=== PATIENT | female | born 1965 | race Caucasian/White ===

== ENCOUNTER → 2017-03-23 | Outpatient (CLI) | payer BC ==
[~2017-03-23] MED LIST: ALPR.25T GT; FLUO10CA19 PO; OMEG-12 PO; VIT D3 PO
--- NOTE | 2017-03-23 19:54 | Diagnostic Imaging Report ---
Digital mammogram bilateral screening with tomosynthesis. This study was compared to the prior exams of 07/16/2015 and 10/02/2013. At this time, there are no current complaints. The current study was also evaluated with a Computer Aided Detection (CAD) system. FINDINGS: There are scattered fibroglandular densities in both breasts which could obscure a lesion. When compared to the prior study, there has been no significant change. There is no primary or secondary sign of malignancy noted. The 3D tomographic views also fail to show any sign of malignancy. IMPRESSION: There is no evidence of malignancy. ACR BI-RADS Category 1: Negative. Result letter will be mailed to the patient. Note: At least 10% of breast cancer is not imaged by mammography. Dictated by: Dictated on workstation # [id number]
== END ==
LOC: RAD 07:32
PROVIDERS: ATTEND Obstetrics & Gynecology
DX: Z12.31 Encounter for screening mammogram for malignant neoplasm of breast (principal)
CPT/HCPCS: 77067

== ENCOUNTER → 2019-10-22 | Outpatient (CLI) | payer BC ==
--- NOTE | 2019-10-22 09:47 | Diagnostic Imaging Report ---
INDICATION: Screening for osteoporosis. COMPARISON: 07/16/2015. FINDINGS: The bone mineral density of the hips and spine was measured. The study was compared to the prior exam of 07/16/2015. The T score for the spine is -0.8. On the prior exam, the T score was -0.2. The total T score for the left hip is -0.2 and for the right hip -0.1. On the prior exam, the total T score for each hip was -0.1. The T score for the right femoral neck is -0.8. On the prior exam, the T score was -0.7. The T score for the left femoral neck is -1.4. This value is unchanged when compared to the prior study. AP Spine L1-L4: [BMD (g/cm2): 1.099] [T-Score: -0.8] [Z-Score: -0.8] [BMD Previous: 1.174] [BMD % Change: -6.4] LT Hip Neck: [BMD (g/cm2): 0.841] [T-Score: -1.4] [Z-Score: -0.9] LT Hip Total: [BMD (g/cm2):0.980] [T-Score:-0.2] [Z-Score: -0.1] [BMD Previous: 1.000] [BMD % Change: -2.0] RT Hip Neck: [BMD (g/cm2):0.920] [T-Score:-0.8] [Z-Score:-0.3] RT Hip Total: [BMD (g/cm2):0.990] [T-score:-0.1] [Z-Score:0.0] [BMD Previous:1.000] [BMD % Change:-1.0] *Indicates significant change from prior examination based on 95% confidence level. World Health Organization criteria for BMD interpretation classify patients as Normal (T-score at or above -1.0), Osteopenic (T-score between -1.0 and -2.5) or Osteoporotic (T-score at or below -2.5). LIMITATIONS AND MODIFICATION: None. FRACTURE RISK (FRAX SCORE): The ten year probability of (%): Major Osteoporotic Fracture: [NA] Hip Fracture: [NA] IMPRESSION: 1. 1. When compared to the prior exam, there has been no significant change. All with T score values remain within normal limits except for the T score for the left femoral neck. This value is still within the range of osteopenia. 2. See below National Osteoporosis Foundation guidelines on when to potentially initiate pharmacologic therapy. Based on the National Osteoporosis Foundation Guidelines, pharmacologic treatment should be initiated in any of the following, unless clinical conditions suggest otherwise: * Any patient with prior fragility fracture of the hip or vertebrae. A spine fracture indicates 5X risk for subsequent spine fracture and 2X risk for subsequent hip fracture. * Osteoporosis (T-score <-2.5). * Postmenopausal women and men age 50 and older with low bone mass/osteopenia (T-score between -1.0 and -2.5) by DXA and 10-year major osteoporotic fracture greater than 20% or a 10-year probability of hip fracture greater than 3%. These fracture risks are supplied above in the FRAX score, if applicable. * Clinician judgement and/or patient preferences may indicate treatment for people with 10-year fracture probabilities above or below these levels. Dictated by: Dictated on workstation # [id number]
--- NOTE | 2019-10-22 13:47 | Diagnostic Imaging Report ---
INDICATION: Routine screening. COMPARISON: 03/23/2017 and 07/16/2015. TECHNIQUE: 2D and 3D bilateral screening mammography was performed with CAD. FINDINGS: Scattered fibroglandular densities are identified bilaterally. An intraparenchymal lymph node in the upper outer right breast is stable. Intraparenchymal lymph nodes in the upper outer left breast are stable. No new mass or malignant appearing microcalcifications are seen. The axillae are unremarkable. IMPRESSION: No mammographic features suspicious for malignancy are identified. ACR BI-RADS Category 2: Benign findings. Result letter will be mailed to the patient. Note: At least 10% of breast cancer is not imaged by mammography. Dictated by: Dictated on workstation # [id number]
== END ==
LOC: RAD 08:52
PROVIDERS: ATTEND Obstetrics & Gynecology
DX: Z12.31 Encounter for screening mammogram for malignant neoplasm of breast (principal); Z13.820 Encounter for screening for osteoporosis; Z78.0 Asymptomatic menopausal state
CPT/HCPCS: 77067; 77080

== ENCOUNTER 2020-03-03 05:30 | Outpatient (RCR) | payer BC ==
[~2020-03-03] VITALS: Ht 167 cm; Wt 86.3 kg
[~2020-03-03 05:30] MED LIST changes: +ATOR10TA66 PO; +FLUT15.845 NS
== END 2020-03-03 14:24 | disposition home or self-care (01) ==
LOC: PREOP 05:30
PROVIDERS: ATTEND Internal Medicine
DX: Z01.812 Encounter for preprocedural laboratory examination (principal); Z20.828 Contact with and (suspected) exposure to other viral communicable diseases; Z88.0 Allergy status to penicillin; Z88.2 Allergy status to sulfonamides; Z12.11 Encounter for screening for malignant neoplasm of colon; Z80.0 Family history of malignant neoplasm of digestive organs
CPT/HCPCS: 87635

== ENCOUNTER 2020-03-06 09:45 | Day surgery (SDC) | payer BC ==
--- NOTE | 2020-02-24 08:28 | HISTORY AND PHYSICAL ---
DATE OF SERVICE: COLONOSCOPY HISTORY AND PHYSICAL HISTORY OF PRESENT ILLNESS PHYSICAL: The patient is a 54-year-old white female referred by Dr. Aguillon for screening colonoscopy. She is deemed to be of higher than average risk as her father was diagnosed with colon cancer at the age of 65, still living at the age of 80. She last accomplished colonoscopy a little over [address] Beatty. His report was reviewed and it was reportedly normal. She does recall waking up with the procedure and having some discomfort and so we will plan on doing this under Diprivan anesthesia. The patient reports history of hyperlipidemia with no known vascular disease. She was recently started on atorvastatin 10 mg three times weekly as she had episode of weakness attributed to previous use of Vytorin. FAMILY HISTORY: Father's history as noted above. Mother is living at age of 77 with history of coronary artery bypass, surgery at the age of 62. 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 PAST SURGICAL HISTORY: She has had a past history of benign breast biopsy and episiotomy repair 30 years ago. She reports no intra-abdominal surgery. REVIEW OF SYSTEMS: CONSTITUTIONAL: She has had no night sweats, chills, fever or change in weight. CARDIOVASCULAR: She denies chest discomfort, orthopnea, PND, pedal edema, dyspnea on exertion or arrhythmia. PULMONARY: She denies cough, wheezing, history of asthma or sputum production. GASTROINTESTINAL: She denies abdominal pain, bowel habit change, reflux symptoms, melena or bright red blood per rectum. PHYSICAL EXAMINATION: GENERAL: Reveals a white female, appears to be in no acute distress. HEENT: Unremarkable. Mallampati 3 pharyngeal configuration. VITAL SIGNS: Weight 191 and blood pressure 110/80. NECK: Revealed no JVD, adenopathy or bruits. CHEST: Clear to auscultation. CARDIOVASCULAR: Revealed a regular rate and rhythm without murmur, S3 or S4. ABDOMEN: Soft, supple without mass, organomegaly or tenderness. EXTREMITIES: Reveal no cyanosis, clubbing or edema. ASSESSMENT AND PLAN: The patient is set up for screening colonoscopy, deemed to be of higher than average risk considering first-degree relative with colon cancer, index case being her father diagnosed at the age of 65. Preop instructions with Suprep kit were given and questions were answered. I thank you for the referral of this pleasant lady. Job ID: [id number] DocumentID: [id number] Dictated Date: 02/19/2020 16:28:46 Head Start Coordinator Date: 02/19/2020 16:52:17 Dictated By: MIGUEL DALTON MD MTDD
[~2020-03-06] VITALS: Ht 167 cm; Wt 86.3 kg
[2020-03-06 08:53] VITALS: BP 110/79
[2020-03-06 09:27] VITALS: BP 102/60
--- NOTE | 2020-03-06 09:31 | Pre-Op Note & Conscious Sedat ---
Pre-Operative Progress Note H&P Reviewed The H&P was reviewed, patient examined and no changes noted. Date H&P Reviewed: Mar 06, 2020 Time H&P Reviewed: 09:00 Conscious Sedation Pre-Proced ASA Score 2 For ASA 3 and 4: Consider anesthesia and medical clearance. Also, for patients with a history of failed moderate sedation consider anesthesia. Airway Lungs Heart ASA score ASA 1: a normal healthy patient ASA 2: a patient with a mild systemic disease (mid diabetes, controlled hypertension, obesity ASA 3: a patient with a severe systemic disease that limits activity (angina, COPD, prior Myocardial infarction) ASA 4: a patient with an incapacitating disease that is a constant threat to life (CHF, renal failure) ASA 5: a moribund patient not expected to survive 24 hrs. (ruptured aneurysm) ASA 6: a declared brain- patient whose organs are being harvested. For emergent operations, add the letter E after the classification Mallampati Classification Grade 3 Sedation Plan Analgesia, Amnesia, Plan communicated to team members, Discussed options with patient/fam, Discussed risks with patient/fam The patient is an appropriate candidate to undergo the planned procedure, sedation, and anesthesia. The patient immediately re-assessed prior to indication. MIGUEL DALTON MD Mar 06, 2020 09:31
[~2020-03-06 09:45] MED LIST changes: +LACTATED RINGERS 1,000 ML IV ONE; +LACTATED RINGERS 1,000 ML IV STA; +LIDOCAINE JELLY 2% 6 ML SYRINGE MM PRN; +LIDOCAINE JELLY 2% 6 ML SYRINGE ONE; +PROPOFOL INJECTION 50 ML IV ONE
[2020-03-06 10:00] VITALS: BP 102/60
[2020-03-06 10:25] VITALS: BP 108/62
[2020-03-06 10:35] VITALS: BP 108/62
--- OUTSIDE RECORDS SUMMARY | 2020-03-06 17:09 | XMS REPORT | CCD ---
Author Author Sofia Aguillon D.O. 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 Name Role Phone PP Unavailable CCM Unavailable Summary Purpose Interface Exchange Insurance Providers Payer name Policy type / Coverage type Covered republican ID Effective Begin Date Effective End Date Blue Cross Blue Shield Blue Cross/Blue Shield [id number] Unknown Family History Family History data not found Social History Social History Element Codes Description Effective Dates Marital status Unknown 03/03/2011 Number of children Unknown 3 03/03/2011 Employment Unknown Currently employed [employer]/USD 250 03/03/[address]: 461615353 Never smoker 03/03/[address]: 876910164 Never drinks alcohol 2010 Allergies, Adverse Reactions, Alerts Substance Reaction Codes Entered Date Inactivated Date Status PENICILLINS Unknown 03/03/2011 No Inactive Date Active * NO KNOWN FOOD ALLERGIES Unknown 03/03/2011 No Inactiv e Date Active SULFA (SULFONAMIDES) Unknown 06/13/2013 No Inactive Aroldo e Active * NO KNOWN ENVIRONMENTAL ALLERGIES Unknown 03/03/2011 N o Inactive Date Active Problems Condition Codes Effective Dates Condition Status Allergic rhinitis due to allergen ICD-9: 477.9 ICD-10: J30.9 02/23/2018 Active Encounter for general adult medical examination withou t abnormal findings ICD-9: V70.0 ICD-10: Z00.00 09/04/2017 Active Mixed hyperlipidemia ICD-9: 272.4 ICD-10: E78.2 09/04/2017 Active Malaise and fatigue ICD-9: 780.79 ICD-10: R53.81 02/04/2020 Active SCREENING-PULMONARY TB ICD-9: V74.1 ICD-10: Z11.1 03/19/2018 Active Impacted cerumen, right ear ICD-9: 380.4 ICD-10: H61.21 02/23/2018 Active ANXIETY STATE NOS ICD-9: 300.00 01/12/2015 Active HYPERLIPIDEMIA NEC/NOS ICD-9: 272.4 01/07/2015 Active MALAISE AND FATIGUE ICD-9: 780.79 01/07/2015 Active ROUTINE MEDICAL EXAM ICD-9: V70.0 01/07/2015 Active ALLERGIC RHINITIS ICD-9: 477.9 05/15/2013 Active Changing mole ICD-9: 216.9 05/15/2013 Active Nasal lesion ICD-9: 478.19 05/15/2013 Active COUGH ICD-9: 786.2 11/07/2012 Active FEBRILE ILLNESS ICD-9: 780.60 11/07/2012 Active SINUSITIS, ACUTE ICD-9: 461.9 11/07/2012 Active INSOMNIA NOS ICD-9: 780.52 12/21/2011 Active Tinnitus ICD-9: 388.30 12/21/2011 Active ACUTE STRESS REACT ICD-9: 308.9 03/03/2011 Active Medications Medication Codes Instructions Start Date Stop Date Status Fill Instructions Flonase Allergy Relief 50 mcg/actuation nasal spray,suspensi on RxNorm: 8318093 2 [place] Nasal every night at bedtime 02/10/2020 02/10/2020 Inactive Flonase Allergy Relief 50 mcg/actuation nasal spray,suspensi on RxNorm: 4806893 2 [place] Nasal every night at bedtime 02/10/2020 02/09/2020 Inactive Flonase Allergy Relief 50 mcg/actuation nasal spray,suspensi on RxNorm: 9623685 2 [place] Nasal every night at bedtime 02/10/2020 02/09/2020 Inactive Alba Allergy 180 mg tablet RxNorm: 793206 1 Tablet(s) Oral QD 05/06/2020 Active Women's Multivitamin 18 mg iron-400 mcg-500 mg tablet RxNorm : 1 Tablet(s) Oral QD 02/06/2020 03/07/2020 Active Lipitor 10 mg tablet RxNorm: 926610 1 Tablet(s) Oral QD M, W, F 09/201905/06/2020 Active Lipitor 10 mg tablet RxNorm: 247541 1 Tablet(s) Oral QD M, W, F 09/201902/05/2020 Inactive Lipitor 10 mg tablet RxNorm: 655671 1 Tablet(s) Oral QD M, W, F 09/201902/05/2020 Inactive Alba Allergy 180 mg tablet RxNorm: 161768 1 Tablet(s) PO QD 02/0505/23/2018 Inactive Medrol (Vick) 4 mg tablets in a dose pack RxNorm: 097220 As directed Tablet(s) PO QD 02/23/2018 02/27/2018 Inactive alprazolam 0.25 mg tablet RxNorm: 415875 TAKE 1/2 TABLE T TWO TIMES A DAY NEEDED FOR SEVERE STRESS 03/27/2015 04/15/2015 Inactive fluoxetine 10 mg tablet RxNorm: 279821 3 Tablet(s) PO QAM 03/27/2015 09/06/2017 Inactive for 1week then 2 po qam alprazolam 0.25 mg tablet RxNorm: 670699 TAKE ONE-HALF TABLET BY MOUTH TWICE A DAY NEEDED FOR SEVERE STRESS 07/24/2014 03/27/2015 Inactive (Response to an electronic controlled substance refill request - RxReferenceNumber: [id number]) fluoxetine 10 mg tablet RxNorm: 801354 3 Tablet(s) PO QAM 05/26/2014 03/27/2015 Inactive for 1week then 2 po qAM [SAVINGS FOR UNI NSURED PATIENTS -- BIN:[id number], PCN: [id number], Group: [id number], ID# [id number], Process claim through [employer], for questions: . THIS IS NOT INSURANCE.] Bactrim DS 800 mg-160 mg tablet RxNorm: 179238 1 Tablet(s) PO BID 1 05/21/2013 Inactive prednisone 20 mg tablet RxNorm: 955056 1 Tablet(s) PO BID 05/15/2013 05/21/2013 Inactive Levaquin 750 mg tablet RxNorm: 616711 1 Tablet(s) PO BID 11/07/2012 0 11/16/2012 Inactive fluoxetine 10 mg tablet RxNorm: 703636 3 Tablet(s) PO QAM 09/18/2012 03/16/2013 Inactive for 1week then 2 po qAM fluoxetine 10 mg tablet RxNorm: 434616 3 Tablet(s) PO QAM 12/21/2011 06/12/2012 Inactive for 1week then 2 po qAM fluoxetine 10 mg Tab RxNorm: 728981 3 Tablet(s) PO QAM 10/20/2011 Inactive for 1week then 2 po qAM Vaniqa 13.9 % Topical Cream RxNorm: 207256 1 Application TOP BID 12/20/2011 Inactive fluoxetine 40 mg Cap RxNorm: 360657 1 Capsule(s) PO QD 09/28/2011 Inactive fluoxetine 10 mg Cap RxNorm: 473651 3 Capsule(s) PO QD 06/21/201107/2012 Inactive fluoxetine 10 mg Tab RxNorm: 453379 3 Tablet(s) PO QD 04/26/201105/07 Inactive Xanax 0.25 mg Tab RxNorm: 043507 1/2 Tablet(s) PO BID 03/03/201103/07 Inactive prn severe stress alprazolam 0.25 mg tablet RxNorm: 987288 1/2 Tablet(s) PO BID as needed for anxiety No Start Date 02/22/2018 Inactive Medrol (Vick) 4 mg tablets in a dose pack RxNorm: 438782 Tablet(s) PO as directed No Start Date 05/14/2013 Inactive Fish Oil 1,000 mg Cap RxNorm: 1 Capsule(s) PO BID No Start Date Inactive fluoxetine 10 mg Cap RxNorm: 864365 2 Capsule(s) PO QD No Start Date 06/20/2011 Inactive fluoxetine 10 mg Cap RxNorm: 313636 3 Capsule(s) PO QD No Start Date 09/27/2011 Inactive alprazolam 0.25 mg Tab RxNorm: 828411 1/2 Tablet(s) PO BID No Start Date 07/24/2014 Inactive as needed fluoxetine 10 mg Tab RxNorm: 953390 1 Tablet(s) PO QAM No Start Date 10/19/2011 Inactive for 1week then 2 po qAM Vaniqa 13.9 % Topical Cream RxNorm: 451667 1 Application TOP BID No Start Date 09/27/2011 Inactive fluoxetine 20 mg capsule RxNorm: 908821 1 Capsule(s) PO QD No Start Date 02/22/2018 Inactive Vitamin D3 1000 units Capsule RxNorm: 1 Capsule(s) PO QD No St art Date 09/06/2017 Inactive Prozac 20 mg capsule RxNorm: 363105 1 Capsule(s) PO QD No Start Date 07/23/2013 Inactive Medication Administered No Medication Administered data Immunizations Vaccine Codes Date Status Shingrix Unknown 01/15/2018 Complete Zostavax CVX: 121 11/16/2017 Results Observation Observation Code Item Item Code Result Date S ervice Location [facility] 55761 Cholesterol 232 mg/dL 02/04/2020 Unkno wn [facility] 50043 Triglyceride 126 mg/dL 02/04/2020 Unkn own [facility] 73585 HDL CHOLESTEROL 48 mg/dL 02/04/2020 U nknown [facility] 49963 Chol/HDL Ratio 4.83 ratio 02/04/2020 U nknown [facility] 41178 NON-HDL Chol 184 mg/dL 02/04/2020 Unkn own [facility] 56061 LDL Cholesterol 159 mg/dL 02/04/2020 U nknown GFR CALC [id number] GFR Non Afr Amr >60 mL/min 02/04/2020 Un known GFR CALC 4996946 GFR Afr Amr >60 mL/min 02/04/2020 Unknow n THYROID STIMULATING HORMONE 17742 TSH 1.616 uIU/mL 02/04/2020 Unknown FREE T4 20111 T4 Free 0.96 ng/dL 02/04/2020 Unknown COMPREHENSIVE METABOLIC 32119 AST 20 U/L 2019 Unknown COMPREHENSIVE METABOLIC 50202 ALT 32 U/L 2019 Unknown COMPREHENSIVE METABOLIC 75355 BUN 16 mg/dL 2019 Unknown COMPREHENS[facility] MET[facility]OLIC 02691 ALBUMIN 4.7 g/dL 2019 Unknown COMPREHENSIVE METABOLIC 64828 CHLORIDE 101 mmol/L 02/03 Unknown COMPREHENSIVE METABOLIC 92110 Bili Total 0.4 mg/dL 02/03 Unknown COMPREHENSIVE METABOLIC 05578 ALK PHOS 63 U/L 2019 Unknown COMPREHENSIVE METABOLIC 49088 SODIUM 138 mmol/L 02/03 Unknown COMPREHENSIVE METABOLIC 33749 CREATININE 0.65 mg/dL 01/07 Unknown COMPREHENSIVE METABOLIC 79335 CALCIUM 9.4 mg/dL 2019 Unknown COMPREHENSIVE METABOLIC 62413 POTASSIUM 4.0 mmol/L 02/03 Unknown COMPREHENSIVE METABOLIC 75562 Total Protein 7.3 g/dL Unknown COMPREHENSIVE METABOLIC 33725 Glucose 100 mg/dL 2019 Unknown COMPREHENSIVE METABOLIC 74213 Bicarbonate 27 mmol/L 01/07 Unknown COMPREHENSIVE METABOLIC 31774 AGAP 10 mmol/L 2019 Unknown COMPLETE BLOOD COUNT [id number] WBC 5.5 10e9/L 02/04/20 20 Unknown COMPLETE BLOOD COUNT [id number] RBC 4.56 10e12/L 2019 Unknown COMPLETE BLOOD COUNT 3455862 HEMOGLOBIN 14.5 g/dL 02/04/20 20 Unknown COMPLETE BLOOD COUNT [id number] HEMATOCRIT 44.1 % 02/04/20 20 Unknown COMPLETE BLOOD COUNT 6476505 MCV 96.7 fL 0 Unknown COMPLETE BLOOD COUNT [id number] MCH 31.8 pg 0 Unknown COMPLETE BLOOD COUNT 7321227 MCHC 32.9 g/dL 0 Unknown COMPLETE BLOOD COUNT 7202062 PLATELET COUNT 232 10e9/L Unknown COMPLETE BLOOD COUNT 9096673 Mean Plt Volume 11.4 fL Unknown COMPLETE BLOOD COUNT 2202302 Neut Auto 55.7 % 0 Unknown COMPLETE BLOOD COUNT [id number] Lymph Auto 31.3 % 02/04/20 20 Unknown COMPLETE BLOOD COUNT 7909618 Rowan Auto 10.0 % 0 Unknown COMPLETE BLOOD COUNT [id number] RDW 13.7 % 0 Unknown COMPLETE BLOOD COUNT 3786429 Eos Auto 2.5 % 0 Unknown COMPLETE BLOOD COUNT 3696213 Baso Auto 0.5 % 0 Unknown COMPLETE BLOOD COUNT 8409471 Neutrophil Abs 3.06 10e9/L Unknown COMPLETE BLOOD COUNT 5268349 Lymphocyte Abs 1.72 10e9/L Unknown COMPLETE BLOOD COUNT [id number] Monocyte Abs 0.55 10e9/L 01/07 Unknown COMPLETE BLOOD COUNT 1186292 Eosinophil Abs 0.14 10e9/L Unknown COMPLETE BLOOD COUNT [id number] RDW-SD 47.5 fL 0 Unknown COMPLETE BLOOD COUNT [id number] Basophil Abs 0.03 10e9/L 01/07 Unknown FREE T4 11525 T4 Free 1.25 ng/dL 09/04/2017 Unknown COMPLETE BLOOD COUNT [id number] WBC 5.9 10e9/L 09/04/19 18 Unknown COMPLETE BLOOD COUNT 4450030 RBC 4.35 10e12/L 2017 Unknown COMPLETE BLOOD COUNT 7639948 HEMOGLOBIN 14.0 g/dL 09/04/19 18 Unknown COMPLETE BLOOD COUNT 2479370 HEMATOCRIT 41.6 % 09/04/19 18 Unknown COMPLETE BLOOD COUNT 9020944 MCV 95.6 fL 8 Unknown COMPLETE BLOOD COUNT 0507267 MCH 32.2 pg 8 Unknown COMPLETE BLOOD COUNT 0262702 MCHC 33.7 g/dL 8 Unknown COMPLETE BLOOD COUNT 2797838 PLATELET COUNT 239 10e9/L Unknown COMPLETE BLOOD COUNT 4364107 Mean Plt Volume 10.8 fL Unknown COMPLETE BLOOD COUNT 8249745 Neut Auto 53.2 % 8 Unknown COMPLETE BLOOD COUNT 8683592 Lymph Auto 35.6 % 09/04/19 18 Unknown COMPLETE BLOOD COUNT 1001207 Rowan Auto 9.6 % 8 Unknown COMPLETE BLOOD COUNT 5202756 RDW 13.2 % 8 Unknown COMPLETE BLOOD COUNT 1729493 Eos Auto 1.4 % 8 Unknown COMPLETE BLOOD COUNT 5299481 Baso Auto 0.2 % 8 Unknown COMPLETE BLOOD COUNT [id number] Neutrophil Abs 3.14 10e9/L Unknown COMPLETE BLOOD COUNT [id number] Lymphocyte Abs 2.10 10e9/L Unknown COMPLETE BLOOD COUNT [id number] Monocyte Abs 0.57 10e9/L 08/08 Unknown COMPLETE BLOOD COUNT 3217912 Eosinophil Abs 0.08 10e9/L Unknown COMPLETE BLOOD COUNT 1443964 RDW-SD 44.7 fL 8 Unknown COMPLETE BLOOD COUNT [id number] Basophil Abs 0.01 10e9/L 08/08 Unknown COMPREHENSIVE METABOLIC 20346 AST 26 U/L 2017 Unknown COMPREHENSIVE METABOLIC 06975 ALT 40 U/L 2017 Unknown COMPREHENSIVE METABOLIC 14388 BUN 6 mg/dL 2017 Unknown COMPREHENSIVE METABOLIC 90728 ALBUMIN 5.3 g/dL 2017 Unknown COMPREHENSIVE METABOLIC 87694 CHLORIDE 102 mmol/L 09/04 Unknown COMPREHENSIVE METABOLIC 98848 Bili Total 0.7 mg/dL 09/04 Unknown COMPREHENSIVE METABOLIC 27695 ALK PHOS 56 U/L 2017 Unknown COMPREHENSIVE METABOLIC 94531 SODIUM 139 mmol/L 09/04 Unknown COMPREHENSIVE METABOLIC 48548 CREATININE 0.61 mg/dL 08/08 Unknown COMPREHENSIVE METABOLIC 36440 CALCIUM 9.8 mg/dL 2017 Unknown COMPREHENSIVE METABOLIC 59765 POTASSIUM 3.8 mmol/L 09/04 Unknown COMPREHENSIVE METABOLIC 79201 Total Protein 7.7 g/dL Unknown COMPREHENSIVE METABOLIC 56416 Glucose 95 mg/dL 2017 Unknown COMPREHENSIVE METABOLIC 01368 Bicarbonate 30 mmol/L 08/08 Unknown COMPREHENSIVE METABOLIC 75465 AGAP 7 mmol/L 2017 Unknown GFR CALC 0582760 GFR Non Afr Amr >60 mL/min 09/04/2017 Un known GFR CALC 5308248 GFR Afr Amr >60 mL/min 09/04/2017 Unknow n THYROID STIMULATING HORMONE 62367 TSH 1.454 uIU/mL 09/04/2017 Unknown [facility] 74630 Cholesterol 218 mg/dL 09/04/2017 Unkno wn [facility] 57894 Triglyceride 135 mg/dL 09/04/2017 Unkn own [facility] 21662 HDL CHOLESTEROL 52 09/04/2017 U nknown [facility] 61920 Chol/HDL Ratio 4.19 ratio 09/04/2017 U nknown [facility] 28263 NON-HDL Chol 166 mg/dL 09/04/2017 Unkn own [facility] 43421 LDL Cholesterol 139 mg/dL 09/04/2017 U nknown FREE T4 25024 FREE T4 1.15 NG/DL 01/07/2015 Unknown THYROID STIMULATING HORMONE 87058 TSH 1.927 uIU/ML 01/07/2015 Unknown [facility] 35303 HDL TEST 53 MG/DL 01/07/2015 Unknown [facility] 53924 TRIG 215 MG/DL 01/07/2015 Unknown [facility] 69517 TEST LDL 194 MG/DL 01/07/2015 Unknown [facility] 07186 CHOL 290 MG/DL 01/07/2015 Unknown [facility] 74895 RCHOL/HDL 5.47 RATIO 01/07/2015 Unknow n [facility] 80262 NON-HDL CH 237 MG/DL 01/07/2015 Unknow n GFR CALC 2829036 GFR AA >60 ML/MIN 01/07/2015 Unknown GFR CALC 3023512 GFR NON-AA >60 ML/MIN 01/07/2015 Unknown COMPLETE BLOOD COUNT 5785844 WBC 5.9 10e9/L 01/08/20 15 Unknown COMPLETE BLOOD COUNT [id number] RBC 4.35 10e12/L 2014 Unknown COMPLETE BLOOD COUNT 8377342 HGB 14.2 g/dL 5 Unknown COMPLETE BLOOD COUNT 3213939 HCT DET 42.0 % 5 Unknown COMPLETE BLOOD COUNT 5652705 MCV 96.6 fL 5 Unknown COMPLETE BLOOD COUNT 7166871 MCH 32.6 pg 5 Unknown COMPLETE BLOOD COUNT 1373896 MCHC 33.8 g/dL 5 Unknown COMPLETE BLOOD COUNT 5662534 PLT 227 10e9/L 01/08/20 15 Unknown COMPLETE BLOOD COUNT 6923350 MPV 11.4 fL 5 Unknown COMPLETE BLOOD COUNT 3656399 PRITI % 54.2 % 5 Unknown COMPLETE BLOOD COUNT 8256072 LY % 33.8 % 5 Unknown COMPLETE BLOOD COUNT 0929820 MON % 8.8 % 5 Unknown COMPLETE BLOOD COUNT 4177802 EOS % 2.9 % 5 Unknown COMPLETE BLOOD COUNT 7684062 BASO % 0.3 % 5 Unknown COMPLETE BLOOD COUNT 2370526 RDW 13.6 % 5 Unknown COMPLETE BLOOD COUNT [id number] ABS PRITI 3.20 10e9/L 015 Unknown COMPLETE BLOOD COUNT 1981376 ABS LYMPH 1.99 10e9/L 015 Unknown COMPLETE BLOOD COUNT 3294891 ABS MONO 0.52 10e9/L 015 Unknown COMPLETE BLOOD COUNT 8296988 ABS EOS 0.17 10e9/L 015 Unknown COMPLETE BLOOD COUNT [id number] ABS BASO 0.02 10e9/L 015 Unknown COMPLETE BLOOD COUNT 2796245 RDW-SD 47.0 fL 5 Unknown COMPREHENSIVE METABOLIC 10788 AST 20 U/L 2014 Unknown COMPREHENSIVE METABOLIC 80602 ALT 30 IU/L 2014 Unknown COMPREHENSIVE METABOLIC 33509 BUN 12 MG/DL 2014 Unknown COMPREHENSIVE METABOLIC 30337 ALBUMIN 4.4 GM/DL 2014 Unknown COMPREHENSIVE METABOLIC 51192 CHLORIDE 102 MMOL/L 01/07 Unknown COMPREHENSIVE METABOLIC 76949 BILI TOT 0.6 MG/DL 2014 Unknown COMPREHENSIVE METABOLIC 58844 ALK PHOS 76 U/L 2014 Unknown COMPREHENSIVE METABOLIC 70712 SODIUM 139 MMOL/L 01/07 Unknown COMPREHENSIVE METABOLIC 33724 CREATININE 0.77 MG/DL 10/2014 Unknown COMPREHENSIVE METABOLIC 29373 CALCIUM 9.2 MG/DL 2014 Unknown COMPREHENSIVE METABOLIC 38262 POTASSIUM 4.1 MMOL/L 01/07 Unknown COMPREHENSIVE METABOLIC 75722 PROT TOT 7.1 GM/DL 2014 Unknown COMPREHENSIVE METABOLIC 62525 Glucose 107 MG/DL 2014 Unknown COMPREHENSIVE METABOLIC 91189 BICARB 30 MMOL/L 2014 Unknown COMPREHENSIVE METABOLIC 12626 ANION GAP 7 MEQ/L 2014 Unknown [facility] 55329 HDL TEST 48 MG/DL 07/22/2013 Unknown [facility] 04120 TRIG 176 MG/DL 07/22/2013 Unknown [facility] 23461 TEST LDL 161 MG/DL 07/22/2013 Unknown [facility] 81421 CHOL 244 MG/DL 07/22/2013 Unknown [facility] 54363 RCHOL/HDL 5.08 RATIO 07/22/2013 Unknow n COMPLETE BLOOD COUNT 8311063 WBC 5.8 10e9/L 07/22/20 13 Unknown COMPLETE BLOOD COUNT [id number] RBC 4.45 10e12/L 2012 Unknown COMPLETE BLOOD COUNT 7882535 HGB 14.6 g/dL 3 Unknown COMPLETE BLOOD COUNT 0317448 HCT DET 43.8 % 3 Unknown COMPLETE BLOOD COUNT 3016838 MCV 98.4 fL 3 Unknown COMPLETE BLOOD COUNT 8822125 MCH 32.8 pg 3 Unknown COMPLETE BLOOD COUNT 1307985 MCHC 33.3 g/dL 3 Unknown COMPLETE BLOOD COUNT 0506476 PLT 270 10e9/L 07/22/20 13 Unknown COMPLETE BLOOD COUNT 6776883 MPV 11.4 fL 3 Unknown COMPLETE BLOOD COUNT 3897017 PRITI % 54.2 % 3 Unknown COMPLETE BLOOD COUNT 6598477 LY % 33.2 % 3 Unknown COMPLETE BLOOD COUNT 2229045 MON % 9.2 % 3 Unknown COMPLETE BLOOD COUNT 5901797 EOS % 3.1 % 3 Unknown COMPLETE BLOOD COUNT 6399618 BASO % 0.3 % 3 Unknown COMPLETE BLOOD COUNT 6608260 RDW 13.8 % 3 Unknown COMPLETE BLOOD COUNT 6869464 ABS PRITI 3.14 10e9/L 013 Unknown COMPLETE BLOOD COUNT 9506252 ABS LYMPH 1.93 10e9/L 013 Unknown COMPLETE BLOOD COUNT [id number] ABS MONO 0.53 10e9/L 013 Unknown COMPLETE BLOOD COUNT [id number] ABS EOS 0.18 10e9/L 013 Unknown COMPLETE BLOOD COUNT 1205749 ABS BASO 0.02 10e9/L 013 Unknown COMPLETE BLOOD COUNT 3144471 RDW-SD 48.4 fL 3 Unknown GFR CALC 2711260 GFR AA >60 ML/MIN 07/22/2013 Unknown GFR CALC 4323694 GFR NON-AA >60 ML/MIN 07/22/2013 Unknown THYROID STIMULATING HORMONE 16279 TSH 1.645 uIU/ML 07/22/2013 Unknown COMPREHENSIVE METABOLIC 12112 AST 23 U/L 2012 Unknown COMPREHENSIVE METABOLIC 96540 ALT 30 IU/L 2012 Unknown COMPREHENSIVE METABOLIC 25913 BUN 12 MG/DL 2012 Unknown COMPREHENSIVE METABOLIC 21845 ALBUMIN 4.7 GM/DL 2012 Unknown COMPREHENSIVE METABOLIC 70817 CHLORIDE 102 MMOL/L 07/22 Unknown COMPREHENSIVE METABOLIC 34514 BILI TOT 0.5 MG/DL 2012 Unknown COMPREHENSIVE METABOLIC 43107 ALK PHOS 51 U/L 2012 Unknown COMPREHENSIVE METABOLIC 39814 SODIUM 136 MMOL/L 07/22 Unknown COMPREHENSIVE METABOLIC 06652 CREATININE 0.74 MG/DL 07/07 Unknown COMPREHENSIVE METABOLIC 42721 CALCIUM 9.2 MG/DL 2012 Unknown COMPREHENSIVE METABOLIC 44515 POTASSIUM 4.1 MMOL/L 07/22 Unknown COMPREHENSIVE METABOLIC 68227 PROT TOT 7.1 GM/DL 2012 Unknown COMPREHENSIVE METABOLIC 12889 Glucose 107 MG/DL 2012 Unknown COMPREHENSIVE METABOLIC 01852 BICARB 29 MMOL/L 2012 Unknown COMPREHENSIVE METABOLIC 25770 ANION GAP 5 MEQ/L 2012 Unknown FREE T4 05069 FREE T4 0.98 NG/DL 07/22/2013 Unknown COMPLETE BLOOD COUNT [id number] WBC 4.4 10e9/L 06/11/20 12 Unknown COMPLETE BLOOD COUNT [id number] RBC 4.18 10e12/L 2011 Unknown COMPLETE BLOOD COUNT 0903393 HGB 13.5 g/dL 2 Unknown COMPLETE BLOOD COUNT 5234514 HCT DET 39.9 % 2 Unknown COMPLETE BLOOD COUNT 5122918 MCV 95.5 fL 2 Unknown COMPLETE BLOOD COUNT 2492199 MCH 32.3 pg 2 Unknown COMPLETE BLOOD COUNT 9308407 MCHC 33.8 g/dL 2 Unknown COMPLETE BLOOD COUNT 1987278 PLT 232 10e9/L 06/11/20 12 Unknown COMPLETE BLOOD COUNT 3926309 MPV 11.3 fL 2 Unknown COMPLETE BLOOD COUNT 2212632 PRITI % 46.4 % 2 Unknown COMPLETE BLOOD COUNT 9158263 LY % 36.4 % 2 Unknown COMPLETE BLOOD COUNT 8844501 MON % 10.5 % 2 Unknown COMPLETE BLOOD COUNT 1839848 EOS % 6.2 % 2 Unknown COMPLETE BLOOD COUNT 0828308 BASO % 0.5 % 2 Unknown COMPLETE BLOOD COUNT 4535350 RDW 13.1 % 2 Unknown COMPLETE BLOOD COUNT 5783450 ABS PRITI 2.04 10e9/L 012 Unknown COMPLETE BLOOD COUNT 7412453 ABS LYMPH 1.60 10e9/L 012 Unknown COMPLETE BLOOD COUNT 4721189 ABS MONO 0.46 10e9/L 012 Unknown COMPLETE BLOOD COUNT [id number] ABS EOS 0.27 10e9/L 012 Unknown COMPLETE BLOOD COUNT 4333186 ABS BASO 0.02 10e9/L 012 Unknown COMPLETE BLOOD COUNT 1789149 RDW-SD 44.2 fL 2 Unknown THYROID STIMULATING HORMONE 94001 TSH 1.766 uIU/ML 06/11/2012 Unknown COMPREHENSIVE METABOLIC 52646 AST 20 U/L 2011 Unknown COMPREHENSIVE METABOLIC 26107 ALT 23 IU/L 2011 Unknown COMPREHENSIVE METABOLIC 88985 BUN 10 MG/DL 2011 Unknown COMPREHENSIVE METABOLIC 21773 ALBUMIN 4.3 GM/DL 2011 Unknown COMPREHENSIVE METABOLIC 23395 CHLORIDE 103 MMOL/L 06/11 Unknown COMPREHENSIVE METABOLIC 98796 BILI TOT 0.4 MG/DL 2011 Unknown COMPREHENSIVE METABOLIC 77467 ALK PHOS 52 U/L 2011 Unknown COMPREHENSIVE METABOLIC 76806 SODIUM 138 MMOL/L 06/11 Unknown COMPREHENSIVE METABOLIC 07651 CREATININE 0.74 MG/DL 12/2011 Unknown COMPREHENSIVE METABOLIC 34763 CALCIUM 8.8 MG/DL 2011 Unknown COMPREHENSIVE METABOLIC 71606 POTASSIUM 3.7 MMOL/L 06/11 Unknown COMPREHENSIVE METABOLIC 58999 PROT TOT 6.9 GM/DL 2011 Unknown COMPREHENSIVE METABOLIC 32877 Glucose 105 MG/DL 2011 Unknown COMPREHENSIVE METABOLIC 58066 BICARB 29 MMOL/L 2011 Unknown COMPREHENSIVE METABOLIC 73070 ANION GAP 6 MEQ/L 2011 Unknown FREE T4 21293 FREE T4 0.93 NG/DL 06/11/2012 Unknown LIPID GROUP 59751 HDL TEST 39 MG/DL 06/11/2012 Unknown LIPID GROUP 71956 TRIG 243 MG/DL 06/11/2012 Unknown LIPID GROUP 26908 TEST LDL 159 MG/DL 06/11/2012 Unknown LIPID GROUP 81417 CHOL 247 MG/DL 06/11/2012 Unknown LIPID GROUP 39105 RCHOL/HDL 6.33 RATIO 06/11/2012 Unknow n GFR CALC 8667264 GFR AA >60 ML/MIN 06/11/2012 Unknown GFR CALC 3212681 GFR NON-AA >60 ML/MIN 06/11/2012 Unknown VITAMIN D TOTAL (25 HYDROXY) 40690 VIT D TOTL 19 NG/ML 03/04/2011 Unknown COMPLETE BLOOD COUNT 28857 WBC 8.0 10e9/L 03/03/20 11 Unknown COMPLETE BLOOD COUNT 39965 RBC 4.62 10e12/L 2010 Unknown COMPLETE BLOOD COUNT 65998 HGB 14.9 g/dL 1 Unknown COMPLETE BLOOD COUNT 64979 HCT DET 43.6 % 1 Unknown COMPLETE BLOOD COUNT 34652 MCV 94.4 fL 1 Unknown COMPLETE BLOOD COUNT 04037 MCH 32.3 pg 1 Unknown COMPLETE BLOOD COUNT 75430 MCHC 34.2 g/dL 1 Unknown COMPLETE BLOOD COUNT 08993 PLT 236 10e9/L 03/03/20 11 Unknown COMPLETE BLOOD COUNT 81201 MPV 11.0 fL 1 Unknown COMPLETE BLOOD COUNT 67542 PRITI % 66.3 % 1 Unknown COMPLETE BLOOD COUNT 00137 LY % 20.7 % 1 Unknown COMPLETE BLOOD COUNT 75723 MON % 9.2 % 1 Unknown COMPLETE BLOOD COUNT 37972 EOS % 3.5 % 1 Unknown COMPLETE BLOOD COUNT 78020 BASO % 0.3 % 1 Unknown COMPLETE BLOOD COUNT 79993 RDW 13.5 % 1 Unknown COMPLETE BLOOD COUNT 76448 ABS PRITI 5.30 10e9/L 011 Unknown COMPLETE BLOOD COUNT 16587 ABS LYMPH 1.66 10e9/L 011 Unknown COMPLETE BLOOD COUNT 62804 ABS MONO 0.74 10e9/L 011 Unknown COMPLETE BLOOD COUNT 69716 ABS EOS 0.28 10e9/L 011 Unknown COMPLETE BLOOD COUNT 48076 ABS BASO 0.02 10e9/L 011 Unknown COMPLETE BLOOD COUNT 97749 RDW-SD 45.1 fL 1 Unknown THYROID STIMULATING HORMONE 39859 TSH 1.944 uIU/ML 03/03/2011 Unknown FREE T4 32811 FREE T4 1.04 NG/DL 03/03/2011 Unknown LIPID GROUP 82963 HDL TEST 50 MG/DL 03/03/2011 Unknown LIPID GROUP 86950 TRIG 246 MG/DL 03/03/2011 Unknown LIPID GROUP 06372 TEST LDL 213 MG/DL 03/03/2011 Unknown LIPID GROUP 51611 CHOL 312 MG/DL 03/03/2011 Unknown LIPID GROUP 93147 RCHOL/HDL 6.24 RATIO 03/03/2011 Unknow n GFR CALC 6648982 GFR AA >60 ML/MIN 03/03/2011 Unknown GFR CALC 5597188 GFR NON-AA >60 ML/MIN 03/03/2011 Unknown COMPREHENSIVE METABOLIC 07221 AST 15 U/L 2010 Unknown COMPREHENSIVE METABOLIC 33091 ALT 21 IU/L 2010 Unknown COMPREHENSIVE METABOLIC 21533 BUN 14 MG/DL 2010 Unknown COMPREHENSIVE METABOLIC 85672 ALBUMIN 4.5 GM/DL 2010 Unknown COMPREHENSIVE METABOLIC 81018 CHLORIDE 99 MMOL/L 2010 Unknown COMPREHENSIVE METABOLIC 22278 BILI TOT 0.6 MG/DL 2010 Unknown COMPREHENSIVE METABOLIC 17053 ALK PHOS 55 U/L 2010 Unknown COMPREHENSIVE METABOLIC 31104 SODIUM 134 MMOL/L 03/03 Unknown COMPREHENSIVE METABOLIC 53713 CREATININE 0.80 MG/DL 02/05 Unknown COMPREHENSIVE METABOLIC 27825 CALCIUM 9.4 MG/DL 2010 Unknown COMPREHENSIVE METABOLIC 54642 POTASSIUM 4.0 MMOL/L 03/03 Unknown COMPREHENSIVE METABOLIC 09185 PROT TOT 7.4 GM/DL 2010 Unknown COMPREHENSIVE METABOLIC 37167 Glucose 101 MG/DL 2010 Unknown COMPREHENSIVE METABOLIC 25172 BICARB 28 MMOL/L 2010 Unknown COMPREHENSIVE METABOLIC 97173 ANION GAP 7 MEQ/L 2010 Unknown Procedures Procedure Codes Date ROUTINE VENIPUNCTURE CPT-4: 01779 02/04/2020 ASSAY OF FREE THYROXINE CPT-4: 21351 02/04/2020 ASSAY THYROID STIM HORMONE CPT-4: 98771 02/04/2020 COMPREHEN METABOLIC PANEL CPT-4: 20331 02/04/2020 COMPLETE CBC W/AUTO DIFF WBC CPT-4: 81796 02/04/2020 LIPID PANEL CPT-4: 84152 02/04/2020 TB INTRADERMAL TEST CPT-4: 58378 03/19/2018 Removal impacted cerumen using irrigation/lavage, unilateral CPT-4: 27743 02/23/2018 ROUTINE VENIPUNCTURE CPT-4: 06650 09/04/2017 ASSAY THYROID STIM HORMONE CPT-4: 55319 09/04/2017 ASSAY OF FREE THYROXINE CPT-4: 69634 09/04/2017 COMPREHEN METABOLIC PANEL CPT-4: 69450 09/04/2017 COMPLETE CBC W/AUTO DIFF WBC CPT-4: 56016 09/04/2017 LIPID PANEL CPT-4: 39813 09/04/2017 ROUTINE VENIPUNCTURE CPT-4: 81027 01/07/2015 ASSAY OF FREE THYROXINE CPT-4: 13352 01/07/2015 ASSAY THYROID STIM HORMONE CPT-4: 15454 01/07/2015 COMPREHEN METABOLIC PANEL CPT-4: 17641 01/07/2015 COMPLETE CBC W/AUTO DIFF WBC CPT-4: 39022 01/07/2015 LIPID PANEL CPT-4: 94286 01/07/2015 EXC TR-EXT B9+CECILIO 0.5 CM< CPT-4: 39921 08/06/2013 ROUTINE VENIPUNCTURE CPT-4: 04711 07/22/2013 ASSAY OF FREE THYROXINE CPT-4: 62647 07/22/2013 ASSAY THYROID STIM HORMONE CPT-4: 14636 07/22/2013 COMPREHEN METABOLIC PANEL CPT-4: 43773 07/22/2013 COMPLETE CBC W/AUTO DIFF WBC CPT-4: 53747 07/22/2013 LIPID PANEL CPT-4: 54596 07/22/2013 INFLUENZA ASSAY W/OPTIC CPT-4: 62424 11/07/2012 ROUTINE VENIPUNCTURE CPT-4: 28047 06/11/2012 ASSAY OF FREE THYROXINE CPT-4: 74199 06/11/2012 ASSAY THYROID STIM HORMONE CPT-4: 95965 06/11/2012 COMPREHEN METABOLIC PANEL CPT-4: 65083 06/11/2012 COMPLETE CBC W/AUTO DIFF WBC CPT-4: 26916 06/11/2012 LIPID PANEL CPT-4: 77590 06/11/2012 ROUTINE VENIPUNCTURE CPT-4: 44873 03/03/2011 ASSAY OF FREE THYROXINE CPT-4: 65513 03/03/2011 ASSAY THYROID STIM HORMONE CPT-4: 96819 03/03/2011 COMPREHEN METABOLIC PANEL CPT-4: 65298 03/03/2011 COMPLETE CBC W/AUTO DIFF WBC CPT-4: 77896 03/03/2011 LIPID PANEL CPT-4: 33591 03/03/2011 VITAMIN D TOTAL (25 HYDROXY) CPT-4: 46397 03/03/2011 Vital Signs Date Vital 02/06/2020 Blood Pressure 1: 124/67 Code: 8480-6 BMI: 26.6 Code: 69337-6 Heart Rate 1: 16 bpm Height: 5'6" Respiratory Rate: 17 bpm SpO2: 99% Tempera ture: 36.8 (C) / 98.2 (F) Weight: 165 lbs 02/23/2018 Blood Pressure 1: 132/84 Code: 8480-6 BMI: 31.6 Code: 29256-0 Heart Rate 1: 76 bpm Height: 5'6" Respiratory Rate: 20 bpm SpO2: 98% Tempera ture: 36.9 (C) / 98.4 (F) Weight: 199 lbs 09/07/2017 Blood Pressure 1: 126/78 Code: 8480-6 BMI: 30.5 Code: 46431-6 Heart Rate 1: 80 bpm Height: 5'6" Respiratory Rate: 20 bpm SpO2: 98% Tempera ture: 37.2 (C) / 98.9 (F) Weight: 192 lbs 01/12/2015 Blood Pressure 1: 132/74 Code: 8480-6 BMI: 29.4 Code: 68910-8 Heart Rate 1: 92 bpm Height: 5'6" Respiratory Rate: 20 bpm Temperature: 36 .7 (C) / 98.1 (F) Weight: 185 lbs 08/06/2013 Blood Pressure 1: 114/80 Code: 8480-6 BMI: 30.7 Code: 79051-6 Heart Rate 1: 80 bpm Height: 5'6" Respiratory Rate: 20 bpm Temperature: 37 .2 (C) / 99.0 (F) Weight: 193 lbs 07/24/2013 Blood Pressure 1: 124/68 Code: 8480-6 BMI: 30.7 Code: 95848-7 Heart Rate 1: 80 bpm Height: 5'6" Respiratory Rate: 20 bpm Temperature: 36 .9 (C) / 98.5 (F) Weight: 193 lbs 06/13/2013 Blood Pressure 1: 124/70 Code: 8480-6 BMI: 31.8 Code: 96049-9 Heart Rate 1: 88 bpm Height: 5'6" Respiratory Rate: 20 bpm Temperature: 36 .8 (C) / 98.2 (F) Weight: 200 lbs 05/15/2013 Blood Pressure 1: 120/80 Code: 8480-6 BMI: 30.8 Code: 69008-0 Heart Rate 1: 82 bpm Height: 5'6" Respiratory Rate: 22 bpm Temperature: 36 .2 (C) / 97.1 (F) Weight: 194 lbs 11/07/2012 Blood Pressure 1: 146/88 Code: 8480-6 BMI: 31.0 Code: 37162-8 Heart Rate 1: 108 bpm Height: 5'7" Respiratory Rate: 20 bpm SpO2: 95% Tempera ture: 38.2 (C) / 100.8 (F) Weight: 198 lbs 09/18/2012 Blood Pressure 1: 114/76 Code: 8480-6 Heart Rate 1: 88 bpm Respiratory Rate: 20 bpm Temperature: 37.1 (C) / 98.8 (F) Weight: 195 lbs 06/13/2012 Blood Pressure 1: 110/64 Code: 8480-6 BMI: 30.4 Code: 88497-5 Heart Rate 1: 64 bpm Height: 5'7" Temperature: 36.9 (C) / 98.4 (F) Weight: 194 lbs 12/21/2011 Blood Pressure 1: 116/80 Code: 8480-6 BMI: 30.7 Code: 82186-2 Heart Rate 1: 72 bpm Height: 5'7" Respiratory Rate: 20 bpm Temperature: 37 .0 (C) / 98.6 (F) Weight: 196 lbs 09/28/2011 Blood Pressure 1: 116/78 Code: 8480-6 BMI: 29.6 Code: 33489-6 Heart Rate 1: 88 bpm Height: 5'7" Respiratory Rate: 20 bpm Temperature: 36 .9 (C) / 98.5 (F) Weight: 189 lbs 04/06/2011 Blood Pressure 1: 132/80 Code: 8480-6 Heart Rate 1: 72 bpm Respiratory Rate: 20 bpm Temperature: 37.2 (C) / 99.0 (F) Weight: 185 lbs 03/03/2011 Blood Pressure 1: 114/80 Code: 8480-6 BMI: 29.6 Code: 34227-5 Heart Rate 1: 80 bpm Height: 5'7" Respiratory Rate: 18 bpm Temperature: 37 .0 (C) / 98.6 (F) Weight: 189 lbs Functional Status No Functional Status data Reason For Visit Reason For Visit Effective Dates Notes well woman exam (40-65 years) 02/06/2020 follow up 03/21/2018 TB Test Reading injection(s) 03/19/2018 TB for School otalgia 02/23/2018 Patient was treated by urgent care with cefdinir to cover for sinus infection. She finished it up about a week ago Annual Checkup 09/07/2017 Last normal mammogra m summer, colonoscopy at age 49 and recommended repeat in 5 years due to family history of colon cancer, never had bone density lab draw 09/04/2017 Annual Checkup 01/12/2015 Wellness Physical lab draw 01/07/2015 mole check 08/06/2013 Annual Checkup 07/24/2013 Wellness Physical lab draw 07/22/2013 mole check 06/13/2013 Re-evaluate mole to right side of nose. Has pending appointment with Dr Low next week for removal skin lesion 05/15/2013 nose myalgias 11/07/2012 anxiety 09/18/2012 Discuss restarting t he fluoxetine ~generic 06/13/2012 4 month follow up lab draw 06/11/2012 follow up 12/21/2011 3mo fwup depression 09/28/2011 follow up 04/06/2011 1mo fwup ~generic 03/03/2011 Establishing Visit Encounters Encounter Performer Location Codes Date ([id number]) PREV VISIT EST AGE 40-64 Diagnosis: Encounter for general adult medical examination without abnormal findings[ICD10: Z00.00] Diagnosis: Mixed hyperlipidemia[ICD10: E78.2] Diagnosis: Allergic rhinitis due to allergen[ICD10: J30.9] Ophelia Bliss [employer] CPT-4: 25529 02/06/2020 ([id number]) NURSE/OUTPATIENT VISIT EST Diagnosis: Encounter for general adult medical examination without abnormal findings[ICD10: Z00.00] Diagnosis: Malaise and fatigue[ICD10: R53.81] Diagnosis: Mixed hyperlipidemia[ICD10: E78.2] Ophelia MCCORD [employer] CPT-4: 50340 02/04/2020 ([id number]) NURSE/OUTPATIENT VISIT EST Diagnosis: SCREENING-PULMONARY TB[ICD10: Z11.1] Ophelia Bliss [employer] CPT-4: 98600 03/19/2018 OFFICE/OUTPATIENT VISIT EST Diagnosis: Allergic rhinitis, unspecified[ICD10: J30.9] Diagnosis: Impacted cerumen, right ear[ICD10: H61.21] Cassandra Bliss [employer] CPT-4: 42883 02/23/2018 ([id number]) PREV VISIT EST AGE 40-64 Diagnosis: Encounter for general adult medical examination without abnormal findings[ICD10: Z00.00] Diagnosis: Mixed hyperlipidemia[ICD10: E78.2] Ophelia MCCORD [employer] CPT-4: 35291 09/07/2017 ([id number]) OFFICE/OUTPATIENT VISIT EST Diagnosis: Encounter for general adult medical examination without abnormal findings[ICD10: Z00.00] Diagnosis: Mixed hyperlipidemia[ICD10: E78.2] Ophelia ORTAJUDY AGUILLON DO [facility] CPT-4: 90650 09/04/2017 ([id number]) PREV VISIT EST AGE 40-64 Diagnosis: ROUTINE MEDICAL EXAM[ICD9: V70.0] Diagnosis: HYPERLIPIDEMIA NEC/NOS[ICD9: 272.4] Diagnosis: ANXIETY STATE NOS[ICD9: 300.00] Ophelia AGUILLON DO [facility] CPT-4: 33671 01/12/2015 ([id number]) OFFICE/OUTPATIENT VISIT EST Diagnosis: ROUTINE MEDICAL EXAM[ICD9: V70.0] Diagnosis: MALAISE AND FATIGUE[ICD9: 780.79] Diagnosis: HYPERLIPIDEMIA NEC/NOS[ICD9: 272.4] Ophelia TRUONG Izaiah AGUILLON [employer] CPT-4: 35969 01/07/2015 ([id number]) PREV VISIT EST AGE 40-64 Diagnosis: ROUTINE MEDICAL EXAM[ICD9: V70.0] Diagnosis: HYPERLIPIDEMIA NEC/NOS[ICD9: 272.4] Diagnosis: ANXIETY STATE NOS[ICD9: 300.00] Ophelia AGUILLON DO [place] CPT-4: 78193 07/24/2013 ([id number]) OFFICE/OUTPATIENT VISIT EST Diagnosis: HYPERLIPIDEMIA NEC/NOS[ICD9: 272.4] Diagnosis: ROUTINE MEDICAL EXAM[ICD9: V70.0] Ophelia ISLAS Darlene AGUILLON [employer] CPT-4: 48369 07/22/2013 ([id number]) OFFICE/OUTPATIENT VISIT EST Diagnosis: BENIGN KACEY SKIN[ICD9: 216.9] Ophelia Aguillon OPHELIA Izaiah AGUILLON DO [place] CPT-4: 04428 06/13/2013 ([id number]) OFFICE/OUTPATIENT VISIT EST Diagnosis: Nasal lesion[ICD9: 478.19] Diagnosis: Changing mole[ICD9: 216.9] Diagnosis: ALLERGIC RHINITIS[ICD9: 477.9] Ophelia Pal AGUILLON DO [facility] CPT-4: 54949 05/15/2013 OFFICE/OUTPATIENT VISIT EST Diagnosis: COUGH[ICD9: 786.2] Diagnosis: FEBRILE ILLNESS[ICD9: 780.60] Diagnosis: SINUSITIS, ACUTE[ICD9: 461.9] Ophelia AGUILLON DO [facility] CPT-4: 03978 11/07/2012 OFFICE/OUTPATIENT VISIT EST Diagnosis: ACUTE STRESS REACT[ICD9: 308.9] Diagnosis: ANXIETY STATE NOS[ICD9: 300.00] Ophelia AGUILLON DO [facility] CPT-4: 75824 09/18/2012 ([id number]) PREV VISIT EST AGE 40-64 Diagnosis: ROUTINE MEDICAL EXAM[ICD9: V70.0] Diagnosis: HYPERLIPIDEMIA NEC/NOS[ICD9: 272.4] Diagnosis: ANXIETY STATE NOS[ICD9: 300.00] Ophelia AGUILLON DO [facility] CPT-4: 89799 06/13/2012 ([id number]) OFFICE/OUTPATIENT VISIT EST Diagnosis: ROUTINE MEDICAL EXAM[ICD9: V70.0] Ophelia AGUILLON DO [facility] CPT-4: 82873 06/11/2012 OFFICE/OUTPATIENT VISIT EST Diagnosis: INSOMNIA NOS[ICD9: 780.52] Diagnosis: ACUTE STRESS REACT[ICD9: 308.9] Diagnosis: Tinnitus[ICD9: 388.30] Diagnosis: HYPERLIPIDEMIA NEC/NOS[ICD9: 272.4] Ophelia Prateekstonemerari WILLIAMSON DIONNE Izaiah AGUILLON DO [facility] CPT-4: 83046 12/21/2011 OFFICE/OUTPATIENT VISIT EST Diagnosis: ACUTE STRESS REACT[ICD9: 308.9] Ophelia AGUILLON DO [facility] CPT-4: 63418 09/28/2011 OFFICE/OUTPATIENT VISIT EST Diagnosis: ACUTE STRESS REACT[ICD9: 308.9] Ophelia AGUILLON DO [facility] CPT-4: 99431 04/06/2011 OFFICE/OUTPATIENT VISIT NEW Ophelia BALDWIN DO [facility] CPT- 4: 67678 03/03/2011 Plan of Care Planned Activity Notes Codes Status Date Visit Diagnosis Plan: Allergic rhinitis due to allerge n Discussion: Using Alba ICD-9 : 477.9 ICD-10 : J30.9 02/06/2020 Visit Diagnosis Plan: Mixed hyperlipidemia Discussion: Lipitor 10mg M, W, F Repeat lipids in 6mos Vitamin D3 2000u daily ICD-9 : 272.4 ICD-10 : E78.2 02/06/2020 Visit Diagnosis Plan: Encounter for [facility] adult medical examination without abnormal findings Discussion: Mediterranean diet Combinati on of cardio and weight bearing exercise Had WWE done recently with DRAPERY HANGER--had Mammo/Bone Density/Lab done Referral for updated colonoscopy ICD-9 : V70.0 ICD-10 : Z00.00 02/06/2020 Appointment: Ophelia Aguillon WPtel: [address] [place], [place] [address] [place] Annual Well Visit 02/06/2020 Patient Education: Lipitor- [employer] Coupon [id number] [email or web address] Completed 02/06/2020 Care Plan: Referral Order SNOMED-CT : [id number] Pending 02/06/2020 Appointment: Ophelia Aguillon WPtel: [address] [place], [place] [phone] [place] LAB 02/04/2020 Appointment: Ophelia Aguillon WPtel: [address] [place], [place] [address] [place] TB Test read 03/21/2018 Patient Education: Patient Medication Summary Completed 03/21/2018 Appointment: Ophelia Aguillon WPtel: [address] [place], [place] [phone] [place] TB Test 03/19/2018 Patient Education: Patient Medication Summary Completed 03/19/2018 Visit Plan: Sofia has already tried antihi stamines, topical steroids, and antibiotics ERx for Medrol Dospak (discussed side effects, risks) and change to Alba Given nasal irrigation kit, taught valsalva maneuver to reduce eustacian tube pressure/fluid Consider using drops of sweet oil weekly to soften ear wax. If no improvement, RTC 02/23/2018 Appointment: Cassandra Camejo WPtel: [address] [place] [address] ACUTE ILLNESS 02/23/2018 Patient Education: Patient Medication Summary Completed 02/23/2018 Visit Diagnosis Plan: Encounter for [facility] adult medical examination without abnormal findings Discussion: Lab discussed Add Calcium wi th Vitamin D3 daily Continue walking and add yoga for weight bearing Praised lower cholesterol efforts Sees DRAPERY HANGER for WWE and Mammogram up to date ICD-9 : V70.0 ICD-10 : Z00.00 09/07/2017 Appointment: Ophelia Aguillon WPtel: [address] [place] [address] Annual Well Visit 09/07/2017 Patient Education: Patient Medication Summary Completed 09/07/2017 Appointment: Ophelia Aguillon WPtel: [address] [place] [address] LAB 09/04/2017 Patient Education: Patient Medication Summary Completed 09/04/2017 Visit Plan: Lab discussed Schedule colon oscopy Keep meds same Defers statin and will add fish oil and aspirin 81mg daily with diet/exercise and recheck lipids in 4mos Sees DRAPERY HANGER next month Discussed is high risk for CAD due to family history and hyperlipidemia 01/12/2015 Appointment: Ophelia Aguillon WPtel: [address] [place], [place] [phone] confirmed -mf Annual Well Visit 01/12/2015 Patient Education: Patient Medication Summary Completed 01/12/2015 Appointment: Ophelia Aguillon WPtel: [address] [place], [place] [phone] [place] LAB 01/07/2015 Patient Education: Patient Medication Summary Completed 01/07/2015 Appointment: Sarah Wong WPtel: [address] [place], [place] [phone] [place] FOLLOW UP 02/26/2014 Appointment: Ophelia Aguillon WPtel: [address] [place], [place] [phone] 01/07 patient canceled FOLLOW UP 4 Visit Plan: Removal of lesion as above 08/06/2013 Appointment: Ophelia Agiullon WPtel: [address] [place] [address] OFFICE SURGERY 08/06/2013 Patient Education: Patient Medication Summary Completed 08/06/2013 Visit Plan: Daily fish oil 3grams, Vitam in D 1000u daily, Coenzyme Q-10 200mg daily Diet/exercise/weight loss Recheck lipids in 6mos Discussed statins Pt has mammo next month 07/24/2013 Appointment: Ophelia Aguillon WPtel: [address] [place], [place] [phone] 07/23 Annual Well Visit 07/24/2013 Patient Education: Patient Medication Summary Completed 07/24/2013 Appointment: Ophelia Aguillon WPtel: [address] [place] [address] LAB 07/22/2013 Patient Education: Patient Medication Summary Completed 07/22/2013 Referral: Ophelia Aguillontel: [address] [place] [address] Referral Initiated 06/17/2013 Visit Plan: Skin So Soft to right nasal area q HS next month then observe If something comes back then will see ENT for removal 06/13/2013 Appointment: Ophelia Aguillon WPtel: [address] [place], [place] [phone] 06/12 FOLLOW UP 06/13/2013 Patient Education: Patient Medication Summary Completed 06/13/2013 Visit Plan: Bactrim DS 1 po BID for 1wk, Prednisone 20mg po BID for 1wk Zyrtec daily If lesion persists will see Dr. Low for removal 05/15/2013 Appointment: Ophelia Aguillon WPtel: [address] [place], [place] [phone] 05/14 ACUTE ILLNESS 05/15/2013 Patient Education: Patient Medication Summary Completed 05/15/2013 Appointment: Ophelia Aguillon WPtel: [address] [place], [place] [address] FOLLOW UP 12/13/2012 Visit Plan: Note for fever free 24 hours . Discussed fluids and rest. Clarified in verbal message that Levaquin should be QD dosing. Codeine/guiaf cough syrup. Flu test negative. Pt. to notify if symptoms worsen or fever persists. Discussed Rocephin IM and or lab/chest x-rays if symptoms persist. 11/07/2012 Appointment: Batsheva Bennett WPtel: [address] [place] [address] ACUTE ILLNESS 11/07/2012 Patient Education: Patient Medication Summary Completed 11/07/2012 Visit Plan: Continue fluoxetine at 30mg daily Stess Reducers 09/18/2012 Appointment: Ophelia Aguillon WPtel: [address] [place] [address] FOLLOW UP 09/18/2012 Patient Education: Patient Medication Summary Completed 09/18/2012 Visit Plan: Increase fish oil to 3gm poonam ly Step 1 Cardiac Diet Repeat CMP and lipids in 6mos Pt has DCed Fluoxetine and so far doing okay Will focus on stress reducers 06/13/2012 Appointment: Ophelia Aguillon WPtel: [address] [place], [place] [phone] FOLLOW UP 06/13/2012 Patient Education: Patient Medication Summary Completed 06/13/2012 Appointment: Ophelia Aguillon WPtel: [address] [place], [place] [phone] [place] LAB 06/11/2012 Patient Education: Patient Medication Summary Completed 06/11/2012 Visit Plan: Decrease fluoxetine back to 30mg daily Check fasting lab in 3mos ENT for tinnitus/hearing loss 12/21/2011 Appointment: Ophelia Aguillon WPtel: [address] [place], [place] [address] FOLLOW UP 12/21/2011 Patient Education: Patient Medication Summary Completed 12/21/2011 Visit Plan: Increase fluoxetine to 40mg daily 09/28/2011 Appointment: Ophelia Aguillon WPtel: [address] [place] [address] FOLLOW UP 09/28/2011 Patient Education: Patient Medication Summary Completed 09/28/2011 Visit Plan: Increase fluoxetine to 30mg daily Call in 2wks 04/06/2011 Appointment: Ophelia Aguillon WPtel: [address] [place] [address] FOLLOW UP 04/06/2011 Patient Education: Patient Medication Summary Completed 04/06/2011 Appointment: Ophelia Aguillon WPtel: [address] [place] [address] NEW PATIENT 03/03/2011 Patient Education: Patient Medication Summary Completed 03/03/2011 Referral: Augustus Velazco WPtel: [address] [place] [address] [place] Referral Appointment Requested Referral: Saurabh Beatty WPtel: [address] [place] [address] [place] Referral Completed Instructions Comment . Sofia has already tried antihistamines, topical steroids, and antibiotics ERx for Medrol Dospak (discussed side effects, risks) and change to Alba Given nasal irrigation kit, taught valsalva maneuver to reduce eustacian tube pressure/fluid Consider using drops of sweet oil weekly to soften ear wax. If no improvement, RTC . Lab discussed Schedule colonoscopy Keep meds same Defers statin and will add fish oil and aspirin 81mg daily with diet/exercise and recheck lipids in 4mos Sees DRAPERY HANGER next month Discussed is high risk for CAD due to family history and hyperlipidemia . Removal of lesion as above . Daily fish oil 3grams, Vitamin D 1000u daily, Coenzyme Q-10 200mg daily Diet/exercise/weight loss Recheck lipids in 6mos Discussed statins Pt has mammo next month . Skin So Soft to right nasal area q HS next month then observe If something comes back then will see ENT for removal . Bactrim DS 1 po BID for 1wk, Prednison e 20mg po BID for 1wk Zyrtec daily If lesion persists will see Dr. Low for removal . Note for fever free 24 hours. Discuss ed fluids and rest. Clarified in verbal message that Levaquin should be QD dosing. Codeine/guiaf cough syrup. Flu test negative. Pt. to notify if symptoms worsen or fever persists. Discussed Rocephin IM and or lab/chest x-rays if symptoms persist. . Continue fluoxetine at 30mg daily Stess Reducers . Increase fish oil to 3gm daily Step 1 Cardiac Diet Repeat CMP and lipids in 6mos Pt has DCed Fluoxetine and so far doing okay Will focus on stress reducers . Decrease fluoxetine back to 30mg daily Check fasting lab in 3mos ENT for tinnitus/hearing loss . Increase fluoxetine to 40mg daily . Increase fluoxetine to 30mg daily Call in 2wks Medical Equipment No Medical Equipment data Health Concerns Section Health Concerns data not found Goals Section Goals data not found Interventions Section Interventions data not found Health Status Evaluations/Outcomes Section Health Status Evaluations/Outcomes data not found Advance Directives No Advance Directive data
--- OUTSIDE RECORDS SUMMARY | 2020-03-06 17:10 | XMS REPORT | CCD ---
Author Author Sofia Aguillon D.O. Organization [facility] Address [address] [place] [address] Phone Care Team Providers Care Garbage Stoker Name Role Phone PP Unavailable CCM Unavailable Summary Purpose Interface Exchange Insurance Providers Payer name Policy type / Coverage type Covered alliance party ID Effective Begin Date Effective End Date Blue Cross Blue Shield Blue Cross/Blue Shield [id number] Unknown Family History Family History data not found Social History Social History Element Codes Description Effective Dates Marital status Unknown 03/03/2011 Number of children Unknown 3 03/03/2011 Employment Unknown Currently employed [employer] 250 03/03/[address]: 756562200 Never smoker 03/03/[address]: 364994443 Never drinks alcohol 2010 Allergies, Adverse Reactions, [...] Relief 50 mcg/actuation nasal spray,suspensi on RxNorm: 6087654 2 Naoma Nasal every night at bedtime 02/10/2020 02/10/2020 Inactive Flonase Allergy Relief 50 mcg/actuation nasal spray,suspensi on RxNorm: 2868562 2 Naoma Nasal every night at bedtime 02/10/2020 02/09/2020 Inactive Alba Allergy 180 mg tablet RxNorm: 804126 1 Tablet(s) Oral QD 05/06/2020 Active Women's Multivitamin 18 mg iron-400 mcg-500 mg tablet RxNorm : 1 Tablet(s) Oral QD 02/06/2020 03/07/2020 Active Lipitor 10 mg tablet RxNorm: 440833 1 Tablet(s) Oral QD M, W, F 09/201905/06/2020 Active Lipitor 10 mg tablet RxNorm: 712144 1 Tablet(s) Oral QD M, W, F 09/201902/05/2020 Inactive Lipitor 10 mg tablet RxNorm: 527606 1 Tablet(s) Oral QD M, W, F 09/201902/05/2020 Inactive Abla Allergy 180 mg tablet RxNorm: 370294 1 Tablet(s) PO QD 02/0505/23/2018 Inactive Medrol (Vick) 4 mg tablets in a dose pack RxNorm: 490206 As directed Tablet(s) PO QD 02/23/2018 02/27/2018 Inactive alprazolam 0.25 mg tablet RxNorm: 642886 TAKE 1/2 TABLE T TWO TIMES A DAY NEEDED FOR SEVERE STRESS 03/27/2015 04/15/2015 Inactive fluoxetine 10 mg tablet RxNorm: 880419 3 Tablet(s) PO QAM 03/27/2015 09/06/2017 Inactive for 1week then 2 po qam alprazolam 0.25 mg tablet RxNorm: 360965 TAKE ONE-HALF TABLET BY MOUTH TWICE A DAY NEEDED FOR SEVERE STRESS 07/24/2014 03/27/2015 Inactive (Response to an electronic controlled substance refill request - RxReferenceNumber: [id number]) fluoxetine 10 mg tablet RxNorm: 844377 3 Tablet(s) PO QAM 05/26/2014 03/27/2015 Inactive for 1week then 2 po qAM [SAVINGS FOR UNI NSURED PATIENTS -- BIN:[id number], PCN: [id number], Group: [id number], ID# [id number], Process claim through [employer], for questions: . THIS IS NOT INSURANCE.] Bactrim DS 800 mg-160 mg tablet RxNorm: 058186 1 Tablet(s) PO BID 1 05/21/2013 Inactive prednisone 20 mg tablet RxNorm: 296936 1 Tablet(s) PO BID 05/15/2013 05/21/2013 Inactive Levaquin 750 mg tablet RxNorm: 020036 1 Tablet(s) PO BID 11/07/2012 0 11/16/2012 Inactive fluoxetine 10 mg tablet RxNorm: 136645 3 Tablet(s) PO QAM 09/18/2012 03/16/2013 Inactive for 1week then 2 po qAM fluoxetine 10 mg tablet RxNorm: 937453 3 Tablet(s) PO QAM 12/21/2011 06/12/2012 Inactive for 1week then 2 po qAM fluoxetine 10 mg Tab RxNorm: 631729 3 Tablet(s) PO QAM 10/20/2011 Inactive for 1week then 2 po qAM Vaniqa 13.9 % Topical Cream RxNorm: 671996 1 Application TOP BID 12/20/2011 Inactive fluoxetine 40 mg Cap RxNorm: 854021 1 Capsule(s) PO QD 09/28/2011 Inactive fluoxetine 10 mg Cap RxNorm: 604167 3 Capsule(s) PO QD 06/21/201107/2012 Inactive fluoxetine 10 mg Tab RxNorm: 386280 3 Tablet(s) PO QD 04/26/201105/07 Inactive Xanax 0.25 mg Tab RxNorm: 420469 1/2 Tablet(s) PO BID 03/03/201103/07 Inactive prn severe stress alprazolam 0.25 mg tablet RxNorm: 564444 1/2 Tablet(s) PO BID as needed for anxiety No Start Date 02/22/2018 Inactive Medrol (Vick) 4 mg tablets in a dose pack RxNorm: 447041 Tablet(s) PO as directed No Start Date 05/14/2013 Inactive Fish Oil 1,000 mg Cap RxNorm: 1 Capsule(s) PO BID No Start Date Inactive fluoxetine 10 mg Cap RxNorm: 097497 2 Capsule(s) PO QD No Start Date 06/20/2011 Inactive fluoxetine 10 mg Cap RxNorm: 360856 3 Capsule(s) PO QD No Start Date 09/27/2011 Inactive alprazolam 0.25 mg Tab RxNorm: 474097 1/2 Tablet(s) PO BID No Start Date 07/24/2014 Inactive as needed fluoxetine 10 mg Tab RxNorm: 357208 1 Tablet(s) PO QAM No Start Date 10/19/2011 Inactive for 1week then 2 po qAM Vaniqa 13.9 % Topical Cream RxNorm: 325754 1 Application TOP BID No Start Date 09/27/2011 Inactive fluoxetine 20 mg capsule RxNorm: 729990 1 Capsule(s) PO QD No Start Date 02/22/2018 Inactive Vitamin D3 1000 units Capsule RxNorm: 1 Capsule(s) PO QD No St art Date 09/06/2017 Inactive Prozac 20 mg capsule RxNorm: 190406 1 Capsule(s) PO QD No Start Date 07/23/2013 Inactive Medication Administered No Medication Administered data Immunizations Vaccine Codes Date Status Shingrix Unknown 01/15/2018 Complete Zostavax CVX: 121 11/16/2017 Results Observation Observation Code Item Item Code Result Date S ervice Location [facility] 28432 Cholesterol 232 mg/dL 02/04/2020 Unkno wn [facility] 12410 Triglyceride 126 mg/dL 02/04/2020 Unkn own [facility] 07031 HDL CHOLESTEROL 48 mg/dL 02/04/2020 U nknown [facility] 56745 Chol/HDL Ratio 4.83 ratio 02/04/2020 U nknown [facility] 15038 NON-HDL Chol 184 mg/dL 02/04/2020 Unkn own [facility] 53804 LDL Cholesterol 159 mg/dL 02/04/2020 U nknown GFR CALC 2581321 GFR Non Afr Amr >60 mL/min 02/04/2020 Un known GFR CALC 0601001 GFR Afr Amr >60 mL/min 02/04/2020 Unknow n THYROID STIMULATING HORMONE 86048 TSH 1.616 uIU/mL 02/04/2020 Unknown FREE T4 02388 T4 Free 0.96 ng/dL 02/04/2020 Unknown COMPREHENSIVE METABOLIC 14781 AST 20 U/L 2019 Unknown COMPREHENSIVE METABOLIC 54319 ALT 32 U/L 2019 Unknown COMPREHENSIVE METABOLIC 74805 BUN 16 mg/dL 2019 Unknown COMPREHENSIVE METABOLIC 88031 ALBUMIN 4.7 g/dL 2019 Unknown COMPREHENSIVE METABOLIC 89695 CHLORIDE 101 mmol/L 02/03 Unknown COMPREHENSIVE METABOLIC 13050 Bili Total 0.4 mg/dL 02/03 Unknown COMPREHENSIVE METABOLIC 00118 ALK PHOS 63 U/L 2019 Unknown COMPREHENSIVE METABOLIC 17109 SODIUM 138 mmol/L 02/03 Unknown COMPREHENSIVE METABOLIC 49407 CREATININE 0.65 mg/dL 01/07 Unknown COMPREHENSIVE METABOLIC 09647 CALCIUM 9.4 mg/dL 2019 Unknown COMPREHENSIVE METABOLIC 81401 POTASSIUM 4.0 mmol/L 02/03 Unknown COMPREHENSIVE METABOLIC 04664 Total Protein 7.3 g/dL Unknown COMPREHENSIVE METABOLIC 33732 Glucose 100 mg/dL 2019 Unknown COMPREHENSIVE METABOLIC 99833 Bicarbonate 27 mmol/L 01/07 Unknown COMPREHENSIVE METABOLIC 54664 AGAP 10 mmol/L 2019 Unknown COMPLETE BLOOD COUNT 8273301 WBC 5.5 10e9/L 02/04/20 20 Unknown COMPLETE BLOOD COUNT 0307563 RBC 4.56 10e12/L 2019 Unknown COMPLETE BLOOD COUNT 3303217 HEMOGLOBIN 14.5 g/dL 02/04/20 20 Unknown COMPLETE BLOOD COUNT 3009073 HEMATOCRIT 44.1 % 02/04/20 20 Unknown COMPLETE BLOOD COUNT 4663548 MCV 96.7 fL 0 Unknown COMPLETE BLOOD COUNT 7023570 MCH 31.8 pg 0 Unknown COMPLETE BLOOD COUNT 3113308 MCHC 32.9 g/dL 0 Unknown COMPLETE BLOOD COUNT 0748378 PLATELET COUNT 232 10e9/L Unknown COMPLETE BLOOD COUNT 1882811 Mean Plt Volume 11.4 fL Unknown COMPLETE BLOOD COUNT 1266113 Neut Auto 55.7 % 0 Unknown COMPLETE BLOOD COUNT 5984318 Lymph Auto 31.3 % 02/04/20 20 Unknown COMPLETE BLOOD COUNT 8442724 Broome Auto 10.0 % 0 Unknown COMPLETE BLOOD COUNT 4758584 RDW 13.7 % 0 Unknown COMPLETE BLOOD COUNT 0162160 Eos Auto 2.5 % 0 Unknown COMPLETE BLOOD COUNT 0836335 Baso Auto 0.5 % 0 Unknown COMPLETE BLOOD COUNT 4784803 Neutrophil Abs 3.06 10e9/L Unknown COMPLETE BLOOD COUNT 6745354 Lymphocyte Abs 1.72 10e9/L Unknown COMPLETE BLOOD COUNT 9287755 Monocyte Abs 0.55 10e9/L 01/07 Unknown COMPLETE BLOOD COUNT 2825072 Eosinophil Abs 0.14 10e9/L Unknown COMPLETE BLOOD COUNT 6935475 RDW-SD 47.5 fL 0 Unknown COMPLETE BLOOD COUNT 7047687 Basophil Abs 0.03 10e9/L 01/07 Unknown FREE T4 08099 T4 Free 1.25 ng/dL 09/04/2017 Unknown COMPLETE BLOOD COUNT 8093500 WBC 5.9 10e9/L 09/04/19 18 Unknown COMPLETE BLOOD COUNT 5823843 RBC 4.35 10e12/L 2017 Unknown COMPLETE BLOOD COUNT 0820289 HEMOGLOBIN 14.0 g/dL 09/04/19 18 Unknown COMPLETE BLOOD COUNT 4117422 HEMATOCRIT 41.6 % 09/04/19 18 Unknown COMPLETE BLOOD COUNT 7828694 MCV 95.6 fL 8 Unknown COMPLETE BLOOD COUNT 4308604 MCH 32.2 pg 8 Unknown COMPLETE BLOOD COUNT 4586304 MCHC 33.7 g/dL 8 Unknown COMPLETE BLOOD COUNT 9591824 PLATELET COUNT 239 10e9/L Unknown COMPLETE BLOOD COUNT 5113972 Mean Plt Volume 10.8 fL Unknown COMPLETE BLOOD COUNT 8030906 Neut Auto 53.2 % 8 Unknown COMPLETE BLOOD COUNT 9043366 Lymph Auto 35.6 % 09/04/19 18 Unknown COMPLETE BLOOD COUNT 1157177 Broome Auto 9.6 % 8 Unknown COMPLETE BLOOD COUNT 2375130 RDW 13.2 % 8 Unknown COMPLETE BLOOD COUNT 3384566 Eos Auto 1.4 % 8 Unknown COMPLETE BLOOD COUNT 5640713 Baso Auto 0.2 % 8 Unknown COMPLETE BLOOD COUNT 5754385 Neutrophil Abs 3.14 10e9/L Unknown COMPLETE BLOOD COUNT 3960894 Lymphocyte Abs 2.10 10e9/L Unknown COMPLETE BLOOD COUNT 4735211 Monocyte Abs 0.57 10e9/L 08/08 Unknown COMPLETE BLOOD COUNT 4774276 Eosinophil Abs 0.08 10e9/L Unknown COMPLETE BLOOD COUNT 4161028 Basophil Abs 0.01 10e9/L 08/08 Unknown COMPLETE BLOOD COUNT 3345816 RDW-SD 44.7 fL 8 Unknown COMPREHENSIVE METABOLIC 76211 AST 26 U/L 2017 Unknown COMPREHENSIVE METABOLIC 46008 ALT 40 U/L 2017 Unknown COMPREHENSIVE METABOLIC 39359 BUN 6 mg/dL 2017 Unknown COMPREHENSIVE METABOLIC 71228 ALBUMIN 5.3 g/dL 2017 Unknown COMPREHENSIVE METABOLIC 69887 CHLORIDE 102 mmol/L 09/04 Unknown COMPREHENSIVE METABOLIC 74589 Bili Total 0.7 mg/dL 09/04 Unknown COMPREHENSIVE METABOLIC 83279 ALK PHOS 56 U/L 2017 Unknown COMPREHENSIVE METABOLIC 75193 SODIUM 139 mmol/L 09/04 Unknown COMPREHENSIVE METABOLIC 96207 CREATININE 0.61 mg/dL 08/08 Unknown COMPREHENSIVE METABOLIC 46662 CALCIUM 9.8 mg/dL 2017 Unknown COMPREHENSIVE METABOLIC 56725 POTASSIUM 3.8 mmol/L 09/04 Unknown COMPREHENSIVE METABOLIC 26493 Total Protein 7.7 g/dL Unknown COMPREHENSIVE METABOLIC 50733 Glucose 95 mg/dL 2017 Unknown COMPREHENSIVE METABOLIC 20142 Bicarbonate 30 mmol/L 08/08 Unknown COMPREHENSIVE METABOLIC 47075 AGAP 7 mmol/L 2017 Unknown GFR CALC 4973227 GFR Non Afr Amr >60 mL/min 09/04/2017 Un known GFR CALC 6139979 GFR Afr Amr >60 mL/min 09/04/2017 Unknow n THYROID STIMULATING HORMONE 65978 TSH 1.454 uIU/mL 09/04/2017 Unknown [facility] 80986 Cholesterol 218 mg/dL 09/04/2017 Unkno wn [facility] 37009 Triglyceride 135 mg/dL 09/04/2017 Unkn own [facility] 96625 HDL CHOLESTEROL 52 09/04/2017 U nknown [facility] 50381 Chol/HDL Ratio 4.19 ratio 09/04/2017 U nknown [facility] 98814 NON-HDL Chol 166 mg/dL 09/04/2017 Unkn own [facility] 21273 LDL Cholesterol 139 mg/dL 09/04/2017 U nknown FREE T4 58436 FREE T4 1.15 NG/DL 01/07/2015 Unknown THYROID STIMULATING HORMONE 65683 TSH 1.927 uIU/ML 01/07/2015 Unknown [facility] 86713 HDL TEST 53 MG/DL 01/07/2015 Unknown [facility] 75951 TRIG 215 MG/DL 01/07/2015 Unknown [facility] 55485 TEST LDL 194 MG/DL 01/07/2015 Unknown [facility] 84151 CHOL 290 MG/DL 01/07/2015 Unknown [facility] 23998 RCHOL/HDL 5.47 RATIO 01/07/2015 Unknow n [facility] 25945 NON-HDL CH 237 MG/DL 01/07/2015 Unknow n GFR CALC 0859166 GFR AA >60 ML/MIN 01/07/2015 Unknown GFR CALC 0071959 GFR NON-AA >60 ML/MIN 01/07/2015 Unknown COMPLETE BLOOD COUNT 0163220 WBC 5.9 10e9/L 01/08/20 15 Unknown COMPLETE BLOOD COUNT 3348755 RBC 4.35 10e12/L 2014 Unknown COMPLETE BLOOD COUNT 7334531 HGB 14.2 g/dL 5 Unknown COMPLETE BLOOD COUNT 5002261 HCT DET 42.0 % 5 Unknown COMPLETE BLOOD COUNT 8255907 MCV 96.6 fL 5 Unknown COMPLETE BLOOD COUNT 0803151 MCH 32.6 pg 5 Unknown COMPLETE BLOOD COUNT 4235725 MCHC 33.8 g/dL 5 Unknown COMPLETE BLOOD COUNT 6380261 PLT 227 10e9/L 01/08/20 15 Unknown COMPLETE BLOOD COUNT 4300399 MPV 11.4 fL 5 Unknown COMPLETE BLOOD COUNT 0398385 PRITI % 54.2 % 5 Unknown COMPLETE BLOOD COUNT 8581301 LY % 33.8 % 5 Unknown COMPLETE BLOOD COUNT 7962200 MON % 8.8 % 5 Unknown COMPLETE BLOOD COUNT 2470817 EOS % 2.9 % 5 Unknown COMPLETE BLOOD COUNT 8254609 BASO % 0.3 % 5 Unknown COMPLETE BLOOD COUNT 6587675 RDW 13.6 % 5 Unknown COMPLETE BLOOD COUNT 4064061 ABS PRITI 3.20 10e9/L 015 Unknown COMPLETE BLOOD COUNT 0386853 ABS LYMPH 1.99 10e9/L 015 Unknown COMPLETE BLOOD COUNT 4200959 ABS MONO 0.52 10e9/L 015 Unknown COMPLETE BLOOD COUNT 6086655 ABS EOS 0.17 10e9/L 015 Unknown COMPLETE BLOOD COUNT 5769698 ABS BASO 0.02 10e9/L 015 Unknown COMPLETE BLOOD COUNT 2190498 RDW-SD 47.0 fL 5 Unknown COMPREHENSIVE METABOLIC 01008 AST 20 U/L 2014 Unknown COMPREHENSIVE METABOLIC 34425 ALT 30 IU/L 2014 Unknown COMPREHENSIVE METABOLIC 52740 BUN 12 MG/DL 2014 Unknown COMPREHENSIVE METABOLIC 81738 ALBUMIN 4.4 GM/DL 2014 Unknown COMPREHENSIVE METABOLIC 54718 CHLORIDE 102 MMOL/L 01/07 Unknown COMPREHENSIVE METABOLIC 92267 BILI TOT 0.6 MG/DL 2014 Unknown COMPREHENSIVE METABOLIC 55757 ALK PHOS 76 U/L 2014 Unknown COMPREHENSIVE METABOLIC 48580 SODIUM 139 MMOL/L 01/07 Unknown COMPREHENSIVE METABOLIC 54871 CREATININE 0.77 MG/DL 10/2014 Unknown COMPREHENSIVE METABOLIC 44315 CALCIUM 9.2 MG/DL 2014 Unknown COMPREHENSIVE METABOLIC 98280 POTASSIUM 4.1 MMOL/L 01/07 Unknown COMPREHENSIVE METABOLIC 88636 PROT TOT 7.1 GM/DL 2014 Unknown COMPREHENSIVE METABOLIC 24156 Glucose 107 MG/DL 2014 Unknown COMPREHENSIVE METABOLIC 26834 BICARB 30 MMOL/L 2014 Unknown COMPREHENSIVE METABOLIC 83394 ANION GAP 7 MEQ/L 2014 Unknown [facility] 31508 HDL TEST 48 MG/DL 07/22/2013 Unknown [facility] 41999 TRIG 176 MG/DL 07/22/2013 Unknown [facility] 26049 TEST LDL 161 MG/DL 07/22/2013 Unknown [facility] 99245 CHOL 244 MG/DL 07/22/2013 Unknown [facility] 84394 RCHOL/HDL 5.08 RATIO 07/22/2013 Unknow n COMPLETE BLOOD COUNT 8018529 WBC 5.8 10e9/L 07/22/20 13 Unknown COMPLETE BLOOD COUNT 0779760 RBC 4.45 10e12/L 2012 Unknown COMPLETE BLOOD COUNT 0403711 HGB 14.6 g/dL 3 Unknown COMPLETE BLOOD COUNT 9528785 HCT DET 43.8 % 3 Unknown COMPLETE BLOOD COUNT 1223374 MCV 98.4 fL 3 Unknown COMPLETE BLOOD COUNT 7486417 MCH 32.8 pg 3 Unknown COMPLETE BLOOD COUNT 1164803 MCHC 33.3 g/dL 3 Unknown COMPLETE BLOOD COUNT 9506942 PLT 270 10e9/L 07/22/20 13 Unknown COMPLETE BLOOD COUNT 6873860 MPV 11.4 fL 3 Unknown COMPLETE BLOOD COUNT 7748392 PRITI % 54.2 % 3 Unknown COMPLETE BLOOD COUNT 7288431 LY % 33.2 % 3 Unknown COMPLETE BLOOD COUNT 7520127 MON % 9.2 % 3 Unknown COMPLETE BLOOD COUNT 7731046 EOS % 3.1 % 3 Unknown COMPLETE BLOOD COUNT 6487902 BASO % 0.3 % 3 Unknown COMPLETE BLOOD COUNT 3429762 RDW 13.8 % 3 Unknown COMPLETE BLOOD COUNT 8147072 ABS PRITI 3.14 10e9/L 013 Unknown COMPLETE BLOOD COUNT 7766051 ABS LYMPH 1.93 10e9/L 013 Unknown COMPLETE BLOOD COUNT [id number] ABS MONO 0.53 10e9/L 013 Unknown COMPLETE BLOOD COUNT 0578538 ABS EOS 0.18 10e9/L 013 Unknown COMPLETE BLOOD COUNT 0424428 ABS BASO 0.02 10e9/L 013 Unknown COMPLETE BLOOD COUNT 1616073 RDW-SD 48.4 fL 3 Unknown GFR CALC 4976053 GFR AA >60 ML/MIN 07/22/2013 Unknown GFR CALC 8752325 GFR NON-AA >60 ML/MIN 07/22/2013 Unknown THYROID STIMULATING HORMONE 30492 TSH 1.645 uIU/ML 07/22/2013 Unknown COMPREHENSIVE METABOLIC 52127 AST 23 U/L 2012 Unknown COMPREHENSIVE METABOLIC 17395 ALT 30 IU/L 2012 Unknown COMPREHENSIVE METABOLIC 75088 BUN 12 MG/DL 2012 Unknown COMPREHENSIVE METABOLIC 91957 ALBUMIN 4.7 GM/DL 2012 Unknown COMPREHENSIVE METABOLIC 01405 CHLORIDE 102 MMOL/L 07/22 Unknown COMPREHENSIVE METABOLIC 18604 BILI TOT 0.5 MG/DL 2012 Unknown COMPREHENSIVE METABOLIC 63142 ALK PHOS 51 U/L 2012 Unknown COMPREHENSIVE METABOLIC 59204 SODIUM 136 MMOL/L 07/22 Unknown COMPREHENSIVE METABOLIC 35541 CREATININE 0.74 MG/DL 07/07 Unknown COMPREHENSIVE METABOLIC 96768 CALCIUM 9.2 MG/DL 2012 Unknown COMPREHENSIVE METABOLIC 80614 POTASSIUM 4.1 MMOL/L 07/22 Unknown COMPREHENSIVE METABOLIC 47148 PROT TOT 7.1 GM/DL 2012 Unknown COMPREHENSIVE METABOLIC 69401 Glucose 107 MG/DL 2012 Unknown COMPREHENSIVE METABOLIC 50655 BICARB 29 MMOL/L 2012 Unknown COMPREHENSIVE METABOLIC 07703 ANION GAP 5 MEQ/L 2012 Unknown FREE T4 29190 FREE T4 0.98 NG/DL 07/22/2013 Unknown COMPLETE BLOOD COUNT 6328761 WBC 4.4 10e9/L 06/11/20 12 Unknown COMPLETE BLOOD COUNT 7486093 RBC 4.18 10e12/L 2011 Unknown COMPLETE BLOOD COUNT 6709232 HGB 13.5 g/dL 2 Unknown COMPLETE BLOOD COUNT 7807787 HCT DET 39.9 % 2 Unknown COMPLETE BLOOD COUNT 8828415 MCV 95.5 fL 2 Unknown COMPLETE BLOOD COUNT 7382413 MCH 32.3 pg 2 Unknown COMPLETE BLOOD COUNT 3303519 MCHC 33.8 g/dL 2 Unknown COMPLETE BLOOD COUNT 5616884 PLT 232 10e9/L 06/11/20 12 Unknown COMPLETE BLOOD COUNT 4518194 MPV 11.3 fL 2 Unknown COMPLETE BLOOD COUNT 9017336 PRITI % 46.4 % 2 Unknown COMPLETE BLOOD COUNT 3420814 LY % 36.4 % 2 Unknown COMPLETE BLOOD COUNT 1015092 MON % 10.5 % 2 Unknown COMPLETE BLOOD COUNT 5144669 EOS % 6.2 % 2 Unknown COMPLETE BLOOD COUNT 1116680 BASO % 0.5 % 2 Unknown COMPLETE BLOOD COUNT 0827640 RDW 13.1 % 2 Unknown COMPLETE BLOOD COUNT 4106625 ABS PRITI 2.04 10e9/L 012 Unknown COMPLETE BLOOD COUNT 6466003 ABS LYMPH 1.60 10e9/L 012 Unknown COMPLETE BLOOD COUNT 0083668 ABS MONO 0.46 10e9/L 012 Unknown COMPLETE BLOOD COUNT 6590438 ABS EOS 0.27 10e9/L 012 Unknown COMPLETE BLOOD COUNT 5997968 ABS BASO 0.02 10e9/L 012 Unknown COMPLETE BLOOD COUNT 7089035 RDW-SD 44.2 fL 2 Unknown THYROID STIMULATING HORMONE 47012 TSH 1.766 uIU/ML 06/11/2012 Unknown COMPREHENSIVE METABOLIC 31347 AST 20 U/L 2011 Unknown COMPREHENSIVE METABOLIC 88998 ALT 23 IU/L 2011 Unknown COMPREHENSIVE METABOLIC 86964 BUN 10 MG/DL 2011 Unknown COMPREHENSIVE METABOLIC 70465 ALBUMIN 4.3 GM/DL 2011 Unknown COMPREHENSIVE METABOLIC 24699 CHLORIDE 103 MMOL/L 06/11 Unknown COMPREHENSIVE METABOLIC 31418 BILI TOT 0.4 MG/DL 2011 Unknown COMPREHENSIVE METABOLIC 12050 ALK PHOS 52 U/L 2011 Unknown COMPREHENSIVE METABOLIC 27181 SODIUM 138 MMOL/L 06/11 Unknown COMPREHENSIVE METABOLIC 90333 CREATININE 0.74 MG/DL 12/2011 Unknown COMPREHENSIVE METABOLIC 29994 CALCIUM 8.8 MG/DL 2011 Unknown COMPREHENSIVE METABOLIC 02570 POTASSIUM 3.7 MMOL/L 06/11 Unknown COMPREHENSIVE METABOLIC 43606 PROT TOT 6.9 GM/DL 2011 Unknown COMPREHENSIVE METABOLIC 13276 Glucose 105 MG/DL 2011 Unknown COMPREHENSIVE METABOLIC 71448 BICARB 29 MMOL/L 2011 Unknown COMPREHENSIVE METABOLIC 97957 ANION GAP 6 MEQ/L 2011 Unknown FREE T4 36042 FREE T4 0.93 NG/DL 06/11/2012 Unknown LIPID GROUP 15407 HDL TEST 39 MG/DL 06/11/2012 Unknown LIP[facility] GROUP 37197 TRIG 243 MG/DL 06/11/2012 Unknown [facility] 08003 TEST LDL 159 MG/DL 06/11/2012 Unknown LIPID GROUP 92908 CHOL 247 MG/DL 06/11/2012 Unknown LIPID GROUP 26417 RCHOL/HDL 6.33 RATIO 06/11/2012 Unknow n GFR CALC 7879158 GFR AA >60 ML/MIN 06/11/2012 Unknown GFR CALC 0673638 GFR NON-AA >60 ML/MIN 06/11/2012 Unknown VITAMIN D TOTAL (25 HYDROXY) 78997 VIT D TOTL 19 NG/ML 03/04/2011 Unknown COMPLETE BLOOD COUNT 34671 WBC 8.0 10e9/L 03/03/20 11 Unknown COMPLETE BLOOD COUNT 63384 RBC 4.62 10e12/L 2010 Unknown COMPLETE BLOOD COUNT 78106 HGB 14.9 g/dL 1 Unknown COMPLETE BLOOD COUNT 12556 HCT DET 43.6 % 1 Unknown COMPLETE BLOOD COUNT 20053 MCV 94.4 fL 1 Unknown COMPLETE BLOOD COUNT 68260 MCH 32.3 pg 1 Unknown COMPLETE BLOOD COUNT 63816 MCHC 34.2 g/dL 1 Unknown COMPLETE BLOOD COUNT 50251 PLT 236 10e9/L 03/03/20 11 Unknown COMPLETE BLOOD COUNT 98525 MPV 11.0 fL 1 Unknown COMPLETE BLOOD COUNT 59747 PRITI % 66.3 % 1 Unknown COMPLETE BLOOD COUNT 41273 LY % 20.7 % 1 Unknown COMPLETE BLOOD COUNT 61127 MON % 9.2 % 1 Unknown COMPLETE BLOOD COUNT 47066 EOS % 3.5 % 1 Unknown COMPLETE BLOOD COUNT 92276 BASO % 0.3 % 1 Unknown COMPLETE BLOOD COUNT 30139 RDW 13.5 % 1 Unknown COMPLETE BLOOD COUNT 52682 ABS PRITI 5.30 10e9/L 011 Unknown COMPLETE BLOOD COUNT 75472 ABS LYMPH 1.66 10e9/L 011 Unknown COMPLETE BLOOD COUNT 26882 ABS MONO 0.74 10e9/L 011 Unknown COMPLETE BLOOD COUNT 13119 ABS EOS 0.28 10e9/L 011 Unknown COMPLETE BLOOD COUNT 25975 ABS BASO 0.02 10e9/L 011 Unknown COMPLETE BLOOD COUNT 61753 RDW-SD 45.1 fL 1 Unknown THYROID STIMULATING HORMONE 97599 TSH 1.944 uIU/ML 03/03/2011 Unknown FREE T4 29425 FREE T4 1.04 NG/DL 03/03/2011 Unknown LIPID GROUP 20623 HDL TEST 50 MG/DL 03/03/2011 Unknown LIP[facility] GROUP 57602 TRIG 246 MG/DL 03/03/2011 Unknown LIPID GROUP 66761 TEST LDL 213 MG/DL 03/03/2011 Unknown LIPID GROUP 75728 CHOL 312 MG/DL 03/03/2011 Unknown LIPID GROUP 46897 RCHOL/HDL 6.24 RATIO 03/03/2011 Unknow n GFR CALC 8019064 GFR AA >60 ML/MIN 03/03/2011 Unknown GFR CALC 1949080 GFR NON-AA >60 ML/MIN 03/03/2011 Unknown COMPREHENSIVE METABOLIC 29668 AST 15 U/L 2010 Unknown COMPREHENSIVE METABOLIC 07482 ALT 21 IU/L 2010 Unknown COMPREHENSIVE METABOLIC 48848 BUN 14 MG/DL 2010 Unknown COMPREHENSIVE METABOLIC 23751 ALBUMIN 4.5 GM/DL 2010 Unknown COMPREHENSIVE METABOLIC 83002 CHLORIDE 99 MMOL/L 2010 Unknown COMPREHENSIVE METABOLIC 68186 BILI TOT 0.6 MG/DL 2010 Unknown COMPREHENSIVE METABOLIC 87265 ALK PHOS 55 U/L 2010 Unknown COMPREHENSIVE METABOLIC 68057 SODIUM 134 MMOL/L 03/03 Unknown COMPREHENSIVE METABOLIC 83000 CREATININE 0.80 MG/DL 02/05 Unknown COMPREHENSIVE METABOLIC 78848 CALCIUM 9.4 MG/DL 2010 Unknown COMPREHENSIVE METABOLIC 44095 POTASSIUM 4.0 MMOL/L 03/03 Unknown COMPREHENSIVE METABOLIC 21224 PROT TOT 7.4 GM/DL 2010 Unknown COMPREHENSIVE METABOLIC 15572 Glucose 101 MG/DL 2010 Unknown COMPREHENSIVE METABOLIC 21951 BICARB 28 MMOL/L 2010 Unknown COMPREHENSIVE METABOLIC 56199 ANION GAP 7 MEQ/L 2010 Unknown Procedures Procedure Codes Date ROUTINE VENIPUNCTURE CPT-4: 13968 02/04/2020 ASSAY OF FREE THYROXINE CPT-4: 94832 02/04/2020 ASSAY THYROID STIM HORMONE CPT-4: 70824 02/04/2020 COMPREHEN METABOLIC PANEL CPT-4: 99263 02/04/2020 COMPLETE CBC W/AUTO DIFF WBC CPT-4: 96171 02/04/2020 LIPID PANEL CPT-4: 44586 02/04/2020 TB INTRADERMAL TEST CPT-4: 36768 03/19/2018 Removal impacted cerumen using irrigation/lavage, unilateral CPT-4: 25135 02/23/2018 ROUTINE VENIPUNCTURE CPT-4: 08337 09/04/2017 ASSAY THYROID STIM HORMONE CPT-4: 66210 09/04/2017 ASSAY OF FREE THYROXINE CPT-4: 16337 09/04/2017 COMPREHEN METABOLIC PANEL CPT-4: 39722 09/04/2017 COMPLETE CBC W/AUTO DIFF WBC CPT-4: 72836 09/04/2017 LIPID PANEL CPT-4: 33708 09/04/2017 ROUTINE VENIPUNCTURE CPT-4: 18435 01/07/2015 ASSAY OF FREE THYROXINE CPT-4: 43357 01/07/2015 ASSAY THYROID STIM HORMONE CPT-4: 95706 01/07/2015 COMPREHEN METABOLIC PANEL CPT-4: 35688 01/07/2015 COMPLETE CBC W/AUTO DIFF WBC CPT-4: 50347 01/07/2015 LIPID PANEL CPT-4: 87118 01/07/2015 EXC TR-EXT B9+CECILIO 0.5 CM< CPT-4: 94612 08/06/2013 ROUTINE VENIPUNCTURE CPT-4: 46728 07/22/2013 ASSAY OF FREE THYROXINE CPT-4: 37388 07/22/2013 ASSAY THYROID STIM HORMONE CPT-4: 98088 07/22/2013 COMPREHEN METABOLIC PANEL CPT-4: 10739 07/22/2013 COMPLETE CBC W/AUTO DIFF WBC CPT-4: 40947 07/22/2013 LIPID PANEL CPT-4: 49194 07/22/2013 INFLUENZA ASSAY W/OPTIC CPT-4: 67443 11/07/2012 ROUTINE VENIPUNCTURE CPT-4: 18833 06/11/2012 ASSAY OF FREE THYROXINE CPT-4: 62837 06/11/2012 ASSAY THYROID STIM HORMONE CPT-4: 70615 06/11/2012 COMPREHEN METABOLIC PANEL CPT-4: 73482 06/11/2012 COMPLETE CBC W/AUTO DIFF WBC CPT-4: 30240 06/11/2012 LIPID PANEL CPT-4: 89205 06/11/2012 ROUTINE VENIPUNCTURE CPT-4: 99640 03/03/2011 ASSAY OF FREE THYROXINE CPT-4: 68812 03/03/2011 ASSAY THYROID STIM HORMONE CPT-4: 09733 03/03/2011 COMPREHEN METABOLIC PANEL CPT-4: 75575 03/03/2011 COMPLETE CBC W/AUTO DIFF WBC CPT-4: 36491 03/03/2011 LIPID PANEL CPT-4: 16774 03/03/2011 VITAMIN D TOTAL (25 HYDROXY) CPT-4: 45160 03/03/2011 Vital Signs Date Vital 02/06/2020 Blood Pressure 1: 124/67 Code: 8480-6 BMI: 26.6 Code: 43618-7 Heart Rate 1: 16 bpm Height: 5'6" Respiratory Rate: 17 bpm SpO2: 99% Tempera ture: 36.8 (C) / 98.2 (F) Weight: 165 lbs 02/23/2018 Blood Pressure 1: 132/84 Code: 8480-6 BMI: 31.6 Code: 17999-5 Heart Rate 1: 76 bpm Height: 5'6" Respiratory Rate: 20 bpm SpO2: 98% Tempera ture: 36.9 (C) / 98.4 (F) Weight: 199 lbs 09/07/2017 Blood Pressure 1: 126/78 Code: 8480-6 BMI: 30.5 Code: 11579-7 Heart Rate 1: 80 bpm Height: 5'6" Respiratory Rate: 20 bpm SpO2: 98% Tempera ture: 37.2 (C) / 98.9 (F) Weight: 192 lbs 01/12/2015 Blood Pressure 1: 132/74 Code: 8480-6 BMI: 29.4 Code: 65124-1 Heart Rate 1: 92 bpm Height: 5'6" Respiratory Rate: 20 bpm Temperature: 36 .7 (C) / 98.1 (F) Weight: 185 lbs 08/06/2013 Blood Pressure 1: 114/80 Code: 8480-6 BMI: 30.7 Code: 02616-7 Heart Rate 1: 80 bpm Height: 5'6" Respiratory Rate: 20 bpm Temperature: 37 .2 (C) / 99.0 (F) Weight: 193 lbs 07/24/2013 Blood Pressure 1: 124/68 Code: 8480-6 BMI: 30.7 Code: 64744-7 Heart Rate 1: 80 bpm Height: 5'6" Respiratory Rate: 20 bpm Temperature: 36 .9 (C) / 98.5 (F) Weight: 193 lbs 06/13/2013 Blood Pressure 1: 124/70 Code: 8480-6 BMI: 31.8 Code: 66064-5 Heart Rate 1: 88 bpm Height: 5'6" Respiratory Rate: 20 bpm Temperature: 36 .8 (C) / 98.2 (F) Weight: 200 lbs 05/15/2013 Blood Pressure 1: 120/80 Code: 8480-6 BMI: 30.8 Code: 39823-9 Heart Rate 1: 82 bpm Height: 5'6" Respiratory Rate: 22 bpm Temperature: 36 .2 (C) / 97.1 (F) Weight: 194 lbs 11/07/2012 Blood Pressure 1: 146/88 Code: 8480-6 BMI: 31.0 Code: 69687-6 Heart Rate 1: 108 bpm Height: 5'7" Respiratory Rate: 20 bpm SpO2: 95% Tempera ture: 38.2 (C) / 100.8 (F) Weight: 198 lbs 09/18/2012 Blood Pressure 1: 114/76 Code: 8480-6 Heart Rate 1: 88 bpm Respiratory Rate: 20 bpm Temperature: 37.1 (C) / 98.8 (F) Weight: 195 lbs 06/13/2012 Blood Pressure 1: 110/64 Code: 8480-6 BMI: 30.4 Code: 33035-1 Heart Rate 1: 64 bpm Height: 5'7" Temperature: 36.9 (C) / 98.4 (F) Weight: 194 lbs 12/21/2011 Blood Pressure 1: 116/80 Code: 8480-6 BMI: 30.7 Code: 41512-1 Heart Rate 1: 72 bpm Height: 5'7" Respiratory Rate: 20 bpm Temperature: 37 .0 (C) / 98.6 (F) Weight: 196 lbs 09/28/2011 Blood Pressure 1: 116/78 Code: 8480-6 BMI: 29.6 Code: 83930-7 Heart Rate 1: 88 bpm Height: 5'7" Respiratory Rate: 20 bpm Temperature: 36 .9 (C) / 98.5 (F) Weight: 189 lbs 04/06/2011 Blood Pressure 1: 132/80 Code: 8480-6 Heart Rate 1: 72 bpm Respiratory Rate: 20 bpm Temperature: 37.2 (C) / 99.0 (F) Weight: 185 lbs 03/03/2011 Blood Pressure 1: 114/80 Code: 8480-6 BMI: 29.6 Code: 37643-4 Heart Rate 1: 80 bpm Height: 5'7" Respiratory Rate: 18 bpm Temperature: 37 .0 (C) / 98.6 (F) Weight: 189 lbs Functional Status No Functional Status data Reason For Visit Reason For Visit Effective Dates Notes well woman exam (40-65 years) 02/06/2020 follow up 03/21/2018 TB Test Reading injection(s) 03/19/2018 [facility] for [facility] 02/23/2018 Patient was treated by urgent care [...] Visit Encounters Encounter Performer Location Codes Date ([id number]) PREV VISIT EST AGE 40-64 Diagnosis: Encounter for general adult medical examination without abnormal findings[ICD10: Z00.00] Diagnosis: Mixed hyperlipidemia[ICD10: E78.2] Diagnosis: Allergic rhinitis due to allergen[ICD10: J30.9] Ophelia GAVIRIA [employer] CPT-4: 79015 02/06/2020 ([id number]) NURSE/OUTPATIENT VISIT EST Diagnosis: Encounter for general adult medical examination without abnormal findings[ICD10: Z00.00] Diagnosis: Malaise and fatigue[ICD10: R53.81] Diagnosis: Mixed hyperlipidemia[ICD10: E78.2] Ophelia MCCORD [employer] CPT-4: 64161 02/04/2020 ([id number]) NURSE/OUTPATIENT VISIT EST Diagnosis: SCREENING-PULMONARY TB[ICD10: Z11.1] Ophelia GALINDO [employer] CPT-4: 20069 03/19/2018 OFFICE/OUTPATIENT VISIT EST Diagnosis: Allergic rhinitis, unspecified[ICD10: J30.9] Diagnosis: Impacted cerumen, right ear[ICD10: H61.21] Cassandra Bliss [employer] CPT-4: 07373 02/23/2018 ([id number]) PREV VISIT EST AGE 40-64 Diagnosis: Encounter for general adult medical examination without abnormal findings[ICD10: Z00.00] Diagnosis: Mixed hyperlipidemia[ICD10: E78.2] Ophelia MCCORD [employer] CPT-4: 88811 09/07/2017 ([id number]) OFFICE/OUTPATIENT VISIT EST Diagnosis: Encounter for general adult medical examination without abnormal findings[ICD10: Z00.00] Diagnosis: Mixed hyperlipidemia[ICD10: E78.2] Ophelia AGUILLON [employer] CPT-4: 26280 09/04/2017 ([id number]) PREV VISIT EST AGE 40-64 Diagnosis: ROUTINE MEDICAL EXAM[ICD9: V70.0] Diagnosis: HYPERLIPIDEMIA NEC/NOS[ICD9: 272.4] Diagnosis: ANXIETY STATE NOS[ICD9: 300.00] Ophelia AGUILLON DO [employer] CPT-4: 25111 01/12/2015 ([id number]) OFFICE/OUTPATIENT VISIT EST Diagnosis: ROUTINE MEDICAL EXAM[ICD9: V70.0] Diagnosis: MALAISE AND FATIGUE[ICD9: 780.79] Diagnosis: HYPERLIPIDEMIA NEC/NOS[ICD9: 272.4] Ophelia AGUILLON [employer] CPT-4: 30362 01/07/2015 ([id number]) PREV VISIT EST AGE 40-64 Diagnosis: ROUTINE MEDICAL EXAM[ICD9: V70.0] Diagnosis: HYPERLIPIDEMIA NEC/NOS[ICD9: 272.4] Diagnosis: ANXIETY STATE NOS[ICD9: 300.00] Ophelia AGUILLON [employer] CPT-4: 13051 07/24/2013 ([id number]) OFFICE/OUTPATIENT VISIT EST Diagnosis: HYPERLIPIDEMIA NEC/NOS[ICD9: 272.4] Diagnosis: ROUTINE MEDICAL EXAM[ICD9: V70.0] Ophelia AGUILLON [employer] CPT-4: 16142 07/22/2013 ([id number]) OFFICE/OUTPATIENT VISIT EST Diagnosis: BENIGN KACEY SKIN[ICD9: 216.9] Ophelia AGUILLON [employer] CPT-4: 32407 06/13/2013 ([id number]) OFFICE/OUTPATIENT VISIT EST Diagnosis: Nasal lesion[ICD9: 478.19] Diagnosis: Changing mole[ICD9: 216.9] Diagnosis: ALLERGIC RHINITIS[ICD9: 477.9] Ophelia AGUILLON [employer] CPT-4: 34595 05/15/2013 OFFICE/OUTPATIENT VISIT EST Diagnosis: COUGH[ICD9: 786.2] Diagnosis: FEBRILE ILLNESS[ICD9: 780.60] Diagnosis: SINUSITIS, ACUTE[ICD9: 461.9] Ophelia ORTALINE Joc[employer]amin ARMANI BEG[employer] CPT-4: 59728 11/07/2012 OFFICE/OUTPATIENT VISIT EST Diagnosis: ACUTE STRESS REACT[ICD9: 308.9] Diagnosis: ANXIETY STATE NOS[ICD9: 300.00] Ophelia ORTALINE JocelynRamin ARMANI BEGUM [facility] CPT-4: 57237 09/18/2012 ([id number]) PREV VISIT EST AGE 40-64 Diagnosis: ROUTINE MEDICAL EXAM[ICD9: V70.0] Diagnosis: HYPERLIPIDEMIA NEC/NOS[ICD9: 272.4] Diagnosis: ANXIETY STATE NOS[ICD9: 300.00] Ophelia Chandrastonemerari ORTAOPHELIA JocelynRamin ARMANI BEGUM [employer] CPT-4: 31166 06/13/2012 ([id number]) OFFICE/OUTPATIENT VISIT EST Diagnosis: ROUTINE MEDICAL EXAM[ICD9: V70.0] Ophelia Prateekdenny Bliss [employer]MANI [employer] CPT-4: 52062 06/11/2012 OFFICE/OUTPATIENT VISIT EST Diagnosis: INSOMNIA NOS[ICD9: 780.52] Diagnosis: ACUTE STRESS REACT[ICD9: 308.9] Diagnosis: Tinnitus[ICD9: 388.30] Diagnosis: HYPERLIPIDEMIA NEC/NOS[ICD9: 272.4] Ophelia Prateekdenny TRUONG [employer]amin [employer] CPT-4: 18655 12/21/2011 OFFICE/OUTPATIENT VISIT EST Diagnosis: ACUTE STRESS REACT[ICD9: 308.9] Ophelia Prateekdenny GAVIRIA [employer]MANI BEGUM [employer] CPT-4: 53570 09/28/2011 OFFICE/OUTPATIENT VISIT EST Diagnosis: ACUTE STRESS REACT[ICD9: 308.9] Ophelia Prateekdenny GAVIRIA [employer]amin [employer]MAN[employer] BEGUM [employer] CPT-4: 24914 04/06/2011 OFFICE/OUTPATIENT VISIT NEW Ophelia Prateekstonemerari HANKSOPHELIA JocelynRamin PRATEEK DENNY [employer] CPT- 4: 38299 03/03/2011 Plan of Care Planned Activity Notes Codes Status Date Visit Diagnosis Plan: Mixed hyperlipidemia Discussion: Lipitor 10mg M, W, F Repeat lipids in 6mos Vitamin D3 2000u daily ICD-9 : 272.4 ICD-10 : E78.2 02/06/2020 Visit Diagnosis Plan: Encounter for gene [facility] adult medical examination without abnormal findings Discussion: Mediterranean diet Combinati on of cardio and weight bearing exercise Had WWE done recently with [employer] SU[employer]OR--had Mammo/Bone Density/Lab done Referral for updated colonoscopy ICD-9 : V70.0 ICD-10 : Z00.00 02/06/2020 Visit Diagnosis Plan: Allergic rhinitis due to allerge n Discussion: Using [place] ICD-9 : 477.9 ICD-10 : J30.9 02/06/2020 Appointment: Ophelia Aguillon WPtel: [phone] [facility] [place] Annual Well Visit 02/06/2020 Patient Education: Lipitor- [employer] Coupon [id number] [email or web address] Completed 02/06/2020 Care Plan: Referral Order SNOMED-CT : [id number] Pending 02/06/2020 Appointment: Ophelia Aguillon WPtel: [phone] [facility] [place] LAB 02/04/2020 Appointment: Ophelia Aguillon WPtel: [phone] [facility] [place] TB Test read 03/21/2018 Patient Education: Patient Medication Summary Completed 03/21/2018 Appointment: Ophelia Aguillon WPtel: [phone] [facility] [place] TB Test 03/19/2018 Patient Education: Patient [...] improvement, RTC 02/23/2018 Appointment: Cassandra Camejo WPtel: [address] [place], [place] [phone] ACUTE ILLNESS 02/23/2018 Patient Education: Patient Medication Summary Completed 02/23/2018 Visit Diagnosis Plan: Encounter for gene [facility] adult medical examination without abnormal findings Discussion: Lab discussed Add Calcium wi th Vitamin D3 daily Continue walking and add yoga for weight bearing Praised lower cholesterol efforts 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[employer] 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 up to date ICD-9 : V70.0 ICD-10 : Z00.00 09/07/2017 Appointment: Ophelia Aguillon WPtel: [address] [place], [place] [phone] Annual Well Visit 09/07/2017 Patient Education: Patient Medication Summary Completed 09/07/2017 Appointment: Ophelia Aguillon WPtel: [address] [place], [place] [phone] [place] LAB 09/04/2017 Patient Education: Patient Medication Summary Completed 09/04/2017 Visit Plan: Lab discussed Schedule colon oscopy Keep meds same Defers statin and will add fish oil and aspirin 81mg daily with diet/exercise and recheck lipids in 4mos Sees [employer] next month Discussed is high risk for CAD due to family history and hyperlipidemia 01/12/2015 Appointment: Ophelia Aguillon WPtel: [address] [place], [place] [phone] [place] confirmed -mf Annual Well Visit 01/12/2015 Patient Education: Patient Medication Summary Completed 01/12/2015 Appointment: Ophelia Aguillon WPtel: [address] [place], [place] [phone] [place] LAB 01/07/2015 Patient Education: Patient Medication Summary Completed 01/07/2015 Appointment: Sarah Wong WPtel: [address] [place], [place] [phone] [place] FOLLOW UP 02/26/2014 Appointment: Ophelia Aguillon WPtel: [address] [place], [place] [phone] [place] 01/07 patient canceled FOLLOW UP 4 Visit Plan: Removal of lesion as above 08/06/2013 Appointment: Ophelia Aguillontel: [address] [place], [place] [phone] OFFICE SURGERY 08/06/2013 Patient Education: Patient Medication Summary Completed 08/06/2013 Visit Plan: Daily fish oil 3grams, Vitam in D 1000u daily, Coenzyme Q-10 200mg daily Diet/exercise/weight loss Recheck lipids in 6mos Discussed statins Pt has mammo next month 07/24/2013 Appointment: Ophelia Aguillon WPtel: [address] [place], [place] [phone] 07/23 Annual Well Visit 07/24/2013 Patient Education: Patient Medication Summary Completed 07/24/2013 Appointment: Ophelia Aguillontel: [address] [place] [address] LAB 07/22/2013 Patient Education: Patient Medication Summary Completed 07/22/2013 Referral: Ophelia Aguillontel: [address] [place] [address] Referral Initiated 06/17/2013 Visit Plan: Skin So Soft to right nasal area q HS next month then observe If something comes back then will see ENT for removal 06/13/2013 Appointment: Ophelia Aguillontel: [address] [place], [place] [phone] 06/12 FOLLOW UP 06/13/2013 Patient Education: Patient Medication Summary Completed 06/13/2013 Visit Plan: Bactrim DS 1 po BID for 1wk, Prednisone 20mg po BID for 1wk Zyrtec daily If lesion persists will see Dr. Low for removal 05/15/2013 Appointment: Ophelia Aguillontel: [address] [place], [place] [phone] 05/14 ACUTE ILLNESS 05/15/2013 Patient Education: Patient Medication Summary Completed 05/15/2013 Appointment: Ophelia Aguillon WPtel: [address] [place] [address] FOLLOW UP 12/13/2012 Visit Plan: Note for fever free 24 hours . Discussed fluids and rest. Clarified in verbal message that Levaquin should be QD dosing. Codeine/guiaf cough syrup. Flu test negative. Pt. to notify if symptoms worsen or fever persists. Discussed Rocephin IM and or lab/chest x-rays if symptoms persist. 11/07/2012 Appointment: Batsheva Bennett WPtel: [address] [place] [address] ACUTE ILLNESS 11/07/2012 Patient Education: Patient Medication Summary Completed 11/07/2012 Visit Plan: Continue fluoxetine at 30mg daily Stess Reducers 09/18/2012 Appointment: Ophelia Aguillon WPtel: [address] [place] [address] FOLLOW UP 09/18/2012 Patient Education: Patient Medication Summary Completed 09/18/2012 Visit Plan: Increase fish oil to 3gm poonam ly Step 1 Cardiac Diet Repeat CMP and lipids in 6mos Pt has DCed Fluoxetine and so far doing okay Will focus on stress reducers 06/13/2012 Appointment: Ophelia Aguillon WPtel: [address] [place] [address] FOLLOW UP 06/13/2012 Patient Education: Patient Medication Summary Completed 06/13/2012 Appointment: Ophelia Aguillon WPtel: [address] [place] [address] LAB 06/11/2012 Patient Education: Patient Medication Summary Completed 06/11/2012 Visit Plan: Decrease fluoxetine back to 30mg daily Check fasting lab in 3mos ENT for tinnitus/hearing loss 12/21/2011 Appointment: Ophelia Aguillon WPtel: [address] [place] [address] FOLLOW UP 12/21/2011 Patient Education: Patient Medication Summary Completed 12/21/2011 Visit Plan: Increase fluoxetine to 40mg daily 09/28/2011 Appointment: Ophelia Aguillon WPtel: [phone] [facility] [place] FOLLOW UP 09/28/2011 Patient Education: Patient Medication Summary Completed 09/28/2011 Visit Plan: Increase fluoxetine to 30mg daily Call in 2wks 04/06/2011 Appointment: Ophelia Aguillon WPtel: [phone] [facility] FOLLOW UP 04/06/2011 Patient Education: Patient Medication Summary Completed 04/06/2011 Appointment: Ophelia Aguillon WPtel: [phone] [facility] [place] NEW PATIENT 03/03/2011 Patient Education: Patient Medication Summary Completed 03/03/2011 Referral: Augustus Velazco WPtel: [phone] [id number] [place] Referral Appointment Requested Referral: Saurabh Beatty WPtel: [address] [id number] [place] Referral Completed Instructions Comment . 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
--- OUTSIDE RECORDS SUMMARY | 2020-03-06 17:10 | XMS REPORT | CCD ---
Author Author Sofia Aguillon D.O. Organization [facility] Address [address] [place] [address] Phone Care Team Providers Care Cotton Program Technician Name Role Phone PP Unavailable CCM Unavailable Summary Purpose Interface Exchange Insurance Providers Payer name Policy type / Coverage type Covered republican ID Effective Begin Date Effective End Date Blue Cross Blue Shield Blue Cross/Blue Shield [id number] Unknown Family History Family History data not found Social History Social History Element Codes Description Effective Dates Marital status Unknown 03/03/2011 Number of children Unknown 3 03/03/2011 Employment Unknown Currently employed [employer] 250 03/03/[address]: 097312550 Never smoker 03/03/[address]: 863509715 Never drinks alcohol 2010 Allergies, Adverse Reactions, [...] Start Date Stop Date Status Fill Instructions Alba Allergy 180 mg tablet RxNorm: 407403 1 Tablet(s) Oral QD 05/06/2020 Active Lipitor 10 mg tablet RxNorm: 839238 1 Tablet(s) Oral QD M, W, F 09/201908/04/2020 Active Women's Multivitamin 18 mg iron-400 mcg-500 mg tablet RxNorm : 1 Tablet(s) Oral QD 02/06/2020 03/07/2020 Active Alba Allergy 180 mg tablet RxNorm: 641139 1 Tablet(s) PO QD 02/0505/23/2018 Inactive Medrol (Vick) 4 mg tablets in a dose pack RxNorm: 262228 As directed Tablet(s) PO QD 02/23/2018 02/27/2018 Inactive alprazolam 0.25 mg tablet RxNorm: 018157 TAKE 1/2 TABLE T TWO TIMES A DAY NEEDED FOR SEVERE STRESS 03/27/2015 04/15/2015 Inactive fluoxetine 10 mg tablet RxNorm: 578870 3 Tablet(s) PO QAM 03/27/2015 09/06/2017 Inactive for 1week then 2 po qam alprazolam 0.25 mg tablet RxNorm: 462716 TAKE ONE-HALF TABLET BY MOUTH TWICE A DAY NEEDED FOR SEVERE STRESS 07/24/2014 03/27/2015 Inactive ([id number] fluoxetine 10 mg tablet RxNorm: 083635 3 Tablet(s) PO QAM 05/26/2014 03/27/2015 Inactive for 1week then 2 po qAM [SAVINGS FOR UNI NSURED PATIENTS -- BIN:[id number], PCN: [id number], Group: [id number], ID# [id number], Process claim through [employer], for questions: . THIS IS NOT INSURANCE.] Bactrim DS 800 mg-160 mg tablet RxNorm: 901762 1 Tablet(s) PO BID 1 05/21/2013 Inactive prednisone 20 mg tablet RxNorm: 945075 1 Tablet(s) PO BID 05/15/2013 05/21/2013 Inactive Levaquin 750 mg tablet RxNorm: 429280 1 Tablet(s) PO BID 11/07/2012 0 11/16/2012 Inactive fluoxetine 10 mg tablet RxNorm: 295254 3 Tablet(s) PO QAM 09/18/2012 03/16/2013 Inactive for 1week then 2 po qAM fluoxetine 10 mg tablet RxNorm: 010596 3 Tablet(s) PO QAM 12/21/2011 06/12/2012 Inactive for 1week then 2 po qAM fluoxetine 10 mg Tab RxNorm: 565121 3 Tablet(s) PO QAM 10/20/2011 Inactive for 1week then 2 po qAM Vaniqa 13.9 % Topical Cream RxNorm: 484072 1 Application TOP BID 12/20/2011 Inactive fluoxetine 40 mg Cap RxNorm: 639033 1 Capsule(s) PO QD 09/28/2011 Inactive fluoxetine 10 mg Cap RxNorm: 458958 3 Capsule(s) PO QD 06/21/201107/2012 Inactive fluoxetine 10 mg Tab RxNorm: 762538 3 Tablet(s) PO QD 04/26/201105/07 Inactive Xanax 0.25 mg Tab RxNorm: 037145 1/2 Tablet(s) PO BID 03/03/201103/07 Inactive prn severe stress alprazolam 0.25 mg tablet RxNorm: 524173 1/2 Tablet(s) PO BID as needed for anxiety No Start Date 02/22/2018 Inactive Medrol (Vick) 4 mg tablets in a dose pack RxNorm: 201891 Tablet(s) PO as directed No Start Date 05/14/2013 Inactive Fish Oil 1,000 mg Cap RxNorm: 1 Capsule(s) PO BID No Start Date Inactive fluoxetine 10 mg Cap RxNorm: 634533 2 Capsule(s) PO QD No Start Date 06/20/2011 Inactive fluoxetine 10 mg Cap RxNorm: 001613 3 Capsule(s) PO QD No Start Date 09/27/2011 Inactive alprazolam 0.25 mg Tab RxNorm: 372604 1/2 Tablet(s) PO BID No Start Date 07/24/2014 Inactive as needed fluoxetine 10 mg Tab RxNorm: 469915 1 Tablet(s) PO QAM No Start Date 10/19/2011 Inactive for 1week then 2 po qAM Vaniqa 13.9 % Topical Cream RxNorm: 737189 1 Application TOP BID No Start Date 09/27/2011 Inactive fluoxetine 20 mg capsule RxNorm: 183169 1 Capsule(s) PO QD No Start Date 02/22/2018 Inactive Vitamin D3 1000 units Capsule RxNorm: 1 Capsule(s) PO QD No St art Date 09/06/2017 Inactive Prozac 20 mg capsule RxNorm: 057473 1 Capsule(s) PO QD No Start Date 07/23/2013 Inactive Medication Administered No Medication Administered data Immunizations Vaccine Codes Date Status Shingrix Unknown 01/15/2018 Complete Zostavax CVX: 121 11/16/2017 Results Observation Observation Code Item Item Code Result Date S ervice Location [facility] 70759 Cholesterol 232 mg/dL 02/04/2020 Unkno wn [facility] 57834 Triglyceride 126 mg/dL 02/04/2020 Unkn own [facility] 27033 HDL CHOLESTEROL 48 mg/dL 02/04/2020 U nknown [facility] 36750 Chol/HDL Ratio 4.83 ratio 02/04/2020 U nknown [facility] 76199 NON-HDL Chol 184 mg/dL 02/04/2020 Unkn own [facility] 54253 LDL Cholesterol 159 mg/dL 02/04/2020 U nknown GFR CALC 5122708 GFR Non Afr Amr >60 mL/min 02/04/2020 Un known GFR CALC 5894121 GFR Afr Amr >60 mL/min 02/04/2020 Unknow n THYROID STIMULATING HORMONE 60884 TSH 1.616 uIU/mL 02/04/2020 Unknown FREE T4 69832 T4 Free 0.96 ng/dL 02/04/2020 Unknown COMPREHENSIVE METABOLIC 53861 AST 20 U/L 2019 Unknown COMPREHENSIVE METABOLIC 54483 ALT 32 U/L 2019 Unknown COMPREHENSIVE METABOLIC 64702 BUN 16 mg/dL 2019 Unknown COMPREHENSIVE METABOLIC 44533 ALBUMIN 4.7 g/dL 2019 Unknown COMPREHENSIVE METABOLIC 49413 CHLORIDE 101 mmol/L 02/03 Unknown COMPREHENSIVE METABOLIC 15080 Bili Total 0.4 mg/dL 02/03 Unknown COMPREHENSIVE METABOLIC 80408 ALK PHOS 63 U/L 2019 Unknown COMPREHENSIVE METABOLIC 88591 SODIUM 138 mmol/L 02/03 Unknown COMPREHENSIVE METABOLIC 14860 CREATININE 0.65 mg/dL 01/07 Unknown COMPREHENSIVE METABOLIC 98874 CALCIUM 9.4 mg/dL 2019 Unknown COMPREHENSIVE METABOLIC 28463 POTASSIUM 4.0 mmol/L 02/03 Unknown COMPREHENSIVE METABOLIC 31119 Total Protein 7.3 g/dL Unknown COMPREHENSIVE METABOLIC 87283 Glucose 100 mg/dL 2019 Unknown COMPREHENSIVE METABOLIC 28488 Bicarbonate 27 mmol/L 01/07 Unknown COMPREHENSIVE METABOLIC 74731 AGAP 10 mmol/L 2019 Unknown COMPLETE BLOOD COUNT 0939335 WBC 5.5 10e9/L 02/04/20 20 Unknown COMPLETE BLOOD COUNT 7191521 RBC 4.56 10e12/L 2019 Unknown COMPLETE BLOOD COUNT 3549088 HEMOGLOBIN 14.5 g/dL 02/04/20 20 Unknown COMPLETE BLOOD COUNT 7012141 HEMATOCRIT 44.1 % 02/04/20 20 Unknown COMPLETE BLOOD COUNT 3518980 MCV 96.7 fL 0 Unknown COMPLETE BLOOD COUNT 9134781 MCH 31.8 pg 0 Unknown COMPLETE BLOOD COUNT 3177708 MCHC 32.9 g/dL 0 Unknown COMPLETE BLOOD COUNT 9425885 PLATELET COUNT 232 10e9/L Unknown COMPLETE BLOOD COUNT 5871407 Mean Plt Volume 11.4 fL Unknown COMPLETE BLOOD COUNT 6661604 Neut Auto 55.7 % 0 Unknown COMPLETE BLOOD COUNT 7738259 Lymph Auto 31.3 % 02/04/20 20 Unknown COMPLETE BLOOD COUNT 0973192 [place] Auto 10.0 % 0 Unknown COMPLETE BLOOD COUNT 4366087 RDW 13.7 % 0 Unknown COMPLETE BLOOD COUNT 6475745 Eos Auto 2.5 % 0 Unknown COMPLETE BLOOD COUNT 3416890 Baso Auto 0.5 % 0 Unknown COMPLETE BLOOD COUNT 8987552 Neutrophil Abs 3.06 10e9/L Unknown COMPLETE BLOOD COUNT 3108600 Lymphocyte Abs 1.72 10e9/L Unknown COMPLETE BLOOD COUNT 7671725 Monocyte Abs 0.55 10e9/L 01/07 Unknown COMPLETE BLOOD COUNT 7022507 Eosinophil Abs 0.14 10e9/L Unknown COMPLETE BLOOD COUNT 8676465 RDW-SD 47.5 fL 0 Unknown COMPLETE BLOOD COUNT 9274847 Basophil Abs 0.03 10e9/L 01/07 Unknown FREE T4 84629 T4 Free 1.25 ng/dL 09/04/2017 Unknown COMPLETE BLOOD COUNT 3407021 WBC 5.9 10e9/L 09/04/19 18 Unknown COMPLETE BLOOD COUNT 8789041 RBC 4.35 10e12/L 2017 Unknown COMPLETE BLOOD COUNT 6209170 HEMOGLOBIN 14.0 g/dL 09/04/19 18 Unknown COMPLETE BLOOD COUNT 1658655 HEMATOCRIT 41.6 % 09/04/19 18 Unknown COMPLETE BLOOD COUNT 7051696 MCV 95.6 fL 8 Unknown COMPLETE BLOOD COUNT 9672287 MCH 32.2 pg 8 Unknown COMPLETE BLOOD COUNT 5046740 MCHC 33.7 g/dL 8 Unknown COMPLETE BLOOD COUNT 3488787 PLATELET COUNT 239 10e9/L Unknown COMPLETE BLOOD COUNT 8820823 Mean Plt Volume 10.8 fL Unknown COMPLETE BLOOD COUNT 1967678 Neut Auto 53.2 % 8 Unknown COMPLETE BLOOD COUNT 6142102 Lymph Auto 35.6 % 09/04/19 18 Unknown COMPLETE BLOOD COUNT 1032315 [place] Auto 9.6 % 8 Unknown COMPLETE BLOOD COUNT 0054814 RDW 13.2 % 8 Unknown COMPLETE BLOOD COUNT 9608816 Eos Auto 1.4 % 8 Unknown COMPLETE BLOOD COUNT 7832096 Baso Auto 0.2 % 8 Unknown COMPLETE BLOOD COUNT 3717406 Neutrophil Abs 3.14 10e9/L Unknown COMPLETE BLOOD COUNT 3414181 Lymphocyte Abs 2.10 10e9/L Unknown COMPLETE BLOOD COUNT 3808641 Monocyte Abs 0.57 10e9/L 08/08 Unknown COMPLETE BLOOD COUNT 7473486 Eosinophil Abs 0.08 10e9/L Unknown COMPLETE BLOOD COUNT 8662955 RDW-SD 44.7 fL 8 Unknown COMPLETE BLOOD COUNT 2377658 Basophil Abs 0.01 10e9/L 08/08 Unknown COMPREHENSIVE METABOLIC 96375 AST 26 U/L 2017 Unknown COMPREHENSIVE METABOLIC 97109 ALT 40 U/L 2017 Unknown COMPREHENSIVE METABOLIC 56620 BUN 6 mg/dL 2017 Unknown COMPREHENSIVE METABOLIC 09895 ALBUMIN 5.3 g/dL 2017 Unknown COMPREHENSIVE METABOLIC 47642 CHLORIDE 102 mmol/L 09/04 Unknown COMPREHENSIVE METABOLIC 73371 Bili Total 0.7 mg/dL 09/04 Unknown COMPREHENSIVE METABOLIC 83873 ALK PHOS 56 U/L 2017 Unknown COMPREHENSIVE METABOLIC 39915 SODIUM 139 mmol/L 09/04 Unknown COMPREHENSIVE METABOLIC 20788 CREATININE 0.61 mg/dL 08/08 Unknown COMPREHENSIVE METABOLIC 43991 CALCIUM 9.8 mg/dL 2017 Unknown COMPREHENSIVE METABOLIC 11321 POTASSIUM 3.8 mmol/L 09/04 Unknown COMPREHENSIVE METABOLIC 03909 Total Protein 7.7 g/dL Unknown COMPREHENSIVE METABOLIC 90689 Glucose 95 mg/dL 2017 Unknown COMPREHENSIVE METABOLIC 32939 Bicarbonate 30 mmol/L 08/08 Unknown COMPREHENSIVE METABOLIC 45597 AGAP 7 mmol/L 2017 Unknown GFR CALC 7454332 GFR Non Afr Amr >60 mL/min 09/04/2017 Un known GFR CALC 6326349 GFR Afr Amr >60 mL/min 09/04/2017 Unknow n THYROID STIMULATING HORMONE 01666 TSH 1.454 uIU/mL 09/04/2017 Unknown [facility] 54483 Cholesterol 218 mg/dL 09/04/2017 Unkno wn [facility] 55631 Triglyceride 135 mg/dL 09/04/2017 Unkn own [facility] 93410 HDL CHOLESTEROL 52 09/04/2017 U nknown [facility] 26488 Chol/HDL Ratio 4.19 ratio 09/04/2017 U nknown [facility] 72004 NON-HDL Chol 166 mg/dL 09/04/2017 Unkn own [facility] 78061 LDL Cholesterol 139 mg/dL 09/04/2017 U nknown FREE T4 85264 FREE T4 1.15 NG/DL 01/07/2015 Unknown THYROID STIMULATING HORMONE 83631 TSH 1.927 uIU/ML 01/07/2015 Unknown [facility] 90063 HDL TEST 53 MG/DL 01/07/2015 Unknown [facility] 58558 TRIG 215 MG/DL 01/07/2015 Unknown [facility] 62863 TEST LDL 194 MG/DL 01/07/2015 Unknown [facility] 51786 CHOL 290 MG/DL 01/07/2015 Unknown [facility] 86250 RCHOL/HDL 5.47 RATIO 01/07/2015 Unknow n [facility] 72869 NON-HDL CH 237 MG/DL 01/07/2015 Unknow n GFR CALC 2700041 GFR AA >60 ML/MIN 01/07/2015 Unknown GFR CALC 9936724 GFR NON-AA >60 ML/MIN 01/07/2015 Unknown COMPLETE BLOOD COUNT 9506356 WBC 5.9 10e9/L 01/08/20 15 Unknown COMPLETE BLOOD COUNT 1456538 RBC 4.35 10e12/L 2014 Unknown COMPLETE BLOOD COUNT 2344517 HGB 14.2 g/dL 5 Unknown COMPLETE BLOOD COUNT 0297350 HCT DET 42.0 % 5 Unknown COMPLETE BLOOD COUNT 4365308 MCV 96.6 fL 5 Unknown COMPLETE BLOOD COUNT 9245489 MCH 32.6 pg 5 Unknown COMPLETE BLOOD COUNT 4025322 MCHC 33.8 g/dL 5 Unknown COMPLETE BLOOD COUNT 2028883 PLT 227 10e9/L 01/08/20 15 Unknown COMPLETE BLOOD COUNT 5661033 MPV 11.4 fL 5 Unknown COMPLETE BLOOD COUNT 9966263 PRITI % 54.2 % 5 Unknown COMPLETE BLOOD COUNT 8005418 LY % 33.8 % 5 Unknown COMPLETE BLOOD COUNT 9692333 MON % 8.8 % 5 Unknown COMPLETE BLOOD COUNT 4374496 EOS % 2.9 % 5 Unknown COMPLETE BLOOD COUNT 9565483 BASO % 0.3 % 5 Unknown COMPLETE BLOOD COUNT 4646856 RDW 13.6 % 5 Unknown COMPLETE BLOOD COUNT 2034279 ABS PRITI 3.20 10e9/L 015 Unknown COMPLETE BLOOD COUNT 1775040 ABS LYMPH 1.99 10e9/L 015 Unknown COMPLETE BLOOD COUNT 9526016 ABS MONO 0.52 10e9/L 015 Unknown COMPLETE BLOOD COUNT 4271792 ABS EOS 0.17 10e9/L 015 Unknown COMPLETE BLOOD COUNT 7249716 ABS BASO 0.02 10e9/L 015 Unknown COMPLETE BLOOD COUNT 0348595 RDW-SD 47.0 fL 5 Unknown COMPREHENSIVE METABOLIC 49909 AST 20 U/L 2014 Unknown COMPREHENSIVE METABOLIC 01563 ALT 30 IU/L 2014 Unknown COMPREHENSIVE METABOLIC 85588 BUN 12 MG/DL 2014 Unknown COMPREHENSIVE METABOLIC 58367 ALBUMIN 4.4 GM/DL 2014 Unknown COMPREHENSIVE METABOLIC 55202 CHLORIDE 102 MMOL/L 01/07 Unknown COMPREHENSIVE METABOLIC 05644 BILI TOT 0.6 MG/DL 2014 Unknown COMPREHENSIVE METABOLIC 44689 ALK PHOS 76 U/L 2014 Unknown COMPREHENSIVE METABOLIC 04435 SODIUM 139 MMOL/L 01/07 Unknown COMPREHENSIVE METABOLIC 93569 CREATININE 0.77 MG/DL 10/2014 Unknown COMPREHENSIVE METABOLIC 41471 CALCIUM 9.2 MG/DL 2014 Unknown COMPREHENSIVE METABOLIC 89149 POTASSIUM 4.1 MMOL/L 01/07 Unknown COMPREHENSIVE METABOLIC 88975 PROT TOT 7.1 GM/DL 2014 Unknown COMPREHENSIVE METABOLIC 41588 Glucose 107 MG/DL 2014 Unknown COMPREHENSIVE METABOLIC 53870 BICARB 30 MMOL/L 2014 Unknown COMPREHENSIVE METABOLIC 32709 ANION GAP 7 MEQ/L 2014 Unknown [facility] 88610 HDL TEST 48 MG/DL 07/22/2013 Unknown [facility] 01958 TRIG 176 MG/DL 07/22/2013 Unknown [facility] 00556 TEST LDL 161 MG/DL 07/22/2013 Unknown [facility] 46193 CHOL 244 MG/DL 07/22/2013 Unknown [facility] GROUP 48083 RCHOL/HDL 5.08 RATIO 07/22/2013 Unknow n COMPLETE BLOOD COUNT 9567359 WBC 5.8 10e9/L 07/22/20 13 Unknown COMPLETE BLOOD COUNT 2496902 RBC 4.45 10e12/L 2012 Unknown COMPLETE BLOOD COUNT 1117630 HGB 14.6 g/dL 3 Unknown COMPLETE BLOOD COUNT 9470840 HCT DET 43.8 % 3 Unknown COMPLETE BLOOD COUNT 3368361 MCV 98.4 fL 3 Unknown COMPLETE BLOOD COUNT 1211251 MCH 32.8 pg 3 Unknown COMPLETE BLOOD COUNT 5354774 MCHC 33.3 g/dL 3 Unknown COMPLETE BLOOD COUNT 3672202 PLT 270 10e9/L 07/22/20 13 Unknown COMPLETE BLOOD COUNT 0777186 MPV 11.4 fL 3 Unknown COMPLETE BLOOD COUNT 8794828 PRITI % 54.2 % 3 Unknown COMPLETE BLOOD COUNT 0566549 LY % 33.2 % 3 Unknown COMPLETE BLOOD COUNT 5254357 MON % 9.2 % 3 Unknown COMPLETE BLOOD COUNT 0598136 EOS % 3.1 % 3 Unknown COMPLETE BLOOD COUNT 9958916 BASO % 0.3 % 3 Unknown COMPLETE BLOOD COUNT 4996979 RDW 13.8 % 3 Unknown COMPLETE BLOOD COUNT 1830203 ABS PRITI 3.14 10e9/L 013 Unknown COMPLETE BLOOD COUNT 2896865 ABS LYMPH 1.93 10e9/L 013 Unknown COMPLETE BLOOD COUNT 2002019 ABS MONO 0.53 10e9/L 013 Unknown COMPLETE BLOOD COUNT 3673330 ABS EOS 0.18 10e9/L 013 Unknown COMPLETE BLOOD COUNT 9761168 ABS BASO 0.02 10e9/L 013 Unknown COMPLETE BLOOD COUNT 3983656 RDW-SD 48.4 fL 3 Unknown GFR CALC 6881128 GFR AA >60 ML/MIN 07/22/2013 Unknown GFR CALC 2997353 GFR NON-AA >60 ML/MIN 07/22/2013 Unknown THYROID STIMULATING HORMONE 88659 TSH 1.645 uIU/ML 07/22/2013 Unknown COMPREHENSIVE METABOLIC 21192 AST 23 U/L 2012 Unknown COMPREHENSIVE METABOLIC 31422 ALT 30 IU/L 2012 Unknown COMPREHENSIVE METABOLIC 49558 BUN 12 MG/DL 2012 Unknown COMPREHENSIVE METABOLIC 19454 ALBUMIN 4.7 GM/DL 2012 Unknown COMPREHENSIVE METABOLIC 60118 CHLORIDE 102 MMOL/L 07/22 Unknown COMPREHENSIVE METABOLIC 22779 BILI TOT 0.5 MG/DL 2012 Unknown COMPREHENSIVE METABOLIC 82542 ALK PHOS 51 U/L 2012 Unknown COMPREHENSIVE METABOLIC 28747 SODIUM 136 MMOL/L 07/22 Unknown COMPREHENSIVE METABOLIC 61405 CREATININE 0.74 MG/DL 07/07 Unknown COMPREHENSIVE METABOLIC 29263 CALCIUM 9.2 MG/DL 2012 Unknown COMPREHENSIVE METABOLIC 70188 POTASSIUM 4.1 MMOL/L 07/22 Unknown COMPREHENSIVE METABOLIC 70983 PROT TOT 7.1 GM/DL 2012 Unknown COMPREHENSIVE METABOLIC 57981 Glucose 107 MG/DL 2012 Unknown COMPREHENSIVE METABOLIC 75591 BICARB 29 MMOL/L 2012 Unknown COMPREHENSIVE METABOLIC 62337 ANION GAP 5 MEQ/L 2012 Unknown FREE T4 92817 FREE T4 0.98 NG/DL 07/22/2013 Unknown COMPLETE BLOOD COUNT 1729307 WBC 4.4 10e9/L 06/11/20 12 Unknown COMPLETE BLOOD COUNT 0105988 RBC 4.18 10e12/L 2011 Unknown COMPLETE BLOOD COUNT 2202847 HGB 13.5 g/dL 2 Unknown COMPLETE BLOOD COUNT 6054179 HCT DET 39.9 % 2 Unknown COMPLETE BLOOD COUNT 7969302 MCV 95.5 fL 2 Unknown COMPLETE BLOOD COUNT 8270189 MCH 32.3 pg 2 Unknown COMPLETE BLOOD COUNT 3940526 MCHC 33.8 g/dL 2 Unknown COMPLETE BLOOD COUNT 4703904 PLT 232 10e9/L 06/11/20 12 Unknown COMPLETE BLOOD COUNT 2587193 MPV 11.3 fL 2 Unknown COMPLETE BLOOD COUNT 7457756 PRITI % 46.4 % 2 Unknown COMPLETE BLOOD COUNT 8084614 LY % 36.4 % 2 Unknown COMPLETE BLOOD COUNT 8522879 MON % 10.5 % 2 Unknown COMPLETE BLOOD COUNT 0251415 EOS % 6.2 % 2 Unknown COMPLETE BLOOD COUNT 6381172 BASO % 0.5 % 2 Unknown COMPLETE BLOOD COUNT 8093174 RDW 13.1 % 2 Unknown COMPLETE BLOOD COUNT 2070682 ABS PRITI 2.04 10e9/L 012 Unknown COMPLETE BLOOD COUNT 4334908 ABS LYMPH 1.60 10e9/L 012 Unknown COMPLETE BLOOD COUNT 0307551 ABS MONO 0.46 10e9/L 012 Unknown COMPLETE BLOOD COUNT 9132295 ABS EOS 0.27 10e9/L 012 Unknown COMPLETE BLOOD COUNT 7730753 ABS BASO 0.02 10e9/L 012 Unknown COMPLETE BLOOD COUNT 5403801 RDW-SD 44.2 fL 2 Unknown THYROID STIMULATING HORMONE 17615 TSH 1.766 uIU/ML 06/11/2012 Unknown COMPREHENSIVE METABOLIC 18658 AST 20 U/L 2011 Unknown COMPREHENSIVE METABOLIC 27850 ALT 23 IU/L 2011 Unknown COMPREHENSIVE METABOLIC 20571 BUN 10 MG/DL 2011 Unknown COMPREHENSIVE METABOLIC 58260 ALBUMIN 4.3 GM/DL 2011 Unknown COMPREHENSIVE METABOLIC 33596 CHLORIDE 103 MMOL/L 06/11 Unknown COMPREHENSIVE METABOLIC 22259 BILI TOT 0.4 MG/DL 2011 Unknown COMPREHENSIVE METABOLIC 81444 ALK PHOS 52 U/L 2011 Unknown COMPREHENSIVE METABOLIC 27552 SODIUM 138 MMOL/L 06/11 Unknown COMPREHENSIVE METABOLIC 70712 CREATININE 0.74 MG/DL 12/2011 Unknown COMPREHENSIVE METABOLIC 57351 CALCIUM 8.8 MG/DL 2011 Unknown COMPREHENSIVE METABOLIC 42420 POTASSIUM 3.7 MMOL/L 06/11 Unknown COMPREHENSIVE METABOLIC 14975 PROT TOT 6.9 GM/DL 2011 Unknown COMPREHENSIVE METABOLIC 54484 Glucose 105 MG/DL 2011 Unknown COMPREHENSIVE METABOLIC 73303 BICARB 29 MMOL/L 2011 Unknown COMPREHENSIVE METABOLIC 25488 ANION GAP 6 MEQ/L 2011 Unknown FREE T4 96215 FREE T4 0.93 NG/DL 06/11/2012 Unknown LIPID GROUP 87797 HDL TEST 39 MG/DL 06/11/2012 Unknown LIPID GROUP 66451 TRIG 243 MG/DL 06/11/2012 Unknown LIPID GROUP 03757 TEST LDL 159 MG/DL 06/11/2012 Unknown LIP[facility] GROUP 41896 CHOL 247 MG/DL 06/11/2012 Unknown LIPID GROUP 36920 RCHOL/HDL 6.33 RATIO 06/11/2012 Unknow n GFR CALC 3811470 GFR AA >60 ML/MIN 06/11/2012 Unknown GFR CALC 4807606 GFR NON-AA >60 ML/MIN 06/11/2012 Unknown VITAMIN D TOTAL (25 HYDROXY) 35066 VIT D TOTL 19 NG/ML 03/04/2011 Unknown COMPLETE BLOOD COUNT 69189 WBC 8.0 10e9/L 03/03/20 11 Unknown COMPLETE BLOOD COUNT 95825 RBC 4.62 10e12/L 2010 Unknown COMPLETE BLOOD COUNT 30216 HGB 14.9 g/dL 1 Unknown COMPLETE BLOOD COUNT 93728 HCT DET 43.6 % 1 Unknown COMPLETE BLOOD COUNT 96276 MCV 94.4 fL 1 Unknown COMPLETE BLOOD COUNT 90991 MCH 32.3 pg 1 Unknown COMPLETE BLOOD COUNT 07447 MCHC 34.2 g/dL 1 Unknown COMPLETE BLOOD COUNT 73430 PLT 236 10e9/L 03/03/20 11 Unknown COMPLETE BLOOD COUNT 98323 MPV 11.0 fL 1 Unknown COMPLETE BLOOD COUNT 71960 PRITI % 66.3 % 1 Unknown COMPLETE BLOOD COUNT 95574 LY % 20.7 % 1 Unknown COMPLETE BLOOD COUNT 60941 MON % 9.2 % 1 Unknown COMPLETE BLOOD COUNT 11881 EOS % 3.5 % 1 Unknown COMPLETE BLOOD COUNT 20997 BASO % 0.3 % 1 Unknown COMPLETE BLOOD COUNT 98264 RDW 13.5 % 1 Unknown COMPLETE BLOOD COUNT 43889 ABS PRITI 5.30 10e9/L 011 Unknown COMPLETE BLOOD COUNT 92795 ABS LYMPH 1.66 10e9/L 011 Unknown COMPLETE BLOOD COUNT 77366 ABS MONO 0.74 10e9/L 011 Unknown COMPLETE BLOOD COUNT 26390 ABS EOS 0.28 10e9/L 011 Unknown COMPLETE BLOOD COUNT 79112 ABS BASO 0.02 10e9/L 011 Unknown COMPLETE BLOOD COUNT 65771 RDW-SD 45.1 fL 1 Unknown THYROID STIMULATING HORMONE 76292 TSH 1.944 uIU/ML 03/03/2011 Unknown FREE T4 68140 FREE T4 1.04 NG/DL 03/03/2011 Unknown LIPID GROUP 25393 HDL TEST 50 MG/DL 03/03/2011 Unknown LIPID GROUP 55981 TRIG 246 MG/DL 03/03/2011 Unknown LIPID GROUP 76173 TEST LDL 213 MG/DL 03/03/2011 Unknown LIPID GROUP 31824 CHOL 312 MG/DL 03/03/2011 Unknown LIPID GROUP 06928 RCHOL/HDL 6.24 RATIO 03/03/2011 Unknow n GFR CALC 4312335 GFR AA >60 ML/MIN 03/03/2011 Unknown GFR CALC 2083155 GFR NON-AA >60 ML/MIN 03/03/2011 Unknown COMPREHENSIVE METABOLIC 13801 AST 15 U/L 2010 Unknown COMPREHENSIVE METABOLIC 54505 ALT 21 IU/L 2010 Unknown COMPREHENSIVE METABOLIC 64454 BUN 14 MG/DL 2010 Unknown COMPREHENSIVE METABOLIC 60942 ALBUMIN 4.5 GM/DL 2010 Unknown COMPREHENSIVE METABOLIC 65572 CHLORIDE 99 MMOL/L 2010 Unknown COMPREHENSIVE METABOLIC 18551 BILI TOT 0.6 MG/DL 2010 Unknown COMPREHENSIVE METABOLIC 48017 ALK PHOS 55 U/L 2010 Unknown COMPREHENSIVE METABOLIC 86288 SODIUM 134 MMOL/L 03/03 Unknown COMPREHENSIVE METABOLIC 32952 CREATININE 0.80 MG/DL 02/05 Unknown COMPREHENSIVE METABOLIC 55040 CALCIUM 9.4 MG/DL 2010 Unknown COMPREHENSIVE METABOLIC 53974 POTASSIUM 4.0 MMOL/L 03/03 Unknown COMPREHENSIVE METABOLIC 49567 PROT TOT 7.4 GM/DL 2010 Unknown COMPREHENSIVE METABOLIC 06472 Glucose 101 MG/DL 2010 Unknown COMPREHENSIVE METABOLIC 05192 BICARB 28 MMOL/L 2010 Unknown COMPREHENSIVE METABOLIC 64487 ANION GAP 7 MEQ/L 2010 Unknown Procedures Procedure Codes Date ROUTINE VENIPUNCTURE CPT-4: 33984 02/04/2020 ASSAY OF FREE THYROXINE CPT-4: 69849 02/04/2020 ASSAY THYROID STIM HORMONE CPT-4: 56471 02/04/2020 COMPREHEN METABOLIC PANEL CPT-4: 10775 02/04/2020 COMPLETE CBC W/AUTO DIFF WBC CPT-4: 04302 02/04/2020 LIPID PANEL CPT-4: 82956 02/04/2020 TB INTRADERMAL TEST CPT-4: 90044 03/19/2018 Removal impacted cerumen using irrigation/lavage, unilateral CPT-4: 81960 02/23/2018 ROUTINE VENIPUNCTURE CPT-4: 06892 09/04/2017 ASSAY THYROID STIM HORMONE CPT-4: 12498 09/04/2017 ASSAY OF FREE THYROXINE CPT-4: 40527 09/04/2017 COMPREHEN METABOLIC PANEL CPT-4: 74528 09/04/2017 COMPLETE CBC W/AUTO DIFF WBC CPT-4: 25138 09/04/2017 LIPID PANEL CPT-4: 46712 09/04/2017 ROUTINE VENIPUNCTURE CPT-4: 53979 01/07/2015 ASSAY OF FREE THYROXINE CPT-4: 79987 01/07/2015 ASSAY THYROID STIM HORMONE CPT-4: 68433 01/07/2015 COMPREHEN METABOLIC PANEL CPT-4: 10527 01/07/2015 COMPLETE CBC W/AUTO DIFF WBC CPT-4: 60208 01/07/2015 LIPID PANEL CPT-4: 55232 01/07/2015 EXC TR-EXT B9+CECILIO 0.5 CM< CPT-4: 74938 08/06/2013 ROUTINE VENIPUNCTURE CPT-4: 94152 07/22/2013 ASSAY OF FREE THYROXINE CPT-4: 11274 07/22/2013 ASSAY THYROID STIM HORMONE CPT-4: 14266 07/22/2013 COMPREHEN METABOLIC PANEL CPT-4: 73541 07/22/2013 COMPLETE CBC W/AUTO DIFF WBC CPT-4: 71271 07/22/2013 LIPID PANEL CPT-4: 20472 07/22/2013 INFLUENZA ASSAY W/OPTIC CPT-4: 98280 11/07/2012 ROUTINE VENIPUNCTURE CPT-4: 87839 06/11/2012 ASSAY OF FREE THYROXINE CPT-4: 86101 06/11/2012 ASSAY THYROID STIM HORMONE CPT-4: 61283 06/11/2012 COMPREHEN METABOLIC PANEL CPT-4: 11752 06/11/2012 COMPLETE CBC W/AUTO DIFF WBC CPT-4: 33564 06/11/2012 LIPID PANEL CPT-4: 15099 06/11/2012 ROUTINE VENIPUNCTURE CPT-4: 18859 03/03/2011 ASSAY OF FREE THYROXINE CPT-4: 26520 03/03/2011 ASSAY THYROID STIM HORMONE CPT-4: 67580 03/03/2011 COMPREHEN METABOLIC PANEL CPT-4: 14014 03/03/2011 COMPLETE CBC W/AUTO DIFF WBC CPT-4: 01128 03/03/2011 LIPID PANEL CPT-4: 73482 03/03/2011 VITAMIN D TOTAL (25 HYDROXY) CPT-4: 49349 03/03/2011 Vital Signs Date Vital 02/06/2020 Blood Pressure 1: 124/67 Code: 8480-6 BMI: 26.6 Code: 54064-0 Heart Rate 1: 16 bpm Height: 5'6" Respiratory Rate: 17 bpm SpO2: 99% Tempera ture: 36.8 (C) / 98.2 (F) Weight: 165 lbs 02/23/2018 Blood Pressure 1: 132/84 Code: 8480-6 BMI: 31.6 Code: 41423-9 Heart Rate 1: 76 bpm Height: 5'6" Respiratory Rate: 20 bpm SpO2: 98% Tempera ture: 36.9 (C) / 98.4 (F) Weight: 199 lbs 09/07/2017 Blood Pressure 1: 126/78 Code: 8480-6 BMI: 30.5 Code: 44252-1 Heart Rate 1: 80 bpm Height: 5'6" Respiratory Rate: 20 bpm SpO2: 98% Tempera ture: 37.2 (C) / 98.9 (F) Weight: 192 lbs 01/12/2015 Blood Pressure 1: 132/74 Code: 8480-6 BMI: 29.4 Code: 39779-5 Heart Rate 1: 92 bpm Height: 5'6" Respiratory Rate: 20 bpm Temperature: 36 .7 (C) / 98.1 (F) Weight: 185 lbs 08/06/2013 Blood Pressure 1: 114/80 Code: 8480-6 BMI: 30.7 Code: 72403-0 Heart Rate 1: 80 bpm Height: 5'6" Respiratory Rate: 20 bpm Temperature: 37 .2 (C) / 99.0 (F) Weight: 193 lbs 07/24/2013 Blood Pressure 1: 124/68 Code: 8480-6 BMI: 30.7 Code: 61485-1 Heart Rate 1: 80 bpm Height: 5'6" Respiratory Rate: 20 bpm Temperature: 36 .9 (C) / 98.5 (F) Weight: 193 lbs 06/13/2013 Blood Pressure 1: 124/70 Code: 8480-6 BMI: 31.8 Code: 83611-1 Heart Rate 1: 88 bpm Height: 5'6" Respiratory Rate: 20 bpm Temperature: 36 .8 (C) / 98.2 (F) Weight: 200 lbs 05/15/2013 Blood Pressure 1: 120/80 Code: 8480-6 BMI: 30.8 Code: 69752-7 Heart Rate 1: 82 bpm Height: 5'6" Respiratory Rate: 22 bpm Temperature: 36 .2 (C) / 97.1 (F) Weight: 194 lbs 11/07/2012 Blood Pressure 1: 146/88 Code: 8480-6 BMI: 31.0 Code: 59083-2 Heart Rate 1: 108 bpm Height: 5'7" Respiratory Rate: 20 bpm SpO2: 95% Tempera ture: 38.2 (C) / 100.8 (F) Weight: 198 lbs 09/18/2012 Blood Pressure 1: 114/76 Code: 8480-6 Heart Rate 1: 88 bpm Respiratory Rate: 20 bpm Temperature: 37.1 (C) / 98.8 (F) Weight: 195 lbs 06/13/2012 Blood Pressure 1: 110/64 Code: 8480-6 BMI: 30.4 Code: 48873-1 Heart Rate 1: 64 bpm Height: 5'7" Temperature: 36.9 (C) / 98.4 (F) Weight: 194 lbs 12/21/2011 Blood Pressure 1: 116/80 Code: 8480-6 BMI: 30.7 Code: 99676-3 Heart Rate 1: 72 bpm Height: 5'7" Respiratory Rate: 20 bpm Temperature: 37 .0 (C) / 98.6 (F) Weight: 196 lbs 09/28/2011 Blood Pressure 1: 116/78 Code: 8480-6 BMI: 29.6 Code: 27572-3 Heart Rate 1: 88 bpm Height: 5'7" Respiratory Rate: 20 bpm Temperature: 36 .9 (C) / 98.5 (F) Weight: 189 lbs 04/06/2011 Blood Pressure 1: 132/80 Code: 8480-6 Heart Rate 1: 72 bpm Respiratory Rate: 20 bpm Temperature: 37.2 (C) / 99.0 (F) Weight: 185 lbs 03/03/2011 Blood Pressure 1: 114/80 Code: 8480-6 BMI: 29.6 Code: 88568-0 Heart Rate 1: 80 bpm Height: 5'7" [...] Visit Encounters Encounter Performer Location Codes Date ([id number]) PREV VISIT EST AGE 40-64 Diagnosis: Encounter for general adult medical examination without abnormal findings[ICD10: Z00.00] Diagnosis: Mixed hyperlipidemia[ICD10: E78.2] Diagnosis: Allergic rhinitis due to allergen[ICD10: J30.9] Khadra AGUILLON DO [facility] CPT-4: 13442 02/06/2020 ([id number]) NURSE/OUTPATIENT VISIT EST Diagnosis: Encounter for general adult medical examination without abnormal findings[ICD10: Z00.00] Diagnosis: Malaise and fatigue[ICD10: R53.81] Diagnosis: Mixed hyperlipidemia[ICD10: E78.2] Khadra AGUILLON DO [facility] CPT-4: 38485 02/04/2020 ([id number]) NURSE/OUTPATIENT VISIT EST Diagnosis: SCREENING-PULMONARY TB[ICD10: Z11.1] Khadra AGUILLON DO [facility] CPT-4: 01901 03/19/2018 OFFICE/OUTPATIENT VISIT EST Diagnosis: Allergic rhinitis, unspecified[ICD10: J30.9] Diagnosis: Impacted cerumen, right ear[ICD10: H61.21] Cassandra Camejo KHADRA AGUILLON DO [facility] CPT-4: 47873 02/23/2018 ([id number]) PREV VISIT EST AGE 40-64 Diagnosis: Encounter for general adult medical examination without abnormal findings[ICD10: Z00.00] Diagnosis: Mixed hyperlipidemia[ICD10: E78.2] Khadra AGUILLON DO [facility] CPT-4: 96925 09/07/2017 ([id number]) OFFICE/OUTPATIENT VISIT EST Diagnosis: Encounter for general adult medical examination without abnormal findings[ICD10: Z00.00] Diagnosis: Mixed hyperlipidemia[ICD10: E78.2] Khadra Banks. [employer] [facility] CPT-4: 79932 09/04/2017 ([id number]) PREV VISIT EST AGE 40-64 Diagnosis: ROUTINE MEDICAL EXAM[ICD9: V70.0] Diagnosis: HYPERLIPIDEMIA NEC/NOS[ICD9: 272.4] Diagnosis: ANXIETY STATE NOS[ICD9: 300.00] Khadra AGUILLON DO [facility] CPT-4: 49286 01/12/2015 ([id number]) OFFICE/OUTPATIENT VISIT EST Diagnosis: ROUTINE MEDICAL EXAM[ICD9: V70.0] Diagnosis: MALAISE AND FATIGUE[ICD9: 780.79] Diagnosis: HYPERLIPIDEMIA NEC/NOS[ICD9: 272.4] Khadra AGUILLON DO [facility] CPT-4: 57593 01/07/2015 ([id number]) PREV VISIT EST AGE 40-64 Diagnosis: ROUTINE MEDICAL EXAM[ICD9: V70.0] Diagnosis: HYPERLIPIDEMIA NEC/NOS[ICD9: 272.4] Diagnosis: ANXIETY STATE NOS[ICD9: 300.00] Khadra AGUILLON DO [facility] CPT-4: 46236 07/24/2013 ([id number]) OFFICE/OUTPATIENT VISIT EST Diagnosis: HYPERLIPIDEMIA NEC/NOS[ICD9: 272.4] Diagnosis: ROUTINE MEDICAL EXAM[ICD9: V70.0] Khadra AGUILLON DO [facility] CPT-4: 81850 07/22/2013 ([id number]) OFFICE/OUTPATIENT VISIT EST Diagnosis: BENIGN KACEY SKIN[ICD9: 216.9] Khadra AGUILLON [facility] CPT-4: 55802 06/13/2013 ([id number]) OFFICE/OUTPATIENT VISIT EST Diagnosis: Nasal lesion[ICD9: 478.19] Diagnosis: Changing mole[ICD9: 216.9] Diagnosis: ALLERGIC RHINITIS[ICD9: 477.9] Khadra AGUILLON DO [facility] CPT-4: 30522 05/15/2013 OFFICE/OUTPATIENT VISIT EST Diagnosis: COUGH[ICD9: 786.2] Diagnosis: FEBRILE ILLNESS[ICD9: 780.60] Diagnosis: SINUSITIS, ACUTE[ICD9: 461.9] Khadra AGUILLON DO [facility] CPT-4: 03182 11/07/2012 OFFICE/OUTPATIENT VISIT EST Diagnosis: ACUTE STRESS REACT[ICD9: 308.9] Diagnosis: ANXIETY STATE NOS[ICD9: 300.00] Khadra AGUILLON DO [facility] CPT-4: 67640 09/18/2012 ([id number]) PREV VISIT EST AGE 40-64 Diagnosis: ROUTINE MEDICAL EXAM[ICD9: V70.0] Diagnosis: HYPERLIPIDEMIA NEC/NOS[ICD9: 272.4] Diagnosis: ANXIETY STATE NOS[ICD9: 300.00] Khadra AGUILLON [facility] CPT-4: 38764 06/13/2012 ([id number]) OFFICE/OUTPATIENT VISIT EST Diagnosis: ROUTINE MEDICAL EXAM[ICD9: V70.0] Khadra AGUILLON DO [email or web address] CPT-4: 47910 06/11/2012 OFFICE/OUTPATIENT VISIT EST Diagnosis: INSOMNIA NOS[ICD9: 780.52] Diagnosis: ACUTE STRESS REACT[ICD9: 308.9] Diagnosis: Tinnitus[ICD9: 388.30] Diagnosis: HYPERLIPIDEMIA NEC/NOS[ICD9: 272.4] Khadra AGUILLON [facility] CPT-4: 71734 12/21/2011 OFFICE/OUTPATIENT VISIT EST Diagnosis: ACUTE STRESS REACT[ICD9: 308.9] Khadra AGUILLON DO [email or web address] CPT-4: 68910 09/28/2011 OFFICE/OUTPATIENT VISIT EST Diagnosis: ACUTE STRESS REACT[ICD9: 308.9] Khdara AGUILLON [facility] CPT-4: 61238 04/06/2011 OFFICE/OUTPATIENT VISIT NEW Khadra BALDWIN [facility] CPT- 4: 81451 03/03/2011 Plan of Care Planned Activity Notes Codes Status Date Visit Diagnosis Plan: Encounter for [facility] adult medical examination without abnormal findings Discussion: Mediterranean diet Combinati on of cardio and weight bearing exercise Had WWE done recently with [employer]--had Mammo/Bone Density/Lab done Referral for updated colonoscopy ICD-9 : V70.0 ICD-10 : Z00.00 02/06/2020 Visit Diagnosis Plan: Allergic rhinitis due to allerge n Discussion: Using [employer] ICD-9 : 477.9 ICD-10 : J30.9 02/06/2020 Visit Diagnosis Plan: Mixed hyperlipidemia Discussion: Lipitor 10mg M, W, F Repeat lipids in 6mos Vitamin D3 2000u daily ICD-9 : 272.4 ICD-10 : E78.2 02/06/2020 Patient Education: Lipitor- [employer] Coupon [id number] [email or web address]/samplemd/resources/getResource/[email or web address]/9fi73r9p-[email or web address]-rf Completed 02/06/2020 Care Plan: Referral Order SNOMED-CT : [id number] Pending 02/06/2020 Appointment: Khadra Aguillon WPtel: [address] [place], [place] [phone] [place] LAB 02/04/2020 Appointment: Khadra Aguillon WPtel: [address] [place], [place] [phone] US TB Test read 03/21/2018 Patient Education: Patient Medication Summary Completed 03/21/2018 Appointment: Khadra Aguillon WPtel: [address] [place], [place] [address] US TB Test 03/19/2018 Patient Education: Patient [...] improvement, RTC 02/23/2018 Appointment: Cassandra Camejo WPtel: [address] [place] [address] ACUTE ILLNESS 02/23/2018 Patient Education: Patient Medication Summary Completed 02/23/2018 Visit Diagnosis Plan: Encounter for [facility] adult medical examination without abnormal findings Discussion: Lab discussed Add Calcium wi th Vitamin D3 daily Continue walking and add yoga for weight bearing Praised lower cholesterol efforts Sees [employer] for WWE and Mammogram up to date ICD-9 : V70.0 ICD-10 : Z00.00 09/07/2017 Appointment: Khadra Aguillon WPtel: [address] [place], [place] [phone] Annual Well Visit 09/07/2017 Patient Education: Patient Medication Summary Completed 09/07/2017 Appointment: Khadra Aguillon WPtel: [id number] [place] LAB 09/04/2017 Patient Education: Patient Medication Summary Completed 09/04/2017 Visit Plan: Lab discussed Schedule colon oscopy Keep meds same Defers statin and will add fish oil and aspirin 81mg daily with diet/exercise and recheck lipids in 4mos Sees [employer] next month Discussed is high risk for CAD due to family history and hyperlipidemia 01/12/2015 Appointment: Khadra Aguillon WPtel: [address] [place], [place] [phone] confirmed - Annual Well Visit 01/12/2015 Patient Education: Patient Medication Summary Completed 01/12/2015 Appointment: Khadra Aguillon WPtel: [address] [place], [place] [phone] LAB 01/07/2015 Patient Education: Patient Medication Summary Completed 01/07/2015 Appointment: Sarah Wong WPtel: [address] [place], [place] [phone] FOLLOW UP 02/26/2014 Appointment: Khadra Aguillon WPtel: [address] [place], [place] [phone] 01/07 patient canceled FOLLOW UP 4 Visit Plan: Removal of lesion as above 08/06/2013 Appointment: Khadra Aguillon WPtel: [address] [place], [place] [phone] OFFICE SURGERY 08/06/2013 Patient Education: Patient Medication Summary Completed 08/06/2013 Visit Plan: Daily fish oil 3grams, Vitam in D 1000u daily, Coenzyme Q-10 200mg daily Diet/exercise/weight loss Recheck lipids in 6mos Discussed statins Pt has mammo next month 07/24/2013 Appointment: Khadra Aguillon WPtel: [address] [place], [place] [phone] 07/23 Annual Well Visit 07/24/2013 Patient Education: Patient Medication Summary Completed 07/24/2013 Appointment: Khadra Aguillon WPtel: [address] [place], [place] [phone] LAB 07/22/2013 Patient Education: Patient Medication Summary Completed 07/22/2013 Referral: Khadra Aguillon WPtel: [address] [place] [address] Referral Initiated 06/17/2013 Visit Plan: Skin So Soft to right nasal area q HS next month then observe If something comes back then will see ENT for removal 06/13/2013 Appointment: Khadra Aguillon WPtel: [address] [place], [place] [phone] 06/12 FOLLOW UP 06/13/2013 Patient Education: Patient Medication Summary Completed 06/13/2013 Visit Plan: Bactrim DS 1 po BID for 1wk, Prednisone 20mg po BID for 1wk Zyrtec daily If lesion persists will see Dr. Low for removal 05/15/2013 Appointment: Khadra Aguillon WPtel: [address] [place] [address] 05/14 ACUTE ILLNESS 05/15/2013 Patient Education: Patient Medication Summary Completed 05/15/2013 Appointment: Khadra Aguillon WPtel: [address] [place] [address] FOLLOW UP 12/13/2012 Visit Plan: Note for fever free 24 hours . Discussed fluids and rest. Clarified in verbal message that Levaquin should be QD dosing. Codeine/guiaf cough syrup. Flu test negative. Pt. to notify if symptoms worsen or fever persists. Discussed Rocephin IM and or lab/chest x-rays if symptoms persist. 11/07/2012 Appointment: Batsheva Bennett WPtel: [address] [place] [address] ACUTE ILLNESS 11/07/2012 Patient Education: Patient Medication Summary Completed 11/07/2012 Visit Plan: Continue fluoxetine at 30mg daily Stess Reducers 09/18/2012 Appointment: Khadra Aguillon WPtel: [address] [place] [address] FOLLOW UP 09/18/2012 Patient Education: Patient Medication Summary Completed 09/18/2012 Visit Plan: Increase fish oil to 3gm poonam ly Step 1 Cardiac Diet Repeat CMP and lipids in 6mos Pt has DCed Fluoxetine and so far doing okay Will focus on stress reducers 06/13/2012 Appointment: Khadra Aguillon WPtel: [address] [place] [address] FOLLOW UP 06/13/2012 Patient Education: Patient Medication Summary Completed 06/13/2012 Appointment: Khadra Aguillon WPtel: [address] [place] [address] LAB 06/11/2012 Patient Education: Patient Medication Summary Completed 06/11/2012 Visit Plan: Decrease fluoxetine back to 30mg daily Check fasting lab in 3mos ENT for tinnitus/hearing loss 12/21/2011 Appointment: Khadra Aguillon WPtel: [address] [place] [address] FOLLOW UP 12/21/2011 Patient Education: Patient Medication Summary Completed 12/21/2011 Visit Plan: Increase fluoxetine to 40mg daily 09/28/2011 Appointment: Khadra Aguillontel: [address] [place] [address] FOLLOW UP 09/28/2011 Patient Education: Patient Medication Summary Completed 09/28/2011 Visit Plan: Increase fluoxetine to 30mg daily Call in 2wks 04/06/2011 Appointment: Khadra Aguillon WPtel: [address] [place] [address] FOLLOW UP 04/06/2011 Patient Education: Patient Medication Summary Completed 04/06/2011 Appointment: Khadra Aguillon WPtel: [address] [place] [address] NEW PATIENT 03/03/2011 Patient Education: Patient Medication Summary Completed 03/03/2011 Referral: Augustus Velazco WPtel: [address] [place], [place] [phone] [place] Referral Appointment Requested Referral: Saurabh Beatty WPtel: [address] [id number] [place] Referral Completed Instructions Comment . Sofia [...] diet/exercise and recheck lipids in 4mos Sees [employer] next month Discussed is high risk for [...]
--- OUTSIDE RECORDS SUMMARY | 2020-03-06 17:11 | XMS REPORT | CCD ---
Author Author Sofia Aguillon D.O. Organization [facility] Address [address] [place] [address] Phone Care Team Providers Care Fast Food Manager Name Role Phone PP Unavailable CCM Unavailable Summary Purpose Interface Exchange Insurance Providers Payer name Policy type / Coverage type Covered constitution party ID Effective Begin Date Effective End Date Blue Cross Blue Shield Blue Cross/Blue Shield [id number] Unknown Family History Family History data not found Social History Social History Element Codes Description Effective Dates Marital status Unknown 03/03/2011 Number of children Unknown 3 03/03/2011 Employment Unknown Currently employed [employer] 250 03/03/[address]: 175127170 Never smoker 03/03/[address]: 592709232 Never drinks alcohol 2010 Allergies, Adverse Reactions, [...] Instructions Alba Allergy 180 mg tablet RxNorm: 931379 1 Tablet(s) Oral QD 05/06/2020 Active Lipitor 10 mg tablet RxNorm: 873773 1 Tablet(s) Oral QD M, W, F 09/201908/04/2020 Active Women's Multivitamin 18 mg iron-400 mcg-500 mg tablet RxNorm : 1 Tablet(s) Oral QD 02/06/2020 03/07/2020 Active Alba Allergy 180 mg tablet RxNorm: 178499 1 Tablet(s) PO QD 02/0505/23/2018 Inactive Medrol (Vick) 4 mg tablets in a dose pack RxNorm: 168984 As directed Tablet(s) PO QD 02/23/2018 02/27/2018 Inactive alprazolam 0.25 mg tablet RxNorm: 968927 TAKE 1/2 TABLE T TWO TIMES A DAY NEEDED FOR SEVERE STRESS 03/27/2015 04/15/2015 Inactive fluoxetine 10 mg tablet RxNorm: 019022 3 Tablet(s) PO QAM 03/27/2015 09/06/2017 Inactive for 1week then 2 po qam alprazolam 0.25 mg tablet RxNorm: 536030 TAKE ONE-HALF TABLET BY MOUTH TWICE A DAY NEEDED FOR SEVERE STRESS 07/24/2014 03/27/2015 Inactive ([id number] fluoxetine 10 mg tablet RxNorm: 404593 3 Tablet(s) PO QAM 05/26/2014 03/27/2015 Inactive for 1week then 2 po qAM [SAVINGS FOR UNI NSURED PATIENTS -- BIN:[id number], PCN: [id number], Group: [id number], ID# [id number], Process claim through [employer], for questions: . THIS IS NOT INSURANCE.] Bactrim DS 800 mg-160 mg tablet RxNorm: 782154 1 Tablet(s) PO BID 1 05/21/2013 Inactive prednisone 20 mg tablet RxNorm: 363111 1 Tablet(s) PO BID 05/15/2013 05/21/2013 Inactive Levaquin 750 mg tablet RxNorm: 063855 1 Tablet(s) PO BID 11/07/2012 0 11/16/2012 Inactive fluoxetine 10 mg tablet RxNorm: 956074 3 Tablet(s) PO QAM 09/18/2012 03/16/2013 Inactive for 1week then 2 po qAM fluoxetine 10 mg tablet RxNorm: 423558 3 Tablet(s) PO QAM 12/21/2011 06/12/2012 Inactive for 1week then 2 po qAM fluoxetine 10 mg Tab RxNorm: 708228 3 Tablet(s) PO QAM 10/20/2011 Inactive for 1week then 2 po qAM Vaniqa 13.9 % Topical Cream RxNorm: 579756 1 Application TOP BID 12/20/2011 Inactive fluoxetine 40 mg Cap RxNorm: 301182 1 Capsule(s) PO QD 09/28/2011 Inactive fluoxetine 10 mg Cap RxNorm: 839130 3 Capsule(s) PO QD 06/21/201107/2012 Inactive fluoxetine 10 mg Tab RxNorm: 033863 3 Tablet(s) PO QD 04/26/201105/07 Inactive Xanax 0.25 mg Tab RxNorm: 192815 1/2 Tablet(s) PO BID 03/03/201103/07 Inactive prn severe stress alprazolam 0.25 mg tablet RxNorm: 992459 1/2 Tablet(s) PO BID as needed for anxiety No Start Date 02/22/2018 Inactive Medrol (Vick) 4 mg tablets in a dose pack RxNorm: 106953 Tablet(s) PO as directed No Start Date 05/14/2013 Inactive Fish Oil 1,000 mg Cap RxNorm: 1 Capsule(s) PO BID No Start Date Inactive fluoxetine 10 mg Cap RxNorm: 548224 2 Capsule(s) PO QD No Start Date 06/20/2011 Inactive fluoxetine 10 mg Cap RxNorm: 103096 3 Capsule(s) PO QD No Start Date 09/27/2011 Inactive alprazolam 0.25 mg Tab RxNorm: 706598 1/2 Tablet(s) PO BID No Start Date 07/24/2014 Inactive as needed fluoxetine 10 mg Tab RxNorm: 607645 1 Tablet(s) PO QAM No Start Date 10/19/2011 Inactive for 1week then 2 po qAM Vaniqa 13.9 % Topical Cream RxNorm: 979131 1 Application TOP BID No Start Date 09/27/2011 Inactive fluoxetine 20 mg capsule RxNorm: 959081 1 Capsule(s) PO QD No Start Date 02/22/2018 Inactive Vitamin D3 1000 units Capsule RxNorm: 1 Capsule(s) PO QD No St art Date 09/06/2017 Inactive Prozac 20 mg capsule RxNorm: 665139 1 Capsule(s) PO QD No Start Date 07/23/2013 Inactive Medication Administered No Medication Administered data Immunizations Vaccine Codes Date Status Shingrix Unknown 01/15/2018 Complete Zostavax CVX: 121 11/16/2017 Results Observation Observation Code Item Item Code Result Date S ervice Location [facility] 36473 Cholesterol 232 mg/dL 02/04/2020 Unkno wn [facility] 96663 Triglyceride 126 mg/dL 02/04/2020 Unkn own [facility] 38627 HDL CHOLESTEROL 48 mg/dL 02/04/2020 U nknown [facility] 83909 Chol/HDL Ratio 4.83 ratio 02/04/2020 U nknown [facility] 08774 NON-HDL Chol 184 mg/dL 02/04/2020 Unkn own [facility] 91534 LDL Cholesterol 159 mg/dL 02/04/2020 U nknown GFR CALC 8846426 GFR Non Afr Amr >60 mL/min 02/04/2020 Un known GFR CALC 3037556 GFR Afr Amr >60 mL/min 02/04/2020 Unknow n THYROID STIMULATING HORMONE 65852 TSH 1.616 uIU/mL 02/04/2020 Unknown FREE T4 81018 T4 Free 0.96 ng/dL 02/04/2020 Unknown COMPREHENSIVE METABOLIC 32882 AST 20 U/L 2019 Unknown COMPREHENSIVE METABOLIC 81989 ALT 32 U/L 2019 Unknown COMPREHENSIVE METABOLIC 38460 BUN 16 mg/dL 2019 Unknown COMPREHENSIVE METABOLIC 22602 ALBUMIN 4.7 g/dL 2019 Unknown COMPREHENSIVE METABOLIC 83904 CHLORIDE 101 mmol/L 02/03 Unknown COMPREHENSIVE METABOLIC 43628 Bili Total 0.4 mg/dL 02/03 Unknown COMPREHENSIVE METABOLIC 57963 ALK PHOS 63 U/L 2019 Unknown COMPREHENSIVE METABOLIC 42989 SODIUM 138 mmol/L 02/03 Unknown COMPREHENSIVE METABOLIC 36038 CREATININE 0.65 mg/dL 01/07 Unknown COMPREHENSIVE METABOLIC 09548 CALCIUM 9.4 mg/dL 2019 Unknown COMPREHENSIVE METABOLIC 44478 POTASSIUM 4.0 mmol/L 02/03 Unknown COMPREHENSIVE METABOLIC 08574 Total Protein 7.3 g/dL Unknown COMPREHENSIVE METABOLIC 85868 Glucose 100 mg/dL 2019 Unknown COMPREHENSIVE METABOLIC 04070 Bicarbonate 27 mmol/L 01/07 Unknown COMPREHENSIVE METABOLIC 85181 AGAP 10 mmol/L 2019 Unknown COMPLETE BLOOD COUNT 9310143 WBC 5.5 10e9/L 02/04/20 20 Unknown COMPLETE BLOOD COUNT 1863028 RBC 4.56 10e12/L 2019 Unknown COMPLETE BLOOD COUNT 0431044 HEMOGLOBIN 14.5 g/dL 02/04/20 20 Unknown COMPLETE BLOOD COUNT 7409286 HEMATOCRIT 44.1 % 02/04/20 20 Unknown COMPLETE BLOOD COUNT 4839580 MCV 96.7 fL 0 Unknown COMPLETE BLOOD COUNT 9460222 MCH 31.8 pg 0 Unknown COMPLETE BLOOD COUNT 5953521 MCHC 32.9 g/dL 0 Unknown COMPLETE BLOOD COUNT 3772821 PLATELET COUNT 232 10e9/L Unknown COMPLETE BLOOD COUNT 9620418 Mean Plt Volume 11.4 fL Unknown COMPLETE BLOOD COUNT 9830211 Neut Auto 55.7 % 0 Unknown COMPLETE BLOOD COUNT 0247979 Lymph Auto 31.3 % 02/04/20 20 Unknown COMPLETE BLOOD COUNT 0993731 [place] Auto 10.0 % 0 Unknown COMPLETE BLOOD COUNT 1281268 RDW 13.7 % 0 Unknown COMPLETE BLOOD COUNT 0308734 Eos Auto 2.5 % 0 Unknown COMPLETE BLOOD COUNT 7529014 Baso Auto 0.5 % 0 Unknown COMPLETE BLOOD COUNT 8958486 Neutrophil Abs 3.06 10e9/L Unknown COMPLETE BLOOD COUNT 3731707 Lymphocyte Abs 1.72 10e9/L Unknown COMPLETE BLOOD COUNT 8263999 Monocyte Abs 0.55 10e9/L 01/07 Unknown COMPLETE BLOOD COUNT 5990691 Eosinophil Abs 0.14 10e9/L Unknown COMPLETE BLOOD COUNT 9666315 RDW-SD 47.5 fL 0 Unknown COMPLETE BLOOD COUNT 0421442 Basophil Abs 0.03 10e9/L 01/07 Unknown FREE T4 46645 T4 Free 1.25 ng/dL 09/04/2017 Unknown COMPLETE BLOOD COUNT 2187311 WBC 5.9 10e9/L 09/04/19 18 Unknown COMPLETE BLOOD COUNT 8292346 RBC 4.35 10e12/L 2017 Unknown COMPLETE BLOOD COUNT 0378048 HEMOGLOBIN 14.0 g/dL 09/04/19 18 Unknown COMPLETE BLOOD COUNT 4175526 HEMATOCRIT 41.6 % 09/04/19 18 Unknown COMPLETE BLOOD COUNT 7860103 MCV 95.6 fL 8 Unknown COMPLETE BLOOD COUNT 8428094 MCH 32.2 pg 8 Unknown COMPLETE BLOOD COUNT 6713737 MCHC 33.7 g/dL 8 Unknown COMPLETE BLOOD COUNT 6235626 PLATELET COUNT 239 10e9/L Unknown COMPLETE BLOOD COUNT 1907031 Mean Plt Volume 10.8 fL Unknown COMPLETE BLOOD COUNT 5695055 Neut Auto 53.2 % 8 Unknown COMPLETE BLOOD COUNT 6072698 Lymph Auto 35.6 % 09/04/19 18 Unknown COMPLETE BLOOD COUNT 2555711 [place] Auto 9.6 % 8 Unknown COMPLETE BLOOD COUNT 3778273 RDW 13.2 % 8 Unknown COMPLETE BLOOD COUNT 7920433 Eos Auto 1.4 % 8 Unknown COMPLETE BLOOD COUNT 0174320 Baso Auto 0.2 % 8 Unknown COMPLETE BLOOD COUNT 2767130 Neutrophil Abs 3.14 10e9/L Unknown COMPLETE BLOOD COUNT 9050362 Lymphocyte Abs 2.10 10e9/L Unknown COMPLETE BLOOD COUNT 5240556 Monocyte Abs 0.57 10e9/L 08/08 Unknown COMPLETE BLOOD COUNT [id number] Eosinophil Abs 0.08 10e9/L Unknown COMPLETE BLOOD COUNT 4018624 RDW-SD 44.7 fL 8 Unknown COMPLETE BLOOD COUNT 8721026 Basophil Abs 0.01 10e9/L 08/08 Unknown COMPREHENSIVE METABOLIC 15781 AST 26 U/L 2017 Unknown COMPREHENSIVE METABOLIC 80165 ALT 40 U/L 2017 Unknown COMPREHENSIVE METABOLIC 17765 BUN 6 mg/dL 2017 Unknown COMPREHENSIVE METABOLIC 44792 ALBUMIN 5.3 g/dL 2017 Unknown COMPREHENSIVE METABOLIC 04532 CHLORIDE 102 mmol/L 09/04 Unknown COMPREHENSIVE METABOLIC 41204 Bili Total 0.7 mg/dL 09/04 Unknown COMPREHENSIVE METABOLIC 53362 ALK PHOS 56 U/L 2017 Unknown COMPREHENSIVE METABOLIC 69103 SODIUM 139 mmol/L 09/04 Unknown COMPREHENSIVE METABOLIC 59879 CREATININE 0.61 mg/dL 08/08 Unknown COMPREHENSIVE METABOLIC 17087 CALCIUM 9.8 mg/dL 2017 Unknown COMPREHENSIVE METABOLIC 32279 POTASSIUM 3.8 mmol/L 09/04 Unknown COMPREHENSIVE METABOLIC 55361 Total Protein 7.7 g/dL Unknown COMPREHENSIVE METABOLIC 83832 Glucose 95 mg/dL 2017 Unknown COMPREHENSIVE METABOLIC 80650 Bicarbonate 30 mmol/L 08/08 Unknown COMPREHENSIVE METABOLIC 59650 AGAP 7 mmol/L 2017 Unknown GFR CALC 7295220 GFR Non Afr Amr >60 mL/min 09/04/2017 Un known GFR CALC 6887159 GFR Afr Amr >60 mL/min 09/04/2017 Unknow n THYROID STIMULATING HORMONE 44382 TSH 1.454 uIU/mL 09/04/2017 Unknown [facility] 06424 Cholesterol 218 mg/dL 09/04/2017 Unkno wn [facility] 89866 Triglyceride 135 mg/dL 09/04/2017 Unkn own [facility] 08603 HDL CHOLESTEROL 52 09/04/2017 U nknown [facility] 25609 Chol/HDL Ratio 4.19 ratio 09/04/2017 U nknown [facility] 32696 NON-HDL Chol 166 mg/dL 09/04/2017 Unkn own [facility] 33505 LDL Cholesterol 139 mg/dL 09/04/2017 U nknown FREE T4 30154 FREE T4 1.15 NG/DL 01/07/2015 Unknown THYROID STIMULATING HORMONE 80838 TSH 1.927 uIU/ML 01/07/2015 Unknown [facility] 65507 HDL TEST 53 MG/DL 01/07/2015 Unknown [facility] 66450 TRIG 215 MG/DL 01/07/2015 Unknown [facility] 67972 TEST LDL 194 MG/DL 01/07/2015 Unknown [facility] 47842 CHOL 290 MG/DL 01/07/2015 Unknown [facility] 06766 RCHOL/HDL 5.47 RATIO 01/07/2015 Unknow n [facility] 65533 NON-HDL CH 237 MG/DL 01/07/2015 Unknow n GFR CALC 6763388 GFR AA >60 ML/MIN 01/07/2015 Unknown GFR CALC 9266310 GFR NON-AA >60 ML/MIN 01/07/2015 Unknown COMPLETE BLOOD COUNT 4234209 WBC 5.9 10e9/L 01/08/20 15 Unknown COMPLETE BLOOD COUNT 7957992 RBC 4.35 10e12/L 2014 Unknown COMPLETE BLOOD COUNT 2589352 HGB 14.2 g/dL 5 Unknown COMPLETE BLOOD COUNT 0739663 HCT DET 42.0 % 5 Unknown COMPLETE BLOOD COUNT 5605810 MCV 96.6 fL 5 Unknown COMPLETE BLOOD COUNT 9212826 MCH 32.6 pg 5 Unknown COMPLETE BLOOD COUNT 8029913 MCHC 33.8 g/dL 5 Unknown COMPLETE BLOOD COUNT 1379481 PLT 227 10e9/L 01/08/20 15 Unknown COMPLETE BLOOD COUNT 2506139 MPV 11.4 fL 5 Unknown COMPLETE BLOOD COUNT 7940766 PRITI % 54.2 % 5 Unknown COMPLETE BLOOD COUNT 3083838 LY % 33.8 % 5 Unknown COMPLETE BLOOD COUNT 3590245 MON % 8.8 % 5 Unknown COMPLETE BLOOD COUNT 9826012 EOS % 2.9 % 5 Unknown COMPLETE BLOOD COUNT 8432667 BASO % 0.3 % 5 Unknown COMPLETE BLOOD COUNT 0249065 RDW 13.6 % 5 Unknown COMPLETE BLOOD COUNT 9509845 ABS PRITI 3.20 10e9/L 015 Unknown COMPLETE BLOOD COUNT 9915278 ABS LYMPH 1.99 10e9/L 015 Unknown COMPLETE BLOOD COUNT 6195796 ABS MONO 0.52 10e9/L 015 Unknown COMPLETE BLOOD COUNT 2946624 ABS EOS 0.17 10e9/L 015 Unknown COMPLETE BLOOD COUNT 2283714 ABS BASO 0.02 10e9/L 015 Unknown COMPLETE BLOOD COUNT 0374743 RDW-SD 47.0 fL 5 Unknown COMPREHENSIVE METABOLIC 31090 AST 20 U/L 2014 Unknown COMPREHENSIVE METABOLIC 12590 ALT 30 IU/L 2014 Unknown COMPREHENSIVE METABOLIC 08120 BUN 12 MG/DL 2014 Unknown COMPREHENSIVE METABOLIC 35095 ALBUMIN 4.4 GM/DL 2014 Unknown COMPREHENSIVE METABOLIC 98812 CHLORIDE 102 MMOL/L 01/07 Unknown COMPREHENSIVE METABOLIC 83523 BILI TOT 0.6 MG/DL 2014 Unknown COMPREHENSIVE METABOLIC 80786 ALK PHOS 76 U/L 2014 Unknown COMPREHENSIVE METABOLIC 93368 SODIUM 139 MMOL/L 01/07 Unknown COMPREHENSIVE METABOLIC 85588 CREATININE 0.77 MG/DL 10/2014 Unknown COMPREHENSIVE METABOLIC 39325 CALCIUM 9.2 MG/DL 2014 Unknown COMPREHENSIVE METABOLIC 03580 POTASSIUM 4.1 MMOL/L 01/07 Unknown COMPREHENSIVE METABOLIC 29750 PROT TOT 7.1 GM/DL 2014 Unknown COMPREHENSIVE METABOLIC 95452 Glucose 107 MG/DL 2014 Unknown COMPREHENSIVE METABOLIC 82279 BICARB 30 MMOL/L 2014 Unknown COMPREHENSIVE METABOLIC 80535 ANION GAP 7 MEQ/L 2014 Unknown [facility] 55268 HDL TEST 48 MG/DL 07/22/2013 Unknown [facility] 43747 TRIG 176 MG/DL 07/22/2013 Unknown [facility] 07187 TEST LDL 161 MG/DL 07/22/2013 Unknown [facility] GROUP 66282 CHOL 244 MG/DL 07/22/2013 Unknown [facility] GROUP 69727 RCHOL/HDL 5.08 RATIO 07/22/2013 Unknow n COMPLETE BLOOD COUNT 0880863 WBC 5.8 10e9/L 07/22/20 13 Unknown COMPLETE BLOOD COUNT 7920587 RBC 4.45 10e12/L 2012 Unknown COMPLETE BLOOD COUNT 9981505 HGB 14.6 g/dL 3 Unknown COMPLETE BLOOD COUNT 4719678 HCT DET 43.8 % 3 Unknown COMPLETE BLOOD COUNT 3467172 MCV 98.4 fL 3 Unknown COMPLETE BLOOD COUNT 6476713 MCH 32.8 pg 3 Unknown COMPLETE BLOOD COUNT 4228014 MCHC 33.3 g/dL 3 Unknown COMPLETE BLOOD COUNT 7559657 PLT 270 10e9/L 07/22/20 13 Unknown COMPLETE BLOOD COUNT 6485771 MPV 11.4 fL 3 Unknown COMPLETE BLOOD COUNT 1678977 PRITI % 54.2 % 3 Unknown COMPLETE BLOOD COUNT 5088319 LY % 33.2 % 3 Unknown COMPLETE BLOOD COUNT 6990203 MON % 9.2 % 3 Unknown COMPLETE BLOOD COUNT 7933661 EOS % 3.1 % 3 Unknown COMPLETE BLOOD COUNT 8134481 BASO % 0.3 % 3 Unknown COMPLETE BLOOD COUNT 6702160 RDW 13.8 % 3 Unknown COMPLETE BLOOD COUNT 7325184 ABS PRITI 3.14 10e9/L 013 Unknown COMPLETE BLOOD COUNT [id number] ABS LYMPH 1.93 10e9/L 013 Unknown COMPLETE BLOOD COUNT 5635403 ABS MONO 0.53 10e9/L 013 Unknown COMPLETE BLOOD COUNT 3903892 ABS EOS 0.18 10e9/L 013 Unknown COMPLETE BLOOD COUNT 4822415 ABS BASO 0.02 10e9/L 013 Unknown COMPLETE BLOOD COUNT 1943365 RDW-SD 48.4 fL 3 Unknown GFR CALC 9440521 GFR AA >60 ML/MIN 07/22/2013 Unknown GFR CALC 9399597 GFR NON-AA >60 ML/MIN 07/22/2013 Unknown THYROID STIMULATING HORMONE 31072 TSH 1.645 uIU/ML 07/22/2013 Unknown COMPREHENSIVE METABOLIC 19662 AST 23 U/L 2012 Unknown COMPREHENSIVE METABOLIC 18636 ALT 30 IU/L 2012 Unknown COMPREHENSIVE METABOLIC 19060 BUN 12 MG/DL 2012 Unknown COMPREHENSIVE METABOLIC 84050 ALBUMIN 4.7 GM/DL 2012 Unknown COMPREHENSIVE METABOLIC 36810 CHLORIDE 102 MMOL/L 07/22 Unknown COMPREHENSIVE METABOLIC 32866 BILI TOT 0.5 MG/DL 2012 Unknown COMPREHENSIVE METABOLIC 36900 ALK PHOS 51 U/L 2012 Unknown COMPREHENSIVE METABOLIC 12241 SODIUM 136 MMOL/L 07/22 Unknown COMPREHENSIVE METABOLIC 18667 CREATININE 0.74 MG/DL 07/07 Unknown COMPREHENSIVE METABOLIC 22585 CALCIUM 9.2 MG/DL 2012 Unknown COMPREHENSIVE METABOLIC 57635 POTASSIUM 4.1 MMOL/L 07/22 Unknown COMPREHENSIVE METABOLIC 72822 PROT TOT 7.1 GM/DL 2012 Unknown COMPREHENSIVE METABOLIC 14779 Glucose 107 MG/DL 2012 Unknown COMPREHENSIVE METABOLIC 06755 BICARB 29 MMOL/L 2012 Unknown COMPREHENSIVE METABOLIC 43221 ANION GAP 5 MEQ/L 2012 Unknown FREE T4 52043 FREE T4 0.98 NG/DL 07/22/2013 Unknown COMPLETE BLOOD COUNT 6404861 WBC 4.4 10e9/L 06/11/20 12 Unknown COMPLETE BLOOD COUNT 4420446 RBC 4.18 10e12/L 2011 Unknown COMPLETE BLOOD COUNT 7522988 HGB 13.5 g/dL 2 Unknown COMPLETE BLOOD COUNT 1230716 HCT DET 39.9 % 2 Unknown COMPLETE BLOOD COUNT 4269512 MCV 95.5 fL 2 Unknown COMPLETE BLOOD COUNT 8794743 MCH 32.3 pg 2 Unknown COMPLETE BLOOD COUNT 6921887 MCHC 33.8 g/dL 2 Unknown COMPLETE BLOOD COUNT 2465958 PLT 232 10e9/L 06/11/20 12 Unknown COMPLETE BLOOD COUNT 6496769 MPV 11.3 fL 2 Unknown COMPLETE BLOOD COUNT 6884861 PRITI % 46.4 % 2 Unknown COMPLETE BLOOD COUNT 6235960 LY % 36.4 % 2 Unknown COMPLETE BLOOD COUNT 0064924 MON % 10.5 % 2 Unknown COMPLETE BLOOD COUNT 4359402 EOS % 6.2 % 2 Unknown COMPLETE BLOOD COUNT 0448240 BASO % 0.5 % 2 Unknown COMPLETE BLOOD COUNT 0173120 RDW 13.1 % 2 Unknown COMPLETE BLOOD COUNT 8814524 ABS PRITI 2.04 10e9/L 012 Unknown COMPLETE BLOOD COUNT 9307304 ABS LYMPH 1.60 10e9/L 012 Unknown COMPLETE BLOOD COUNT 2199985 ABS MONO 0.46 10e9/L 012 Unknown COMPLETE BLOOD COUNT 9648080 ABS EOS 0.27 10e9/L 012 Unknown COMPLETE BLOOD COUNT 9824807 ABS BASO 0.02 10e9/L 012 Unknown COMPLETE BLOOD COUNT 5424888 RDW-SD 44.2 fL 2 Unknown THYROID STIMULATING HORMONE 25884 TSH 1.766 uIU/ML 06/11/2012 Unknown COMPREHENSIVE METABOLIC 02559 AST 20 U/L 2011 Unknown COMPREHENSIVE METABOLIC 20422 ALT 23 IU/L 2011 Unknown COMPREHENSIVE METABOLIC 68405 BUN 10 MG/DL 2011 Unknown COMPREHENSIVE METABOLIC 34889 ALBUMIN 4.3 GM/DL 2011 Unknown COMPREHENSIVE METABOLIC 37132 CHLORIDE 103 MMOL/L 06/11 Unknown COMPREHENSIVE METABOLIC 85794 BILI TOT 0.4 MG/DL 2011 Unknown COMPREHENSIVE METABOLIC 07800 ALK PHOS 52 U/L 2011 Unknown COMPREHENSIVE METABOLIC 99327 SODIUM 138 MMOL/L 06/11 Unknown COMPREHENSIVE METABOLIC 15437 CREATININE 0.74 MG/DL 12/2011 Unknown COMPREHENSIVE METABOLIC 82595 CALCIUM 8.8 MG/DL 2011 Unknown COMPREHENSIVE METABOLIC 69125 POTASSIUM 3.7 MMOL/L 06/11 Unknown COMPREHENSIVE METABOLIC 26795 PROT TOT 6.9 GM/DL 2011 Unknown COMPREHENSIVE METABOLIC 67985 Glucose 105 MG/DL 2011 Unknown COMPREHENSIVE METABOLIC 73453 BICARB 29 MMOL/L 2011 Unknown COMPREHENSIVE METABOLIC 37711 ANION GAP 6 MEQ/L 2011 Unknown FREE T4 42543 FREE T4 0.93 NG/DL 06/11/2012 Unknown LIPID GROUP 34357 HDL TEST 39 MG/DL 06/11/2012 Unknown [facility]IP[facility] GROUP 50152 TRIG 243 MG/DL 06/11/2012 Unknown [facility] 19529 TEST LDL 159 MG/DL 06/11/2012 Unknown LIPID GROUP 83318 CHOL 247 MG/DL 06/11/2012 Unknown LIP[facility] GROUP 93133 RCHOL/HDL 6.33 RATIO 06/11/2012 Unknow n GFR CALC 1944776 GFR AA >60 ML/MIN 06/11/2012 Unknown GFR CALC 0934396 GFR NON-AA >60 ML/MIN 06/11/2012 Unknown VITAMIN D TOTAL (25 HYDROXY) 82797 VIT D TOTL 19 NG/ML 03/04/2011 Unknown COMPLETE BLOOD COUNT 13539 WBC 8.0 10e9/L 03/03/20 11 Unknown COMPLETE BLOOD COUNT 62364 RBC 4.62 10e12/L 2010 Unknown COMPLETE BLOOD COUNT 79135 HGB 14.9 g/dL 1 Unknown COMPLETE BLOOD COUNT 34837 HCT DET 43.6 % 1 Unknown COMPLETE BLOOD COUNT 95857 MCV 94.4 fL 1 Unknown COMPLETE BLOOD COUNT 95046 MCH 32.3 pg 1 Unknown COMPLETE BLOOD COUNT 20331 MCHC 34.2 g/dL 1 Unknown COMPLETE BLOOD COUNT 89133 PLT 236 10e9/L 03/03/20 11 Unknown COMPLETE BLOOD COUNT 86626 MPV 11.0 fL 1 Unknown COMPLETE BLOOD COUNT 41592 PRITI % 66.3 % 1 Unknown COMPLETE BLOOD COUNT 72246 LY % 20.7 % 1 Unknown COMPLETE BLOOD COUNT 88024 MON % 9.2 % 1 Unknown COMPLETE BLOOD COUNT 85579 EOS % 3.5 % 1 Unknown COMPLETE BLOOD COUNT 79219 BASO % 0.3 % 1 Unknown COMPLETE BLOOD COUNT 48079 RDW 13.5 % 1 Unknown COMPLETE BLOOD COUNT 45233 ABS PRITI 5.30 10e9/L 011 Unknown COMPLETE BLOOD COUNT 21174 ABS LYMPH 1.66 10e9/L 011 Unknown COMPLETE BLOOD COUNT 11696 ABS MONO 0.74 10e9/L 011 Unknown COMPLETE BLOOD COUNT 53928 ABS EOS 0.28 10e9/L 011 Unknown COMPLETE BLOOD COUNT 41592 ABS BASO 0.02 10e9/L 011 Unknown COMPLETE BLOOD COUNT 22659 RDW-SD 45.1 fL 1 Unknown THYROID STIMULATING HORMONE 47225 TSH 1.944 uIU/ML 03/03/2011 Unknown FREE T4 42441 FREE T4 1.04 NG/DL 03/03/2011 Unknown LIPID GROUP 51555 HDL TEST 50 MG/DL 03/03/2011 Unknown LIPID GROUP 42747 TRIG 246 MG/DL 03/03/2011 Unknown LIPID GROUP 02803 TEST LDL 213 MG/DL 03/03/2011 Unknown LIPID GROUP 48595 CHOL 312 MG/DL 03/03/2011 Unknown LIPID GROUP 63086 RCHOL/HDL 6.24 RATIO 03/03/2011 Unknow n GFR CALC 5705738 GFR AA >60 ML/MIN 03/03/2011 Unknown GFR CALC 8790939 GFR NON-AA >60 ML/MIN 03/03/2011 Unknown COMPREHENSIVE METABOLIC 35705 AST 15 U/L 2010 Unknown COMPREHENSIVE METABOLIC 75525 ALT 21 IU/L 2010 Unknown COMPREHENSIVE METABOLIC 69908 BUN 14 MG/DL 2010 Unknown COMPREHENSIVE METABOLIC 41718 ALBUMIN 4.5 GM/DL 2010 Unknown COMPREHENSIVE METABOLIC 56505 CHLORIDE 99 MMOL/L 2010 Unknown COMPREHENSIVE METABOLIC 39238 BILI TOT 0.6 MG/DL 2010 Unknown COMPREHENSIVE METABOLIC 66056 ALK PHOS 55 U/L 2010 Unknown COMPREHENSIVE METABOLIC 28276 SODIUM 134 MMOL/L 03/03 Unknown COMPREHENSIVE METABOLIC 46936 CREATININE 0.80 MG/DL 02/05 Unknown COMPREHENSIVE METABOLIC 81717 CALCIUM 9.4 MG/DL 2010 Unknown COMPREHENSIVE METABOLIC 96501 POTASSIUM 4.0 MMOL/L 03/03 Unknown COMPREHENSIVE METABOLIC 23234 PROT TOT 7.4 GM/DL 2010 Unknown COMPREHENSIVE METABOLIC 22615 Glucose 101 MG/DL 2010 Unknown COMPREHENSIVE METABOLIC 92098 BICARB 28 MMOL/L 2010 Unknown COMPREHENSIVE METABOLIC 72153 ANION GAP 7 MEQ/L 2010 Unknown Procedures Procedure Codes Date ROUTINE VENIPUNCTURE CPT-4: 89018 02/04/2020 ASSAY OF FREE THYROXINE CPT-4: 72602 02/04/2020 ASSAY THYROID STIM HORMONE CPT-4: 61587 02/04/2020 COMPREHEN METABOLIC PANEL CPT-4: 70914 02/04/2020 COMPLETE CBC W/AUTO DIFF WBC CPT-4: 63036 02/04/2020 LIPID PANEL CPT-4: 37944 02/04/2020 TB INTRADERMAL TEST CPT-4: 54436 03/19/2018 Removal impacted cerumen using irrigation/lavage, unilateral CPT-4: 39287 02/23/2018 ROUTINE VENIPUNCTURE CPT-4: 21320 09/04/2017 ASSAY THYROID STIM HORMONE CPT-4: 52021 09/04/2017 ASSAY OF FREE THYROXINE CPT-4: 60980 09/04/2017 COMPREHEN METABOLIC PANEL CPT-4: 35151 09/04/2017 COMPLETE CBC W/AUTO DIFF WBC CPT-4: 04633 09/04/2017 LIPID PANEL CPT-4: 64695 09/04/2017 ROUTINE VENIPUNCTURE CPT-4: 27608 01/07/2015 ASSAY OF FREE THYROXINE CPT-4: 78518 01/07/2015 ASSAY THYROID STIM HORMONE CPT-4: 01405 01/07/2015 COMPREHEN METABOLIC PANEL CPT-4: 09532 01/07/2015 COMPLETE CBC W/AUTO DIFF WBC CPT-4: 87269 01/07/2015 LIPID PANEL CPT-4: 07774 01/07/2015 EXC TR-EXT B9+CECILIO 0.5 CM< CPT-4: 87193 08/06/2013 ROUTINE VENIPUNCTURE CPT-4: 25662 07/22/2013 ASSAY OF FREE THYROXINE CPT-4: 76105 07/22/2013 ASSAY THYROID STIM HORMONE CPT-4: 31444 07/22/2013 COMPREHEN METABOLIC PANEL CPT-4: 97405 07/22/2013 COMPLETE CBC W/AUTO DIFF WBC CPT-4: 47154 07/22/2013 LIPID PANEL CPT-4: 59745 07/22/2013 INFLUENZA ASSAY W/OPTIC CPT-4: 17259 11/07/2012 ROUTINE VENIPUNCTURE CPT-4: 59493 06/11/2012 ASSAY OF FREE THYROXINE CPT-4: 61679 06/11/2012 ASSAY THYROID STIM HORMONE CPT-4: 48120 06/11/2012 COMPREHEN METABOLIC PANEL CPT-4: 05294 06/11/2012 COMPLETE CBC W/AUTO DIFF WBC CPT-4: 45762 06/11/2012 LIPID PANEL CPT-4: 07551 06/11/2012 ROUTINE VENIPUNCTURE CPT-4: 53658 03/03/2011 ASSAY OF FREE THYROXINE CPT-4: 99828 03/03/2011 ASSAY THYROID STIM HORMONE CPT-4: 57509 03/03/2011 COMPREHEN METABOLIC PANEL CPT-4: 11451 03/03/2011 COMPLETE CBC W/AUTO DIFF WBC CPT-4: 63586 03/03/2011 LIPID PANEL CPT-4: 11141 03/03/2011 VITAMIN D TOTAL (25 HYDROXY) CPT-4: 01659 03/03/2011 Vital Signs Date Vital 02/06/2020 Blood Pressure 1: 124/67 Code: 8480-6 BMI: 26.6 Code: 37150-1 Heart Rate 1: 16 bpm Height: 5'6" Respiratory Rate: 17 bpm SpO2: 99% Tempera ture: 36.8 (C) / 98.2 (F) Weight: 165 lbs 02/23/2018 Blood Pressure 1: 132/84 Code: 8480-6 BMI: 31.6 Code: 78697-4 Heart Rate 1: 76 bpm Height: 5'6" Respiratory Rate: 20 bpm SpO2: 98% Tempera ture: 36.9 (C) / 98.4 (F) Weight: 199 lbs 09/07/2017 Blood Pressure 1: 126/78 Code: 8480-6 BMI: 30.5 Code: 56979-3 Heart Rate 1: 80 bpm Height: 5'6" Respiratory Rate: 20 bpm SpO2: 98% Tempera ture: 37.2 (C) / 98.9 (F) Weight: 192 lbs 01/12/2015 Blood Pressure 1: 132/74 Code: 8480-6 BMI: 29.4 Code: 21432-3 Heart Rate 1: 92 bpm Height: 5'6" Respiratory Rate: 20 bpm Temperature: 36 .7 (C) / 98.1 (F) Weight: 185 lbs 08/06/2013 Blood Pressure 1: 114/80 Code: 8480-6 BMI: 30.7 Code: 85283-7 Heart Rate 1: 80 bpm Height: 5'6" Respiratory Rate: 20 bpm Temperature: 37 .2 (C) / 99.0 (F) Weight: 193 lbs 07/24/2013 Blood Pressure 1: 124/68 Code: 8480-6 BMI: 30.7 Code: 79286-2 Heart Rate 1: 80 bpm Height: 5'6" Respiratory Rate: 20 bpm Temperature: 36 .9 (C) / 98.5 (F) Weight: 193 lbs 06/13/2013 Blood Pressure 1: 124/70 Code: 8480-6 BMI: 31.8 Code: 33058-1 Heart Rate 1: 88 bpm Height: 5'6" Respiratory Rate: 20 bpm Temperature: 36 .8 (C) / 98.2 (F) Weight: 200 lbs 05/15/2013 Blood Pressure 1: 120/80 Code: 8480-6 BMI: 30.8 Code: 10049-6 Heart Rate 1: 82 bpm Height: 5'6" Respiratory Rate: 22 bpm Temperature: 36 .2 (C) / 97.1 (F) Weight: 194 lbs 11/07/2012 Blood Pressure 1: 146/88 Code: 8480-6 BMI: 31.0 Code: 12153-5 Heart Rate 1: 108 bpm Height: 5'7" Respiratory Rate: 20 bpm SpO2: 95% Tempera ture: 38.2 (C) / 100.8 (F) Weight: 198 lbs 09/18/2012 Blood Pressure 1: 114/76 Code: 8480-6 Heart Rate 1: 88 bpm Respiratory Rate: 20 bpm Temperature: 37.1 (C) / 98.8 (F) Weight: 195 lbs 06/13/2012 Blood Pressure 1: 110/64 Code: 8480-6 BMI: 30.4 Code: 09966-5 Heart Rate 1: 64 bpm Height: 5'7" Temperature: 36.9 (C) / 98.4 (F) Weight: 194 lbs 12/21/2011 Blood Pressure 1: 116/80 Code: 8480-6 BMI: 30.7 Code: 00187-1 Heart Rate 1: 72 bpm Height: 5'7" Respiratory Rate: 20 bpm Temperature: 37 .0 (C) / 98.6 (F) Weight: 196 lbs 09/28/2011 Blood Pressure 1: 116/78 Code: 8480-6 BMI: 29.6 Code: 00884-2 Heart Rate 1: 88 bpm Height: 5'7" Respiratory Rate: 20 bpm Temperature: 36 .9 (C) / 98.5 (F) Weight: 189 lbs 04/06/2011 Blood Pressure 1: 132/80 Code: 8480-6 Heart Rate 1: 72 bpm Respiratory Rate: 20 bpm Temperature: 37.2 (C) / 99.0 (F) Weight: 185 lbs 03/03/2011 Blood Pressure 1: 114/80 Code: 8480-6 BMI: 29.6 Code: 21539-6 Heart Rate 1: 80 bpm Height: 5'7" [...] Visit Encounters Encounter Performer Location Codes Date ([id number]) PREV VISIT EST AGE 40-64 Diagnosis: Encounter for general adult medical examination without abnormal findings[ICD10: Z00.00] Diagnosis: Mixed hyperlipidemia[ICD10: E78.2] Diagnosis: Allergic rhinitis due to allergen[ICD10: J30.9] Khadra AGUILLON DO [facility] CPT-4: 28497 02/06/2020 ([id number]) NURSE/OUTPATIENT VISIT EST Diagnosis: Encounter for general adult medical examination without abnormal findings[ICD10: Z00.00] Diagnosis: Malaise and fatigue[ICD10: R53.81] Diagnosis: Mixed hyperlipidemia[ICD10: E78.2] Khadra AGUILLON DO [facility] CPT-4: 91718 02/04/2020 ([id number]) NURSE/OUTPATIENT VISIT EST Diagnosis: SCREENING-PULMONARY TB[ICD10: Z11.1] Khadra AGUILLON DO [facility] CPT-4: 47184 03/19/2018 OFFICE/OUTPATIENT VISIT EST Diagnosis: Allergic rhinitis, unspecified[ICD10: J30.9] Diagnosis: Impacted cerumen, right ear[ICD10: H61.21] Cassandra Camejo KHADRA AGUILLON DO [facility] CPT-4: 16114 02/23/2018 ([id number]) PREV VISIT EST AGE 40-64 Diagnosis: Encounter for general adult medical examination without abnormal findings[ICD10: Z00.00] Diagnosis: Mixed hyperlipidemia[ICD10: E78.2] Khadra AGUILLON DO [facility] CPT-4: 24881 09/07/2017 ([id number]) OFFICE/OUTPATIENT VISIT EST Diagnosis: Encounter for general adult medical examination without abnormal findings[ICD10: Z00.00] Diagnosis: Mixed hyperlipidemia[ICD10: E78.2] Khadra Banks. ARMANI Ezetap [facility] CPT-4: 42201 09/04/2017 ([id number]) PREV VISIT EST AGE 40-64 Diagnosis: ROUTINE MEDICAL EXAM[ICD9: V70.0] Diagnosis: HYPERLIPIDEMIA NEC/NOS[ICD9: 272.4] Diagnosis: ANXIETY STATE NOS[ICD9: 300.00] Khadra AGUILLON DO [facility] CPT-4: 61660 01/12/2015 ([id number]) OFFICE/OUTPATIENT VISIT EST Diagnosis: ROUTINE MEDICAL EXAM[ICD9: V70.0] Diagnosis: MALAISE AND FATIGUE[ICD9: 780.79] Diagnosis: HYPERLIPIDEMIA NEC/NOS[ICD9: 272.4] Khadra AGUILLON DO [facility] CPT-4: 54236 01/07/2015 ([id number]) PREV VISIT EST AGE 40-64 Diagnosis: ROUTINE MEDICAL EXAM[ICD9: V70.0] Diagnosis: HYPERLIPIDEMIA NEC/NOS[ICD9: 272.4] Diagnosis: ANXIETY STATE NOS[ICD9: 300.00] Khadra AGUILLON DO [facility] CPT-4: 47796 07/24/2013 ([id number]) OFFICE/OUTPATIENT VISIT EST Diagnosis: HYPERLIPIDEMIA NEC/NOS[ICD9: 272.4] Diagnosis: ROUTINE MEDICAL EXAM[ICD9: V70.0] Khadra AGUILLON DO [facility] CPT-4: 36836 07/22/2013 ([id number]) OFFICE/OUTPATIENT VISIT EST Diagnosis: BENIGN KACEY SKIN[ICD9: 216.9] Khadra AGUILLON [facility] CPT-4: 17854 06/13/2013 ([id number]) OFFICE/OUTPATIENT VISIT EST Diagnosis: Nasal lesion[ICD9: 478.19] Diagnosis: Changing mole[ICD9: 216.9] Diagnosis: ALLERGIC RHINITIS[ICD9: 477.9] Khadra AGUILLON DO [facility] CPT-4: 81777 05/15/2013 OFFICE/OUTPATIENT VISIT EST Diagnosis: COUGH[ICD9: 786.2] Diagnosis: FEBRILE ILLNESS[ICD9: 780.60] Diagnosis: SINUSITIS, ACUTE[ICD9: 461.9] Khadra AGUILLON DO [facility] CPT-4: 68749 11/07/2012 OFFICE/OUTPATIENT VISIT EST Diagnosis: ACUTE STRESS REACT[ICD9: 308.9] Diagnosis: ANXIETY STATE NOS[ICD9: 300.00] Khadra AGUILLON DO [facility] CPT-4: 22314 09/18/2012 ([id number]) PREV VISIT EST AGE 40-64 Diagnosis: ROUTINE MEDICAL EXAM[ICD9: V70.0] Diagnosis: HYPERLIPIDEMIA NEC/NOS[ICD9: 272.4] Diagnosis: ANXIETY STATE NOS[ICD9: 300.00] Khadra AGUILLON [facility] CPT-4: 75146 06/13/2012 ([id number]) OFFICE/OUTPATIENT VISIT EST Diagnosis: ROUTINE MEDICAL EXAM[ICD9: V70.0] Khadra AGUILLON DO [facility] CPT-4: 99423 06/11/2012 OFFICE/OUTPATIENT VISIT EST Diagnosis: INSOMNIA NOS[ICD9: 780.52] Diagnosis: ACUTE STRESS REACT[ICD9: 308.9] Diagnosis: Tinnitus[ICD9: 388.30] Diagnosis: HYPERLIPIDEMIA NEC/NOS[ICD9: 272.4] Khadra AGUILLON [facility] CPT-4: 01196 12/21/2011 OFFICE/OUTPATIENT VISIT EST Diagnosis: ACUTE STRESS REACT[ICD9: 308.9] Khadra AGUILLON DO [facility] CPT-4: 45565 09/28/2011 OFFICE/OUTPATIENT VISIT EST Diagnosis: ACUTE STRESS REACT[ICD9: 308.9] Khadra AGUILLON [facility] CPT-4: 12745 04/06/2011 OFFICE/OUTPATIENT VISIT NEW Khadra BALDWIN [facility] CPT- 4: 90203 03/03/2011 Plan of Care Planned Activity Notes Codes Status Date Visit Diagnosis Plan: Encounter for [facility] adult medical examination without abnormal findings Discussion: Mediterranean diet Combinati on of cardio and weight bearing exercise 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--had Mammo/Bone Density/Lab done Referral for updated colonoscopy [...] E78.2 02/06/2020 Patient Education: Lipitor- [employer] Coupon [id number] [email or web address]/samplemd/resources/getResource/[email or web address]/[email or web address]-xy Completed 02/06/2020 Care Plan: Referral Order SNOMED-CT : 30 [id number] Pending 02/06/2020 Appointment: Khadra Aguillon WPtel: [address] [place], [place] [phone] [place] LAB 02/04/2020 Appointment: Khadra Aguillon WPtel: [address] [place], [place] [phone] [place] TB Test read 03/21/2018 Patient Education: Patient Medication Summary Completed 03/21/2018 Appointment: Khadra Aguillon WPtel: [address] [place], [place] [address] [place] TB Test 03/19/2018 Patient Education: Patient [...] improvement, RTC 02/23/2018 Appointment: Cassandra Camejo WPtel: [address] [place] [address] ACUTE ILLNESS 02/23/2018 Patient Education: Patient Medication Summary Completed 02/23/2018 Visit Diagnosis Plan: Encounter for [facility] adult medical examination without abnormal findings Discussion: Lab discussed Add Calcium wi th Vitamin D3 daily Continue walking and add yoga for weight bearing Praised lower cholesterol efforts 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 ICD-9 : V70.0 ICD-10 : Z00.00 09/07/2017 Appointment: Khadra Aguillon WPtel: [address] [place], [place] [phone] Annual Well Visit 09/07/2017 Patient Education: Patient Medication Summary Completed 09/07/2017 Appointment: Khadra Aguillon WPtel: [facility] [place] LAB 09/04/2017 Patient Education: Patient Medication Summary Completed 09/04/2017 Visit Plan: Lab discussed Schedule colon oscopy Keep meds same Defers statin and will add fish oil and aspirin 81mg daily with diet/exercise and recheck lipids in 4mos 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 Discussed is high risk for CAD due to family history and hyperlipidemia 01/12/2015 Appointment: Khadra Aguillon WPtel: [address] [place], [place] [phone] confirmed - Annual Well Visit 01/12/2015 Patient Education: Patient Medication Summary Completed 01/12/2015 Appointment: Khadra Aguillon WPtel: [address] [place], [place] [phone] LAB 01/07/2015 Patient Education: Patient Medication Summary Completed 01/07/2015 Appointment: Sarah Wong WPtel: [address] [place], [place] [phone] FOLLOW UP 02/26/2014 Appointment: Khadra Aguillon WPtel: [address] [place], [place] [phone] 01/07 patient canceled FOLLOW UP 4 Visit Plan: Removal of lesion as above 08/06/2013 Appointment: Khadra Aguillon WPtel: [address] [place], [place] [phone] OFFICE SURGERY 08/06/2013 Patient Education: Patient Medication Summary Completed 08/06/2013 Visit Plan: Daily fish oil 3grams, Vitam in D 1000u daily, Coenzyme Q-10 200mg daily Diet/exercise/weight loss Recheck lipids in 6mos Discussed statins Pt has mammo next month 07/24/2013 Appointment: Khadra Aguillon WPtel: [address] [place], [place] [phone] 07/23 Annual Well Visit 07/24/2013 Patient Education: Patient Medication Summary Completed 07/24/2013 Appointment: Khadra Aguillon WPtel: [address] [place], [place] [phone] LAB 07/22/2013 Patient Education: Patient Medication Summary Completed 07/22/2013 Referral: Khadra Aguillon WPtel: [address] [place] [address] Referral Initiated 06/17/2013 Visit Plan: Skin So Soft to right nasal area q HS next month then observe If something comes back then will see ENT for removal 06/13/2013 Appointment: Khadra Aguillon WPtel: [address] [place], [place] [phone] 06/12 FOLLOW UP 06/13/2013 Patient Education: Patient Medication Summary Completed 06/13/2013 Visit Plan: Bactrim DS 1 po BID for 1wk, Prednisone 20mg po BID for 1wk Zyrtec daily If lesion persists will see Dr. Low for removal 05/15/2013 Appointment: Khadra Aguillon WPtel: [address] [place] [address] 05/14 ACUTE ILLNESS 05/15/2013 Patient Education: Patient Medication Summary Completed 05/15/2013 Appointment: Khadra Aguillon WPtel: [address] [place] [address] FOLLOW UP 12/13/2012 Visit Plan: Note for fever free 24 hours . Discussed fluids and rest. Clarified in verbal message that Levaquin should be QD dosing. Codeine/guiaf cough syrup. Flu test negative. Pt. to notify if symptoms worsen or fever persists. Discussed Rocephin IM and or lab/chest x-rays if symptoms persist. 11/07/2012 Appointment: Batsheva Bennett WPtel: [address] [place] [address] ACUTE ILLNESS 11/07/2012 Patient Education: Patient Medication Summary Completed 11/07/2012 Visit Plan: Continue fluoxetine at 30mg daily St[employer] 09/18/2012 Appointment: Khadra Aguillon WPtel: [address] [place] [address] FOLLOW UP 09/18/2012 Patient Education: Patient Medication Summary Completed 09/18/2012 Visit Plan: Increase fish oil to 3gm poonam ly Step 1 Cardiac Diet Repeat CMP and lipids in 6mos Pt has DCed Fluoxetine and so far doing okay Will focus on stress reducers 06/13/2012 Appointment: Khadra Aguillon WPtel: [address] [place] [address] FOLLOW UP 06/13/2012 Patient Education: Patient Medication Summary Completed 06/13/2012 Appointment: Khadra Aguillon WPtel: [address] [place] [address] LAB 06/11/2012 Patient Education: Patient Medication Summary Completed 06/11/2012 Visit Plan: Decrease fluoxetine back to 30mg daily Check fasting lab in 3mos ENT for tinnitus/hearing loss 12/21/2011 Appointment: Khadra Aguillon WPtel: [address] [place] [address] FOLLOW UP 12/21/2011 Patient Education: Patient Medication Summary Completed 12/21/2011 Visit Plan: Increase fluoxetine to 40mg daily 09/28/2011 Appointment: Khadra Aguillontel: [address] [place] [address] FOLLOW UP 09/28/2011 Patient Education: Patient Medication Summary Completed 09/28/2011 Visit Plan: Increase fluoxetine to 30mg daily Call in 2wks 04/06/2011 Appointment: Khadra Aguillon WPtel: [address] [place] [address] FOLLOW UP 04/06/2011 Patient Education: Patient Medication Summary Completed 04/06/2011 Appointment: Khadra Aguillon WPtel: [address] [place] [address] NEW PATIENT 03/03/2011 Patient Education: Patient Medication Summary Completed 03/03/2011 Referral: Augustus Velazco WPtel: [address] [place], [place] [phone] [place] Referral Appointment Requested Referral: Saurabh Beatty WPtel: [address] [id number] [place] Referral Completed Instructions Comment . 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
--- OUTSIDE RECORDS SUMMARY | 2020-03-06 17:11 | XMS REPORT | CCD ---
Author Author Sofia Aguillon D.O. Organization [facility] Address [address] [place] [address] Phone Care Team Providers Care Cpc Name Role Phone PP Unavailable CCM Unavailable Summary Purpose Interface Exchange Insurance Providers Payer name Policy type / Coverage type Covered constitution party ID Effective Begin Date Effective End Date Blue Cross Blue Shield Blue Cross/Blue Shield [id number] Unknown Family History Family History data not found Social History Social History Element Codes Description Effective Dates Marital status Unknown 03/03/2011 Number of children Unknown 3 03/03/2011 Employment Unknown Currently employed [employer] 250 03/03/[address]: 580414553 Never smoker 03/03/[address]: 000969602 Never drinks alcohol 2010 Allergies, Adverse Reactions, [...] Instructions Alba Allergy 180 mg tablet RxNorm: 082031 1 Tablet(s) Oral QD 05/06/2020 Active Lipitor 10 mg tablet RxNorm: 069734 1 Tablet(s) Oral QD M, W, F 09/201908/04/2020 Active Women's Multivitamin 18 mg iron-400 mcg-500 mg tablet RxNorm : 1 Tablet(s) Oral QD 02/06/2020 03/07/2020 Active Alba Allergy 180 mg tablet RxNorm: 936171 1 Tablet(s) PO QD 02/0505/23/2018 Inactive Medrol (Vick) 4 mg tablets in a dose pack RxNorm: 969890 As directed Tablet(s) PO QD 02/23/2018 02/27/2018 Inactive alprazolam 0.25 mg tablet RxNorm: 302514 TAKE 1/2 TABLE T TWO TIMES A DAY NEEDED FOR SEVERE STRESS 03/27/2015 04/15/2015 Inactive fluoxetine 10 mg tablet RxNorm: 720349 3 Tablet(s) PO QAM 03/27/2015 09/06/2017 Inactive for 1week then 2 po qam alprazolam 0.25 mg tablet RxNorm: 473731 TAKE ONE-HALF TABLET BY MOUTH TWICE A DAY NEEDED FOR SEVERE STRESS 07/24/2014 03/27/2015 Inactive ([id number] fluoxetine 10 mg tablet RxNorm: 210777 3 Tablet(s) PO QAM 05/26/2014 03/27/2015 Inactive for 1week then 2 po qAM [SAVINGS FOR UNI NSURED PATIENTS -- BIN:[id number], PCN: [id number], Group: [id number], ID# [id number], Process claim through [employer], for questions: . THIS IS NOT INSURANCE.] Bactrim DS 800 mg-160 mg tablet RxNorm: 731340 1 Tablet(s) PO BID 1 05/21/2013 Inactive prednisone 20 mg tablet RxNorm: 244563 1 Tablet(s) PO BID 05/15/2013 05/21/2013 Inactive Levaquin 750 mg tablet RxNorm: 345758 1 Tablet(s) PO BID 11/07/2012 0 11/16/2012 Inactive fluoxetine 10 mg tablet RxNorm: 305030 3 Tablet(s) PO QAM 09/18/2012 03/16/2013 Inactive for 1week then 2 po qAM fluoxetine 10 mg tablet RxNorm: 437716 3 Tablet(s) PO QAM 12/21/2011 06/12/2012 Inactive for 1week then 2 po qAM fluoxetine 10 mg Tab RxNorm: 840749 3 Tablet(s) PO QAM 10/20/2011 Inactive for 1week then 2 po qAM Vaniqa 13.9 % Topical Cream RxNorm: 268874 1 Application TOP BID 12/20/2011 Inactive fluoxetine 40 mg Cap RxNorm: 792798 1 Capsule(s) PO QD 09/28/2011 Inactive fluoxetine 10 mg Cap RxNorm: 455470 3 Capsule(s) PO QD 06/21/201107/2012 Inactive fluoxetine 10 mg Tab RxNorm: 018781 3 Tablet(s) PO QD 04/26/201105/07 Inactive Xanax 0.25 mg Tab RxNorm: 679130 1/2 Tablet(s) PO BID 03/03/201103/07 Inactive prn severe stress alprazolam 0.25 mg tablet RxNorm: 605183 1/2 Tablet(s) PO BID as needed for anxiety No Start Date 02/22/2018 Inactive Medrol (Vick) 4 mg tablets in a dose pack RxNorm: 268292 Tablet(s) PO as directed No Start Date 05/14/2013 Inactive Fish Oil 1,000 mg Cap RxNorm: 1 Capsule(s) PO BID No Start Date Inactive fluoxetine 10 mg Cap RxNorm: 904102 2 Capsule(s) PO QD No Start Date 06/20/2011 Inactive fluoxetine 10 mg Cap RxNorm: 592191 3 Capsule(s) PO QD No Start Date 09/27/2011 Inactive alprazolam 0.25 mg Tab RxNorm: 378486 1/2 Tablet(s) PO BID No Start Date 07/24/2014 Inactive as needed fluoxetine 10 mg Tab RxNorm: 583177 1 Tablet(s) PO QAM No Start Date 10/19/2011 Inactive for 1week then 2 po qAM Vaniqa 13.9 % Topical Cream RxNorm: 527539 1 Application TOP BID No Start Date 09/27/2011 Inactive fluoxetine 20 mg capsule RxNorm: 014870 1 Capsule(s) PO QD No Start Date 02/22/2018 Inactive Vitamin D3 1000 units Capsule RxNorm: 1 Capsule(s) PO QD No St art Date 09/06/2017 Inactive Prozac 20 mg capsule RxNorm: 137900 1 Capsule(s) PO QD No Start Date 07/23/2013 Inactive Medication Administered No Medication Administered data Immunizations Vaccine Codes Date Status Shingrix Unknown 01/15/2018 Complete Zostavax CVX: 121 11/16/2017 Results Observation Observation Code Item Item Code Result Date S ervice Location [facility] 14530 Cholesterol 232 mg/dL 02/04/2020 Unkno wn [facility] 07316 Triglyceride 126 mg/dL 02/04/2020 Unkn own [facility] 94466 HDL CHOLESTEROL 48 mg/dL 02/04/2020 U nknown [facility] 25437 Chol/HDL Ratio 4.83 ratio 02/04/2020 U nknown [facility] 79045 NON-HDL Chol 184 mg/dL 02/04/2020 Unkn own [facility] 03617 LDL Cholesterol 159 mg/dL 02/04/2020 U nknown GFR CALC 5470646 GFR Non Afr Amr >60 mL/min 02/04/2020 Un known GFR CALC 2335665 GFR Afr Amr >60 mL/min 02/04/2020 Unknow n THYROID STIMULATING HORMONE 70219 TSH 1.616 uIU/mL 02/04/2020 Unknown FREE T4 15413 T4 Free 0.96 ng/dL 02/04/2020 Unknown COMPREHENSIVE METABOLIC 37621 AST 20 U/L 2019 Unknown COMPREHENSIVE METABOLIC 44464 ALT 32 U/L 2019 Unknown COMPREHENSIVE METABOLIC 91372 BUN 16 mg/dL 2019 Unknown COMPREHENSIVE METABOLIC 54806 ALBUMIN 4.7 g/dL 2019 Unknown COMPREHENSIVE METABOLIC 17444 CHLORIDE 101 mmol/L 02/03 Unknown COMPREHENSIVE METABOLIC 33380 Bili Total 0.4 mg/dL 02/03 Unknown COMPREHENSIVE METABOLIC 70262 ALK PHOS 63 U/L 2019 Unknown COMPREHENSIVE METABOLIC 68710 SODIUM 138 mmol/L 02/03 Unknown COMPREHENSIVE METABOLIC 09048 CREATININE 0.65 mg/dL 01/07 Unknown COMPREHENSIVE METABOLIC 74357 CALCIUM 9.4 mg/dL 2019 Unknown COMPREHENSIVE METABOLIC 99576 POTASSIUM 4.0 mmol/L 02/03 Unknown COMPREHENSIVE METABOLIC 22229 Total Protein 7.3 g/dL Unknown COMPREHENSIVE METABOLIC 11140 Glucose 100 mg/dL 2019 Unknown COMPREHENSIVE METABOLIC 30108 Bicarbonate 27 mmol/L 01/07 Unknown COMPREHENSIVE METABOLIC 54299 AGAP 10 mmol/L 2019 Unknown COMPLETE BLOOD COUNT 6334982 WBC 5.5 10e9/L 02/04/20 20 Unknown COMPLETE BLOOD COUNT 6628636 RBC 4.56 10e12/L 2019 Unknown COMPLETE BLOOD COUNT 2244002 HEMOGLOBIN 14.5 g/dL 02/04/20 20 Unknown COMPLETE BLOOD COUNT 3754128 HEMATOCRIT 44.1 % 02/04/20 20 Unknown COMPLETE BLOOD COUNT 2365176 MCV 96.7 fL 0 Unknown COMPLETE BLOOD COUNT 1200987 MCH 31.8 pg 0 Unknown COMPLETE BLOOD COUNT 1997209 MCHC 32.9 g/dL 0 Unknown COMPLETE BLOOD COUNT 8467753 PLATELET COUNT 232 10e9/L Unknown COMPLETE BLOOD COUNT 8985084 Mean Plt Volume 11.4 fL Unknown COMPLETE BLOOD COUNT 5903624 Neut Auto 55.7 % 0 Unknown COMPLETE BLOOD COUNT 8664384 Lymph Auto 31.3 % 02/04/20 20 Unknown COMPLETE BLOOD COUNT 6207727 Stephenson Auto 10.0 % 0 Unknown COMPLETE BLOOD COUNT 6221687 RDW 13.7 % 0 Unknown COMPLETE BLOOD COUNT 4094364 Eos Auto 2.5 % 0 Unknown COMPLETE BLOOD COUNT 5351570 Baso Auto 0.5 % 0 Unknown COMPLETE BLOOD COUNT 5335582 Neutrophil Abs 3.06 10e9/L Unknown COMPLETE BLOOD COUNT 5150231 Lymphocyte Abs 1.72 10e9/L Unknown COMPLETE BLOOD COUNT 4499851 Monocyte Abs 0.55 10e9/L 01/07 Unknown COMPLETE BLOOD COUNT 0600949 Eosinophil Abs 0.14 10e9/L Unknown COMPLETE BLOOD COUNT 3267383 RDW-SD 47.5 fL 0 Unknown COMPLETE BLOOD COUNT 1325507 Basophil Abs 0.03 10e9/L 01/07 Unknown FREE T4 68555 T4 Free 1.25 ng/dL 09/04/2017 Unknown COMPLETE BLOOD COUNT 9746435 WBC 5.9 10e9/L 09/04/19 18 Unknown COMPLETE BLOOD COUNT 3736624 RBC 4.35 10e12/L 2017 Unknown COMPLETE BLOOD COUNT 6278416 HEMOGLOBIN 14.0 g/dL 09/04/19 18 Unknown COMPLETE BLOOD COUNT 2406067 HEMATOCRIT 41.6 % 09/04/19 18 Unknown COMPLETE BLOOD COUNT 0009971 MCV 95.6 fL 8 Unknown COMPLETE BLOOD COUNT 2899736 MCH 32.2 pg 8 Unknown COMPLETE BLOOD COUNT 5574820 MCHC 33.7 g/dL 8 Unknown COMPLETE BLOOD COUNT 1231653 PLATELET COUNT 239 10e9/L Unknown COMPLETE BLOOD COUNT 4476077 Mean Plt Volume 10.8 fL Unknown COMPLETE BLOOD COUNT 1260048 Neut Auto 53.2 % 8 Unknown COMPLETE BLOOD COUNT 7540790 Lymph Auto 35.6 % 09/04/19 18 Unknown COMPLETE BLOOD COUNT 0401520 Stephenson Auto 9.6 % 8 Unknown COMPLETE BLOOD COUNT 7904866 RDW 13.2 % 8 Unknown COMPLETE BLOOD COUNT 7364315 Eos Auto 1.4 % 8 Unknown COMPLETE BLOOD COUNT 7761373 Baso Auto 0.2 % 8 Unknown COMPLETE BLOOD COUNT 4677807 Neutrophil Abs 3.14 10e9/L Unknown COMPLETE BLOOD COUNT 2059824 Lymphocyte Abs 2.10 10e9/L Unknown COMPLETE BLOOD COUNT 2764705 Monocyte Abs 0.57 10e9/L 08/08 Unknown COMPLETE BLOOD COUNT 3558568 Eosinophil Abs 0.08 10e9/L Unknown COMPLETE BLOOD COUNT 1108814 RDW-SD 44.7 fL 8 Unknown COMPLETE BLOOD COUNT 1405893 Basophil Abs 0.01 10e9/L 08/08 Unknown COMPREHENSIVE METABOLIC 18555 AST 26 U/L 2017 Unknown COMPREHENSIVE METABOLIC 73520 ALT 40 U/L 2017 Unknown COMPREHENSIVE METABOLIC 01985 BUN 6 mg/dL 2017 Unknown COMPREHENSIVE METABOLIC 35516 ALBUMIN 5.3 g/dL 2017 Unknown COMPREHENSIVE METABOLIC 03222 CHLORIDE 102 mmol/L 09/04 Unknown COMPREHENSIVE METABOLIC 77973 Bili Total 0.7 mg/dL 09/04 Unknown COMPREHENSIVE METABOLIC 59524 ALK PHOS 56 U/L 2017 Unknown COMPREHENSIVE METABOLIC 81143 SODIUM 139 mmol/L 09/04 Unknown COMPREHENSIVE METABOLIC 03622 CREATININE 0.61 mg/dL 08/08 Unknown COMPREHENSIVE METABOLIC 63663 CALCIUM 9.8 mg/dL 2017 Unknown COMPREHENSIVE METABOLIC 04281 POTASSIUM 3.8 mmol/L 09/04 Unknown COMPREHENSIVE METABOLIC 26105 Total Protein 7.7 g/dL Unknown COMPREHENSIVE METABOLIC 44534 Glucose 95 mg/dL 2017 Unknown COMPREHENSIVE METABOLIC 82768 Bicarbonate 30 mmol/L 08/08 Unknown COMPREHENSIVE METABOLIC 13236 AGAP 7 mmol/L 2017 Unknown GFR CALC 4816247 GFR Non Afr Amr >60 mL/min 09/04/2017 Un known GFR CALC 5453229 GFR Afr Amr >60 mL/min 09/04/2017 Unknow n THYROID STIMULATING HORMONE 46716 TSH 1.454 uIU/mL 09/04/2017 Unknown [facility] 09955 Cholesterol 218 mg/dL 09/04/2017 Unkno wn [facility] 24974 Triglyceride 135 mg/dL 09/04/2017 Unkn own [facility] 45025 HDL CHOLESTEROL 52 09/04/2017 U nknown [facility] 02862 Chol/HDL Ratio 4.19 ratio 09/04/2017 U nknown [facility] 53236 NON-HDL Chol 166 mg/dL 09/04/2017 Unkn own [facility] 47672 LDL Cholesterol 139 mg/dL 09/04/2017 U nknown FREE T4 20050 FREE T4 1.15 NG/DL 01/07/2015 Unknown THYROID STIMULATING HORMONE 54866 TSH 1.927 uIU/ML 01/07/2015 Unknown [facility] 68319 HDL TEST 53 MG/DL 01/07/2015 Unknown [facility] 50770 TRIG 215 MG/DL 01/07/2015 Unknown [facility] 84873 TEST LDL 194 MG/DL 01/07/2015 Unknown [facility] 64001 CHOL 290 MG/DL 01/07/2015 Unknown [facility] 62250 RCHOL/HDL 5.47 RATIO 01/07/2015 Unknow n [facility] GROUP 01285 NON-HDL CH 237 MG/DL 01/07/2015 Unknow n GFR CALC 8707936 GFR AA >60 ML/MIN 01/07/2015 Unknown GFR CALC 5581281 GFR NON-AA >60 ML/MIN 01/07/2015 Unknown COMPLETE BLOOD COUNT 3334193 WBC 5.9 10e9/L 01/08/20 15 Unknown COMPLETE BLOOD COUNT 2284870 RBC 4.35 10e12/L 2014 Unknown COMPLETE BLOOD COUNT 0710643 HGB 14.2 g/dL 5 Unknown COMPLETE BLOOD COUNT 9583882 HCT DET 42.0 % 5 Unknown COMPLETE BLOOD COUNT 3263476 MCV 96.6 fL 5 Unknown COMPLETE BLOOD COUNT 7397176 MCH 32.6 pg 5 Unknown COMPLETE BLOOD COUNT 2511456 MCHC 33.8 g/dL 5 Unknown COMPLETE BLOOD COUNT 1774570 PLT 227 10e9/L 01/08/20 15 Unknown COMPLETE BLOOD COUNT 0136883 MPV 11.4 fL 5 Unknown COMPLETE BLOOD COUNT 4663701 PRITI % 54.2 % 5 Unknown COMPLETE BLOOD COUNT 1875480 LY % 33.8 % 5 Unknown COMPLETE BLOOD COUNT 7343355 MON % 8.8 % 5 Unknown COMPLETE BLOOD COUNT 9525908 EOS % 2.9 % 5 Unknown COMPLETE BLOOD COUNT 2833048 BASO % 0.3 % 5 Unknown COMPLETE BLOOD COUNT 4848037 RDW 13.6 % 5 Unknown COMPLETE BLOOD COUNT 5230010 ABS PRITI 3.20 10e9/L 015 Unknown COMPLETE BLOOD COUNT 6013876 ABS LYMPH 1.99 10e9/L 015 Unknown COMPLETE BLOOD COUNT 5891910 ABS MONO 0.52 10e9/L 015 Unknown COMPLETE BLOOD COUNT 7320473 ABS EOS 0.17 10e9/L 015 Unknown COMPLETE BLOOD COUNT 7731058 ABS BASO 0.02 10e9/L 015 Unknown COMPLETE BLOOD COUNT 7739167 RDW-SD 47.0 fL 5 Unknown COMPREHENSIVE METABOLIC 76384 AST 20 U/L 2014 Unknown COMPREHENSIVE METABOLIC 12820 ALT 30 IU/L 2014 Unknown COMPREHENSIVE METABOLIC 82124 BUN 12 MG/DL 2014 Unknown COMPREHENSIVE METABOLIC 86333 ALBUMIN 4.4 GM/DL 2014 Unknown COMPREHENSIVE METABOLIC 40673 CHLORIDE 102 MMOL/L 01/07 Unknown COMPREHENSIVE METABOLIC 84203 BILI TOT 0.6 MG/DL 2014 Unknown COMPREHENSIVE METABOLIC 13986 ALK PHOS 76 U/L 2014 Unknown COMPREHENSIVE METABOLIC 29949 SODIUM 139 MMOL/L 01/07 Unknown COMPREHENSIVE METABOLIC 83581 CREATININE 0.77 MG/DL 10/2014 Unknown COMPREHENSIVE METABOLIC 45469 CALCIUM 9.2 MG/DL 2014 Unknown COMPREHENSIVE METABOLIC 68392 POTASSIUM 4.1 MMOL/L 01/07 Unknown COMPREHENSIVE METABOLIC 00558 PROT TOT 7.1 GM/DL 2014 Unknown COMPREHENSIVE METABOLIC 32170 Glucose 107 MG/DL 2014 Unknown COMPREHENSIVE METABOLIC 80210 BICARB 30 MMOL/L 2014 Unknown COMPREHENSIVE METABOLIC 42492 ANION GAP 7 MEQ/L 2014 Unknown [facility] 57105 HDL TEST 48 MG/DL 07/22/2013 Unknown [facility] 10683 TRIG 176 MG/DL 07/22/2013 Unknown [facility] 28842 TEST LDL 161 MG/DL 07/22/2013 Unknown [facility] GROUP 35515 CHOL 244 MG/DL 07/22/2013 Unknown L[facility] GROUP 47610 RCHOL/HDL 5.08 RATIO 07/22/2013 Unknow n COMPLETE BLOOD COUNT 5578017 WBC 5.8 10e9/L 07/22/20 13 Unknown COMPLETE BLOOD COUNT 5385996 RBC 4.45 10e12/L 2012 Unknown COMPLETE BLOOD COUNT 8663782 HGB 14.6 g/dL 3 Unknown COMPLETE BLOOD COUNT 4358975 HCT DET 43.8 % 3 Unknown COMPLETE BLOOD COUNT 7617705 MCV 98.4 fL 3 Unknown COMPLETE BLOOD COUNT 8839774 MCH 32.8 pg 3 Unknown COMPLETE BLOOD COUNT 3246002 MCHC 33.3 g/dL 3 Unknown COMPLETE BLOOD COUNT 3435465 PLT 270 10e9/L 07/22/20 13 Unknown COMPLETE BLOOD COUNT 1348933 MPV 11.4 fL 3 Unknown COMPLETE BLOOD COUNT 5730127 PRITI % 54.2 % 3 Unknown COMPLETE BLOOD COUNT 4396180 LY % 33.2 % 3 Unknown COMPLETE BLOOD COUNT 5400688 MON % 9.2 % 3 Unknown COMPLETE BLOOD COUNT 7999267 EOS % 3.1 % 3 Unknown COMPLETE BLOOD COUNT 6171794 BASO % 0.3 % 3 Unknown COMPLETE BLOOD COUNT 9828253 RDW 13.8 % 3 Unknown COMPLETE BLOOD COUNT 4892749 ABS PRITI 3.14 10e9/L 013 Unknown COMPLETE BLOOD COUNT 6208966 ABS LYMPH 1.93 10e9/L 013 Unknown COMPLETE BLOOD COUNT 3118124 ABS MONO 0.53 10e9/L 013 Unknown COMPLETE BLOOD COUNT 5609919 ABS EOS 0.18 10e9/L 013 Unknown COMPLETE BLOOD COUNT 9728556 ABS BASO 0.02 10e9/L 013 Unknown COMPLETE BLOOD COUNT 8691733 RDW-SD 48.4 fL 3 Unknown GFR CALC 5368597 GFR AA >60 ML/MIN 07/22/2013 Unknown GFR CALC 2135101 GFR NON-AA >60 ML/MIN 07/22/2013 Unknown THYROID STIMULATING HORMONE 27150 TSH 1.645 uIU/ML 07/22/2013 Unknown COMPREHENSIVE METABOLIC 63126 AST 23 U/L 2012 Unknown COMPREHENSIVE METABOLIC 60741 ALT 30 IU/L 2012 Unknown COMPREHENSIVE METABOLIC 22928 BUN 12 MG/DL 2012 Unknown COMPREHENSIVE METABOLIC 10449 ALBUMIN 4.7 GM/DL 2012 Unknown COMPREHENSIVE METABOLIC 33965 CHLORIDE 102 MMOL/L 07/22 Unknown COMPREHENSIVE METABOLIC 27148 BILI TOT 0.5 MG/DL 2012 Unknown COMPREHENSIVE METABOLIC 57822 ALK PHOS 51 U/L 2012 Unknown COMPREHENSIVE METABOLIC 84150 SODIUM 136 MMOL/L 07/22 Unknown COMPREHENSIVE METABOLIC 78076 CREATININE 0.74 MG/DL 07/07 Unknown COMPREHENSIVE METABOLIC 88317 CALCIUM 9.2 MG/DL 2012 Unknown COMPREHENSIVE METABOLIC 00534 POTASSIUM 4.1 MMOL/L 07/22 Unknown COMPREHENSIVE METABOLIC 38824 PROT TOT 7.1 GM/DL 2012 Unknown COMPREHENSIVE METABOLIC 68053 Glucose 107 MG/DL 2012 Unknown COMPREHENSIVE METABOLIC 01439 BICARB 29 MMOL/L 2012 Unknown COMPREHENSIVE METABOLIC 52306 ANION GAP 5 MEQ/L 2012 Unknown FREE T4 41645 FREE T4 0.98 NG/DL 07/22/2013 Unknown COMPLETE BLOOD COUNT 1604770 WBC 4.4 10e9/L 06/11/20 12 Unknown COMPLETE BLOOD COUNT 3997534 RBC 4.18 10e12/L 2011 Unknown COMPLETE BLOOD COUNT 0598863 HGB 13.5 g/dL 2 Unknown COMPLETE BLOOD COUNT 3476436 HCT DET 39.9 % 2 Unknown COMPLETE BLOOD COUNT 8417045 MCV 95.5 fL 2 Unknown COMPLETE BLOOD COUNT 0682002 MCH 32.3 pg 2 Unknown COMPLETE BLOOD COUNT 2699198 MCHC 33.8 g/dL 2 Unknown COMPLETE BLOOD COUNT 4349703 PLT 232 10e9/L 06/11/20 12 Unknown COMPLETE BLOOD COUNT 6472434 MPV 11.3 fL 2 Unknown COMPLETE BLOOD COUNT 2204501 PRITI % 46.4 % 2 Unknown COMPLETE BLOOD COUNT 4509202 LY % 36.4 % 2 Unknown COMPLETE BLOOD COUNT 1388371 MON % 10.5 % 2 Unknown COMPLETE BLOOD COUNT 0554538 EOS % 6.2 % 2 Unknown COMPLETE BLOOD COUNT 5794035 BASO % 0.5 % 2 Unknown COMPLETE BLOOD COUNT 1801712 RDW 13.1 % 2 Unknown COMPLETE BLOOD COUNT 4629750 ABS PRITI 2.04 10e9/L 012 Unknown COMPLETE BLOOD COUNT 8813843 ABS LYMPH 1.60 10e9/L 012 Unknown COMPLETE BLOOD COUNT 8203307 ABS MONO 0.46 10e9/L 012 Unknown COMPLETE BLOOD COUNT 1010558 ABS EOS 0.27 10e9/L 012 Unknown COMPLETE BLOOD COUNT 5039358 ABS BASO 0.02 10e9/L 012 Unknown COMPLETE BLOOD COUNT 7980295 RDW-SD 44.2 fL 2 Unknown THYROID STIMULATING HORMONE 64536 TSH 1.766 uIU/ML 06/11/2012 Unknown COMPREHENSIVE METABOLIC 92771 AST 20 U/L 2011 Unknown COMPREHENSIVE METABOLIC 39702 ALT 23 IU/L 2011 Unknown COMPREHENSIVE METABOLIC 69334 BUN 10 MG/DL 2011 Unknown COMPREHENSIVE METABOLIC 02825 ALBUMIN 4.3 GM/DL 2011 Unknown COMPREHENSIVE METABOLIC 17047 CHLORIDE 103 MMOL/L 06/11 Unknown COMPREHENSIVE METABOLIC 52426 BILI TOT 0.4 MG/DL 2011 Unknown COMPREHENSIVE METABOLIC 99249 ALK PHOS 52 U/L 2011 Unknown COMPREHENSIVE METABOLIC 63109 SODIUM 138 MMOL/L 06/11 Unknown COMPREHENSIVE METABOLIC 79128 CREATININE 0.74 MG/DL 12/2011 Unknown COMPREHENSIVE METABOLIC 90596 CALCIUM 8.8 MG/DL 2011 Unknown COMPREHENSIVE METABOLIC 32159 POTASSIUM 3.7 MMOL/L 06/11 Unknown COMPREHENSIVE METABOLIC 25424 PROT TOT 6.9 GM/DL 2011 Unknown COMPREHENSIVE METABOLIC 47662 Glucose 105 MG/DL 2011 Unknown COMPREHENSIVE METABOLIC 96654 BICARB 29 MMOL/L 2011 Unknown COMPREHENSIVE METABOLIC 11580 ANION GAP 6 MEQ/L 2011 Unknown FREE T4 89394 FREE T4 0.93 NG/DL 06/11/2012 Unknown LIPID GROUP 26755 HDL TEST 39 MG/DL 06/11/2012 Unknown LIPID GROUP 43363 TRIG 243 MG/DL 06/11/2012 Unknown LIPID GROUP 97724 TEST LDL 159 MG/DL 06/11/2012 Unknown LIPID GROUP 36782 CHOL 247 MG/DL 06/11/2012 Unknown LIPID GROUP 00486 RCHOL/HDL 6.33 RATIO 06/11/2012 Unknow n GFR CALC 9986092 GFR AA >60 ML/MIN 06/11/2012 Unknown GFR CALC 5298446 GFR NON-AA >60 ML/MIN 06/11/2012 Unknown VITAMIN D TOTAL (25 HYDROXY) 76217 VIT D TOTL 19 NG/ML 03/04/2011 Unknown COMPLETE BLOOD COUNT 56302 WBC 8.0 10e9/L 03/03/20 11 Unknown COMPLETE BLOOD COUNT 76247 RBC 4.62 10e12/L 2010 Unknown COMPLETE BLOOD COUNT 92914 HGB 14.9 g/dL 1 Unknown COMPLETE BLOOD COUNT 75410 HCT DET 43.6 % 1 Unknown COMPLETE BLOOD COUNT 60528 MCV 94.4 fL 1 Unknown COMPLETE BLOOD COUNT 54824 MCH 32.3 pg 1 Unknown COMPLETE BLOOD COUNT 55950 MCHC 34.2 g/dL 1 Unknown COMPLETE BLOOD COUNT 87281 PLT 236 10e9/L 03/03/20 11 Unknown COMPLETE BLOOD COUNT 74562 MPV 11.0 fL 1 Unknown COMPLETE BLOOD COUNT 17913 PRITI % 66.3 % 1 Unknown COMPLETE BLOOD COUNT 97239 LY % 20.7 % 1 Unknown COMPLETE BLOOD COUNT 23348 MON % 9.2 % 1 Unknown COMPLETE BLOOD COUNT 89893 EOS % 3.5 % 1 Unknown COMPLETE BLOOD COUNT 66339 BASO % 0.3 % 1 Unknown COMPLETE BLOOD COUNT 39233 RDW 13.5 % 1 Unknown COMPLETE BLOOD COUNT 67961 ABS PRITI 5.30 10e9/L 011 Unknown COMPLETE BLOOD COUNT 16815 ABS LYMPH 1.66 10e9/L 011 Unknown COMPLETE BLOOD COUNT 88460 ABS MONO 0.74 10e9/L 011 Unknown COMPLETE BLOOD COUNT 14225 ABS EOS 0.28 10e9/L 011 Unknown COMPLETE BLOOD COUNT 00848 ABS BASO 0.02 10e9/L 011 Unknown COMPLETE BLOOD COUNT 12019 RDW-SD 45.1 fL 1 Unknown THYROID STIMULATING HORMONE 06990 TSH 1.944 uIU/ML 03/03/2011 Unknown FREE T4 96792 FREE T4 1.04 NG/DL 03/03/2011 Unknown LIPID GROUP 11479 HDL TEST 50 MG/DL 03/03/2011 Unknown LIPID GROUP 92165 TRIG 246 MG/DL 03/03/2011 Unknown LIPID GROUP 53896 TEST LDL 213 MG/DL 03/03/2011 Unknown LIPID GROUP 63095 CHOL 312 MG/DL 03/03/2011 Unknown LIPID GROUP 05915 RCHOL/HDL 6.24 RATIO 03/03/2011 Unknow n GFR CALC 3194526 GFR AA >60 ML/MIN 03/03/2011 Unknown GFR CALC 9081422 GFR NON-AA >60 ML/MIN 03/03/2011 Unknown COMPREHENSIVE METABOLIC 80475 AST 15 U/L 2010 Unknown COMPREHENSIVE METABOLIC 96781 ALT 21 IU/L 2010 Unknown COMPREHENSIVE METABOLIC 81771 BUN 14 MG/DL 2010 Unknown COMPREHENSIVE METABOLIC 94551 ALBUMIN 4.5 GM/DL 2010 Unknown COMPREHENSIVE METABOLIC 27364 CHLORIDE 99 MMOL/L 2010 Unknown COMPREHENSIVE METABOLIC 69220 BILI TOT 0.6 MG/DL 2010 Unknown COMPREHENSIVE METABOLIC 27756 ALK PHOS 55 U/L 2010 Unknown COMPREHENSIVE METABOLIC 13414 SODIUM 134 MMOL/L 03/03 Unknown COMPREHENSIVE METABOLIC 12770 CREATININE 0.80 MG/DL 02/05 Unknown COMPREHENSIVE METABOLIC 28163 CALCIUM 9.4 MG/DL 2010 Unknown COMPREHENSIVE METABOLIC 26791 POTASSIUM 4.0 MMOL/L 03/03 Unknown COMPREHENSIVE METABOLIC 01273 PROT TOT 7.4 GM/DL 2010 Unknown COMPREHENSIVE METABOLIC 04527 Glucose 101 MG/DL 2010 Unknown COMPREHENSIVE METABOLIC 53752 BICARB 28 MMOL/L 2010 Unknown COMPREHENSIVE METABOLIC 76023 ANION GAP 7 MEQ/L 2010 Unknown Procedures Procedure Codes Date ROUTINE VENIPUNCTURE CPT-4: 47486 02/04/2020 ASSAY OF FREE THYROXINE CPT-4: 04943 02/04/2020 ASSAY THYROID STIM HORMONE CPT-4: 15640 02/04/2020 COMPREHEN METABOLIC PANEL CPT-4: 30947 02/04/2020 COMPLETE CBC W/AUTO DIFF WBC CPT-4: 51878 02/04/2020 LIPID PANEL CPT-4: 21798 02/04/2020 TB INTRADERMAL TEST CPT-4: 48199 03/19/2018 Removal impacted cerumen using irrigation/lavage, unilateral CPT-4: 43558 02/23/2018 ROUTINE VENIPUNCTURE CPT-4: 27299 09/04/2017 ASSAY THYROID STIM HORMONE CPT-4: 70649 09/04/2017 ASSAY OF FREE THYROXINE CPT-4: 75496 09/04/2017 COMPREHEN METABOLIC PANEL CPT-4: 12245 09/04/2017 COMPLETE CBC W/AUTO DIFF WBC CPT-4: 37021 09/04/2017 LIPID PANEL CPT-4: 30483 09/04/2017 ROUTINE VENIPUNCTURE CPT-4: 66069 01/07/2015 ASSAY OF FREE THYROXINE CPT-4: 19750 01/07/2015 ASSAY THYROID STIM HORMONE CPT-4: 02986 01/07/2015 COMPREHEN METABOLIC PANEL CPT-4: 58021 01/07/2015 COMPLETE CBC W/AUTO DIFF WBC CPT-4: 85706 01/07/2015 LIPID PANEL CPT-4: 70315 01/07/2015 EXC TR-EXT B9+CECILIO 0.5 CM< CPT-4: 53967 08/06/2013 ROUTINE VENIPUNCTURE CPT-4: 44154 07/22/2013 ASSAY OF FREE THYROXINE CPT-4: 95817 07/22/2013 ASSAY THYROID STIM HORMONE CPT-4: 39713 07/22/2013 COMPREHEN METABOLIC PANEL CPT-4: 05653 07/22/2013 COMPLETE CBC W/AUTO DIFF WBC CPT-4: 43722 07/22/2013 LIPID PANEL CPT-4: 14648 07/22/2013 INFLUENZA ASSAY W/OPTIC CPT-4: 71334 11/07/2012 ROUTINE VENIPUNCTURE CPT-4: 70876 06/11/2012 ASSAY OF FREE THYROXINE CPT-4: 47139 06/11/2012 ASSAY THYROID STIM HORMONE CPT-4: 90695 06/11/2012 COMPREHEN METABOLIC PANEL CPT-4: 91350 06/11/2012 COMPLETE CBC W/AUTO DIFF WBC CPT-4: 79657 06/11/2012 LIPID PANEL CPT-4: 31110 06/11/2012 ROUTINE VENIPUNCTURE CPT-4: 52847 03/03/2011 ASSAY OF FREE THYROXINE CPT-4: 06282 03/03/2011 ASSAY THYROID STIM HORMONE CPT-4: 54411 03/03/2011 COMPREHEN METABOLIC PANEL CPT-4: 69128 03/03/2011 COMPLETE CBC W/AUTO DIFF WBC CPT-4: 54055 03/03/2011 LIPID PANEL CPT-4: 90468 03/03/2011 VITAMIN D TOTAL (25 HYDROXY) CPT-4: 04748 03/03/2011 Vital Signs Date Vital 02/06/2020 Blood Pressure 1: 124/67 Code: 8480-6 BMI: 26.6 Code: 74435-2 Heart Rate 1: 16 bpm Height: 5'6" Respiratory Rate: 17 bpm SpO2: 99% Tempera ture: 36.8 (C) / 98.2 (F) Weight: 165 lbs 02/23/2018 Blood Pressure 1: 132/84 Code: 8480-6 BMI: 31.6 Code: 20583-5 Heart Rate 1: 76 bpm Height: 5'6" Respiratory Rate: 20 bpm SpO2: 98% Tempera ture: 36.9 (C) / 98.4 (F) Weight: 199 lbs 09/07/2017 Blood Pressure 1: 126/78 Code: 8480-6 BMI: 30.5 Code: 75131-2 Heart Rate 1: 80 bpm Height: 5'6" Respiratory Rate: 20 bpm SpO2: 98% Tempera ture: 37.2 (C) / 98.9 (F) Weight: 192 lbs 01/12/2015 Blood Pressure 1: 132/74 Code: 8480-6 BMI: 29.4 Code: 17560-4 Heart Rate 1: 92 bpm Height: 5'6" Respiratory Rate: 20 bpm Temperature: 36 .7 (C) / 98.1 (F) Weight: 185 lbs 08/06/2013 Blood Pressure 1: 114/80 Code: 8480-6 BMI: 30.7 Code: 61009-0 Heart Rate 1: 80 bpm Height: 5'6" Respiratory Rate: 20 bpm Temperature: 37 .2 (C) / 99.0 (F) Weight: 193 lbs 07/24/2013 Blood Pressure 1: 124/68 Code: 8480-6 BMI: 30.7 Code: 41932-1 Heart Rate 1: 80 bpm Height: 5'6" Respiratory Rate: 20 bpm Temperature: 36 .9 (C) / 98.5 (F) Weight: 193 lbs 06/13/2013 Blood Pressure 1: 124/70 Code: 8480-6 BMI: 31.8 Code: 73146-9 Heart Rate 1: 88 bpm Height: 5'6" Respiratory Rate: 20 bpm Temperature: 36 .8 (C) / 98.2 (F) Weight: 200 lbs 05/15/2013 Blood Pressure 1: 120/80 Code: 8480-6 BMI: 30.8 Code: 36818-1 Heart Rate 1: 82 bpm Height: 5'6" Respiratory Rate: 22 bpm Temperature: 36 .2 (C) / 97.1 (F) Weight: 194 lbs 11/07/2012 Blood Pressure 1: 146/88 Code: 8480-6 BMI: 31.0 Code: 29623-4 Heart Rate 1: 108 bpm Height: 5'7" Respiratory Rate: 20 bpm SpO2: 95% Tempera ture: 38.2 (C) / 100.8 (F) Weight: 198 lbs 09/18/2012 Blood Pressure 1: 114/76 Code: 8480-6 Heart Rate 1: 88 bpm Respiratory Rate: 20 bpm Temperature: 37.1 (C) / 98.8 (F) Weight: 195 lbs 06/13/2012 Blood Pressure 1: 110/64 Code: 8480-6 BMI: 30.4 Code: 95029-2 Heart Rate 1: 64 bpm Height: 5'7" Temperature: 36.9 (C) / 98.4 (F) Weight: 194 lbs 12/21/2011 Blood Pressure 1: 116/80 Code: 8480-6 BMI: 30.7 Code: 50634-9 Heart Rate 1: 72 bpm Height: 5'7" Respiratory Rate: 20 bpm Temperature: 37 .0 (C) / 98.6 (F) Weight: 196 lbs 09/28/2011 Blood Pressure 1: 116/78 Code: 8480-6 BMI: 29.6 Code: 12756-9 Heart Rate 1: 88 bpm Height: 5'7" Respiratory Rate: 20 bpm Temperature: 36 .9 (C) / 98.5 (F) Weight: 189 lbs 04/06/2011 Blood Pressure 1: 132/80 Code: 8480-6 Heart Rate 1: 72 bpm Respiratory Rate: 20 bpm Temperature: 37.2 (C) / 99.0 (F) Weight: 185 lbs 03/03/2011 Blood Pressure 1: 114/80 Code: 8480-6 BMI: 29.6 Code: 44480-1 Heart Rate 1: 80 bpm Height: 5'7" [...] Visit Encounters Encounter Performer Location Codes Date ([id number]) PREV VISIT EST AGE 40-64 Diagnosis: Encounter for general adult medical examination without abnormal findings[ICD10: Z00.00] Diagnosis: Mixed hyperlipidemia[ICD10: E78.2] Diagnosis: Allergic rhinitis due to allergen[ICD10: J30.9] Khadra AGUILLON DO [facility] CPT-4: 92584 02/06/2020 ([id number]) NURSE/OUTPATIENT VISIT EST Diagnosis: Encounter for general adult medical examination without abnormal findings[ICD10: Z00.00] Diagnosis: Malaise and fatigue[ICD10: R53.81] Diagnosis: Mixed hyperlipidemia[ICD10: E78.2] Khadra AGUILLON DO [facility] CPT-4: 14878 02/04/2020 ([id number]) NURSE/OUTPATIENT VISIT EST Diagnosis: SCREENING-PULMONARY TB[ICD10: Z11.1] Khadra AGUILLON DO [facility] CPT-4: 06805 03/19/2018 OFFICE/OUTPATIENT VISIT EST Diagnosis: Allergic rhinitis, unspecified[ICD10: J30.9] Diagnosis: Impacted cerumen, right ear[ICD10: H61.21] Cassandra Camejo KHADRA AGUILLON DO [facility] CPT-4: 14713 02/23/2018 ([id number]) PREV VISIT EST AGE 40-64 Diagnosis: Encounter for general adult medical examination without abnormal findings[ICD10: Z00.00] Diagnosis: Mixed hyperlipidemia[ICD10: E78.2] Khadra AGUILLON DO [facility] CPT-4: 29830 09/07/2017 ([id number]) OFFICE/OUTPATIENT VISIT EST Diagnosis: Encounter for general adult medical examination without abnormal findings[ICD10: Z00.00] Diagnosis: Mixed hyperlipidemia[ICD10: E78.2] Khadra Banks. ARMANI Sarmeks Tech [facility] CPT-4: 72707 09/04/2017 ([id number]) PREV VISIT EST AGE 40-64 Diagnosis: ROUTINE MEDICAL EXAM[ICD9: V70.0] Diagnosis: HYPERLIPIDEMIA NEC/NOS[ICD9: 272.4] Diagnosis: ANXIETY STATE NOS[ICD9: 300.00] Khadra AGUILLON DO [facility] CPT-4: 56574 01/12/2015 ([id number]) OFFICE/OUTPATIENT VISIT EST Diagnosis: ROUTINE MEDICAL EXAM[ICD9: V70.0] Diagnosis: MALAISE AND FATIGUE[ICD9: 780.79] Diagnosis: HYPERLIPIDEMIA NEC/NOS[ICD9: 272.4] Khadra AGUILLON DO [facility] CPT-4: 75278 01/07/2015 ([id number]) PREV VISIT EST AGE 40-64 Diagnosis: ROUTINE MEDICAL EXAM[ICD9: V70.0] Diagnosis: HYPERLIPIDEMIA NEC/NOS[ICD9: 272.4] Diagnosis: ANXIETY STATE NOS[ICD9: 300.00] Khadra AGUILLON DO [facility] CPT-4: 28560 07/24/2013 ([id number]) OFFICE/OUTPATIENT VISIT EST Diagnosis: HYPERLIPIDEMIA NEC/NOS[ICD9: 272.4] Diagnosis: ROUTINE MEDICAL EXAM[ICD9: V70.0] Khadra AGUILLON DO [facility] CPT-4: 81303 07/22/2013 ([id number]) OFFICE/OUTPATIENT VISIT EST Diagnosis: BENIGN KACEY SKIN[ICD9: 216.9] Khadra AGUILLON [facility] CPT-4: 64047 06/13/2013 ([id number]) OFFICE/OUTPATIENT VISIT EST Diagnosis: Nasal lesion[ICD9: 478.19] Diagnosis: Changing mole[ICD9: 216.9] Diagnosis: ALLERGIC RHINITIS[ICD9: 477.9] Khadra AGUILLON DO [facility] CPT-4: 37020 05/15/2013 OFFICE/OUTPATIENT VISIT EST Diagnosis: COUGH[ICD9: 786.2] Diagnosis: FEBRILE ILLNESS[ICD9: 780.60] Diagnosis: SINUSITIS, ACUTE[ICD9: 461.9] Khadra AGUILLON DO [facility] CPT-4: 21807 11/07/2012 OFFICE/OUTPATIENT VISIT EST Diagnosis: ACUTE STRESS REACT[ICD9: 308.9] Diagnosis: ANXIETY STATE NOS[ICD9: 300.00] Khadra AGUILLON DO [facility] CPT-4: 74975 09/18/2012 ([id number]) PREV VISIT EST AGE 40-64 Diagnosis: ROUTINE MEDICAL EXAM[ICD9: V70.0] Diagnosis: HYPERLIPIDEMIA NEC/NOS[ICD9: 272.4] Diagnosis: ANXIETY STATE NOS[ICD9: 300.00] Khadra AGUILLON [employer] CPT-4: 54314 06/13/2012 ([id number]) OFFICE/OUTPATIENT VISIT EST Diagnosis: ROUTINE MEDICAL EXAM[ICD9: V70.0] Khadra AGUILLON DO [employer] CPT-4: 26672 06/11/2012 OFFICE/OUTPATIENT VISIT EST Diagnosis: INSOMNIA NOS[ICD9: 780.52] Diagnosis: ACUTE STRESS REACT[ICD9: 308.9] Diagnosis: Tinnitus[ICD9: 388.30] Diagnosis: HYPERLIPIDEMIA NEC/NOS[ICD9: 272.4] Khadra AGUILLON [employer] CPT-4: 75335 12/21/2011 OFFICE/OUTPATIENT VISIT EST Diagnosis: ACUTE STRESS REACT[ICD9: 308.9] Khadra AGUILLON DO [facility] [facility] [facility] CPT-4: 38142 09/28/2011 OFFICE/OUTPATIENT VISIT EST Diagnosis: ACUTE STRESS REACT[ICD9: 308.9] Khadra AGUILLON [employer] CPT-4: 06510 04/06/2011 OFFICE/OUTPATIENT VISIT NEW Khadra BALDWIN [employer] CPT- 4: 65245 03/03/2011 Plan of Care Planned Activity Notes Codes Status Date Visit Diagnosis Plan: Encounter for [facility] adult medical examination without abnormal findings Discussion: Mediterranean diet Combinati on of cardio and weight bearing exercise Had WWE done recently with PANEL GLUER--had Mammo/Bone Density/Lab done Referral for updated colonoscopy [...] E78.2 02/06/2020 Patient Education: Lipitor- [employer] Coupon [id number] [email or web address] Completed 02/06/2020 Care Plan: Referral Order SNOMED-CT : [id number] Pending 02/06/2020 Appointment: Khadra Aguillon WPtel: [address] [place], [place] [phone] [place] LAB 02/04/2020 Appointment: Khadra Aguillon WPtel: [address] [place], [place] [phone] US TB Test read 03/21/2018 Patient Education: Patient Medication Summary Completed 03/21/2018 Appointment: Khadra Aguillon WPtel: [address] [place], [place] [address] US TB Test 03/19/2018 Patient Education: Patient [...] improvement, RTC 02/23/2018 Appointment: Cassandra Camejo WPtel: [address] [place] [address] ACUTE ILLNESS 02/23/2018 Patient Education: Patient Medication Summary Completed 02/23/2018 Visit Diagnosis Plan: Encounter for [facility] adult medical examination without abnormal findings Discussion: Lab discussed Add Calcium wi th Vitamin D3 daily Continue walking and add yoga for weight bearing Praised lower cholesterol efforts Sees PANEL GLUER for WWE and Mammogram up to date ICD-9 : V70.0 ICD-10 : Z00.00 09/07/2017 Appointment: Khadra Aguillon WPtel: [address] [place], [place] [phone] Annual Well Visit 09/07/2017 Patient Education: Patient Medication Summary Completed 09/07/2017 Appointment: Khadra Aguillon WPtel: [id number] [place] LAB 09/04/2017 Patient Education: Patient Medication Summary Completed 09/04/2017 Visit Plan: Lab discussed Schedule colon oscopy Keep meds same Defers statin and will add fish oil and aspirin 81mg daily with diet/exercise and recheck lipids in 4mos Sees PANEL GLUER next month Discussed is high risk for CAD due to family history and hyperlipidemia 01/12/2015 Appointment: Khadra Aguillon WPtel: [address] [place], [place] [phone] confirmed - Annual Well Visit 01/12/2015 Patient Education: Patient Medication Summary Completed 01/12/2015 Appointment: Khadra Aguillon WPtel: [address] [place], [place] [phone] LAB 01/07/2015 Patient Education: Patient Medication Summary Completed 01/07/2015 Appointment: Sarah Wong WPtel: [address] [place], [place] [phone] FOLLOW UP 02/26/2014 Appointment: Khadra Aguillon WPtel: [address] [place], [place] [phone] 01/07 patient canceled FOLLOW UP 4 Visit Plan: Removal of lesion as above 08/06/2013 Appointment: Khadra Aguillon WPtel: [address] [place], [place] [phone] OFFICE SURGERY 08/06/2013 Patient Education: Patient Medication Summary Completed 08/06/2013 Visit Plan: Daily fish oil 3grams, Vitam in D 1000u daily, Coenzyme Q-10 200mg daily Diet/exercise/weight loss Recheck lipids in 6mos Discussed statins Pt has mammo next month 07/24/2013 Appointment: Khadra Aguillon WPtel: [address] [place], [place] [phone] 07/23 Annual Well Visit 07/24/2013 Patient Education: Patient Medication Summary Completed 07/24/2013 Appointment: Khadra Aguillon WPtel: [address] [place], [place] [phone] LAB 07/22/2013 Patient Education: Patient Medication Summary Completed 07/22/2013 Referral: Khadra Aguillon WPtel: [address] [place] [address] Referral Initiated 06/17/2013 Visit Plan: Skin So Soft to right nasal area q HS next month then observe If something comes back then will see ENT for removal 06/13/2013 Appointment: Khadra Aguillon WPtel: [address] [place], [place] [phone] 06/12 FOLLOW UP 06/13/2013 Patient Education: Patient Medication Summary Completed 06/13/2013 Visit Plan: Bactrim DS 1 po BID for 1wk, Prednisone 20mg po BID for 1wk Zyrtec daily If lesion persists will see Dr. Low for removal 05/15/2013 Appointment: Khadra Aguillon WPtel: [address] [place] [address] 05/14 ACUTE ILLNESS 05/15/2013 Patient Education: Patient Medication Summary Completed 05/15/2013 Appointment: Khadra Aguillon WPtel: [address] [place] [address] FOLLOW UP 12/13/2012 Visit Plan: Note for fever free 24 hours . Discussed fluids and rest. Clarified in verbal message that Levaquin should be QD dosing. Codeine/guiaf cough syrup. Flu test negative. Pt. to notify if symptoms worsen or fever persists. Discussed Rocephin IM and or lab/chest x-rays if symptoms persist. 11/07/2012 Appointment: Batsheva Bennett WPtel: [address] [place] [address] ACUTE ILLNESS 11/07/2012 Patient Education: Patient Medication Summary Completed 11/07/2012 Visit Plan: Continue fluoxetine at 30mg daily Stess Reducers 09/18/2012 Appointment: Khadra Aguillon WPtel: [address] [place] [address] FOLLOW UP 09/18/2012 Patient Education: Patient Medication Summary Completed 09/18/2012 Visit Plan: Increase fish oil to 3gm poonam ly Step 1 Cardiac Diet Repeat CMP and lipids in 6mos Pt has DCed Fluoxetine and so far doing okay Will focus on stress reducers 06/13/2012 Appointment: Khadra Aguillon WPtel: [address] [place] [address] FOLLOW UP 06/13/2012 Patient Education: Patient Medication Summary Completed 06/13/2012 Appointment: Khadra Aguillon WPtel: [address] [place] [address] LAB 06/11/2012 Patient Education: Patient Medication Summary Completed 06/11/2012 Visit Plan: Decrease fluoxetine back to 30mg daily Check fasting lab in 3mos ENT for tinnitus/hearing loss 12/21/2011 Appointment: Khadra Aguillon WPtel: [address] [place] [address] FOLLOW UP 12/21/2011 Patient Education: Patient Medication Summary Completed 12/21/2011 Visit Plan: Increase fluoxetine to 40mg daily 09/28/2011 Appointment: Khadra Aguillontel: [address] [place] [address] FOLLOW UP 09/28/2011 Patient Education: Patient Medication Summary Completed 09/28/2011 Visit Plan: Increase fluoxetine to 30mg daily Call in 2wks 04/06/2011 Appointment: Khadra Aguillon WPtel: [address] [place] [address] FOLLOW UP 04/06/2011 Patient Education: Patient Medication Summary Completed 04/06/2011 Appointment: Khadra Aguillon WPtel: [address] [place] [address] NEW PATIENT 03/03/2011 Patient Education: Patient Medication Summary Completed 03/03/2011 Referral: Augustus Velazco WPtel: [address] [place], [place] [address] [place] Referral Appointment Requested Referral: Saurabh Beatty WPtel: [address] [id number] [place] Referral Completed Instructions Comment . Sofia [...] diet/exercise and recheck lipids in 4mos Sees PANEL GLUER next month Discussed is high risk for [...]
--- OUTSIDE RECORDS SUMMARY | 2020-03-06 17:11 | XMS REPORT | CCD ---
Author Author Sofia Aguillon D.O. Organization [facility] Address [address] [place] [address] Phone Care Team Providers Care Program Control Analyst Name Role Phone PP Unavailable CCM Unavailable Summary Purpose Interface Exchange Insurance Providers Payer name Policy type / Coverage type Covered alliance party ID Effective Begin Date Effective End Date Blue Cross Blue Shield Blue Cross/Blue Shield [id number] Unknown Family History Family History data not found Social History Social History Element Codes Description Effective Dates Marital status Unknown 03/03/2011 Number of children Unknown 3 03/03/2011 Employment Unknown Currently employed [employer] 250 03/03/[address]: 297780779 Never smoker 03/03/[address]: 067477431 Never drinks alcohol 2010 Allergies, Adverse Reactions, [...] Instructions Alba Allergy 180 mg tablet RxNorm: 708309 1 Tablet(s) Oral QD 05/06/2020 Active Lipitor 10 mg tablet RxNorm: 093912 1 Tablet(s) Oral QD M, W, F 09/201908/04/2020 Active Women's Multivitamin 18 mg iron-400 mcg-500 mg tablet RxNorm : 1 Tablet(s) Oral QD 02/06/2020 03/07/2020 Active Alba Allergy 180 mg tablet RxNorm: 786688 1 Tablet(s) PO QD 02/0505/23/2018 Inactive Medrol (Vcik) 4 mg tablets in a dose pack RxNorm: 547797 As directed Tablet(s) PO QD 02/23/2018 02/27/2018 Inactive alprazolam 0.25 mg tablet RxNorm: 206417 TAKE 1/2 TABLE T TWO TIMES A DAY NEEDED FOR SEVERE STRESS 03/27/2015 04/15/2015 Inactive fluoxetine 10 mg tablet RxNorm: 486817 3 Tablet(s) PO QAM 03/27/2015 09/06/2017 Inactive for 1week then 2 po qam alprazolam 0.25 mg tablet RxNorm: 654682 TAKE ONE-HALF TABLET BY MOUTH TWICE A DAY NEEDED FOR SEVERE STRESS 07/24/2014 03/27/2015 Inactive ([id number] fluoxetine 10 mg tablet RxNorm: 112286 3 Tablet(s) PO QAM 05/26/2014 03/27/2015 Inactive for 1week then 2 po qAM [SAVINGS FOR UNI NSURED PATIENTS -- BIN:[id number], PCN: [id number], Group: [id number], ID# [id number], Process claim through [employer], for questions: . THIS IS NOT INSURANCE.] Bactrim DS 800 mg-160 mg tablet RxNorm: 877197 1 Tablet(s) PO BID 1 05/21/2013 Inactive prednisone 20 mg tablet RxNorm: 554674 1 Tablet(s) PO BID 05/15/2013 05/21/2013 Inactive Levaquin 750 mg tablet RxNorm: 678528 1 Tablet(s) PO BID 11/07/2012 0 11/16/2012 Inactive fluoxetine 10 mg tablet RxNorm: 695568 3 Tablet(s) PO QAM 09/18/2012 03/16/2013 Inactive for 1week then 2 po qAM fluoxetine 10 mg tablet RxNorm: 264535 3 Tablet(s) PO QAM 12/21/2011 06/12/2012 Inactive for 1week then 2 po qAM fluoxetine 10 mg Tab RxNorm: 776495 3 Tablet(s) PO QAM 10/20/2011 Inactive for 1week then 2 po qAM Vaniqa 13.9 % Topical Cream RxNorm: 989965 1 Application TOP BID 12/20/2011 Inactive fluoxetine 40 mg Cap RxNorm: 525604 1 Capsule(s) PO QD 09/28/2011 Inactive fluoxetine 10 mg Cap RxNorm: 362996 3 Capsule(s) PO QD 06/21/201107/2012 Inactive fluoxetine 10 mg Tab RxNorm: 783311 3 Tablet(s) PO QD 04/26/201105/07 Inactive Xanax 0.25 mg Tab RxNorm: 537932 1/2 Tablet(s) PO BID 03/03/201103/07 Inactive prn severe stress alprazolam 0.25 mg tablet RxNorm: 834793 1/2 Tablet(s) PO BID as needed for anxiety No Start Date 02/22/2018 Inactive Medrol (Vick) 4 mg tablets in a dose pack RxNorm: 945098 Tablet(s) PO as directed No Start Date 05/14/2013 Inactive Fish Oil 1,000 mg Cap RxNorm: 1 Capsule(s) PO BID No Start Date Inactive fluoxetine 10 mg Cap RxNorm: 105799 2 Capsule(s) PO QD No Start Date 06/20/2011 Inactive fluoxetine 10 mg Cap RxNorm: 951122 3 Capsule(s) PO QD No Start Date 09/27/2011 Inactive alprazolam 0.25 mg Tab RxNorm: 776261 1/2 Tablet(s) PO BID No Start Date 07/24/2014 Inactive as needed fluoxetine 10 mg Tab RxNorm: 598625 1 Tablet(s) PO QAM No Start Date 10/19/2011 Inactive for 1week then 2 po qAM Vaniqa 13.9 % Topical Cream RxNorm: 332080 1 Application TOP BID No Start Date 09/27/2011 Inactive fluoxetine 20 mg capsule RxNorm: 061252 1 Capsule(s) PO QD No Start Date 02/22/2018 Inactive Vitamin D3 1000 units Capsule RxNorm: 1 Capsule(s) PO QD No St art Date 09/06/2017 Inactive Prozac 20 mg capsule RxNorm: 029477 1 Capsule(s) PO QD No Start Date 07/23/2013 Inactive Medication Administered No Medication Administered data Immunizations Vaccine Codes Date Status Shingrix Unknown 01/15/2018 Complete Zostavax CVX: 121 11/16/2017 Results Observation Observation Code Item Item Code Result Date S ervice Location [facility] 12764 Cholesterol 232 mg/dL 02/04/2020 Unkno wn [facility] 43173 Triglyceride 126 mg/dL 02/04/2020 Unkn own [facility] 46149 HDL CHOLESTEROL 48 mg/dL 02/04/2020 U nknown [facility] 42372 Chol/HDL Ratio 4.83 ratio 02/04/2020 U nknown [facility] 33813 NON-HDL Chol 184 mg/dL 02/04/2020 Unkn own [facility] 13131 LDL Cholesterol 159 mg/dL 02/04/2020 U nknown GFR CALC 9232389 GFR Non Afr Amr >60 mL/min 02/04/2020 Un known GFR CALC 9868500 GFR Afr Amr >60 mL/min 02/04/2020 Unknow n THYROID STIMULATING HORMONE 21834 TSH 1.616 uIU/mL 02/04/2020 Unknown FREE T4 66483 T4 Free 0.96 ng/dL 02/04/2020 Unknown COMPREHENSIVE METABOLIC 60928 AST 20 U/L 2019 Unknown COMPREHENSIVE METABOLIC 17651 ALT 32 U/L 2019 Unknown COMPREHENSIVE METABOLIC 31274 BUN 16 mg/dL 2019 Unknown COMPREHENSIVE METABOLIC 97768 ALBUMIN 4.7 g/dL 2019 Unknown COMPREHENSIVE METABOLIC 48729 CHLORIDE 101 mmol/L 02/03 Unknown COMPREHENSIVE METABOLIC 00685 Bili Total 0.4 mg/dL 02/03 Unknown COMPREHENSIVE METABOLIC 56451 ALK PHOS 63 U/L 2019 Unknown COMPREHENSIVE METABOLIC 34999 SODIUM 138 mmol/L 02/03 Unknown COMPREHENSIVE METABOLIC 29951 CREATININE 0.65 mg/dL 01/07 Unknown COMPREHENSIVE METABOLIC 59864 CALCIUM 9.4 mg/dL 2019 Unknown COMPREHENSIVE METABOLIC 44170 POTASSIUM 4.0 mmol/L 02/03 Unknown COMPREHENSIVE METABOLIC 17285 Total Protein 7.3 g/dL Unknown COMPREHENSIVE METABOLIC 55091 Glucose 100 mg/dL 2019 Unknown COMPREHENSIVE METABOLIC 22275 Bicarbonate 27 mmol/L 01/07 Unknown COMPREHENSIVE METABOLIC 36266 AGAP 10 mmol/L 2019 Unknown COMPLETE BLOOD COUNT 8833999 WBC 5.5 10e9/L 02/04/20 20 Unknown COMPLETE BLOOD COUNT 9262607 RBC 4.56 10e12/L 2019 Unknown COMPLETE BLOOD COUNT 4887604 HEMOGLOBIN 14.5 g/dL 02/04/20 20 Unknown COMPLETE BLOOD COUNT 1653426 HEMATOCRIT 44.1 % 02/04/20 20 Unknown COMPLETE BLOOD COUNT 4452516 MCV 96.7 fL 0 Unknown COMPLETE BLOOD COUNT 2157181 MCH 31.8 pg 0 Unknown COMPLETE BLOOD COUNT 7407676 MCHC 32.9 g/dL 0 Unknown COMPLETE BLOOD COUNT 1638246 PLATELET COUNT 232 10e9/L Unknown COMPLETE BLOOD COUNT 8604586 Mean Plt Volume 11.4 fL Unknown COMPLETE BLOOD COUNT 1377569 Neut Auto 55.7 % 0 Unknown COMPLETE BLOOD COUNT 9680608 Lymph Auto 31.3 % 02/04/20 20 Unknown COMPLETE BLOOD COUNT 6157868 [place] Auto 10.0 % 0 Unknown COMPLETE BLOOD COUNT 9099497 RDW 13.7 % 0 Unknown COMPLETE BLOOD COUNT 5302469 Eos Auto 2.5 % 0 Unknown COMPLETE BLOOD COUNT 9485509 Baso Auto 0.5 % 0 Unknown COMPLETE BLOOD COUNT 5963196 Neutrophil Abs 3.06 10e9/L Unknown COMPLETE BLOOD COUNT 6504033 Lymphocyte Abs 1.72 10e9/L Unknown COMPLETE BLOOD COUNT 0900546 Monocyte Abs 0.55 10e9/L 01/07 Unknown COMPLETE BLOOD COUNT 8003134 Eosinophil Abs 0.14 10e9/L Unknown COMPLETE BLOOD COUNT 3172982 RDW-SD 47.5 fL 0 Unknown COMPLETE BLOOD COUNT 4015624 Basophil Abs 0.03 10e9/L 01/07 Unknown FREE T4 84488 T4 Free 1.25 ng/dL 09/04/2017 Unknown COMPLETE BLOOD COUNT 2455742 WBC 5.9 10e9/L 09/04/19 18 Unknown COMPLETE BLOOD COUNT 2885606 RBC 4.35 10e12/L 2017 Unknown COMPLETE BLOOD COUNT 3612128 HEMOGLOBIN 14.0 g/dL 09/04/19 18 Unknown COMPLETE BLOOD COUNT 8477486 HEMATOCRIT 41.6 % 09/04/19 18 Unknown COMPLETE BLOOD COUNT 6670801 MCV 95.6 fL 8 Unknown COMPLETE BLOOD COUNT 7126730 MCH 32.2 pg 8 Unknown COMPLETE BLOOD COUNT 7726629 MCHC 33.7 g/dL 8 Unknown COMPLETE BLOOD COUNT 2177453 PLATELET COUNT 239 10e9/L Unknown COMPLETE BLOOD COUNT 3452046 Mean Plt Volume 10.8 fL Unknown COMPLETE BLOOD COUNT 3874380 Neut Auto 53.2 % 8 Unknown COMPLETE BLOOD COUNT 1941388 Lymph Auto 35.6 % 09/04/19 18 Unknown COMPLETE BLOOD COUNT 3852822 [place] Auto 9.6 % 8 Unknown COMPLETE BLOOD COUNT 9574608 RDW 13.2 % 8 Unknown COMPLETE BLOOD COUNT 8752657 Eos Auto 1.4 % 8 Unknown COMPLETE BLOOD COUNT 6206932 Baso Auto 0.2 % 8 Unknown COMPLETE BLOOD COUNT 2225373 Neutrophil Abs 3.14 10e9/L Unknown COMPLETE BLOOD COUNT 1488416 Lymphocyte Abs 2.10 10e9/L Unknown COMPLETE BLOOD COUNT 0673741 Monocyte Abs 0.57 10e9/L 08/08 Unknown COMPLETE BLOOD COUNT 5721083 Eosinophil Abs 0.08 10e9/L Unknown COMPLETE BLOOD COUNT 0793541 RDW-SD 44.7 fL 8 Unknown COMPLETE BLOOD COUNT 1906454 Basophil Abs 0.01 10e9/L 08/08 Unknown COMPREHENSIVE METABOLIC 44765 AST 26 U/L 2017 Unknown COMPREHENSIVE METABOLIC 45246 ALT 40 U/L 2017 Unknown COMPREHENSIVE METABOLIC 46411 BUN 6 mg/dL 2017 Unknown COMPREHENSIVE METABOLIC 21882 ALBUMIN 5.3 g/dL 2017 Unknown COMPREHENSIVE METABOLIC 25550 CHLORIDE 102 mmol/L 09/04 Unknown COMPREHENSIVE METABOLIC 87416 Bili Total 0.7 mg/dL 09/04 Unknown COMPREHENSIVE METABOLIC 90216 ALK PHOS 56 U/L 2017 Unknown COMPREHENSIVE METABOLIC 68477 SODIUM 139 mmol/L 09/04 Unknown COMPREHENSIVE METABOLIC 61247 CREATININE 0.61 mg/dL 08/08 Unknown COMPREHENSIVE METABOLIC 96482 CALCIUM 9.8 mg/dL 2017 Unknown COMPREHENSIVE METABOLIC 91648 POTASSIUM 3.8 mmol/L 09/04 Unknown COMPREHENSIVE METABOLIC 93630 Total Protein 7.7 g/dL Unknown COMPREHENSIVE METABOLIC 85943 Glucose 95 mg/dL 2017 Unknown COMPREHENSIVE METABOLIC 34878 Bicarbonate 30 mmol/L 08/08 Unknown COMPREHENSIVE METABOLIC 07627 AGAP 7 mmol/L 2017 Unknown GFR CALC 1355688 GFR Non Afr Amr >60 mL/min 09/04/2017 Un known GFR CALC 4806820 GFR Afr Amr >60 mL/min 09/04/2017 Unknow n THYROID STIMULATING HORMONE 40027 TSH 1.454 uIU/mL 09/04/2017 Unknown [facility] 11116 Cholesterol 218 mg/dL 09/04/2017 Unkno wn [facility] 53798 Triglyceride 135 mg/dL 09/04/2017 Unkn own [facility] 07346 HDL CHOLESTEROL 52 09/04/2017 U nknown [facility] 43312 Chol/HDL Ratio 4.19 ratio 09/04/2017 U nknown [facility] 33437 NON-HDL Chol 166 mg/dL 09/04/2017 Unkn own [facility] 22497 LDL Cholesterol 139 mg/dL 09/04/2017 U nknown FREE T4 27077 FREE T4 1.15 NG/DL 01/07/2015 Unknown THYROID STIMULATING HORMONE 44986 TSH 1.927 uIU/ML 01/07/2015 Unknown [facility] 00254 HDL TEST 53 MG/DL 01/07/2015 Unknown [facility] 75894 TRIG 215 MG/DL 01/07/2015 Unknown [facility] 37339 TEST LDL 194 MG/DL 01/07/2015 Unknown [facility] 15603 CHOL 290 MG/DL 01/07/2015 Unknown [facility] GROUP 79576 RCHOL/HDL 5.47 RATIO 01/07/2015 Unknow n [facility] 26109 NON-HDL CH 237 MG/DL 01/07/2015 Unknow n GFR CALC 8213727 GFR AA >60 ML/MIN 01/07/2015 Unknown GFR CALC 0186303 GFR NON-AA >60 ML/MIN 01/07/2015 Unknown COMPLETE BLOOD COUNT 1131990 WBC 5.9 10e9/L 01/08/20 15 Unknown COMPLETE BLOOD COUNT 0240697 RBC 4.35 10e12/L 2014 Unknown COMPLETE BLOOD COUNT 6503429 HGB 14.2 g/dL 5 Unknown COMPLETE BLOOD COUNT 7907864 HCT DET 42.0 % 5 Unknown COMPLETE BLOOD COUNT 1127041 MCV 96.6 fL 5 Unknown COMPLETE BLOOD COUNT 8727186 MCH 32.6 pg 5 Unknown COMPLETE BLOOD COUNT 6626465 MCHC 33.8 g/dL 5 Unknown COMPLETE BLOOD COUNT 4566553 PLT 227 10e9/L 01/08/20 15 Unknown COMPLETE BLOOD COUNT 7851610 MPV 11.4 fL 5 Unknown COMPLETE BLOOD COUNT 2838118 PRITI % 54.2 % 5 Unknown COMPLETE BLOOD COUNT 3676313 LY % 33.8 % 5 Unknown COMPLETE BLOOD COUNT 9846436 MON % 8.8 % 5 Unknown COMPLETE BLOOD COUNT 0699524 EOS % 2.9 % 5 Unknown COMPLETE BLOOD COUNT 2114499 BASO % 0.3 % 5 Unknown COMPLETE BLOOD COUNT 7132047 RDW 13.6 % 5 Unknown COMPLETE BLOOD COUNT 3320739 ABS PRITI 3.20 10e9/L 015 Unknown COMPLETE BLOOD COUNT 1216877 ABS LYMPH 1.99 10e9/L 015 Unknown COMPLETE BLOOD COUNT 1154355 ABS MONO 0.52 10e9/L 015 Unknown COMPLETE BLOOD COUNT 3819931 ABS EOS 0.17 10e9/L 015 Unknown COMPLETE BLOOD COUNT 6371807 ABS BASO 0.02 10e9/L 015 Unknown COMPLETE BLOOD COUNT 1782215 RDW-SD 47.0 fL 5 Unknown COMPREHENSIVE METABOLIC 08585 AST 20 U/L 2014 Unknown COMPREHENSIVE METABOLIC 89884 ALT 30 IU/L 2014 Unknown COMPREHENSIVE METABOLIC 69597 BUN 12 MG/DL 2014 Unknown COMPREHENSIVE METABOLIC 74112 ALBUMIN 4.4 GM/DL 2014 Unknown COMPREHENSIVE METABOLIC 94433 CHLORIDE 102 MMOL/L 01/07 Unknown COMPREHENSIVE METABOLIC 86234 BILI TOT 0.6 MG/DL 2014 Unknown COMPREHENSIVE METABOLIC 87742 ALK PHOS 76 U/L 2014 Unknown COMPREHENSIVE METABOLIC 75523 SODIUM 139 MMOL/L 01/07 Unknown COMPREHENSIVE METABOLIC 76621 CREATININE 0.77 MG/DL 10/2014 Unknown COMPREHENSIVE METABOLIC 86618 CALCIUM 9.2 MG/DL 2014 Unknown COMPREHENSIVE METABOLIC 73212 POTASSIUM 4.1 MMOL/L 01/07 Unknown COMPREHENSIVE METABOLIC 49020 PROT TOT 7.1 GM/DL 2014 Unknown COMPREHENSIVE METABOLIC 96967 Glucose 107 MG/DL 2014 Unknown COMPREHENSIVE METABOLIC 98836 BICARB 30 MMOL/L 2014 Unknown COMPREHENSIVE METABOLIC 35129 ANION GAP 7 MEQ/L 2014 Unknown [facility] 32662 HDL TEST 48 MG/DL 07/22/2013 Unknown [facility] 42325 TRIG 176 MG/DL 07/22/2013 Unknown [facility] 04744 TEST LDL 161 MG/DL 07/22/2013 Unknown [facility] 34044 CHOL 244 MG/DL 07/22/2013 Unknown [facility] GROUP 51279 RCHOL/HDL 5.08 RATIO 07/22/2013 Unknow n COMPLETE BLOOD COUNT 4059190 WBC 5.8 10e9/L 07/22/20 13 Unknown COMPLETE BLOOD COUNT 9961226 RBC 4.45 10e12/L 2012 Unknown COMPLETE BLOOD COUNT 3169880 HGB 14.6 g/dL 3 Unknown COMPLETE BLOOD COUNT 2169541 HCT DET 43.8 % 3 Unknown COMPLETE BLOOD COUNT 5406500 MCV 98.4 fL 3 Unknown COMPLETE BLOOD COUNT 7409166 MCH 32.8 pg 3 Unknown COMPLETE BLOOD COUNT 4823064 MCHC 33.3 g/dL 3 Unknown COMPLETE BLOOD COUNT 6781287 PLT 270 10e9/L 07/22/20 13 Unknown COMPLETE BLOOD COUNT 2006007 MPV 11.4 fL 3 Unknown COMPLETE BLOOD COUNT 1986289 PRITI % 54.2 % 3 Unknown COMPLETE BLOOD COUNT 3452327 LY % 33.2 % 3 Unknown COMPLETE BLOOD COUNT 7717238 MON % 9.2 % 3 Unknown COMPLETE BLOOD COUNT 4269725 EOS % 3.1 % 3 Unknown COMPLETE BLOOD COUNT 5319299 BASO % 0.3 % 3 Unknown COMPLETE BLOOD COUNT 6826575 RDW 13.8 % 3 Unknown COMPLETE BLOOD COUNT 9584228 ABS PRITI 3.14 10e9/L 013 Unknown COMPLETE BLOOD COUNT 0957424 ABS LYMPH 1.93 10e9/L 013 Unknown COMPLETE BLOOD COUNT 7069818 ABS MONO 0.53 10e9/L 013 Unknown COMPLETE BLOOD COUNT 6062542 ABS EOS 0.18 10e9/L 013 Unknown COMPLETE BLOOD COUNT 2211396 ABS BASO 0.02 10e9/L 013 Unknown COMPLETE BLOOD COUNT 6914879 RDW-SD 48.4 fL 3 Unknown GFR CALC 3802976 GFR AA >60 ML/MIN 07/22/2013 Unknown GFR CALC 7943188 GFR NON-AA >60 ML/MIN 07/22/2013 Unknown THYROID STIMULATING HORMONE 33810 TSH 1.645 uIU/ML 07/22/2013 Unknown COMPREHENSIVE METABOLIC 99305 AST 23 U/L 2012 Unknown COMPREHENSIVE METABOLIC 37632 ALT 30 IU/L 2012 Unknown COMPREHENSIVE METABOLIC 95375 BUN 12 MG/DL 2012 Unknown COMPREHENSIVE METABOLIC 70798 ALBUMIN 4.7 GM/DL 2012 Unknown COMPREHENSIVE METABOLIC 46063 CHLORIDE 102 MMOL/L 07/22 Unknown COMPREHENSIVE METABOLIC 15781 BILI TOT 0.5 MG/DL 2012 Unknown COMPREHENSIVE METABOLIC 16424 ALK PHOS 51 U/L 2012 Unknown COMPREHENSIVE METABOLIC 53125 SODIUM 136 MMOL/L 07/22 Unknown COMPREHENSIVE METABOLIC 82422 CREATININE 0.74 MG/DL 07/07 Unknown COMPREHENSIVE METABOLIC 33730 CALCIUM 9.2 MG/DL 2012 Unknown COMPREHENSIVE METABOLIC 66377 POTASSIUM 4.1 MMOL/L 07/22 Unknown COMPREHENSIVE METABOLIC 15563 PROT TOT 7.1 GM/DL 2012 Unknown COMPREHENSIVE METABOLIC 14723 Glucose 107 MG/DL 2012 Unknown COMPREHENSIVE METABOLIC 24143 BICARB 29 MMOL/L 2012 Unknown COMPREHENSIVE METABOLIC 93602 ANION GAP 5 MEQ/L 2012 Unknown FREE T4 83460 FREE T4 0.98 NG/DL 07/22/2013 Unknown COMPLETE BLOOD COUNT 4473059 WBC 4.4 10e9/L 06/11/20 12 Unknown COMPLETE BLOOD COUNT 7973610 RBC 4.18 10e12/L 2011 Unknown COMPLETE BLOOD COUNT 8089073 HGB 13.5 g/dL 2 Unknown COMPLETE BLOOD COUNT 6705299 HCT DET 39.9 % 2 Unknown COMPLETE BLOOD COUNT 3785730 MCV 95.5 fL 2 Unknown COMPLETE BLOOD COUNT 7411070 MCH 32.3 pg 2 Unknown COMPLETE BLOOD COUNT 5749252 MCHC 33.8 g/dL 2 Unknown COMPLETE BLOOD COUNT 8689014 PLT 232 10e9/L 06/11/20 12 Unknown COMPLETE BLOOD COUNT 1750403 MPV 11.3 fL 2 Unknown COMPLETE BLOOD COUNT 3108228 PRITI % 46.4 % 2 Unknown COMPLETE BLOOD COUNT 3382918 LY % 36.4 % 2 Unknown COMPLETE BLOOD COUNT 1400873 MON % 10.5 % 2 Unknown COMPLETE BLOOD COUNT 8231107 EOS % 6.2 % 2 Unknown COMPLETE BLOOD COUNT 1549381 BASO % 0.5 % 2 Unknown COMPLETE BLOOD COUNT 4734873 RDW 13.1 % 2 Unknown COMPLETE BLOOD COUNT 5512695 ABS PRITI 2.04 10e9/L 012 Unknown COMPLETE BLOOD COUNT 3303821 ABS LYMPH 1.60 10e9/L 012 Unknown COMPLETE BLOOD COUNT 9758365 ABS MONO 0.46 10e9/L 012 Unknown COMPLETE BLOOD COUNT 6802531 ABS EOS 0.27 10e9/L 012 Unknown COMPLETE BLOOD COUNT 6413012 ABS BASO 0.02 10e9/L 012 Unknown COMPLETE BLOOD COUNT 1934786 RDW-SD 44.2 fL 2 Unknown THYROID STIMULATING HORMONE 82676 TSH 1.766 uIU/ML 06/11/2012 Unknown COMPREHENSIVE METABOLIC 31943 AST 20 U/L 2011 Unknown COMPREHENSIVE METABOLIC 83822 ALT 23 IU/L 2011 Unknown COMPREHENSIVE METABOLIC 76728 BUN 10 MG/DL 2011 Unknown COMPREHENSIVE METABOLIC 23145 ALBUMIN 4.3 GM/DL 2011 Unknown COMPREHENSIVE METABOLIC 97884 CHLORIDE 103 MMOL/L 06/11 Unknown COMPREHENSIVE METABOLIC 86427 BILI TOT 0.4 MG/DL 2011 Unknown COMPREHENSIVE METABOLIC 92002 ALK PHOS 52 U/L 2011 Unknown COMPREHENSIVE METABOLIC 23346 SODIUM 138 MMOL/L 06/11 Unknown COMPREHENSIVE METABOLIC 79929 CREATININE 0.74 MG/DL 12/2011 Unknown COMPREHENSIVE METABOLIC 33256 CALCIUM 8.8 MG/DL 2011 Unknown COMPREHENSIVE METABOLIC 28372 POTASSIUM 3.7 MMOL/L 06/11 Unknown COMPREHENSIVE METABOLIC 10212 PROT TOT 6.9 GM/DL 2011 Unknown COMPREHENSIVE METABOLIC 66657 Glucose 105 MG/DL 2011 Unknown COMPREHENSIVE METABOLIC 87528 BICARB 29 MMOL/L 2011 Unknown COMPREHENSIVE METABOLIC 12171 ANION GAP 6 MEQ/L 2011 Unknown FREE T4 15060 FREE T4 0.93 NG/DL 06/11/2012 Unknown LIPID GROUP 66072 HDL TEST 39 MG/DL 06/11/2012 Unknown LIPID GROUP 17205 TRIG 243 MG/DL 06/11/2012 Unknown LIPID GROUP 32811 TEST LDL 159 MG/DL 06/11/2012 Unknown LIPID GROUP 95758 CHOL 247 MG/DL 06/11/2012 Unknown LIPID GROUP 67299 RCHOL/HDL 6.33 RATIO 06/11/2012 Unknow n GFR CALC 2220996 GFR AA >60 ML/MIN 06/11/2012 Unknown GFR CALC 1054006 GFR NON-AA >60 ML/MIN 06/11/2012 Unknown VITAMIN D TOTAL (25 HYDROXY) 10715 VIT D TOTL 19 NG/ML 03/04/2011 Unknown COMPLETE BLOOD COUNT 58021 WBC 8.0 10e9/L 03/03/20 11 Unknown COMPLETE BLOOD COUNT 18060 RBC 4.62 10e12/L 2010 Unknown COMPLETE BLOOD COUNT 17577 HGB 14.9 g/dL 1 Unknown COMPLETE BLOOD COUNT 00491 HCT DET 43.6 % 1 Unknown COMPLETE BLOOD COUNT 97370 MCV 94.4 fL 1 Unknown COMPLETE BLOOD COUNT 92788 MCH 32.3 pg 1 Unknown COMPLETE BLOOD COUNT 16541 MCHC 34.2 g/dL 1 Unknown COMPLETE BLOOD COUNT 66824 PLT 236 10e9/L 03/03/20 11 Unknown COMPLETE BLOOD COUNT 44514 MPV 11.0 fL 1 Unknown COMPLETE BLOOD COUNT 95123 PRITI % 66.3 % 1 Unknown COMPLETE BLOOD COUNT 87512 LY % 20.7 % 1 Unknown COMPLETE BLOOD COUNT 98981 MON % 9.2 % 1 Unknown COMPLETE BLOOD COUNT 25851 EOS % 3.5 % 1 Unknown COMPLETE BLOOD COUNT 47769 BASO % 0.3 % 1 Unknown COMPLETE BLOOD COUNT 05486 RDW 13.5 % 1 Unknown COMPLETE BLOOD COUNT 77915 ABS PRITI 5.30 10e9/L 011 Unknown COMPLETE BLOOD COUNT 73033 ABS LYMPH 1.66 10e9/L 011 Unknown COMPLETE BLOOD COUNT 24426 ABS MONO 0.74 10e9/L 011 Unknown COMPLETE BLOOD COUNT 61817 ABS EOS 0.28 10e9/L 011 Unknown COMPLETE BLOOD COUNT 36671 ABS BASO 0.02 10e9/L 011 Unknown COMPLETE BLOOD COUNT 57358 RDW-SD 45.1 fL 1 Unknown THYROID STIMULATING HORMONE 58481 TSH 1.944 uIU/ML 03/03/2011 Unknown FREE T4 29398 FREE T4 1.04 NG/DL 03/03/2011 Unknown LIPID GROUP 95006 HDL TEST 50 MG/DL 03/03/2011 Unknown LIPID GROUP 32655 TRIG 246 MG/DL 03/03/2011 Unknown LIPID GROUP 73860 TEST LDL 213 MG/DL 03/03/2011 Unknown LIPID GROUP 66198 CHOL 312 MG/DL 03/03/2011 Unknown LIPID GROUP 57651 RCHOL/HDL 6.24 RATIO 03/03/2011 Unknow n GFR CALC 2090587 GFR AA >60 ML/MIN 03/03/2011 Unknown GFR CALC 2082302 GFR NON-AA >60 ML/MIN 03/03/2011 Unknown COMPREHENSIVE METABOLIC 99658 AST 15 U/L 2010 Unknown COMPREHENSIVE METABOLIC 32522 ALT 21 IU/L 2010 Unknown COMPREHENSIVE METABOLIC 11025 BUN 14 MG/DL 2010 Unknown COMPREHENSIVE METABOLIC 92041 ALBUMIN 4.5 GM/DL 2010 Unknown COMPREHENSIVE METABOLIC 07197 CHLORIDE 99 MMOL/L 2010 Unknown COMPREHENSIVE METABOLIC 52388 BILI TOT 0.6 MG/DL 2010 Unknown COMPREHENSIVE METABOLIC 40099 ALK PHOS 55 U/L 2010 Unknown COMPREHENSIVE METABOLIC 81610 SODIUM 134 MMOL/L 03/03 Unknown COMPREHENSIVE METABOLIC 16785 CREATININE 0.80 MG/DL 02/05 Unknown COMPREHENSIVE METABOLIC 47661 CALCIUM 9.4 MG/DL 2010 Unknown COMPREHENSIVE METABOLIC 41437 POTASSIUM 4.0 MMOL/L 03/03 Unknown COMPREHENSIVE METABOLIC 22905 PROT TOT 7.4 GM/DL 2010 Unknown COMPREHENSIVE METABOLIC 60132 Glucose 101 MG/DL 2010 Unknown COMPREHENSIVE METABOLIC 83404 BICARB 28 MMOL/L 2010 Unknown COMPREHENSIVE METABOLIC 25060 ANION GAP 7 MEQ/L 2010 Unknown Procedures Procedure Codes Date ROUTINE VENIPUNCTURE CPT-4: 76090 02/04/2020 ASSAY OF FREE THYROXINE CPT-4: 85389 02/04/2020 ASSAY THYROID STIM HORMONE CPT-4: 37284 02/04/2020 COMPREHEN METABOLIC PANEL CPT-4: 80197 02/04/2020 COMPLETE CBC W/AUTO DIFF WBC CPT-4: 15162 02/04/2020 LIPID PANEL CPT-4: 00943 02/04/2020 TB INTRADERMAL TEST CPT-4: 50884 03/19/2018 Removal impacted cerumen using irrigation/lavage, unilateral CPT-4: 75505 02/23/2018 ROUTINE VENIPUNCTURE CPT-4: 42215 09/04/2017 ASSAY THYROID STIM HORMONE CPT-4: 11993 09/04/2017 ASSAY OF FREE THYROXINE CPT-4: 52291 09/04/2017 COMPREHEN METABOLIC PANEL CPT-4: 25041 09/04/2017 COMPLETE CBC W/AUTO DIFF WBC CPT-4: 86823 09/04/2017 LIPID PANEL CPT-4: 70459 09/04/2017 ROUTINE VENIPUNCTURE CPT-4: 99518 01/07/2015 ASSAY OF FREE THYROXINE CPT-4: 98714 01/07/2015 ASSAY THYROID STIM HORMONE CPT-4: 46431 01/07/2015 COMPREHEN METABOLIC PANEL CPT-4: 25304 01/07/2015 COMPLETE CBC W/AUTO DIFF WBC CPT-4: 24098 01/07/2015 LIPID PANEL CPT-4: 33673 01/07/2015 EXC TR-EXT B9+CECILIO 0.5 CM< CPT-4: 50474 08/06/2013 ROUTINE VENIPUNCTURE CPT-4: 50329 07/22/2013 ASSAY OF FREE THYROXINE CPT-4: 75575 07/22/2013 ASSAY THYROID STIM HORMONE CPT-4: 21019 07/22/2013 COMPREHEN METABOLIC PANEL CPT-4: 77441 07/22/2013 COMPLETE CBC W/AUTO DIFF WBC CPT-4: 65593 07/22/2013 LIPID PANEL CPT-4: 20128 07/22/2013 INFLUENZA ASSAY W/OPTIC CPT-4: 15946 11/07/2012 ROUTINE VENIPUNCTURE CPT-4: 14072 06/11/2012 ASSAY OF FREE THYROXINE CPT-4: 75714 06/11/2012 ASSAY THYROID STIM HORMONE CPT-4: 79362 06/11/2012 COMPREHEN METABOLIC PANEL CPT-4: 71174 06/11/2012 COMPLETE CBC W/AUTO DIFF WBC CPT-4: 12033 06/11/2012 LIPID PANEL CPT-4: 49767 06/11/2012 ROUTINE VENIPUNCTURE CPT-4: 92849 03/03/2011 ASSAY OF FREE THYROXINE CPT-4: 46471 03/03/2011 ASSAY THYROID STIM HORMONE CPT-4: 17820 03/03/2011 COMPREHEN METABOLIC PANEL CPT-4: 02800 03/03/2011 COMPLETE CBC W/AUTO DIFF WBC CPT-4: 33067 03/03/2011 LIPID PANEL CPT-4: 37967 03/03/2011 VITAMIN D TOTAL (25 HYDROXY) CPT-4: 33165 03/03/2011 Vital Signs Date Vital 02/06/2020 Blood Pressure 1: 124/67 Code: 8480-6 BMI: 26.6 Code: 74196-7 Heart Rate 1: 16 bpm Height: 5'6" Respiratory Rate: 17 bpm SpO2: 99% Tempera ture: 36.8 (C) / 98.2 (F) Weight: 165 lbs 02/23/2018 Blood Pressure 1: 132/84 Code: 8480-6 BMI: 31.6 Code: 80414-6 Heart Rate 1: 76 bpm Height: 5'6" Respiratory Rate: 20 bpm SpO2: 98% Tempera ture: 36.9 (C) / 98.4 (F) Weight: 199 lbs 09/07/2017 Blood Pressure 1: 126/78 Code: 8480-6 BMI: 30.5 Code: 79801-4 Heart Rate 1: 80 bpm Height: 5'6" Respiratory Rate: 20 bpm SpO2: 98% Tempera ture: 37.2 (C) / 98.9 (F) Weight: 192 lbs 01/12/2015 Blood Pressure 1: 132/74 Code: 8480-6 BMI: 29.4 Code: 04528-4 Heart Rate 1: 92 bpm Height: 5'6" Respiratory Rate: 20 bpm Temperature: 36 .7 (C) / 98.1 (F) Weight: 185 lbs 08/06/2013 Blood Pressure 1: 114/80 Code: 8480-6 BMI: 30.7 Code: 69636-5 Heart Rate 1: 80 bpm Height: 5'6" Respiratory Rate: 20 bpm Temperature: 37 .2 (C) / 99.0 (F) Weight: 193 lbs 07/24/2013 Blood Pressure 1: 124/68 Code: 8480-6 BMI: 30.7 Code: 26433-8 Heart Rate 1: 80 bpm Height: 5'6" Respiratory Rate: 20 bpm Temperature: 36 .9 (C) / 98.5 (F) Weight: 193 lbs 06/13/2013 Blood Pressure 1: 124/70 Code: 8480-6 BMI: 31.8 Code: 47731-1 Heart Rate 1: 88 bpm Height: 5'6" Respiratory Rate: 20 bpm Temperature: 36 .8 (C) / 98.2 (F) Weight: 200 lbs 05/15/2013 Blood Pressure 1: 120/80 Code: 8480-6 BMI: 30.8 Code: 95913-9 Heart Rate 1: 82 bpm Height: 5'6" Respiratory Rate: 22 bpm Temperature: 36 .2 (C) / 97.1 (F) Weight: 194 lbs 11/07/2012 Blood Pressure 1: 146/88 Code: 8480-6 BMI: 31.0 Code: 88116-1 Heart Rate 1: 108 bpm Height: 5'7" Respiratory Rate: 20 bpm SpO2: 95% Tempera ture: 38.2 (C) / 100.8 (F) Weight: 198 lbs 09/18/2012 Blood Pressure 1: 114/76 Code: 8480-6 Heart Rate 1: 88 bpm Respiratory Rate: 20 bpm Temperature: 37.1 (C) / 98.8 (F) Weight: 195 lbs 06/13/2012 Blood Pressure 1: 110/64 Code: 8480-6 BMI: 30.4 Code: 60507-4 Heart Rate 1: 64 bpm Height: 5'7" Temperature: 36.9 (C) / 98.4 (F) Weight: 194 lbs 12/21/2011 Blood Pressure 1: 116/80 Code: 8480-6 BMI: 30.7 Code: 61870-6 Heart Rate 1: 72 bpm Height: 5'7" Respiratory Rate: 20 bpm Temperature: 37 .0 (C) / 98.6 (F) Weight: 196 lbs 09/28/2011 Blood Pressure 1: 116/78 Code: 8480-6 BMI: 29.6 Code: 03981-2 Heart Rate 1: 88 bpm Height: 5'7" Respiratory Rate: 20 bpm Temperature: 36 .9 (C) / 98.5 (F) Weight: 189 lbs 04/06/2011 Blood Pressure 1: 132/80 Code: 8480-6 Heart Rate 1: 72 bpm Respiratory Rate: 20 bpm Temperature: 37.2 (C) / 99.0 (F) Weight: 185 lbs 03/03/2011 Blood Pressure 1: 114/80 Code: 8480-6 BMI: 29.6 Code: 94872-4 Heart Rate 1: 80 bpm Height: 5'7" [...] Visit Encounters Encounter Performer Location Codes Date ([id number]) PREV VISIT EST AGE 40-64 Diagnosis: Encounter for general adult medical examination without abnormal findings[ICD10: Z00.00] Diagnosis: Mixed hyperlipidemia[ICD10: E78.2] Diagnosis: Allergic rhinitis due to allergen[ICD10: J30.9] Khadra AGUILLON DO [facility] CPT-4: 76976 02/06/2020 ([id number]) NURSE/OUTPATIENT VISIT EST Diagnosis: Encounter for general adult medical examination without abnormal findings[ICD10: Z00.00] Diagnosis: Malaise and fatigue[ICD10: R53.81] Diagnosis: Mixed hyperlipidemia[ICD10: E78.2] Khadra AGUILOLN DO [facility] CPT-4: 31562 02/04/2020 ([id number]) NURSE/OUTPATIENT VISIT EST Diagnosis: SCREENING-PULMONARY TB[ICD10: Z11.1] Khadra AGUILLON DO [facility] CPT-4: 11694 03/19/2018 OFFICE/OUTPATIENT VISIT EST Diagnosis: Allergic rhinitis, unspecified[ICD10: J30.9] Diagnosis: Impacted cerumen, right ear[ICD10: H61.21] Cassandra Camejo KHADRA AGUILLON DO [facility] CPT-4: 40752 02/23/2018 ([id number]) PREV VISIT EST AGE 40-64 Diagnosis: Encounter for general adult medical examination without abnormal findings[ICD10: Z00.00] Diagnosis: Mixed hyperlipidemia[ICD10: E78.2] Khadra AGUILLON DO [facility] CPT-4: 17582 09/07/2017 ([id number]) OFFICE/OUTPATIENT VISIT EST Diagnosis: Encounter for general adult medical examination without abnormal findings[ICD10: Z00.00] Diagnosis: Mixed hyperlipidemia[ICD10: E78.2] Khadra Banks. ARMANI [employer] [facility] CPT-4: 72247 09/04/2017 ([id number]) PREV VISIT EST AGE 40-64 Diagnosis: ROUTINE MEDICAL EXAM[ICD9: V70.0] Diagnosis: HYPERLIPIDEMIA NEC/NOS[ICD9: 272.4] Diagnosis: ANXIETY STATE NOS[ICD9: 300.00] Khadra AGUILLON DO [facility] CPT-4: 73468 01/12/2015 ([id number]) OFFICE/OUTPATIENT VISIT EST Diagnosis: ROUTINE MEDICAL EXAM[ICD9: V70.0] Diagnosis: MALAISE AND FATIGUE[ICD9: 780.79] Diagnosis: HYPERLIPIDEMIA NEC/NOS[ICD9: 272.4] Khadra AGUILLON DO [facility] CPT-4: 71590 01/07/2015 ([id number]) PREV VISIT EST AGE 40-64 Diagnosis: ROUTINE MEDICAL EXAM[ICD9: V70.0] Diagnosis: HYPERLIPIDEMIA NEC/NOS[ICD9: 272.4] Diagnosis: ANXIETY STATE NOS[ICD9: 300.00] Khadra AGUILLON DO [facility] CPT-4: 60794 07/24/2013 ([id number]) OFFICE/OUTPATIENT VISIT EST Diagnosis: HYPERLIPIDEMIA NEC/NOS[ICD9: 272.4] Diagnosis: ROUTINE MEDICAL EXAM[ICD9: V70.0] Khadra AGUILLON DO [facility] CPT-4: 56774 07/22/2013 ([id number]) OFFICE/OUTPATIENT VISIT EST Diagnosis: BENIGN KACEY SKIN[ICD9: 216.9] Khadra AGUILLON [facility] CPT-4: 29436 06/13/2013 ([id number]) OFFICE/OUTPATIENT VISIT EST Diagnosis: Nasal lesion[ICD9: 478.19] Diagnosis: Changing mole[ICD9: 216.9] Diagnosis: ALLERGIC RHINITIS[ICD9: 477.9] Khadra AGUILLON DO [facility] CPT-4: 11019 05/15/2013 OFFICE/OUTPATIENT VISIT EST Diagnosis: COUGH[ICD9: 786.2] Diagnosis: FEBRILE ILLNESS[ICD9: 780.60] Diagnosis: SINUSITIS, ACUTE[ICD9: 461.9] Khadra AGUILLON DO [facility] CPT-4: 00744 11/07/2012 OFFICE/OUTPATIENT VISIT EST Diagnosis: ACUTE STRESS REACT[ICD9: 308.9] Diagnosis: ANXIETY STATE NOS[ICD9: 300.00] Khadra AGUILLON DO [facility] CPT-4: 75227 09/18/2012 ([id number]) PREV VISIT EST AGE 40-64 Diagnosis: ROUTINE MEDICAL EXAM[ICD9: V70.0] Diagnosis: HYPERLIPIDEMIA NEC/NOS[ICD9: 272.4] Diagnosis: ANXIETY STATE NOS[ICD9: 300.00] Khadra AGUILLON [employer] CPT-4: 40497 06/13/2012 ([id number]) OFFICE/OUTPATIENT VISIT EST Diagnosis: ROUTINE MEDICAL EXAM[ICD9: V70.0] Khadra AGUILLON DO [employer] CPT-4: 70055 06/11/2012 OFFICE/OUTPATIENT VISIT EST Diagnosis: INSOMNIA NOS[ICD9: 780.52] Diagnosis: ACUTE STRESS REACT[ICD9: 308.9] Diagnosis: Tinnitus[ICD9: 388.30] Diagnosis: HYPERLIPIDEMIA NEC/NOS[ICD9: 272.4] Khadra AGUILLON [employer] CPT-4: 13991 12/21/2011 OFFICE/OUTPATIENT VISIT EST Diagnosis: ACUTE STRESS REACT[ICD9: 308.9] Khadra AGUILLON DO [employer] CPT-4: 87105 09/28/2011 OFFICE/OUTPATIENT VISIT EST Diagnosis: ACUTE STRESS REACT[ICD9: 308.9] Khadra AGUILLON [employer] CPT-4: 06598 04/06/2011 OFFICE/OUTPATIENT VISIT NEW Khadra BALDWIN [employer] CPT- 4: 82633 03/03/2011 Plan of Care Planned Activity Notes Codes Status Date Visit Diagnosis Plan: Encounter for [facility] adult medical examination without abnormal findings Discussion: Mediterranean diet Combinati on of cardio and weight bearing exercise Had WWE done recently with [employer]--had Mammo/Bone Density/Lab done Referral for updated colonoscopy [...] E78.2 02/06/2020 Patient Education: Lipitor- [employer] Coupon [id number] [email or web address] Completed 02/06/2020 Care Plan: Referral Order SNOMED-CT : 30 [id number] Pending 02/06/2020 Appointment: Khadra Aguillon WPtel: [address] [place], [place] [phone] [place] LAB 02/04/2020 Appointment: Khadra Aguillon WPtel: [address] [place], [place] [phone] US TB Test read 03/21/2018 Patient Education: Patient Medication Summary Completed 03/21/2018 Appointment: Khadra Aguillon WPtel: [address] [place], [place] [address] [place] TB Test 03/19/2018 Patient Education: Patient [...] improvement, RTC 02/23/2018 Appointment: Cassandra Camejo WPtel: [address] [place] [address] ACUTE ILLNESS 02/23/2018 Patient Education: Patient Medication Summary Completed 02/23/2018 Visit Diagnosis Plan: Encounter for [facility] adult medical examination without abnormal findings Discussion: Lab discussed Add Calcium wi th Vitamin D3 daily Continue walking and add yoga for weight bearing Praised lower cholesterol efforts Sees [employer] for WWE and Mammogram up to date ICD-9 : V70.0 ICD-10 : Z00.00 09/07/2017 Appointment: Khadra Aguillon WPtel: [address] [place], [place] [phone] Annual Well Visit 09/07/2017 Patient Education: Patient Medication Summary Completed 09/07/2017 Appointment: Khadra Aguillon WPtel: [facility] [place] LAB 09/04/2017 Patient Education: Patient Medication Summary Completed 09/04/2017 Visit Plan: Lab discussed Schedule colon oscopy Keep meds same Defers statin and will add fish oil and aspirin 81mg daily with diet/exercise and recheck lipids in 4mos Sees [employer] next month Discussed is high risk for CAD due to family history and hyperlipidemia 01/12/2015 Appointment: Khadra Aguillon WPtel: [address] [place], [place] [phone] confirmed - Annual Well Visit 01/12/2015 Patient Education: Patient Medication Summary Completed 01/12/2015 Appointment: Khadra Aguillon WPtel: [address] [place], [place] [phone] LAB 01/07/2015 Patient Education: Patient Medication Summary Completed 01/07/2015 Appointment: Sarah Wong WPtel: [address] [place], [place] [phone] FOLLOW UP 02/26/2014 Appointment: Khadra Aguillon WPtel: [address] [place], [place] [phone] 01/07 patient canceled FOLLOW UP 4 Visit Plan: Removal of lesion as above 08/06/2013 Appointment: Khadra Aguillon WPtel: [address] [place], [place] [phone] OFFICE SURGERY 08/06/2013 Patient Education: Patient Medication Summary Completed 08/06/2013 Visit Plan: Daily fish oil 3grams, Vitam in D 1000u daily, Coenzyme Q-10 200mg daily Diet/exercise/weight loss Recheck lipids in 6mos Discussed statins Pt has mammo next month 07/24/2013 Appointment: Khadra Aguillon WPtel: [address] [place], [place] [phone] 07/23 Annual Well Visit 07/24/2013 Patient Education: Patient Medication Summary Completed 07/24/2013 Appointment: Khadra Aguillon WPtel: [address] [place], [place] [phone] LAB 07/22/2013 Patient Education: Patient Medication Summary Completed 07/22/2013 Referral: Khadra Aguillon WPtel: [address] [place] [address] Referral Initiated 06/17/2013 Visit Plan: Skin So Soft to right nasal area q HS next month then observe If something comes back then will see ENT for removal 06/13/2013 Appointment: Khadra Aguillon WPtel: [address] [place], [place] [phone] 06/12 FOLLOW UP 06/13/2013 Patient Education: Patient Medication Summary Completed 06/13/2013 Visit Plan: Bactrim DS 1 po BID for 1wk, Prednisone 20mg po BID for 1wk Zyrtec daily If lesion persists will see Dr. Low for removal 05/15/2013 Appointment: Khadra Aguillon WPtel: [address] [place] [address] 05/14 ACUTE ILLNESS 05/15/2013 Patient Education: Patient Medication Summary Completed 05/15/2013 Appointment: Khadra Aguillon WPtel: [address] [place] [address] FOLLOW UP 12/13/2012 Visit Plan: Note for fever free 24 hours . Discussed fluids and rest. Clarified in verbal message that Levaquin should be QD dosing. Codeine/guiaf cough syrup. Flu test negative. Pt. to notify if symptoms worsen or fever persists. Discussed Rocephin IM and or lab/chest x-rays if symptoms persist. 11/07/2012 Appointment: Batsheva Bennett WPtel: [address] [place] [address] ACUTE ILLNESS 11/07/2012 Patient Education: Patient Medication Summary Completed 11/07/2012 Visit Plan: Continue fluoxetine at 30mg daily [employer] 09/18/2012 Appointment: Khadra Aguillon WPtel: [address] [place] [address] FOLLOW UP 09/18/2012 Patient Education: Patient Medication Summary Completed 09/18/2012 Visit Plan: Increase fish oil to 3gm poonam ly Step 1 Cardiac Diet Repeat CMP and lipids in 6mos Pt has DCed Fluoxetine and so far doing okay Will focus on stress reducers 06/13/2012 Appointment: Khadra Aguillon WPtel: [address] [place] [address] FOLLOW UP 06/13/2012 Patient Education: Patient Medication Summary Completed 06/13/2012 Appointment: Khadra Aguillon WPtel: [address] [place] [address] LAB 06/11/2012 Patient Education: Patient Medication Summary Completed 06/11/2012 Visit Plan: Decrease fluoxetine back to 30mg daily Check fasting lab in 3mos ENT for tinnitus/hearing loss 12/21/2011 Appointment: Khadra Aguillon WPtel: [address] [place] [address] FOLLOW UP 12/21/2011 Patient Education: Patient Medication Summary Completed 12/21/2011 Visit Plan: Increase fluoxetine to 40mg daily 09/28/2011 Appointment: Khadra Aguillontel: [address] [place] [address] FOLLOW UP 09/28/2011 Patient Education: Patient Medication Summary Completed 09/28/2011 Visit Plan: Increase fluoxetine to 30mg daily Call in 2wks 04/06/2011 Appointment: Khadra Aguillon WPtel: [address] [place] [address] FOLLOW UP 04/06/2011 Patient Education: Patient Medication Summary Completed 04/06/2011 Appointment: Khadra Aguillon WPtel: [address] [place] [address] NEW PATIENT 03/03/2011 Patient Education: Patient Medication Summary Completed 03/03/2011 Referral: Augustus Velazco WPtel: [address] [place], [place] [phone] [place] Referral Appointment Requested Referral: Saurabh Beatty WPtel: [address] [id number] [place] Referral Completed Instructions Comment . Sofia [...] diet/exercise and recheck lipids in 4mos Sees [employer] next month Discussed is high risk for [...]
--- OUTSIDE RECORDS SUMMARY | 2020-03-06 17:12 | XMS REPORT | CCD ---
Author Author Sofia Aguillon D.O. Organization [facility] Address [address] [place] [address] Phone Care Team Providers Care Tactical Response Group Officer Name Role Phone PP Unavailable CCM Unavailable Summary Purpose Interface Exchange Insurance Providers Payer name Policy type / Coverage type Covered libertarian ID Effective Begin Date Effective End Date Blue Cross Blue Shield Blue Cross/Blue Shield [id number] Unknown Family History Family History data not found Social History Social History Element Codes Description Effective Dates Marital status Unknown 03/03/2011 Number of children Unknown 3 03/03/2011 Employment Unknown Currently employed [employer] 250 03/03/[address]: 879906896 Never smoker 03/03/[address]: 005169200 Never drinks alcohol 2010 Allergies, Adverse Reactions, Alerts Substance Reaction Codes Entered Date Inactivated Date Status PENICILLINS Unknown 03/03/2011 No Inactive Date Active * NO KNOWN FOOD ALLERGIES Unknown 03/03/2011 No Inactiv e Date Active SULFA (SULFONAMIDES) Unknown 06/13/2013 No Inactive Aroldo e Active * NO KNOWN ENVIRONMENTAL ALLERGIES Unknown 03/03/2011 N o Inactive Date Active Problems Condition Codes Effective Dates Condition Status Encounter for general adult medical examination withou t abnormal findings ICD-9: V70.0 ICD-10: Z00.00 09/04/2017 Active Malaise and fatigue ICD-9: 780.79 ICD-10: R53.81 02/04/2020 Active Mixed hyperlipidemia ICD-9: 272.4 ICD-10: E78.2 09/04/2017 Active SCREENING-PULMONARY TB ICD-9: V74.1 ICD-10: Z11.1 03/19/2018 Active Allergic rhinitis, unspecified ICD-9: 477.9 ICD-10: J30.9 02/23/2018 Active Impacted cerumen, right ear ICD-9: 380.4 [...] Instructions Alba Allergy 180 mg tablet RxNorm: 654849 1 Tablet(s) PO QD 02/0505/23/2018 Inactive Medrol (Vick) 4 mg tablets in a dose pack RxNorm: 067695 As directed Tablet(s) PO QD 02/23/2018 02/27/2018 Inactive alprazolam 0.25 mg tablet RxNorm: 034130 TAKE 1/2 TABLE T TWO TIMES A DAY NEEDED FOR SEVERE STRESS 03/27/2015 04/15/2015 Inactive fluoxetine 10 mg tablet RxNorm: 226348 3 Tablet(s) PO QAM 03/27/2015 09/06/2017 Inactive for 1week then 2 po qam alprazolam 0.25 mg tablet RxNorm: 982241 TAKE ONE-HALF TABLET BY MOUTH TWICE A DAY NEEDED FOR SEVERE STRESS 07/24/2014 03/27/2015 Inactive (Response to an electronic controlled substance refill request - RxReferenceNumber: [id number]) fluoxetine 10 mg tablet RxNorm: 969204 3 Tablet(s) PO QAM 05/26/2014 03/27/2015 Inactive for 1week then 2 po qAM [SAVINGS FOR UNI NSURED PATIENTS -- BIN:[id number], PCN: [id number], Group: [id number], ID# [id number], Process claim through [employer], for questions: . THIS IS NOT INSURANCE.] Bactrim DS 800 mg-160 mg tablet RxNorm: 974725 1 Tablet(s) PO BID 1 05/21/2013 Inactive prednisone 20 mg tablet RxNorm: 130209 1 Tablet(s) PO BID 05/15/2013 05/21/2013 Inactive Levaquin 750 mg tablet RxNorm: 962286 1 Tablet(s) PO BID 11/07/2012 0 11/16/2012 Inactive fluoxetine 10 mg tablet RxNorm: 594530 3 Tablet(s) PO QAM 09/18/2012 03/16/2013 Inactive for 1week then 2 po qAM fluoxetine 10 mg tablet RxNorm: 075747 3 Tablet(s) PO QAM 12/21/2011 06/12/2012 Inactive for 1week then 2 po qAM fluoxetine 10 mg Tab RxNorm: 343608 3 Tablet(s) PO QAM 10/20/2011 Inactive for 1week then 2 po qAM Vaniqa 13.9 % Topical Cream RxNorm: 990411 1 Application TOP BID 12/20/2011 Inactive fluoxetine 40 mg Cap RxNorm: 563695 1 Capsule(s) PO QD 09/28/2011 Inactive fluoxetine 10 mg Cap RxNorm: 227259 3 Capsule(s) PO QD 06/21/201107/2012 Inactive fluoxetine 10 mg Tab RxNorm: 904304 3 Tablet(s) PO QD 04/26/201105/07 Inactive Xanax 0.25 mg Tab RxNorm: 007601 1/2 Tablet(s) PO BID 03/03/201103/07 Inactive prn severe stress alprazolam 0.25 mg tablet RxNorm: 907013 1/2 Tablet(s) PO BID as needed for anxiety No Start Date 02/22/2018 Inactive Medrol (Vick) 4 mg tablets in a dose pack RxNorm: 937907 Tablet(s) PO as directed No Start Date 05/14/2013 Inactive Fish Oil 1,000 mg Cap RxNorm: 1 Capsule(s) PO BID No Start Date Inactive fluoxetine 10 mg Cap RxNorm: 240687 2 Capsule(s) PO QD No Start Date 06/20/2011 Inactive fluoxetine 10 mg Cap RxNorm: 653495 3 Capsule(s) PO QD No Start Date 09/27/2011 Inactive alprazolam 0.25 mg Tab RxNorm: 448332 1/2 Tablet(s) PO BID No Start Date 07/24/2014 Inactive as needed fluoxetine 10 mg Tab RxNorm: 101331 1 Tablet(s) PO QAM No Start Date 10/19/2011 Inactive for 1week then 2 po qAM Vaniqa 13.9 % Topical Cream RxNorm: 855499 1 Application TOP BID No Start Date 09/27/2011 Inactive fluoxetine 20 mg capsule RxNorm: 966396 1 Capsule(s) PO QD No Start Date 02/22/2018 Inactive Vitamin D3 1000 units Capsule RxNorm: 1 Capsule(s) PO QD No St art Date 09/06/2017 Inactive Prozac 20 mg capsule RxNorm: 021047 1 Capsule(s) PO QD No Start Date 07/23/2013 Inactive Medication Administered No Medication Administered data Immunizations Vaccine Codes Date Status Shingrix Unknown 01/15/2018 Complete Zostavax CVX: 121 11/16/2017 Results Observation Observation Code Item Item Code Result Date S [facility] Location FREE T4 72024 T4 Free 1.25 ng/dL 09/04/2017 Unknown COMPLETE BLOOD COUNT 0596191 WBC 5.9 10e9/L 09/04/19 18 Unknown COMPLETE BLOOD COUNT [id number] RBC 4.35 10e12/L 2017 Unknown COMPLETE BLOOD COUNT [id number] HEMOGLOBIN 14.0 g/dL 09/04/19 18 Unknown COMPLETE BLOOD COUNT 9272707 HEMATOCRIT 41.6 % 09/04/19 18 Unknown COMPLETE BLOOD COUNT 1208441 MCV 95.6 fL 8 Unknown COMPLETE BLOOD COUNT 6604259 MCH 32.2 pg 8 Unknown COMPLETE BLOOD COUNT 7707707 MCHC 33.7 g/dL 8 Unknown COMPLETE BLOOD COUNT 7775182 PLATELET COUNT 239 10e9/L Unknown COMPLETE BLOOD COUNT 8963913 Mean Plt Volume 10.8 fL Unknown COMPLETE BLOOD COUNT 3494361 Neut Auto 53.2 % 8 Unknown COMPLETE BLOOD COUNT 0700850 Lymph Auto 35.6 % 09/04/19 18 Unknown COMPLETE BLOOD COUNT 7143454 Parmer Auto 9.6 % 8 Unknown COMPLETE BLOOD COUNT 6123149 RDW 13.2 % 8 Unknown COMPLETE BLOOD COUNT 8053319 Eos Auto 1.4 % 8 Unknown COMPLETE BLOOD COUNT 2582844 Baso Auto 0.2 % 8 Unknown COMPLETE BLOOD COUNT [id number] Neutrophil Abs 3.14 10e9/L Unknown COMPLETE BLOOD COUNT 2347930 Lymphocyte Abs 2.10 10e9/L Unknown COMPLETE BLOOD COUNT 1018203 Monocyte Abs 0.57 10e9/L 08/08 Unknown COMPLETE BLOOD COUNT 8910175 Eosinophil Abs 0.08 10e9/L Unknown COMPLETE BLOOD COUNT 3284323 RDW-SD 44.7 fL 8 Unknown COMPLETE BLOOD COUNT 6379613 Basophil Abs 0.01 10e9/L 08/08 Unknown COMPREHENSIVE METABOLIC 48265 AST 26 U/L 2017 Unknown COMPREHENSIVE METABOLIC 02457 ALT 40 U/L 2017 Unknown COMPREHENSIVE METABOLIC 75710 BUN 6 mg/dL 2017 Unknown COMPREHENSIVE METABOLIC 96542 ALBUMIN 5.3 g/dL 2017 Unknown COMPREHENSIVE METABOLIC 74491 CHLORIDE 102 mmol/L 09/04 Unknown COMPREHENSIVE METABOLIC 87672 Bili Total 0.7 mg/dL 09/04 Unknown COMPREHENSIVE METABOLIC 83083 ALK PHOS 56 U/L 2017 Unknown COMPREHENSIVE METABOLIC 38959 SODIUM 139 mmol/L 09/04 Unknown COMPREHENSIVE METABOLIC 07872 CREATININE 0.61 mg/dL 08/08 Unknown COMPREHENSIVE METABOLIC 96733 CALCIUM 9.8 mg/dL 2017 Unknown COMPREHENSIVE METABOLIC 39605 POTASSIUM 3.8 mmol/L 09/04 Unknown COMPREHENSIVE METABOLIC 50762 Total Protein 7.7 g/dL Unknown COMPREHENSIVE METABOLIC 10650 Glucose 95 mg/dL 2017 Unknown COMPREHENSIVE METABOLIC 57846 Bicarbonate 30 mmol/L 08/08 Unknown COMPREHENSIVE METABOLIC 19303 AGAP 7 mmol/L 2017 Unknown GFR CALC 2480471 GFR Non Afr Amr >60 mL/min 09/04/2017 Un known GFR CALC 1258265 GFR Afr Amr >60 mL/min 09/04/2017 Unknow n THYROID STIMULATING HORMONE 26575 TSH 1.454 uIU/mL 09/04/2017 Unknown LIPID GROUP 05303 Cholesterol 218 mg/dL 09/04/2017 Unkno wn LIPID GROUP 27080 Triglyceride 135 mg/dL 09/04/2017 Unkn own LIPID GROUP 52294 HDL CHOLESTEROL 52 09/04/2017 U nknown LIPID GROUP 34454 Chol/HDL Ratio 4.19 ratio 09/04/2017 U nknown LIPID GROUP 52728 NON-HDL Chol 166 mg/dL 09/04/2017 Unkn own LIPID GROUP 52129 LDL Cholesterol 139 mg/dL 09/04/2017 U nknown FREE T4 89890 FREE T4 1.15 NG/DL 01/07/2015 Unknown THYROID STIMULATING HORMONE 74165 TSH 1.927 uIU/ML 01/07/2015 Unknown LIPID GROUP 58060 HDL TEST 53 MG/DL 01/07/2015 Unknown LIPID GROUP 84559 TRIG 215 MG/DL 01/07/2015 Unknown LIPID GROUP 84245 TEST LDL 194 MG/DL 01/07/2015 Unknown LIPID GROUP 90836 CHOL 290 MG/DL 01/07/2015 Unknown LIPID GROUP 53531 RCHOL/HDL 5.47 RATIO 01/07/2015 Unknow n LIPID GROUP 26661 NON-HDL CH 237 MG/DL 01/07/2015 Unknow n GFR CALC 7355822 GFR AA >60 ML/MIN 01/07/2015 Unknown GFR CALC 6629293 GFR NON-AA >60 ML/MIN 01/07/2015 Unknown COMPLETE BLOOD COUNT 1998185 WBC 5.9 10e9/L 01/08/20 15 Unknown COMPLETE BLOOD COUNT 6831934 RBC 4.35 10e12/L 2014 Unknown COMPLETE BLOOD COUNT 9070419 HGB 14.2 g/dL 5 Unknown COMPLETE BLOOD COUNT 3919818 HCT DET 42.0 % 5 Unknown COMPLETE BLOOD COUNT 6964402 MCV 96.6 fL 5 Unknown COMPLETE BLOOD COUNT 0575343 MCH 32.6 pg 5 Unknown COMPLETE BLOOD COUNT 7212107 MCHC 33.8 g/dL 5 Unknown COMPLETE BLOOD COUNT 4422152 PLT 227 10e9/L 01/08/20 15 Unknown COMPLETE BLOOD COUNT 2689444 MPV 11.4 fL 5 Unknown COMPLETE BLOOD COUNT 9399367 PRITI % 54.2 % 5 Unknown COMPLETE BLOOD COUNT 0448254 LY % 33.8 % 5 Unknown COMPLETE BLOOD COUNT 8494484 MON % 8.8 % 5 Unknown COMPLETE BLOOD COUNT 8440226 EOS % 2.9 % 5 Unknown COMPLETE BLOOD COUNT 5874946 BASO % 0.3 % 5 Unknown COMPLETE BLOOD COUNT 9759325 RDW 13.6 % 5 Unknown COMPLETE BLOOD COUNT [id number] ABS PRITI 3.20 10e9/L 015 Unknown COMPLETE BLOOD COUNT 2581613 ABS LYMPH 1.99 10e9/L 015 Unknown COMPLETE BLOOD COUNT 7772333 ABS MONO 0.52 10e9/L 015 Unknown COMPLETE BLOOD COUNT 9305295 ABS EOS 0.17 10e9/L 015 Unknown COMPLETE BLOOD COUNT 5395988 ABS BASO 0.02 10e9/L 015 Unknown COMPLETE BLOOD COUNT 9278263 RDW-SD 47.0 fL 5 Unknown COMPREHENSIVE METABOLIC 38540 AST 20 U/L 2014 Unknown COMPREHENSIVE METABOLIC 02823 ALT 30 IU/L 2014 Unknown COMPREHENSIVE METABOLIC 51407 BUN 12 MG/DL 2014 Unknown COMPREHENSIVE METABOLIC 20672 ALBUMIN 4.4 GM/DL 2014 Unknown COMPREHENSIVE METABOLIC 78838 CHLORIDE 102 MMOL/L 01/07 Unknown COMPREHENSIVE METABOLIC 12608 BILI TOT 0.6 MG/DL 2014 Unknown COMPREHENSIVE METABOLIC 88364 ALK PHOS 76 U/L 2014 Unknown COMPREHENSIVE METABOLIC 52229 SODIUM 139 MMOL/L 01/07 Unknown COMPREHENSIVE METABOLIC 49307 CREATININE 0.77 MG/DL 10/2014 Unknown COMPREHENSIVE METABOLIC 32833 CALCIUM 9.2 MG/DL 2014 Unknown COMPREHENSIVE METABOLIC 29810 POTASSIUM 4.1 MMOL/L 01/07 Unknown COMPREHENSIVE METABOLIC 35319 PROT TOT 7.1 GM/DL 2014 Unknown COMPREHENSIVE METABOLIC 28165 Glucose 107 MG/DL 2014 Unknown COMPREHENSIVE METABOLIC 32163 BICARB 30 MMOL/L 2014 Unknown COMPREHENSIVE METABOLIC 23794 ANION GAP 7 MEQ/L 2014 Unknown LIPID GROUP 99064 HDL TEST 48 MG/DL 07/22/2013 Unknown LIPID GROUP 51357 TRIG 176 MG/DL 07/22/2013 Unknown LIPID GROUP 61847 TEST LDL 161 MG/DL 07/22/2013 Unknown LIPID GROUP 37464 CHOL 244 MG/DL 07/22/2013 Unknown LIPID GROUP 16187 RCHOL/HDL 5.08 RATIO 07/22/2013 Unknow n COMPLETE BLOOD COUNT 6559778 WBC 5.8 10e9/L 07/22/20 13 Unknown COMPLETE BLOOD COUNT 7898338 RBC 4.45 10e12/L 2012 Unknown COMPLETE BLOOD COUNT 0577197 HGB 14.6 g/dL 3 Unknown COMPLETE BLOOD COUNT 8053954 HCT DET 43.8 % 3 Unknown COMPLETE BLOOD COUNT 7202678 MCV 98.4 fL 3 Unknown COMPLETE BLOOD COUNT 5115843 MCH 32.8 pg 3 Unknown COMPLETE BLOOD COUNT 6887730 MCHC 33.3 g/dL 3 Unknown COMPLETE BLOOD COUNT 4460797 PLT 270 10e9/L 07/22/20 13 Unknown COMPLETE BLOOD COUNT 3984179 MPV 11.4 fL 3 Unknown COMPLETE BLOOD COUNT 8127182 PRITI % 54.2 % 3 Unknown COMPLETE BLOOD COUNT 7820432 LY % 33.2 % 3 Unknown COMPLETE BLOOD COUNT 0580448 MON % 9.2 % 3 Unknown COMPLETE BLOOD COUNT 1038479 EOS % 3.1 % 3 Unknown COMPLETE BLOOD COUNT 9279235 BASO % 0.3 % 3 Unknown COMPLETE BLOOD COUNT 5135648 RDW 13.8 % 3 Unknown COMPLETE BLOOD COUNT 5348705 ABS PRITI 3.14 10e9/L 013 Unknown COMPLETE BLOOD COUNT 4040789 ABS LYMPH 1.93 10e9/L 013 Unknown COMPLETE BLOOD COUNT 3105533 ABS MONO 0.53 10e9/L 013 Unknown COMPLETE BLOOD COUNT 2481691 ABS EOS 0.18 10e9/L 013 Unknown COMPLETE BLOOD COUNT 0706925 ABS BASO 0.02 10e9/L 013 Unknown COMPLETE BLOOD COUNT 4315038 RDW-SD 48.4 fL 3 Unknown GFR CALC 3001717 GFR AA >60 ML/MIN 07/22/2013 Unknown GFR CALC 5209369 GFR NON-AA >60 ML/MIN 07/22/2013 Unknown THYROID STIMULATING HORMONE 03765 TSH 1.645 uIU/ML 07/22/2013 Unknown COMPREHENSIVE METABOLIC 15505 AST 23 U/L 2012 Unknown COMPREHENSIVE METABOLIC 93505 ALT 30 IU/L 2012 Unknown COMPREHENSIVE METABOLIC 76487 BUN 12 MG/DL 2012 Unknown COMPREHENSIVE METABOLIC 81046 ALBUMIN 4.7 GM/DL 2012 Unknown COMPREHENSIVE METABOLIC 37003 CHLORIDE 102 MMOL/L 07/22 Unknown COMPREHENSIVE METABOLIC 48884 BILI TOT 0.5 MG/DL 2012 Unknown COMPREHENSIVE METABOLIC 49428 ALK PHOS 51 U/L 2012 Unknown COMPREHENSIVE METABOLIC 58268 SODIUM 136 MMOL/L 07/22 Unknown COMPREHENSIVE METABOLIC 76089 CREATININE 0.74 MG/DL 07/07 Unknown COMPREHENSIVE METABOLIC 32931 CALCIUM 9.2 MG/DL 2012 Unknown COMPREHENSIVE METABOLIC 51570 POTASSIUM 4.1 MMOL/L 07/22 Unknown COMPREHENSIVE METABOLIC 72415 PROT TOT 7.1 GM/DL 2012 Unknown COMPREHENSIVE METABOLIC 93299 Glucose 107 MG/DL 2012 Unknown COMPREHENSIVE METABOLIC 54630 BICARB 29 MMOL/L 2012 Unknown COMPREHENSIVE METABOLIC 55380 ANION GAP 5 MEQ/L 2012 Unknown FREE T4 96220 FREE T4 0.98 NG/DL 07/22/2013 Unknown COMPLETE BLOOD COUNT 9718672 WBC 4.4 10e9/L 06/11/20 12 Unknown COMPLETE BLOOD COUNT [id number] RBC 4.18 10e12/L 2011 Unknown COMPLETE BLOOD COUNT 5452796 HGB 13.5 g/dL 2 Unknown COMPLETE BLOOD COUNT 6280735 HCT DET 39.9 % 2 Unknown COMPLETE BLOOD COUNT 7477923 MCV 95.5 fL 2 Unknown COMPLETE BLOOD COUNT 3970899 MCH 32.3 pg 2 Unknown COMPLETE BLOOD COUNT 6192049 MCHC 33.8 g/dL 2 Unknown COMPLETE BLOOD COUNT 6482257 PLT 232 10e9/L 06/11/20 12 Unknown COMPLETE BLOOD COUNT 4231409 MPV 11.3 fL 2 Unknown COMPLETE BLOOD COUNT 3968113 PRITI % 46.4 % 2 Unknown COMPLETE BLOOD COUNT 4046109 LY % 36.4 % 2 Unknown COMPLETE BLOOD COUNT 3459200 MON % 10.5 % 2 Unknown COMPLETE BLOOD COUNT 3103579 EOS % 6.2 % 2 Unknown COMPLETE BLOOD COUNT 3378112 BASO % 0.5 % 2 Unknown COMPLETE BLOOD COUNT 3483497 RDW 13.1 % 2 Unknown COMPLETE BLOOD COUNT 4024937 ABS PRITI 2.04 10e9/L 012 Unknown COMPLETE BLOOD COUNT 9120910 ABS LYMPH 1.60 10e9/L 012 Unknown COMPLETE BLOOD COUNT 1758147 ABS MONO 0.46 10e9/L 012 Unknown COMPLETE BLOOD COUNT 5541031 ABS EOS 0.27 10e9/L 012 Unknown COMPLETE BLOOD COUNT 3684319 ABS BASO 0.02 10e9/L 012 Unknown COMPLETE BLOOD COUNT 4721954 RDW-SD 44.2 fL 2 Unknown THYROID STIMULATING HORMONE 27032 TSH 1.766 uIU/ML 06/11/2012 Unknown COMPREHENSIVE METABOLIC 05193 AST 20 U/L 2011 Unknown COMPREHENSIVE METABOLIC 71999 ALT 23 IU/L 2011 Unknown COMPREHENSIVE METABOLIC 56591 BUN 10 MG/DL 2011 Unknown COMPREHENSIVE METABOLIC 91697 ALBUMIN 4.3 GM/DL 2011 Unknown COMPREHENSIVE METABOLIC 89610 CHLORIDE 103 MMOL/L 06/11 Unknown COMPREHENSIVE METABOLIC 78730 BILI TOT 0.4 MG/DL 2011 Unknown COMPREHENSIVE METABOLIC 95972 ALK PHOS 52 U/L 2011 Unknown COMPREHENSIVE METABOLIC 87136 SODIUM 138 MMOL/L 06/11 Unknown COMPREHENSIVE METABOLIC 15915 CREATININE 0.74 MG/DL 12/2011 Unknown COMPREHENSIVE METABOLIC 64332 CALCIUM 8.8 MG/DL 2011 Unknown COMPREHENSIVE METABOLIC 04440 POTASSIUM 3.7 MMOL/L 06/11 Unknown COMPREHENSIVE METABOLIC 18322 PROT TOT 6.9 GM/DL 2011 Unknown COMPREHENSIVE METABOLIC 90801 Glucose 105 MG/DL 2011 Unknown COMPREHENSIVE METABOLIC 01988 BICARB 29 MMOL/L 2011 Unknown COMPREHENSIVE METABOLIC 72507 ANION GAP 6 MEQ/L 2011 Unknown FREE T4 00698 FREE T4 0.93 NG/DL 06/11/2012 Unknown LIPID GROUP 02411 HDL TEST 39 MG/DL 06/11/2012 Unknown LIPID GROUP 42375 TRIG 243 MG/DL 06/11/2012 Unknown LIPID GROUP 31453 TEST LDL 159 MG/DL 06/11/2012 Unknown LIPID GROUP 45433 CHOL 247 MG/DL 06/11/2012 Unknown LIPID GROUP 60421 RCHOL/HDL 6.33 RATIO 06/11/2012 Unknow n GFR CALC 1890619 GFR AA >60 ML/MIN 06/11/2012 Unknown GFR CALC 1178359 GFR NON-AA >60 ML/MIN 06/11/2012 Unknown VITAMIN D TOTAL (25 HYDROXY) 92102 VIT D TOTL 19 NG/ML 03/04/2011 Unknown COMPLETE BLOOD COUNT 21940 WBC 8.0 10e9/L 03/03/20 11 Unknown COMPLETE BLOOD COUNT 86024 RBC 4.62 10e12/L 2010 Unknown COMPLETE BLOOD COUNT 43537 HGB 14.9 g/dL 1 Unknown COMPLETE BLOOD COUNT 06793 HCT DET 43.6 % 1 Unknown COMPLETE BLOOD COUNT 96025 MCV 94.4 fL 1 Unknown COMPLETE BLOOD COUNT 72721 MCH 32.3 pg 1 Unknown COMPLETE BLOOD COUNT 46441 MCHC 34.2 g/dL 1 Unknown COMPLETE BLOOD COUNT 96024 PLT 236 10e9/L 03/03/20 11 Unknown COMPLETE BLOOD COUNT 14551 MPV 11.0 fL 1 Unknown COMPLETE BLOOD COUNT 38416 PRITI % 66.3 % 1 Unknown COMPLETE BLOOD COUNT 37333 LY % 20.7 % 1 Unknown COMPLETE BLOOD COUNT 82525 MON % 9.2 % 1 Unknown COMPLETE BLOOD COUNT 41291 EOS % 3.5 % 1 Unknown COMPLETE BLOOD COUNT 90639 BASO % 0.3 % 1 Unknown COMPLETE BLOOD COUNT 33997 RDW 13.5 % 1 Unknown COMPLETE BLOOD COUNT 52517 ABS PRITI 5.30 10e9/L 011 Unknown COMPLETE BLOOD COUNT 15213 ABS LYMPH 1.66 10e9/L 011 Unknown COMPLETE BLOOD COUNT 73680 ABS MONO 0.74 10e9/L 011 Unknown COMPLETE BLOOD COUNT 17469 ABS EOS 0.28 10e9/L 011 Unknown COMPLETE BLOOD COUNT 46138 ABS BASO 0.02 10e9/L 011 Unknown COMPLETE BLOOD COUNT 31874 RDW-SD 45.1 fL 1 Unknown THYROID STIMULATING HORMONE 45551 TSH 1.944 uIU/ML 03/03/2011 Unknown FREE T4 81390 FREE T4 1.04 NG/DL 03/03/2011 Unknown LIPID GROUP 25849 HDL TEST 50 MG/DL 03/03/2011 Unknown LIPID GROUP 00360 TRIG 246 MG/DL 03/03/2011 Unknown LIPID GROUP 41334 TEST LDL 213 MG/DL 03/03/2011 Unknown LIPID GROUP 12242 CHOL 312 MG/DL 03/03/2011 Unknown LIPID GROUP 35551 RCHOL/HDL 6.24 RATIO 03/03/2011 Unknow n GFR CALC 1720403 GFR AA >60 ML/MIN 03/03/2011 Unknown GFR CALC 7304191 GFR NON-AA >60 ML/MIN 03/03/2011 Unknown COMPREHENSIVE METABOLIC 73615 AST 15 U/L 2010 Unknown COMPREHENSIVE METABOLIC 96298 ALT 21 IU/L 2010 Unknown COMPREHENSIVE METABOLIC 42317 BUN 14 MG/DL 2010 Unknown COMPREHENSIVE METABOLIC 02450 ALBUMIN 4.5 GM/DL 2010 Unknown COMPREHENSIVE METABOLIC 73833 CHLORIDE 99 MMOL/L 2010 Unknown COMPREHENSIVE METABOLIC 67786 BILI TOT 0.6 MG/DL 2010 Unknown COMPREHENSIVE METABOLIC 00832 ALK PHOS 55 U/L 2010 Unknown COMPREHENSIVE METABOLIC 09683 SODIUM 134 MMOL/L 03/03 Unknown COMPREHENSIVE METABOLIC 54338 CREATININE 0.80 MG/DL 02/05 Unknown COMPREHENSIVE METABOLIC 26003 CALCIUM 9.4 MG/DL 2010 Unknown COMPREHENSIVE METABOLIC 48403 POTASSIUM 4.0 MMOL/L 03/03 Unknown COMPREHENSIVE METABOLIC 45965 PROT TOT 7.4 GM/DL 2010 Unknown COMPREHENSIVE METABOLIC 40876 Glucose 101 MG/DL 2010 Unknown COMPREHENSIVE METABOLIC 62795 BICARB 28 MMOL/L 2010 Unknown COMPREHENSIVE METABOLIC 42611 ANION GAP 7 MEQ/L 2010 Unknown Procedures Procedure Codes Date ROUTINE VENIPUNCTURE CPT-4: 84920 02/04/2020 ASSAY OF FREE THYROXINE CPT-4: 58185 02/04/2020 ASSAY THYROID STIM HORMONE CPT-4: 46135 02/04/2020 COMPREHEN METABOLIC PANEL CPT-4: 34130 02/04/2020 COMPLETE CBC W/AUTO DIFF WBC CPT-4: 97634 02/04/2020 LIPID PANEL CPT-4: 35669 02/04/2020 TB INTRADERMAL TEST CPT-4: 17134 03/19/2018 Removal impacted cerumen using irrigation/lavage, unilateral CPT-4: 15912 02/23/2018 ROUTINE VENIPUNCTURE CPT-4: 04984 09/04/2017 ASSAY THYROID STIM HORMONE CPT-4: 99660 09/04/2017 ASSAY OF FREE THYROXINE CPT-4: 10614 09/04/2017 COMPREHEN METABOLIC PANEL CPT-4: 42288 09/04/2017 COMPLETE CBC W/AUTO DIFF WBC CPT-4: 64343 09/04/2017 LIPID PANEL CPT-4: 73784 09/04/2017 ROUTINE VENIPUNCTURE CPT-4: 07409 01/07/2015 ASSAY OF FREE THYROXINE CPT-4: 58329 01/07/2015 ASSAY THYROID STIM HORMONE CPT-4: 28993 01/07/2015 COMPREHEN METABOLIC PANEL CPT-4: 75120 01/07/2015 COMPLETE CBC W/AUTO DIFF WBC CPT-4: 37911 01/07/2015 LIPID PANEL CPT-4: 89595 01/07/2015 EXC TR-EXT B9+CECILIO 0.5 CM< CPT-4: 99089 08/06/2013 ROUTINE VENIPUNCTURE CPT-4: 05571 07/22/2013 ASSAY OF FREE THYROXINE CPT-4: 60479 07/22/2013 ASSAY THYROID STIM HORMONE CPT-4: 31838 07/22/2013 COMPREHEN METABOLIC PANEL CPT-4: 84608 07/22/2013 COMPLETE CBC W/AUTO DIFF WBC CPT-4: 42838 07/22/2013 LIPID PANEL CPT-4: 59575 07/22/2013 INFLUENZA ASSAY W/OPTIC CPT-4: 45426 11/07/2012 ROUTINE VENIPUNCTURE CPT-4: 11895 06/11/2012 ASSAY OF FREE THYROXINE CPT-4: 56385 06/11/2012 ASSAY THYROID STIM HORMONE CPT-4: 55392 06/11/2012 COMPREHEN METABOLIC PANEL CPT-4: 76695 06/11/2012 COMPLETE CBC W/AUTO DIFF WBC CPT-4: 51165 06/11/2012 LIPID PANEL CPT-4: 89596 06/11/2012 ROUTINE VENIPUNCTURE CPT-4: 37075 03/03/2011 ASSAY OF FREE THYROXINE CPT-4: 10969 03/03/2011 ASSAY THYROID STIM HORMONE CPT-4: 56783 03/03/2011 COMPREHEN METABOLIC PANEL CPT-4: 51757 03/03/2011 COMPLETE CBC W/AUTO DIFF WBC CPT-4: 72870 03/03/2011 LIPID PANEL CPT-4: 25068 03/03/2011 VITAMIN D TOTAL (25 HYDROXY) CPT-4: 13241 03/03/2011 Vital Signs Date Vital 02/23/2018 Blood Pressure 1: 132/84 Code: 8480-6 BMI: 31.6 Code: 68849-7 Heart Rate 1: 76 bpm Height: 5'6" Respiratory Rate: 20 bpm SpO2: 98% Tempera ture: 36.9 (C) / 98.4 (F) Weight: 199 lbs 09/07/2017 Blood Pressure 1: 126/78 Code: 8480-6 BMI: 30.5 Code: 29251-9 Heart Rate 1: 80 bpm Height: 5'6" Respiratory Rate: 20 bpm SpO2: 98% Tempera ture: 37.2 (C) / 98.9 (F) Weight: 192 lbs 01/12/2015 Blood Pressure 1: 132/74 Code: 8480-6 BMI: 29.4 Code: 83295-9 Heart Rate 1: 92 bpm Height: 5'6" Respiratory Rate: 20 bpm Temperature: 36 .7 (C) / 98.1 (F) Weight: 185 lbs 08/06/2013 Blood Pressure 1: 114/80 Code: 8480-6 BMI: 30.7 Code: 18579-2 Heart Rate 1: 80 bpm Height: 5'6" Respiratory Rate: 20 bpm Temperature: 37 .2 (C) / 99.0 (F) Weight: 193 lbs 07/24/2013 Blood Pressure 1: 124/68 Code: 8480-6 BMI: 30.7 Code: 47639-7 Heart Rate 1: 80 bpm Height: 5'6" Respiratory Rate: 20 bpm Temperature: 36 .9 (C) / 98.5 (F) Weight: 193 lbs 06/13/2013 Blood Pressure 1: 124/70 Code: 8480-6 BMI: 31.8 Code: 22983-8 Heart Rate 1: 88 bpm Height: 5'6" Respiratory Rate: 20 bpm Temperature: 36 .8 (C) / 98.2 (F) Weight: 200 lbs 05/15/2013 Blood Pressure 1: 120/80 Code: 8480-6 BMI: 30.8 Code: 37231-1 Heart Rate 1: 82 bpm Height: 5'6" Respiratory Rate: 22 bpm Temperature: 36 .2 (C) / 97.1 (F) Weight: 194 lbs 11/07/2012 Blood Pressure 1: 146/88 Code: 8480-6 BMI: 31.0 Code: 87409-9 Heart Rate 1: 108 bpm Height: 5'7" Respiratory Rate: 20 bpm SpO2: 95% Tempera ture: 38.2 (C) / 100.8 (F) Weight: 198 lbs 09/18/2012 Blood Pressure 1: 114/76 Code: 8480-6 Heart Rate 1: 88 bpm Respiratory Rate: 20 bpm Temperature: 37.1 (C) / 98.8 (F) Weight: 195 lbs 06/13/2012 Blood Pressure 1: 110/64 Code: 8480-6 BMI: 30.4 Code: 22300-9 Heart Rate 1: 64 bpm Height: 5'7" Temperature: 36.9 (C) / 98.4 (F) Weight: 194 lbs 12/21/2011 Blood Pressure 1: 116/80 Code: 8480-6 BMI: 30.7 Code: 81367-2 Heart Rate 1: 72 bpm Height: 5'7" Respiratory Rate: 20 bpm Temperature: 37 .0 (C) / 98.6 (F) Weight: 196 lbs 09/28/2011 Blood Pressure 1: 116/78 Code: 8480-6 BMI: 29.6 Code: 33996-0 Heart Rate 1: 88 bpm Height: 5'7" Respiratory Rate: 20 bpm Temperature: 36 .9 (C) / 98.5 (F) Weight: 189 lbs 04/06/2011 Blood Pressure 1: 132/80 Code: 8480-6 Heart Rate 1: 72 bpm Respiratory Rate: 20 bpm Temperature: 37.2 (C) / 99.0 (F) Weight: 185 lbs 03/03/2011 Blood Pressure 1: 114/80 Code: 8480-6 BMI: 29.6 Code: 56787-1 Heart Rate 1: 80 bpm Height: 5'7" Respiratory Rate: 18 bpm Temperature: 37 .0 (C) / 98.6 (F) Weight: 189 lbs Functional Status No Functional Status data Reason For Visit Reason For Visit Effective Dates Notes follow up 03/21/2018 TB Test Reading injection(s) [...] Visit Encounters Encounter Performer Location Codes Date ([id number]) NURSE/OUTPATIENT VISIT EST Diagnosis: Encounter for general adult medical examination without abnormal findings[ICD10: Z00.00] Diagnosis: Malaise and fatigue[ICD10: R53.81] Diagnosis: Mixed hyperlipidemia[ICD10: E78.2] Ophelia CALZADA CPT-4: 30656 02/04/2020 ([id number]) NURSE/OUTPATIENT VISIT EST Diagnosis: SCREENING-PULMONARY TB[ICD10: Z11.1] Ophelianaeem AGUILLON [employer] [facility] CPT-4: 75226 03/19/2018 OFFICE/OUTPATIENT VISIT EST Diagnosis: Allergic rhinitis, unspecified[ICD10: J30.9] Diagnosis: Impacted cerumen, right ear[ICD10: H61.21] Cassandra MahajanTigistJarrett AGUILLON DO [facility] CPT-4: 05345 02/23/2018 ([id number]) PREV VISIT EST AGE 40-64 Diagnosis: Encounter for general adult medical examination without abnormal findings[ICD10: Z00.00] Diagnosis: Mixed hyperlipidemia[ICD10: E78.2] Ophelia AGUILLON [employer] [facility] CPT-4: 05267 09/07/2017 ([id number]) OFFICE/OUTPATIENT VISIT EST Diagnosis: Encounter for general adult medical examination without abnormal findings[ICD10: Z00.00] Diagnosis: Mixed hyperlipidemia[ICD10: E78.2] Ophelia AGUILLON [employer] [facility] CPT-4: 49789 09/04/2017 ([id number]) PREV VISIT EST AGE 40-64 Diagnosis: ROUTINE MEDICAL EXAM[ICD9: V70.0] Diagnosis: HYPERLIPIDEMIA NEC/NOS[ICD9: 272.4] Diagnosis: ANXIETY STATE NOS[ICD9: 300.00] Ophelia AGUILLON [employer] [facility] CPT-4: 94265 01/12/2015 ([id number]) OFFICE/OUTPATIENT VISIT EST Diagnosis: ROUTINE MEDICAL EXAM[ICD9: V70.0] Diagnosis: MALAISE AND FATIGUE[ICD9: 780.79] Diagnosis: HYPERLIPIDEMIA NEC/NOS[ICD9: 272.4] Ophelia WILLIAMSON DIONNE Izaiah AGUILLON [employer] [facility] CPT-4: 25699 01/07/2015 ([id number]) PREV VISIT EST AGE 40-64 Diagnosis: ROUTINE MEDICAL EXAM[ICD9: V70.0] Diagnosis: HYPERLIPIDEMIA NEC/NOS[ICD9: 272.4] Diagnosis: ANXIETY STATE NOS[ICD9: 300.00] Ophelia AGUILLON [employer] [facility] CPT-4: 52954 07/24/2013 ([id number]) OFFICE/OUTPATIENT VISIT EST Diagnosis: HYPERLIPIDEMIA NEC/NOS[ICD9: 272.4] Diagnosis: ROUTINE MEDICAL EXAM[ICD9: V70.0] Ophelia AGUILLON DO [facility] CPT-4: 83050 07/22/2013 ([id number]) OFFICE/OUTPATIENT VISIT EST Diagnosis: BENIGN KACEY SKIN[ICD9: 216.9] Ophelia AGUILLON DO [facility] CPT-4: 04546 06/13/2013 ([id number]) OFFICE/OUTPATIENT VISIT EST Diagnosis: Nasal lesion[ICD9: 478.19] Diagnosis: Changing mole[ICD9: 216.9] Diagnosis: ALLERGIC RHINITIS[ICD9: 477.9] Ophelia AGUILLON DO [facility] CPT-4: 34807 05/15/2013 OFFICE/OUTPATIENT VISIT EST Diagnosis: COUGH[ICD9: 786.2] Diagnosis: FEBRILE ILLNESS[ICD9: 780.60] Diagnosis: SINUSITIS, ACUTE[ICD9: 461.9] Ophelia AGUILLON DO [facility] CPT-4: 82651 11/07/2012 OFFICE/OUTPATIENT VISIT EST Diagnosis: ACUTE STRESS REACT[ICD9: 308.9] Diagnosis: ANXIETY STATE NOS[ICD9: 300.00] Ophelia AGUILLON DO [facility] CPT-4: 88504 09/18/2012 ([id number]) PREV VISIT EST AGE 40-64 Diagnosis: ROUTINE MEDICAL EXAM[ICD9: V70.0] Diagnosis: HYPERLIPIDEMIA NEC/NOS[ICD9: 272.4] Diagnosis: ANXIETY STATE NOS[ICD9: 300.00] Ophelia AGUILLON DO [facility] CPT-4: 43691 06/13/2012 ([id number]) OFFICE/OUTPATIENT VISIT EST Diagnosis: ROUTINE MEDICAL EXAM[ICD9: V70.0] Ophelia AGUILLON DO [facility] CPT-4: 93351 06/11/2012 OFFICE/OUTPATIENT VISIT EST Diagnosis: INSOMNIA NOS[ICD9: 780.52] Diagnosis: ACUTE STRESS REACT[ICD9: 308.9] Diagnosis: Tinnitus[ICD9: 388.30] Diagnosis: HYPERLIPIDEMIA NEC/NOS[ICD9: 272.4] Ophelia TRUONG Izaiah DESOUZANDER DO [employer] CPT-4: 63357 12/21/2011 OFFICE/OUTPATIENT VISIT EST Diagnosis: ACUTE STRESS REACT[ICD9: 308.9] Ophelia CALZADA CPT-4: 15702 09/28/2011 OFFICE/OUTPATIENT VISIT EST Diagnosis: ACUTE STRESS REACT[ICD9: 308.9] Ophelia CALZADA CPT-4: 49225 04/06/2011 OFFICE/OUTPATIENT VISIT NEW Ophelia BALDWIN DO [employer] CPT- 4: 23241 03/03/2011 Plan of Care Planned Activity Notes Codes Status Date Appointment: Ophelia Aguillon WPtel: [phone] [facility] TB Test read 03/21/2018 Patient Education: Patient Medication Summary Completed 03/21/2018 Appointment: Ophelia Aguillon WPtel: [phone] [facility] [place] TB Test 03/19/2018 Patient Education: Patient [...] improvement, RTC 02/23/2018 Appointment: Cassandra Camejo WPtel: [phone] [facility] ACUTE ILLNESS 02/23/2018 Patient Education: Patient Medication Summary Completed 02/23/2018 Visit Diagnosis Plan: Encounter for gene [facility] adult medical examination without abnormal findings Discussion: Lab discussed Add Calcium wi th Vitamin D3 daily Continue walking and add yoga for weight bearing Praised lower cholesterol efforts 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 up to date ICD-9 : V70.0 ICD-10 : Z00.00 09/07/2017 Appointment: Ophelia Aguillon WPtel: [address] [place], [place] [id number] Annual Well Visit 09/07/2017 Patient Education: Patient Medication Summary Completed 09/07/2017 Appointment: Ophelia Aguillon WPtel: [address] [place], [place] [phone] [place] LAB 09/04/2017 Patient Education: Patient Medication Summary Completed 09/04/2017 Visit Plan: Lab discussed Schedule colon oscopy Keep meds same Defers statin and will add fish oil and aspirin 81mg daily with diet/exercise and recheck lipids in 4mos 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 Discussed is high risk for CAD due to family history and hyperlipidemia 01/12/2015 Appointment: Ophelia Aguillon WPtel: [address] [place] [address] confirmed -mf Annual Well Visit 01/12/2015 Patient Education: Patient Medication Summary Completed 01/12/2015 Appointment: Ophelia Aguillon WPtel: [address] [place] [address] LAB 01/07/2015 Patient Education: Patient Medication Summary Completed 01/07/2015 Appointment: Sarah Wong WPtel: [address] [place] [address] FOLLOW UP 02/26/2014 Appointment: Ophelia Aguillon WPtel: [address] [place], [place] [phone] 01/07 patient canceled FOLLOW UP 4 Visit Plan: Removal of lesion as above 08/06/2013 Appointment: Ophelia Aguillon WPtel: [address] [place], [place] [phone] OFFICE SURGERY 08/06/2013 Patient Education: Patient Medication Summary Completed 08/06/2013 Visit Plan: Daily fish oil 3grams, Vitam in D 1000u daily, Coenzyme Q-10 200mg daily Diet/exercise/weight loss Recheck lipids in 6mos Discussed statins Pt has mammo next month 07/24/2013 Appointment: Ophelia Aguillon WPtel: [address] [place], [place] [id number] 07/23 Annual Well Visit 07/24/2013 Patient Education: Patient Medication Summary Completed 07/24/2013 Appointment: Ophelia Aguillon WPtel: [address] [place], [place] [phone] [place] LAB 07/22/2013 Patient Education: Patient Medication Summary Completed 07/22/2013 Referral: Ophelia Aguillon WPtel: [address] [place], [place] [phone] Referral Initiated 06/17/2013 Visit Plan: Skin So Soft to right nasal area q HS next month then observe If something comes back then will see ENT for removal 06/13/2013 Appointment: Ophelia Aguillon WPtel: [address] [place], [place] [phone] 06/12 FOLLOW UP 06/13/2013 Patient Education: Patient Medication Summary Completed 06/13/2013 Visit Plan: Bactrim DS 1 po BID for 1wk, Prednisone 20mg po BID for 1wk Zyrtec daily If lesion persists will see Dr. Low for removal 05/15/2013 Appointment: Ophelia Aguillon WPtel: [address] [place], [place] [phone] 05/14 ACUTE ILLNESS 05/15/2013 Patient Education: Patient Medication Summary Completed 05/15/2013 Appointment: Ophelia Aguillon WPtel: [address] [place], [place] [phone] FOLLOW UP 12/13/2012 Visit Plan: Note for fever free 24 hours . Discussed fluids and rest. Clarified in verbal message that Levaquin should be QD dosing. Codeine/guiaf cough syrup. Flu test negative. Pt. to notify if symptoms worsen or fever persists. Discussed Rocephin IM and or lab/chest x-rays if symptoms persist. 11/07/2012 Appointment: Batsheva Bennett WPtel: [address] [place], [place] [phone] ACUTE ILLNESS 11/07/2012 Patient Education: Patient Medication Summary Completed 11/07/2012 Visit Plan: Continue fluoxetine at 30mg daily Stess Reducers 09/18/2012 Appointment: Ophelia Aguillontel: [address] [place], [place] [phone] FOLLOW UP 09/18/2012 Patient Education: Patient Medication Summary Completed 09/18/2012 Visit Plan: Increase fish oil to 3gm poonam ly Step 1 Cardiac Diet Repeat CMP and lipids in 6mos Pt has DCed Fluoxetine and so far doing okay Will focus on stress reducers 06/13/2012 Appointment: Ophelia Aguillon WPtel: [address] [place] [address] FOLLOW UP 06/13/2012 Patient Education: Patient Medication Summary Completed 06/13/2012 Appointment: Ophelia Aguillon WPtel: [address] [place] [address] [place] LAB 06/11/2012 Patient Education: Patient Medication Summary Completed 06/11/2012 Visit Plan: Decrease fluoxetine back to 30mg daily Check fasting lab in 3mos ENT for tinnitus/hearing loss 12/21/2011 Appointment: Ophelia Aguillontel: [address] [place] [address] FOLLOW UP 12/21/2011 Patient Education: Patient Medication Summary Completed 12/21/2011 Visit Plan: Increase fluoxetine to 40mg daily 09/28/2011 Appointment: Ophelia Aguillon WPtel: [address] [place] [address] [place] FOLLOW UP 09/28/2011 Patient Education: Patient Medication Summary Completed 09/28/2011 Visit Plan: Increase fluoxetine to 30mg daily Call in 2wks 04/06/2011 Appointment: Ophelia Aguillon WPtel: [address] [place] [place] [address] FOLLOW UP 04/06/2011 Patient Education: Patient Medication Summary Completed 04/06/2011 Appointment: Ophelia Aguillon WPtel: [phone] [id number] [place] NEW PATIENT 03/03/2011 Patient Education: Patient Medication Summary Completed 03/03/2011 Referral: Saurabh Beatty WPtel: [phone] [id number] [place] Referral Completed Instructions Comment . 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
--- OUTSIDE RECORDS SUMMARY | 2020-03-06 17:12 | XMS REPORT | CCD ---
Author Author Sofia Aguillon D.O. Organization [facility] Address [address] [place] [address] Phone Care Team Providers Care Sales Agent Trading Stamps Name Role Phone PP Unavailable CCM Unavailable Summary Purpose Interface Exchange Insurance Providers Payer name Policy type / Coverage type Covered green party ID Effective Begin Date Effective End Date Blue Cross Blue Shield Blue Cross/Blue Shield [id number] Unknown Family History Family History data not found Social History Social History Element Codes Description Effective Dates Marital status Unknown 03/03/2011 Number of children Unknown 3 03/03/2011 Employment Unknown Currently employed [employer] on Request/USD 250 03/03/[address]: 177510217 Never smoker 03/03/[address]: 503323880 Never drinks alcohol 2010 Allergies, Adverse Reactions, [...] Instructions [facility] Allergy 180 mg tablet RxNorm: 553714 1 Tablet(s) PO QD 02/0505/23/2018 Inactive Medrol (Vick) 4 mg tablets in a dose pack RxNorm: 457599 As directed Tablet(s) PO QD 02/23/2018 02/27/2018 Inactive alprazolam 0.25 mg tablet RxNorm: 777004 TAKE 1/2 TABLE T TWO TIMES A DAY NEEDED FOR SEVERE STRESS 03/27/2015 04/15/2015 Inactive fluoxetine 10 mg tablet RxNorm: 032497 3 Tablet(s) PO QAM 03/27/2015 09/06/2017 Inactive for 1week then 2 po qam alprazolam 0.25 mg tablet RxNorm: 105460 TAKE ONE-HALF TABLET BY MOUTH TWICE A DAY NEEDED FOR SEVERE STRESS 07/24/2014 03/27/2015 Inactive (Response to an electronic controlled substance refill request - RxReferenceNumber: [id number]) fluoxetine 10 mg tablet RxNorm: 224606 3 Tablet(s) PO QAM 05/26/2014 03/27/2015 Inactive for 1week then 2 po qAM [SAVINGS FOR UNI NSURED PATIENTS -- BIN:[id number], PCN: [id number], Group: [id number], ID# [id number], Process claim through [employer], for questions: . THIS IS NOT INSURANCE.] Bactrim DS 800 mg-160 mg tablet RxNorm: 672717 1 Tablet(s) PO BID 1 05/21/2013 Inactive prednisone 20 mg tablet RxNorm: 148117 1 Tablet(s) PO BID 05/15/2013 05/21/2013 Inactive Levaquin 750 mg tablet RxNorm: 197955 1 Tablet(s) PO BID 11/07/2012 0 11/16/2012 Inactive fluoxetine 10 mg tablet RxNorm: 716356 3 Tablet(s) PO QAM 09/18/2012 03/16/2013 Inactive for 1week then 2 po qAM fluoxetine 10 mg tablet RxNorm: 930813 3 Tablet(s) PO QAM 12/21/2011 06/12/2012 Inactive for 1week then 2 po qAM fluoxetine 10 mg Tab RxNorm: 943059 3 Tablet(s) PO QAM 10/20/2011 Inactive for 1week then 2 po qAM Vaniqa 13.9 % Topical Cream RxNorm: 283439 1 Application TOP BID 12/20/2011 Inactive fluoxetine 40 mg Cap RxNorm: 124063 1 Capsule(s) PO QD 09/28/2011 Inactive fluoxetine 10 mg Cap RxNorm: 276444 3 Capsule(s) PO QD 06/21/201107/2012 Inactive fluoxetine 10 mg Tab RxNorm: 957211 3 Tablet(s) PO QD 04/26/201105/07 Inactive Xanax 0.25 mg Tab RxNorm: 656574 1/2 Tablet(s) PO BID 03/03/201103/07 Inactive prn severe stress alprazolam 0.25 mg tablet RxNorm: 819312 1/2 Tablet(s) PO BID as needed for anxiety No Start Date 02/22/2018 Inactive Medrol (Vick) 4 mg tablets in a dose pack RxNorm: 973782 Tablet(s) PO as directed No Start Date 05/14/2013 Inactive Fish Oil 1,000 mg Cap RxNorm: 1 Capsule(s) PO BID No Start Date Inactive fluoxetine 10 mg Cap RxNorm: 218917 2 Capsule(s) PO QD No Start Date 06/20/2011 Inactive fluoxetine 10 mg Cap RxNorm: 977997 3 Capsule(s) PO QD No Start Date 09/27/2011 Inactive alprazolam 0.25 mg Tab RxNorm: 862720 1/2 Tablet(s) PO BID No Start Date 07/24/2014 Inactive as needed fluoxetine 10 mg Tab RxNorm: 830158 1 Tablet(s) PO QAM No Start Date 10/19/2011 Inactive for 1week then 2 po qAM Vaniqa 13.9 % Topical Cream RxNorm: 129733 1 Application TOP BID No Start Date 09/27/2011 Inactive fluoxetine 20 mg capsule RxNorm: 264151 1 Capsule(s) PO QD No Start Date 02/22/2018 Inactive Vitamin D3 1000 units Capsule RxNorm: 1 Capsule(s) PO QD No St art Date 09/06/2017 Inactive Prozac 20 mg capsule RxNorm: 409774 1 Capsule(s) PO QD No Start Date 07/23/2013 Inactive Medication Administered No Medication Administered data Immunizations Vaccine Codes Date Status Shingrix Unknown 01/15/2018 Complete Zostavax CVX: 121 11/16/2017 Results Observation Observation Code Item Item Code Result Date [facility] COMPLETE BLOOD COUNT [id number] WBC 5.5 10e9/L 02/04/20 20 Unknown COMPLETE BLOOD COUNT [id number] RBC 4.56 10e12/L 2019 Unknown COMPLETE BLOOD COUNT 3998655 HEMOGLOBIN 14.5 g/dL 02/04/20 20 Unknown COMPLETE BLOOD COUNT [id number] HEMATOCRIT 44.1 % 02/04/20 20 Unknown COMPLETE BLOOD COUNT 9096531 MCV 96.7 fL 0 Unknown COMPLETE BLOOD COUNT 2166955 MCH 31.8 pg 0 Unknown COMPLETE BLOOD COUNT 0611285 MCHC 32.9 g/dL 0 Unknown COMPLETE BLOOD COUNT [id number] PLATELET COUNT 232 10e9/L Unknown COMPLETE BLOOD COUNT 6584492 Mean Plt Volume 11.4 fL Unknown COMPLETE BLOOD COUNT 8064093 Neut Auto 55.7 % 0 Unknown COMPLETE BLOOD COUNT 0970599 Lymph Auto 31.3 % 02/04/20 20 Unknown COMPLETE BLOOD COUNT 0369682 Brule Auto 10.0 % 0 Unknown COMPLETE BLOOD COUNT 8779937 RDW 13.7 % 0 Unknown COMPLETE BLOOD COUNT 3346499 Eos Auto 2.5 % 0 Unknown COMPLETE BLOOD COUNT 2702878 Baso Auto 0.5 % 0 Unknown COMPLETE BLOOD COUNT 6753638 Neutrophil Abs 3.06 10e9/L Unknown COMPLETE BLOOD COUNT 0613596 Lymphocyte Abs 1.72 10e9/L Unknown COMPLETE BLOOD COUNT 5136106 Monocyte Abs 0.55 10e9/L 01/07 Unknown COMPLETE BLOOD COUNT 4109343 Eosinophil Abs 0.14 10e9/L Unknown COMPLETE BLOOD COUNT 5033389 RDW-SD 47.5 fL 0 Unknown COMPLETE BLOOD COUNT 8096116 Basophil Abs 0.03 10e9/L 01/07 Unknown FREE T4 87568 T4 Free 1.25 ng/dL 09/04/2017 Unknown COMPLETE BLOOD COUNT 2618659 WBC 5.9 10e9/L 09/04/19 18 Unknown COMPLETE BLOOD COUNT 4995042 RBC 4.35 10e12/L 2017 Unknown COMPLETE BLOOD COUNT 9283579 HEMOGLOBIN 14.0 g/dL 09/04/19 18 Unknown COMPLETE BLOOD COUNT 2849101 HEMATOCRIT 41.6 % 09/04/19 18 Unknown COMPLETE BLOOD COUNT 5255265 MCV 95.6 fL 8 Unknown COMPLETE BLOOD COUNT 5422802 MCH 32.2 pg 8 Unknown COMPLETE BLOOD COUNT 8225938 MCHC 33.7 g/dL 8 Unknown COMPLETE BLOOD COUNT 5839238 PLATELET COUNT 239 10e9/L Unknown COMPLETE BLOOD COUNT 7464548 Mean Plt Volume 10.8 fL Unknown COMPLETE BLOOD COUNT 9323711 Neut Auto 53.2 % 8 Unknown COMPLETE BLOOD COUNT 1326069 Lymph Auto 35.6 % 09/04/19 18 Unknown COMPLETE BLOOD COUNT 5664584 Brule Auto 9.6 % 8 Unknown COMPLETE BLOOD COUNT 5084616 RDW 13.2 % 8 Unknown COMPLETE BLOOD COUNT 2078385 Eos Auto 1.4 % 8 Unknown COMPLETE BLOOD COUNT 1413448 Baso Auto 0.2 % 8 Unknown COMPLETE BLOOD COUNT 3435412 Neutrophil Abs 3.14 10e9/L Unknown COMPLETE BLOOD COUNT 8339078 Lymphocyte Abs 2.10 10e9/L Unknown COMPLETE BLOOD COUNT 9571812 Monocyte Abs 0.57 10e9/L 08/08 Unknown COMPLETE BLOOD COUNT 4458946 Eosinophil Abs 0.08 10e9/L Unknown COMPLETE BLOOD COUNT 7727095 RDW-SD 44.7 fL 8 Unknown COMPLETE BLOOD COUNT 0345021 Basophil Abs 0.01 10e9/L 08/08 Unknown COMPREHENSIVE METABOLIC 97945 AST 26 U/L 2017 Unknown COMPREHENSIVE METABOLIC 64962 ALT 40 U/L 2017 Unknown COMPREHENSIVE METABOLIC 20243 BUN 6 mg/dL 2017 Unknown COMPREHENSIVE METABOLIC 71629 ALBUMIN 5.3 g/dL 2017 Unknown COMPREHENSIVE METABOLIC 74520 CHLORIDE 102 mmol/L 09/04 Unknown COMPREHENSIVE METABOLIC 71721 Bili Total 0.7 mg/dL 09/04 Unknown COMPREHENSIVE METABOLIC 64322 ALK PHOS 56 U/L 2017 Unknown COMPREHENSIVE METABOLIC 41819 SODIUM 139 mmol/L 09/04 Unknown COMPREHENSIVE METABOLIC 35040 CREATININE 0.61 mg/dL 08/08 Unknown COMPREHENSIVE METABOLIC 75983 CALCIUM 9.8 mg/dL 2017 Unknown COMPREHENSIVE METABOLIC 75321 POTASSIUM 3.8 mmol/L 09/04 Unknown COMPREHENSIVE METABOLIC 45923 Total Protein 7.7 g/dL Unknown COMPREHENSIVE METABOLIC 72334 Glucose 95 mg/dL 2017 Unknown COMPREHENSIVE METABOLIC 28869 Bicarbonate 30 mmol/L 08/08 Unknown COMPREHENSIVE METABOLIC 17916 AGAP 7 mmol/L 2017 Unknown GFR CALC 2059832 GFR Non Afr Amr >60 mL/min 09/04/2017 Un known GFR CALC 3890115 GFR Afr Amr >60 mL/min 09/04/2017 Unknow n THYROID STIMULATING HORMONE 28630 TSH 1.454 uIU/mL 09/04/2017 Unknown LIPID GROUP 04422 Cholesterol 218 mg/dL 09/04/2017 Unkno wn LIPID GROUP 71988 Triglyceride 135 mg/dL 09/04/2017 Unkn own LIPID GROUP 35183 HDL CHOLESTEROL 52 09/04/2017 U nknown LIPID GROUP 57750 Chol/HDL Ratio 4.19 ratio 09/04/2017 U nknown LIPID GROUP 24100 NON-HDL Chol 166 mg/dL 09/04/2017 Unkn own LIPID GROUP 82302 LDL Cholesterol 139 mg/dL 09/04/2017 U nknown FREE T4 05268 FREE T4 1.15 NG/DL 01/07/2015 Unknown THYROID STIMULATING HORMONE 63317 TSH 1.927 uIU/ML 01/07/2015 Unknown LIPID GROUP 67702 HDL TEST 53 MG/DL 01/07/2015 Unknown LIPID GROUP 94925 TRIG 215 MG/DL 01/07/2015 Unknown LIPID GROUP 65022 TEST LDL 194 MG/DL 01/07/2015 Unknown LIPID GROUP 29887 CHOL 290 MG/DL 01/07/2015 Unknown LIPID GROUP 34153 RCHOL/HDL 5.47 RATIO 01/07/2015 Unknow n LIPID GROUP 37095 NON-HDL CH 237 MG/DL 01/07/2015 Unknow n GFR CALC 2745815 GFR AA >60 ML/MIN 01/07/2015 Unknown GFR CALC 6876674 GFR NON-AA >60 ML/MIN 01/07/2015 Unknown COMPLETE BLOOD COUNT 9484384 WBC 5.9 10e9/L 01/08/20 15 Unknown COMPLETE BLOOD COUNT 5694597 RBC 4.35 10e12/L 2014 Unknown COMPLETE BLOOD COUNT 5563269 HGB 14.2 g/dL 5 Unknown COMPLETE BLOOD COUNT 3432472 HCT DET 42.0 % 5 Unknown COMPLETE BLOOD COUNT 5057903 MCV 96.6 fL 5 Unknown COMPLETE BLOOD COUNT 4205403 MCH 32.6 pg 5 Unknown COMPLETE BLOOD COUNT 7882211 MCHC 33.8 g/dL 5 Unknown COMPLETE BLOOD COUNT 5897958 PLT 227 10e9/L 01/08/20 15 Unknown COMPLETE BLOOD COUNT 5620700 MPV 11.4 fL 5 Unknown COMPLETE BLOOD COUNT 1179628 PRITI % 54.2 % 5 Unknown COMPLETE BLOOD COUNT 1419561 LY % 33.8 % 5 Unknown COMPLETE BLOOD COUNT 9172402 MON % 8.8 % 5 Unknown COMPLETE BLOOD COUNT 7665686 EOS % 2.9 % 5 Unknown COMPLETE BLOOD COUNT 0460701 BASO % 0.3 % 5 Unknown COMPLETE BLOOD COUNT 7848688 RDW 13.6 % 5 Unknown COMPLETE BLOOD COUNT 4758433 ABS PRITI 3.20 10e9/L 015 Unknown COMPLETE BLOOD COUNT 1608044 ABS LYMPH 1.99 10e9/L 015 Unknown COMPLETE BLOOD COUNT 4704858 ABS MONO 0.52 10e9/L 015 Unknown COMPLETE BLOOD COUNT 8916729 ABS EOS 0.17 10e9/L 015 Unknown COMPLETE BLOOD COUNT 9297697 ABS BASO 0.02 10e9/L 015 Unknown COMPLETE BLOOD COUNT 2246122 RDW-SD 47.0 fL 5 Unknown COMPREHENSIVE METABOLIC 44128 AST 20 U/L 2014 Unknown COMPREHENSIVE METABOLIC 41650 ALT 30 IU/L 2014 Unknown COMPREHENSIVE METABOLIC 69934 BUN 12 MG/DL 2014 Unknown COMPREHENSIVE METABOLIC 60127 ALBUMIN 4.4 GM/DL 2014 Unknown COMPREHENSIVE METABOLIC 66024 CHLORIDE 102 MMOL/L 01/07 Unknown COMPREHENSIVE METABOLIC 11876 BILI TOT 0.6 MG/DL 2014 Unknown COMPREHENSIVE METABOLIC 16119 ALK PHOS 76 U/L 2014 Unknown COMPREHENSIVE METABOLIC 95261 SODIUM 139 MMOL/L 01/07 Unknown COMPREHENSIVE METABOLIC 08581 CREATININE 0.77 MG/DL 10/2014 Unknown COMPREHENSIVE METABOLIC 94703 CALCIUM 9.2 MG/DL 2014 Unknown COMPREHENSIVE METABOLIC 86915 POTASSIUM 4.1 MMOL/L 01/07 Unknown COMPREHENSIVE METABOLIC 22270 PROT TOT 7.1 GM/DL 2014 Unknown COMPREHENSIVE METABOLIC 23297 Glucose 107 MG/DL 2014 Unknown COMPREHENSIVE METABOLIC 74185 BICARB 30 MMOL/L 2014 Unknown COMPREHENSIVE METABOLIC 39490 ANION GAP 7 MEQ/L 2014 Unknown LIPID GROUP 01825 HDL TEST 48 MG/DL 07/22/2013 Unknown LIPID GROUP 52632 TRIG 176 MG/DL 07/22/2013 Unknown LIPID GROUP 74766 TEST LDL 161 MG/DL 07/22/2013 Unknown LIPID GROUP 02789 CHOL 244 MG/DL 07/22/2013 Unknown LIPID GROUP 63098 RCHOL/HDL 5.08 RATIO 07/22/2013 Unknow n COMPLETE BLOOD COUNT 1635500 WBC 5.8 10e9/L 07/22/20 13 Unknown COMPLETE BLOOD COUNT 6719587 RBC 4.45 10e12/L 2012 Unknown COMPLETE BLOOD COUNT 6036189 HGB 14.6 g/dL 3 Unknown COMPLETE BLOOD COUNT 8401328 HCT DET 43.8 % 3 Unknown COMPLETE BLOOD COUNT 7139658 MCV 98.4 fL 3 Unknown COMPLETE BLOOD COUNT 9347598 MCH 32.8 pg 3 Unknown COMPLETE BLOOD COUNT 9774721 MCHC 33.3 g/dL 3 Unknown COMPLETE BLOOD COUNT 3843248 PLT 270 10e9/L 07/22/20 13 Unknown COMPLETE BLOOD COUNT 8996227 MPV 11.4 fL 3 Unknown COMPLETE BLOOD COUNT 1831044 PRITI % 54.2 % 3 Unknown COMPLETE BLOOD COUNT 4443658 LY % 33.2 % 3 Unknown COMPLETE BLOOD COUNT 5602282 MON % 9.2 % 3 Unknown COMPLETE BLOOD COUNT 2777598 EOS % 3.1 % 3 Unknown COMPLETE BLOOD COUNT 4618292 BASO % 0.3 % 3 Unknown COMPLETE BLOOD COUNT 2133187 RDW 13.8 % 3 Unknown COMPLETE BLOOD COUNT 5702666 ABS PRITI 3.14 10e9/L 013 Unknown COMPLETE BLOOD COUNT 6887709 ABS LYMPH 1.93 10e9/L 013 Unknown COMPLETE BLOOD COUNT 5863038 ABS MONO 0.53 10e9/L 013 Unknown COMPLETE BLOOD COUNT 8008402 ABS EOS 0.18 10e9/L 013 Unknown COMPLETE BLOOD COUNT 6247553 ABS BASO 0.02 10e9/L 013 Unknown COMPLETE BLOOD COUNT 7320922 RDW-SD 48.4 fL 3 Unknown GFR CALC 2101359 GFR AA >60 ML/MIN 07/22/2013 Unknown GFR CALC 8653860 GFR NON-AA >60 ML/MIN 07/22/2013 Unknown THYROID STIMULATING HORMONE 19272 TSH 1.645 uIU/ML 07/22/2013 Unknown COMPREHENSIVE METABOLIC 98219 AST 23 U/L 2012 Unknown COMPREHENSIVE METABOLIC 96129 ALT 30 IU/L 2012 Unknown COMPREHENSIVE METABOLIC 86136 BUN 12 MG/DL 2012 Unknown COMPREHENSIVE METABOLIC 87749 ALBUMIN 4.7 GM/DL 2012 Unknown COMPREHENSIVE METABOLIC 26334 CHLORIDE 102 MMOL/L 07/22 Unknown COMPREHENSIVE METABOLIC 06195 BILI TOT 0.5 MG/DL 2012 Unknown COMPREHENSIVE METABOLIC 36584 ALK PHOS 51 U/L 2012 Unknown COMPREHENSIVE METABOLIC 58511 SODIUM 136 MMOL/L 07/22 Unknown COMPREHENSIVE METABOLIC 97523 CREATININE 0.74 MG/DL 07/07 Unknown COMPREHENSIVE METABOLIC 54738 CALCIUM 9.2 MG/DL 2012 Unknown COMPREHENSIVE METABOLIC 00650 POTASSIUM 4.1 MMOL/L 07/22 Unknown COMPREHENSIVE METABOLIC 59867 PROT TOT 7.1 GM/DL 2012 Unknown COMPREHENSIVE METABOLIC 66571 Glucose 107 MG/DL 2012 Unknown COMPREHENSIVE METABOLIC 23039 BICARB 29 MMOL/L 2012 Unknown COMPREHENSIVE METABOLIC 85578 ANION GAP 5 MEQ/L 2012 Unknown FREE T4 83210 FREE T4 0.98 NG/DL 07/22/2013 Unknown COMPLETE BLOOD COUNT 8384479 WBC 4.4 10e9/L 06/11/20 12 Unknown COMPLETE BLOOD COUNT 6816908 RBC 4.18 10e12/L 2011 Unknown COMPLETE BLOOD COUNT 3716389 HGB 13.5 g/dL 2 Unknown COMPLETE BLOOD COUNT 2502847 HCT DET 39.9 % 2 Unknown COMPLETE BLOOD COUNT 2477003 MCV 95.5 fL 2 Unknown COMPLETE BLOOD COUNT 1967091 MCH 32.3 pg 2 Unknown COMPLETE BLOOD COUNT 2865957 MCHC 33.8 g/dL 2 Unknown COMPLETE BLOOD COUNT 6210662 PLT 232 10e9/L 06/11/20 12 Unknown COMPLETE BLOOD COUNT 8130224 MPV 11.3 fL 2 Unknown COMPLETE BLOOD COUNT 3459205 PRITI % 46.4 % 2 Unknown COMPLETE BLOOD COUNT 4136053 LY % 36.4 % 2 Unknown COMPLETE BLOOD COUNT 8582992 MON % 10.5 % 2 Unknown COMPLETE BLOOD COUNT 1383659 EOS % 6.2 % 2 Unknown COMPLETE BLOOD COUNT 6750807 BASO % 0.5 % 2 Unknown COMPLETE BLOOD COUNT 1841843 RDW 13.1 % 2 Unknown COMPLETE BLOOD COUNT 1386239 ABS PRITI 2.04 10e9/L 012 Unknown COMPLETE BLOOD COUNT 9565039 ABS LYMPH 1.60 10e9/L 012 Unknown COMPLETE BLOOD COUNT 4227639 ABS MONO 0.46 10e9/L 012 Unknown COMPLETE BLOOD COUNT 0218766 ABS EOS 0.27 10e9/L 012 Unknown COMPLETE BLOOD COUNT 4786363 ABS BASO 0.02 10e9/L 012 Unknown COMPLETE BLOOD COUNT 3624813 RDW-SD 44.2 fL 2 Unknown THYROID STIMULATING HORMONE 08919 TSH 1.766 uIU/ML 06/11/2012 Unknown COMPREHENSIVE METABOLIC 25282 AST 20 U/L 2011 Unknown COMPREHENSIVE METABOLIC 67242 ALT 23 IU/L 2011 Unknown COMPREHENSIVE METABOLIC 81651 BUN 10 MG/DL 2011 Unknown COMPREHENSIVE METABOLIC 42136 ALBUMIN 4.3 GM/DL 2011 Unknown COMPREHENSIVE METABOLIC 73014 CHLORIDE 103 MMOL/L 06/11 Unknown COMPREHENSIVE METABOLIC 57898 BILI TOT 0.4 MG/DL 2011 Unknown COMPREHENSIVE METABOLIC 34461 ALK PHOS 52 U/L 2011 Unknown COMPREHENSIVE METABOLIC 72969 SODIUM 138 MMOL/L 06/11 Unknown COMPREHENSIVE METABOLIC 68462 CREATININE 0.74 MG/DL 12/2011 Unknown COMPREHENSIVE METABOLIC 87879 CALCIUM 8.8 MG/DL 2011 Unknown COMPREHENSIVE METABOLIC 34592 POTASSIUM 3.7 MMOL/L 06/11 Unknown COMPREHENSIVE METABOLIC 59655 PROT TOT 6.9 GM/DL 2011 Unknown COMPREHENSIVE METABOLIC 28994 Glucose 105 MG/DL 2011 Unknown COMPREHENSIVE METABOLIC 14900 BICARB 29 MMOL/L 2011 Unknown COMPREHENSIVE METABOLIC 46308 ANION GAP 6 MEQ/L 2011 Unknown FREE T4 36716 FREE T4 0.93 NG/DL 06/11/2012 Unknown LIPID GROUP 35522 HDL TEST 39 MG/DL 06/11/2012 Unknown LIPID GROUP 83087 TRIG 243 MG/DL 06/11/2012 Unknown LIPID GROUP 72759 TEST LDL 159 MG/DL 06/11/2012 Unknown LIPID GROUP 56342 CHOL 247 MG/DL 06/11/2012 Unknown LIPID GROUP 39359 RCHOL/HDL 6.33 RATIO 06/11/2012 Unknow n GFR CALC 4609209 GFR AA >60 ML/MIN 06/11/2012 Unknown GFR CALC 2806002 GFR NON-AA >60 ML/MIN 06/11/2012 Unknown VITAMIN D TOTAL (25 HYDROXY) 59613 VIT D TOTL 19 NG/ML 03/04/2011 Unknown COMPLETE BLOOD COUNT 41966 WBC 8.0 10e9/L 03/03/20 11 Unknown COMPLETE BLOOD COUNT 02423 RBC 4.62 10e12/L 2010 Unknown COMPLETE BLOOD COUNT 73197 HGB 14.9 g/dL 1 Unknown COMPLETE BLOOD COUNT 27094 HCT DET 43.6 % 1 Unknown COMPLETE BLOOD COUNT 15236 MCV 94.4 fL 1 Unknown COMPLETE BLOOD COUNT 13808 MCH 32.3 pg 1 Unknown COMPLETE BLOOD COUNT 57543 MCHC 34.2 g/dL 1 Unknown COMPLETE BLOOD COUNT 47787 PLT 236 10e9/L 03/03/20 11 Unknown COMPLETE BLOOD COUNT 57158 MPV 11.0 fL 1 Unknown COMPLETE BLOOD COUNT 15783 PRITI % 66.3 % 1 Unknown COMPLETE BLOOD COUNT 18451 LY % 20.7 % 1 Unknown COMPLETE BLOOD COUNT 38607 MON % 9.2 % 1 Unknown COMPLETE BLOOD COUNT 69643 EOS % 3.5 % 1 Unknown COMPLETE BLOOD COUNT 51549 BASO % 0.3 % 1 Unknown COMPLETE BLOOD COUNT 80866 RDW 13.5 % 1 Unknown COMPLETE BLOOD COUNT 56533 ABS PRITI 5.30 10e9/L 011 Unknown COMPLETE BLOOD COUNT 30717 ABS LYMPH 1.66 10e9/L 011 Unknown COMPLETE BLOOD COUNT 86945 ABS MONO 0.74 10e9/L 011 Unknown COMPLETE BLOOD COUNT 31064 ABS EOS 0.28 10e9/L 011 Unknown COMPLETE BLOOD COUNT 74196 ABS BASO 0.02 10e9/L 011 Unknown COMPLETE BLOOD COUNT 08795 RDW-SD 45.1 fL 1 Unknown THYROID STIMULATING HORMONE 78838 TSH 1.944 uIU/ML 03/03/2011 Unknown FREE T4 43746 FREE T4 1.04 NG/DL 03/03/2011 Unknown LIPID GROUP 71410 HDL TEST 50 MG/DL 03/03/2011 Unknown LIPID GROUP 95725 TRIG 246 MG/DL 03/03/2011 Unknown LIPID GROUP 23021 TEST LDL 213 MG/DL 03/03/2011 Unknown LIPID GROUP 91981 CHOL 312 MG/DL 03/03/2011 Unknown LIPID GROUP 26214 RCHOL/HDL 6.24 RATIO 03/03/2011 Unknow n GFR CALC 3894865 GFR AA >60 ML/MIN 03/03/2011 Unknown GFR CALC 3417242 GFR NON-AA >60 ML/MIN 03/03/2011 Unknown COMPREHENSIVE METABOLIC 24367 AST 15 U/L 2010 Unknown COMPREHENSIVE METABOLIC 98151 ALT 21 IU/L 2010 Unknown COMPREHENSIVE METABOLIC 06519 BUN 14 MG/DL 2010 Unknown COMPREHENSIVE METABOLIC 95588 ALBUMIN 4.5 GM/DL 2010 Unknown COMPREHENSIVE METABOLIC 57427 CHLORIDE 99 MMOL/L 2010 Unknown COMPREHENSIVE METABOLIC 13447 BILI TOT 0.6 MG/DL 2010 Unknown COMPREHENSIVE METABOLIC 50843 ALK PHOS 55 U/L 2010 Unknown COMPREHENSIVE METABOLIC 82245 SODIUM 134 MMOL/L 03/03 Unknown COMPREHENSIVE METABOLIC 83308 CREATININE 0.80 MG/DL 02/05 Unknown COMPREHENSIVE METABOLIC 89627 CALCIUM 9.4 MG/DL 2010 Unknown COMPREHENSIVE METABOLIC 95033 POTASSIUM 4.0 MMOL/L 03/03 Unknown COMPREHENSIVE METABOLIC 90220 PROT TOT 7.4 GM/DL 2010 Unknown COMPREHENSIVE METABOLIC 95270 Glucose 101 MG/DL 2010 Unknown COMPREHENSIVE METABOLIC 40294 BICARB 28 MMOL/L 2010 Unknown COMPREHENSIVE METABOLIC 05256 ANION GAP 7 MEQ/L 2010 Unknown Procedures Procedure Codes Date ROUTINE VENIPUNCTURE CPT-4: 54325 02/04/2020 ASSAY OF FREE THYROXINE CPT-4: 24171 02/04/2020 ASSAY THYROID STIM HORMONE CPT-4: 32826 02/04/2020 COMPREHEN METABOLIC PANEL CPT-4: 82074 02/04/2020 COMPLETE CBC W/AUTO DIFF WBC CPT-4: 44128 02/04/2020 LIPID PANEL CPT-4: 03707 02/04/2020 TB INTRADERMAL TEST CPT-4: 70621 03/19/2018 Removal impacted cerumen using irrigation/lavage, unilateral CPT-4: 44414 02/23/2018 ROUTINE VENIPUNCTURE CPT-4: 64226 09/04/2017 ASSAY THYROID STIM HORMONE CPT-4: 53086 09/04/2017 ASSAY OF FREE THYROXINE CPT-4: 58546 09/04/2017 COMPREHEN METABOLIC PANEL CPT-4: 87761 09/04/2017 COMPLETE CBC W/AUTO DIFF WBC CPT-4: 58813 09/04/2017 LIPID PANEL CPT-4: 25346 09/04/2017 ROUTINE VENIPUNCTURE CPT-4: 83369 01/07/2015 ASSAY OF FREE THYROXINE CPT-4: 88469 01/07/2015 ASSAY THYROID STIM HORMONE CPT-4: 85164 01/07/2015 COMPREHEN METABOLIC PANEL CPT-4: 88261 01/07/2015 COMPLETE CBC W/AUTO DIFF WBC CPT-4: 52793 01/07/2015 LIPID PANEL CPT-4: 07416 01/07/2015 EXC TR-EXT B9+CECILIO 0.5 CM< CPT-4: 90708 08/06/2013 ROUTINE VENIPUNCTURE CPT-4: 95796 07/22/2013 ASSAY OF FREE THYROXINE CPT-4: 72562 07/22/2013 ASSAY THYROID STIM HORMONE CPT-4: 25460 07/22/2013 COMPREHEN METABOLIC PANEL CPT-4: 84049 07/22/2013 COMPLETE CBC W/AUTO DIFF WBC CPT-4: 24076 07/22/2013 LIPID PANEL CPT-4: 94531 07/22/2013 INFLUENZA ASSAY W/OPTIC CPT-4: 74745 11/07/2012 ROUTINE VENIPUNCTURE CPT-4: 47781 06/11/2012 ASSAY OF FREE THYROXINE CPT-4: 86313 06/11/2012 ASSAY THYROID STIM HORMONE CPT-4: 47833 06/11/2012 COMPREHEN METABOLIC PANEL CPT-4: 85780 06/11/2012 COMPLETE CBC W/AUTO DIFF WBC CPT-4: 32862 06/11/2012 LIPID PANEL CPT-4: 15116 06/11/2012 ROUTINE VENIPUNCTURE CPT-4: 88853 03/03/2011 ASSAY OF FREE THYROXINE CPT-4: 20845 03/03/2011 ASSAY THYROID STIM HORMONE CPT-4: 89822 03/03/2011 COMPREHEN METABOLIC PANEL CPT-4: 27785 03/03/2011 COMPLETE CBC W/AUTO DIFF WBC CPT-4: 12787 03/03/2011 LIPID PANEL CPT-4: 53652 03/03/2011 VITAMIN D TOTAL (25 HYDROXY) CPT-4: 31182 03/03/2011 Vital Signs Date Vital 02/23/2018 Blood Pressure 1: 132/84 Code: 8480-6 BMI: 31.6 Code: 59378-0 Heart Rate 1: 76 bpm Height: 5'6" Respiratory Rate: 20 bpm SpO2: 98% Tempera ture: 36.9 (C) / 98.4 (F) Weight: 199 lbs 09/07/2017 Blood Pressure 1: 126/78 Code: 8480-6 BMI: 30.5 Code: 90470-2 Heart Rate 1: 80 bpm Height: 5'6" Respiratory Rate: 20 bpm SpO2: 98% Tempera ture: 37.2 (C) / 98.9 (F) Weight: 192 lbs 01/12/2015 Blood Pressure 1: 132/74 Code: 8480-6 BMI: 29.4 Code: 12528-4 Heart Rate 1: 92 bpm Height: 5'6" Respiratory Rate: 20 bpm Temperature: 36 .7 (C) / 98.1 (F) Weight: 185 lbs 08/06/2013 Blood Pressure 1: 114/80 Code: 8480-6 BMI: 30.7 Code: 74349-6 Heart Rate 1: 80 bpm Height: 5'6" Respiratory Rate: 20 bpm Temperature: 37 .2 (C) / 99.0 (F) Weight: 193 lbs 07/24/2013 Blood Pressure 1: 124/68 Code: 8480-6 BMI: 30.7 Code: 49081-6 Heart Rate 1: 80 bpm Height: 5'6" Respiratory Rate: 20 bpm Temperature: 36 .9 (C) / 98.5 (F) Weight: 193 lbs 06/13/2013 Blood Pressure 1: 124/70 Code: 8480-6 BMI: 31.8 Code: 06527-4 Heart Rate 1: 88 bpm Height: 5'6" Respiratory Rate: 20 bpm Temperature: 36 .8 (C) / 98.2 (F) Weight: 200 lbs 05/15/2013 Blood Pressure 1: 120/80 Code: 8480-6 BMI: 30.8 Code: 50218-2 Heart Rate 1: 82 bpm Height: 5'6" Respiratory Rate: 22 bpm Temperature: 36 .2 (C) / 97.1 (F) Weight: 194 lbs 11/07/2012 Blood Pressure 1: 146/88 Code: 8480-6 BMI: 31.0 Code: 79046-7 Heart Rate 1: 108 bpm Height: 5'7" Respiratory Rate: 20 bpm SpO2: 95% Tempera ture: 38.2 (C) / 100.8 (F) Weight: 198 lbs 09/18/2012 Blood Pressure 1: 114/76 Code: 8480-6 Heart Rate 1: 88 bpm Respiratory Rate: 20 bpm Temperature: 37.1 (C) / 98.8 (F) Weight: 195 lbs 06/13/2012 Blood Pressure 1: 110/64 Code: 8480-6 BMI: 30.4 Code: 66177-7 Heart Rate 1: 64 bpm Height: 5'7" Temperature: 36.9 (C) / 98.4 (F) Weight: 194 lbs 12/21/2011 Blood Pressure 1: 116/80 Code: 8480-6 BMI: 30.7 Code: 44953-9 Heart Rate 1: 72 bpm Height: 5'7" Respiratory Rate: 20 bpm Temperature: 37 .0 (C) / 98.6 (F) Weight: 196 lbs 09/28/2011 Blood Pressure 1: 116/78 Code: 8480-6 BMI: 29.6 Code: 35451-3 Heart Rate 1: 88 bpm Height: 5'7" Respiratory Rate: 20 bpm Temperature: 36 .9 (C) / 98.5 (F) Weight: 189 lbs 04/06/2011 Blood Pressure 1: 132/80 Code: 8480-6 Heart Rate 1: 72 bpm Respiratory Rate: 20 bpm Temperature: 37.2 (C) / 99.0 (F) Weight: 185 lbs 03/03/2011 Blood Pressure 1: 114/80 Code: 8480-6 BMI: 29.6 Code: 79543-6 Heart Rate 1: 80 bpm Height: 5'7" [...] Visit Encounters Encounter Performer Location Codes Date ([id number]) NURSE/OUTPATIENT VISIT EST Diagnosis: Encounter for general adult medical examination without abnormal findings[ICD10: Z00.00] Diagnosis: Malaise and fatigue[ICD10: R53.81] Diagnosis: Mixed hyperlipidemia[ICD10: E78.2] Ophelia MCCORD [facility] CPT-4: 42577 02/04/2020 ([id number]) NURSE/OUTPATIENT VISIT EST Diagnosis: SCREENING-PULMONARY TB[ICD10: Z11.1] Ophelia GALINDO [facility] CPT-4: 69111 03/19/2018 OFFICE/OUTPATIENT VISIT EST Diagnosis: Allergic rhinitis, unspecified[ICD10: J30.9] Diagnosis: Impacted cerumen, right ear[ICD10: H61.21] Cassandra Bliss [facility] CPT-4: 02575 02/23/2018 ([id number]) PREV VISIT EST AGE 40-64 Diagnosis: Encounter for general adult medical examination without abnormal findings[ICD10: Z00.00] Diagnosis: Mixed hyperlipidemia[ICD10: E78.2] Opheliadanii AGUILLON DO [employer] CPT-4: 31603 09/07/2017 ([id number]) OFFICE/OUTPATIENT VISIT EST Diagnosis: Encounter for general adult medical examination without abnormal findings[ICD10: Z00.00] Diagnosis: Mixed hyperlipidemia[ICD10: E78.2] Ophelia ORTAJUDY AGUILLON DO [employer] CPT-4: 90624 09/04/2017 ([id number]) PREV VISIT EST AGE 40-64 Diagnosis: ROUTINE MEDICAL EXAM[ICD9: V70.0] Diagnosis: HYPERLIPIDEMIA NEC/NOS[ICD9: 272.4] Diagnosis: ANXIETY STATE NOS[ICD9: 300.00] Ophelianaeem Aguillon OPHELIA Izaiah AGUILLON [employer] CPT-4: 49382 01/12/2015 ([id number]) OFFICE/OUTPATIENT VISIT EST Diagnosis: ROUTINE MEDICAL EXAM[ICD9: V70.0] Diagnosis: MALAISE AND FATIGUE[ICD9: 780.79] Diagnosis: HYPERLIPIDEMIA NEC/NOS[ICD9: 272.4] Ophelia TRUONG Izaiah AGUILLON [employer] CPT-4: 53785 01/07/2015 ([id number]) PREV VISIT EST AGE 40-64 Diagnosis: ROUTINE MEDICAL EXAM[ICD9: V70.0] Diagnosis: HYPERLIPIDEMIA NEC/NOS[ICD9: 272.4] Diagnosis: ANXIETY STATE NOS[ICD9: 300.00] Ophelia Prateeklarisa OPHELIA Izaiah AGUILLON DO [employer] CPT-4: 61351 07/24/2013 ([id number]) OFFICE/OUTPATIENT VISIT EST Diagnosis: HYPERLIPIDEMIA NEC/NOS[ICD9: 272.4] Diagnosis: ROUTINE MEDICAL EXAM[ICD9: V70.0] Ophelia Colon Izaiah DESOUZANDROBINSON [employer] CPT-4: 64615 07/22/2013 ([id number]) OFFICE/OUTPATIENT VISIT EST Diagnosis: BENIGN KACEY SKIN[ICD9: 216.9] Ophelianaeem AGUILLON [facility] CPT-4: 43781 06/13/2013 ([id number]) OFFICE/OUTPATIENT VISIT EST Diagnosis: Nasal lesion[ICD9: 478.19] Diagnosis: Changing mole[ICD9: 216.9] Diagnosis: ALLERGIC RHINITIS[ICD9: 477.9] Ophelia AGUILLON DO [facility] CPT-4: 18088 05/15/2013 OFFICE/OUTPATIENT VISIT EST Diagnosis: COUGH[ICD9: 786.2] Diagnosis: FEBRILE ILLNESS[ICD9: 780.60] Diagnosis: SINUSITIS, ACUTE[ICD9: 461.9] Ophelia AGUILLON DO [facility] CPT-4: 37558 11/07/2012 OFFICE/OUTPATIENT VISIT EST Diagnosis: ACUTE STRESS REACT[ICD9: 308.9] Diagnosis: ANXIETY STATE NOS[ICD9: 300.00] Ophelia ORTALINE Izaiah AGUILLON DO [facility] CPT-4: 19527 09/18/2012 ([id number]) PREV VISIT EST AGE 40-64 Diagnosis: ROUTINE MEDICAL EXAM[ICD9: V70.0] Diagnosis: HYPERLIPIDEMIA NEC/NOS[ICD9: 272.4] Diagnosis: ANXIETY STATE NOS[ICD9: 300.00] Ophelia AGUILLON [facility] CPT-4: 01876 06/13/2012 ([id number]) OFFICE/OUTPATIENT VISIT EST Diagnosis: ROUTINE MEDICAL EXAM[ICD9: V70.0] Ophelai Prateeklarias Colon JocelynRmain ARMANI [employer] [facility] CPT-4: 45589 06/11/2012 OFFICE/OUTPATIENT VISIT EST Diagnosis: INSOMNIA NOS[ICD9: 780.52] Diagnosis: ACUTE STRESS REACT[ICD9: 308.9] Diagnosis: Tinnitus[ICD9: 388.30] Diagnosis: HYPERLIPIDEMIA NEC/NOS[ICD9: 272.4] Ophelia TRUONG JocelynRamin ARMANI [employer] [facility] CPT-4: 65986 12/21/2011 OFFICE/OUTPATIENT VISIT EST Diagnosis: ACUTE STRESS REACT[ICD9: 308.9] Ophelia Prateekstonerobinson HANKSOPHELIA JocelynRamin ARMANI [employer] [facility] CPT-4: 54357 09/28/2011 OFFICE/OUTPATIENT VISIT EST Diagnosis: ACUTE STRESS REACT[ICD9: 308.9] Ophelia AGUILLON DO [employer] CPT-4: 97297 04/06/2011 OFFICE/OUTPATIENT VISIT NEW Ophelia BALDWIN DO [employer] CPT- 4: 44714 03/03/2011 Plan of Care Planned Activity Notes Codes Status Date Appointment: Ophelia Aguillon WPtel: [address] [place] [address] [place] TB Test read 03/21/2018 Patient Education: Patient Medication Summary Completed 03/21/2018 Appointment: Ophelia Aguillon WPtel: [address] [place] [address] TB Test 03/19/2018 Patient Education: Patient Medication [...] improvement, RTC 02/23/2018 Appointment: Cassandra Camejo WPtel: [address] [place] [address] ACUTE ILLNESS 02/23/2018 Patient Education: Patient Medication Summary Completed 02/23/2018 Visit Diagnosis Plan: [facility] abnormal findings Discussion: Lab discussed Add Calcium wi th Vitamin D3 daily Continue walking and add yoga for weight bearing Praised lower cholesterol efforts 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 for [employer] and Mammogram up to date ICD-9 : V70.0 ICD-10 : Z00.00 09/07/2017 Appointment: Ophelia Aguillon WPtel: [address] [place], [place] [phone] Annual Well Visit 09/07/2017 Patient Education: Patient Medication Summary Completed 09/07/2017 Appointment: Ophelia Aguillon WPtel: [id number] [place] LAB 09/04/2017 Patient Education: Patient Medication Summary Completed 09/04/2017 Visit Plan: Lab discussed Schedule colon oscopy Keep meds same Defers statin and will add fish oil and aspirin 81mg daily with diet/exercise and recheck lipids in 4mos Sees 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 PROGRAMS next month Discussed is high risk for CAD due to family history and hyperlipidemia 01/12/2015 Appointment: Ophelia Aguillon WPtel: [address] [place], [place] [phone] confirmed -mf Annual Well Visit 01/12/2015 Patient Education: Patient Medication Summary Completed 01/12/2015 Appointment: Opheila Aguillon WPtel: [address] [place], [place] [phone] LAB 01/07/2015 Patient Education: Patient Medication Summary Completed 01/07/2015 Appointment: Sarah Wong WPtel: [address] [place], [place] [phone] FOLLOW UP 02/26/2014 Appointment: Ophelia Aguillon WPtel: [address] [place], [place] [phone] 01/07 patient canceled FOLLOW UP 4 Visit Plan: Removal of lesion as above 08/06/2013 Appointment: Ohpelia Aguillon WPtel: [address] [place], [place] [phone] OFFICE SURGERY 08/06/2013 Patient Education: Patient Medication Summary Completed 08/06/2013 Visit Plan: Daily fish oil 3grams, Vitam in D 1000u daily, Coenzyme Q-10 200mg daily Diet/exercise/weight loss Recheck lipids in 6mos Discussed statins Pt has mammo next month 07/24/2013 Appointment: Ophelia Aguillon WPtel: [address] [place], [place] [phone] 07/23 Annual Well Visit 07/24/2013 Patient Education: Patient Medication Summary Completed 07/24/2013 Appointment: Ophelia Aguillon WPtel: [address] [place], [place] [phone] LAB 07/22/2013 Patient Education: Patient Medication Summary Completed 07/22/2013 Referral: Ophelia Aguillon WPtel: [address] [place] [address] Referral Initiated 06/17/2013 Visit Plan: Skin So Soft to right nasal area q HS next month then observe If something comes back then will see ENT for removal 06/13/2013 Appointment: Ophelia Aguillon WPtel: [address] [place] [address] 06/12 FOLLOW UP 06/13/2013 Patient Education: Patient Medication Summary Completed 06/13/2013 Visit Plan: Bactrim DS 1 po BID for 1wk, Prednisone 20mg po BID for 1wk Zyrtec daily If lesion persists will see Dr. Low for removal 05/15/2013 Appointment: Ophelia Aguillon WPtel: [address] [place] [address] 05/14 ACUTE ILLNESS 05/15/2013 Patient Education: Patient Medication Summary Completed 05/15/2013 Appointment: Ophelia Aguillon WPtel: [address] [place] [address] FOLLOW UP 12/13/2012 Visit Plan: Note for fever free 24 hours . Discussed fluids and rest. Clarified in verbal message that Levaquin should be QD dosing. Codeine/guiaf cough syrup. Flu test negative. Pt. to notify if symptoms worsen or fever persists. Discussed Rocephin IM and or lab/chest x-rays if symptoms persist. 11/07/2012 Appointment: Batsheva Bennett WPtel: [address] [place] [address] ACUTE ILLNESS 11/07/2012 Patient Education: Patient Medication Summary Completed 11/07/2012 Visit Plan: Continue fluoxetine at 30mg daily Stess Reducers 09/18/2012 Appointment: Ophelia Aguillon WPtel: [address] [place] [address] FOLLOW UP 09/18/2012 Patient Education: Patient Medication Summary Completed 09/18/2012 Visit Plan: Increase fish oil to 3gm poonam ly Step 1 Cardiac Diet Repeat CMP and lipids in 6mos Pt has DCed Fluoxetine and so far doing okay Will focus on stress reducers 06/13/2012 Appointment: Ophelia Aguillontel: [address] [place] [address] FOLLOW UP 06/13/2012 Patient Education: Patient Medication Summary Completed 06/13/2012 Appointment: Ophelia Aguillon WPtel: [address] [place] [address] LAB 06/11/2012 Patient Education: Patient Medication Summary Completed 06/11/2012 Visit Plan: Decrease fluoxetine back to 30mg daily Check fasting lab in 3mos ENT for tinnitus/hearing loss 12/21/2011 Appointment: Ophelia Aguillontel: [address] [place] [address] FOLLOW UP 12/21/2011 Patient Education: Patient Medication Summary Completed 12/21/2011 Visit Plan: Increase fluoxetine to 40mg daily 09/28/2011 Appointment: Ophelia Aguillontel: [address] [place] [address] FOLLOW UP 09/28/2011 Patient Education: Patient Medication Summary Completed 09/28/2011 Visit Plan: Increase fluoxetine to 30mg daily Call in 2wks 04/06/2011 Appointment: Ophelia Aguillon WPtel: [address] [place] [address] FOLLOW UP 04/06/2011 Patient Education: Patient Medication Summary Completed 04/06/2011 Appointment: Ophelia Aguillontel: [address] [place] [address] NEW PATIENT 03/03/2011 Patient Education: Patient Medication Summary Completed 03/03/2011 Referral: Saurabh Beatty WPtel: [address] [id number] [place] Referral Completed Instructions Comment . Sofia [...] diet/exercise and recheck lipids in 4mos Sees 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 PROGRAMS next month Discussed is high risk for [...]
--- OUTSIDE RECORDS SUMMARY | 2020-03-06 17:13 | XMS REPORT | CCD ---
Author Author Sofia Aguillon D.O. Organization 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 Role Phone PP Unavailable CCM Unavailable Summary Purpose Interface Exchange Insurance Providers Payer name Policy type / Coverage type Covered green party ID Effective Begin Date Effective End Date Blue Cross Blue Shield Blue Cross/Blue Shield [id number] Unknown Family History Family History data not found Social History Social History Element Codes Description Effective Dates Marital status Unknown 03/03/2011 Number of children Unknown 3 03/03/2011 Employment Unknown Currently employed [employer]/USD 250 03/03/[address]: 530598677 Never smoker 03/03/[address]: 940059337 Never drinks alcohol 2010 Allergies, Adverse Reactions, [...] Instructions [facility]ba Allergy 180 mg tablet RxNorm: 428781 1 Tablet(s) PO QD 02/0505/23/2018 Inactive Medrol (Vick) 4 mg tablets in a dose pack RxNorm: 528624 As directed Tablet(s) PO QD 02/23/2018 02/27/2018 Inactive alprazolam 0.25 mg tablet RxNorm: 735922 TAKE 1/2 TABLE T TWO TIMES A DAY NEEDED FOR SEVERE STRESS 03/27/2015 04/15/2015 Inactive fluoxetine 10 mg tablet RxNorm: 233590 3 Tablet(s) PO QAM 03/27/2015 09/06/2017 Inactive for 1week then 2 po qam alprazolam 0.25 mg tablet RxNorm: 728694 TAKE ONE-HALF TABLET BY MOUTH TWICE A DAY NEEDED FOR SEVERE STRESS 07/24/2014 03/27/2015 Inactive (Response to an electronic controlled substance refill request - RxReferenceNumber: [id number]) fluoxetine 10 mg tablet RxNorm: 462774 3 Tablet(s) PO QAM 05/26/2014 03/27/2015 Inactive for 1week then 2 po qAM [SAVINGS FOR UNI NSURED PATIENTS -- BIN:[id number], PCN: [id number], Group: [id number], ID# [id number], Process claim through [employer], for questions: . THIS IS NOT INSURANCE.] Bactrim DS 800 mg-160 mg tablet RxNorm: 239633 1 Tablet(s) PO BID 1 05/21/2013 Inactive prednisone 20 mg tablet RxNorm: 295400 1 Tablet(s) PO BID 05/15/2013 05/21/2013 Inactive Levaquin 750 mg tablet RxNorm: 922279 1 Tablet(s) PO BID 11/07/2012 0 11/16/2012 Inactive fluoxetine 10 mg tablet RxNorm: 477389 3 Tablet(s) PO QAM 09/18/2012 03/16/2013 Inactive for 1week then 2 po qAM fluoxetine 10 mg tablet RxNorm: 455623 3 Tablet(s) PO QAM 12/21/2011 06/12/2012 Inactive for 1week then 2 po qAM fluoxetine 10 mg Tab RxNorm: 994075 3 Tablet(s) PO QAM 10/20/2011 Inactive for 1week then 2 po qAM Vaniqa 13.9 % Topical Cream RxNorm: 309673 1 Application TOP BID 12/20/2011 Inactive fluoxetine 40 mg Cap RxNorm: 892111 1 Capsule(s) PO QD 09/28/2011 Inactive fluoxetine 10 mg Cap RxNorm: 181931 3 Capsule(s) PO QD 06/21/201107/2012 Inactive fluoxetine 10 mg Tab RxNorm: 414655 3 Tablet(s) PO QD 04/26/201105/07 Inactive Xanax 0.25 mg Tab RxNorm: 024542 1/2 Tablet(s) PO BID 03/03/201103/07 Inactive prn severe stress alprazolam 0.25 mg tablet RxNorm: 880351 1/2 Tablet(s) PO BID as needed for anxiety No Start Date 02/22/2018 Inactive Medrol (Vick) 4 mg tablets in a dose pack RxNorm: 189983 Tablet(s) PO as directed No Start Date 05/14/2013 Inactive Fish Oil 1,000 mg Cap RxNorm: 1 Capsule(s) PO BID No Start Date Inactive fluoxetine 10 mg Cap RxNorm: 903288 2 Capsule(s) PO QD No Start Date 06/20/2011 Inactive fluoxetine 10 mg Cap RxNorm: 558314 3 Capsule(s) PO QD No Start Date 09/27/2011 Inactive alprazolam 0.25 mg Tab RxNorm: 079036 1/2 Tablet(s) PO BID No Start Date 07/24/2014 Inactive as needed fluoxetine 10 mg Tab RxNorm: 279399 1 Tablet(s) PO QAM No Start Date 10/19/2011 Inactive for 1week then 2 po qAM Vaniqa 13.9 % Topical Cream RxNorm: 635334 1 Application TOP BID No Start Date 09/27/2011 Inactive fluoxetine 20 mg capsule RxNorm: 476018 1 Capsule(s) PO QD No Start Date 02/22/2018 Inactive Vitamin D3 1000 units Capsule RxNorm: 1 Capsule(s) PO QD No St art Date 09/06/2017 Inactive Prozac 20 mg capsule RxNorm: 851187 1 Capsule(s) PO QD No Start Date 07/23/2013 Inactive Medication Administered No Medication Administered data Immunizations Vaccine Codes Date Status Shingrix Unknown 01/15/2018 Complete Zostavax CVX: 121 11/16/2017 Results Observation Observation Code Item Item Code Result Date S [facility] Location FREE T4 05996 T4 Free 1.25 ng/dL 09/04/2017 Unknown COMPLETE BLOOD COUNT [id number] WBC 5.9 10e9/L 09/04/19 18 Unknown COMPLETE BLOOD COUNT 0534191 RBC 4.35 10e12/L 2017 Unknown COMPLETE BLOOD COUNT 0992195 HEMOGLOBIN 14.0 g/dL 09/04/19 18 Unknown COMPLETE BLOOD COUNT [id number] HEMATOCRIT 41.6 % 09/04/19 18 Unknown COMPLETE BLOOD COUNT 0872199 MCV 95.6 fL 8 Unknown COMPLETE BLOOD COUNT 3485691 MCH 32.2 pg 8 Unknown COMPLETE BLOOD COUNT 9131693 MCHC 33.7 g/dL 8 Unknown COMPLETE BLOOD COUNT 7048220 PLATELET COUNT 239 10e9/L Unknown COMPLETE BLOOD COUNT 7045157 Mean Plt Volume 10.8 fL Unknown COMPLETE BLOOD COUNT 9483117 Neut Auto 53.2 % 8 Unknown COMPLETE BLOOD COUNT 4635363 Lymph Auto 35.6 % 09/04/19 18 Unknown COMPLETE BLOOD COUNT 3187662 [place] Auto 9.6 % 8 Unknown COMPLETE BLOOD COUNT 6622155 RDW 13.2 % 8 Unknown COMPLETE BLOOD COUNT 5133896 Eos Auto 1.4 % 8 Unknown COMPLETE BLOOD COUNT 7962766 Baso Auto 0.2 % 8 Unknown COMPLETE BLOOD COUNT 7345480 Neutrophil Abs 3.14 10e9/L Unknown COMPLETE BLOOD COUNT 7810180 Lymphocyte Abs 2.10 10e9/L Unknown COMPLETE BLOOD COUNT 5477014 Monocyte Abs 0.57 10e9/L 08/08 Unknown COMPLETE BLOOD COUNT 6360086 Eosinophil Abs 0.08 10e9/L Unknown COMPLETE BLOOD COUNT 5233334 RDW-SD 44.7 fL 8 Unknown COMPLETE BLOOD COUNT 7163503 Basophil Abs 0.01 10e9/L 08/08 Unknown COMPREHENSIVE METABOLIC 42186 AST 26 U/L 2017 Unknown COMPREHENSIVE METABOLIC 24864 ALT 40 U/L 2017 Unknown COMPREHENSIVE METABOLIC 71877 BUN 6 mg/dL 2017 Unknown COMPREHENSIVE METABOLIC 89133 ALBUMIN 5.3 g/dL 2017 Unknown COMPREHENSIVE METABOLIC 42246 CHLORIDE 102 mmol/L 09/04 Unknown COMPREHENSIVE METABOLIC 50291 Bili Total 0.7 mg/dL 09/04 Unknown COMPREHENSIVE METABOLIC 77792 ALK PHOS 56 U/L 2017 Unknown COMPREHENSIVE METABOLIC 07468 SODIUM 139 mmol/L 09/04 Unknown COMPREHENSIVE METABOLIC 23348 CREATININE 0.61 mg/dL 08/08 Unknown COMPREHENSIVE METABOLIC 01036 CALCIUM 9.8 mg/dL 2017 Unknown COMPREHENSIVE METABOLIC 53777 POTASSIUM 3.8 mmol/L 09/04 Unknown COMPREHENSIVE METABOLIC 29874 Total Protein 7.7 g/dL Unknown COMPREHENSIVE METABOLIC 84922 Glucose 95 mg/dL 2017 Unknown COMPREHENSIVE METABOLIC 52723 Bicarbonate 30 mmol/L 08/08 Unknown COMPREHENSIVE METABOLIC 46742 AGAP 7 mmol/L 2017 Unknown GFR CALC 0448131 GFR Non Afr Amr >60 mL/min 09/04/2017 Un known GFR CALC 9708442 GFR Afr Amr >60 mL/min 09/04/2017 Unknow n THYROID STIMULATING HORMONE 87491 TSH 1.454 uIU/mL 09/04/2017 Unknown LIPID GROUP 76394 Cholesterol 218 mg/dL 09/04/2017 Unkno wn LIPID GROUP 38531 Triglyceride 135 mg/dL 09/04/2017 Unkn own LIPID GROUP 66049 HDL CHOLESTEROL 52 09/04/2017 U nknown LIPID GROUP 71752 Chol/HDL Ratio 4.19 ratio 09/04/2017 U nknown LIPID GROUP 24948 NON-HDL Chol 166 mg/dL 09/04/2017 Unkn own LIPID GROUP 93424 LDL Cholesterol 139 mg/dL 09/04/2017 U nknown FREE T4 67384 FREE T4 1.15 NG/DL 01/07/2015 Unknown THYROID STIMULATING HORMONE 96107 TSH 1.927 uIU/ML 01/07/2015 Unknown LIPID GROUP 15651 HDL TEST 53 MG/DL 01/07/2015 Unknown LIPID GROUP 23274 TRIG 215 MG/DL 01/07/2015 Unknown LIPID GROUP 50026 TEST LDL 194 MG/DL 01/07/2015 Unknown LIPID GROUP 39670 CHOL 290 MG/DL 01/07/2015 Unknown LIPID GROUP 69915 RCHOL/HDL 5.47 RATIO 01/07/2015 Unknow n LIPID GROUP 27475 NON-HDL CH 237 MG/DL 01/07/2015 Unknow n GFR CALC 7912160 GFR AA >60 ML/MIN 01/07/2015 Unknown GFR CALC 0587003 GFR NON-AA >60 ML/MIN 01/07/2015 Unknown COMPLETE BLOOD COUNT 2764473 WBC 5.9 10e9/L 01/08/20 15 Unknown COMPLETE BLOOD COUNT 7412746 RBC 4.35 10e12/L 2014 Unknown COMPLETE BLOOD COUNT 4964298 HGB 14.2 g/dL 5 Unknown COMPLETE BLOOD COUNT 1643665 HCT DET 42.0 % 5 Unknown COMPLETE BLOOD COUNT 0312765 MCV 96.6 fL 5 Unknown COMPLETE BLOOD COUNT 2055984 MCH 32.6 pg 5 Unknown COMPLETE BLOOD COUNT 9280441 MCHC 33.8 g/dL 5 Unknown COMPLETE BLOOD COUNT 7132157 PLT 227 10e9/L 01/08/20 15 Unknown COMPLETE BLOOD COUNT 7946781 MPV 11.4 fL 5 Unknown COMPLETE BLOOD COUNT 5846424 PRITI % 54.2 % 5 Unknown COMPLETE BLOOD COUNT 0629886 LY % 33.8 % 5 Unknown COMPLETE BLOOD COUNT 2327944 MON % 8.8 % 5 Unknown COMPLETE BLOOD COUNT 4932778 EOS % 2.9 % 5 Unknown COMPLETE BLOOD COUNT 6277118 BASO % 0.3 % 5 Unknown COMPLETE BLOOD COUNT 5949833 RDW 13.6 % 5 Unknown COMPLETE BLOOD COUNT 6523119 ABS PRITI 3.20 10e9/L 015 Unknown COMPLETE BLOOD COUNT 5456325 ABS LYMPH 1.99 10e9/L 015 Unknown COMPLETE BLOOD COUNT 8992409 ABS MONO 0.52 10e9/L 015 Unknown COMPLETE BLOOD COUNT 7240696 ABS EOS 0.17 10e9/L 015 Unknown COMPLETE BLOOD COUNT 6019544 ABS BASO 0.02 10e9/L 015 Unknown COMPLETE BLOOD COUNT 3846710 RDW-SD 47.0 fL 5 Unknown COMPREHENSIVE METABOLIC 40020 AST 20 U/L 2014 Unknown COMPREHENSIVE METABOLIC 94276 ALT 30 IU/L 2014 Unknown COMPREHENSIVE METABOLIC 71087 BUN 12 MG/DL 2014 Unknown COMPREHENSIVE METABOLIC 21183 ALBUMIN 4.4 GM/DL 2014 Unknown COMPREHENSIVE METABOLIC 66686 CHLORIDE 102 MMOL/L 01/07 Unknown COMPREHENSIVE METABOLIC 77532 BILI TOT 0.6 MG/DL 2014 Unknown COMPREHENSIVE METABOLIC 22422 ALK PHOS 76 U/L 2014 Unknown COMPREHENSIVE METABOLIC 58389 SODIUM 139 MMOL/L 01/07 Unknown COMPREHENSIVE METABOLIC 67839 CREATININE 0.77 MG/DL 10/2014 Unknown COMPREHENSIVE METABOLIC 77633 CALCIUM 9.2 MG/DL 2014 Unknown COMPREHENSIVE METABOLIC 42343 POTASSIUM 4.1 MMOL/L 01/07 Unknown COMPREHENSIVE METABOLIC 73919 PROT TOT 7.1 GM/DL 2014 Unknown COMPREHENSIVE METABOLIC 90167 Glucose 107 MG/DL 2014 Unknown COMPREHENSIVE METABOLIC 04955 BICARB 30 MMOL/L 2014 Unknown COMPREHENSIVE METABOLIC 25164 ANION GAP 7 MEQ/L 2014 Unknown LIPID GROUP 45834 HDL TEST 48 MG/DL 07/22/2013 Unknown LIPID GROUP 67550 TRIG 176 MG/DL 07/22/2013 Unknown LIPID GROUP 55937 TEST LDL 161 MG/DL 07/22/2013 Unknown LIPID GROUP 57582 CHOL 244 MG/DL 07/22/2013 Unknown LIPID GROUP 34988 RCHOL/HDL 5.08 RATIO 07/22/2013 Unknow n COMPLETE BLOOD COUNT 7336236 WBC 5.8 10e9/L 07/22/20 13 Unknown COMPLETE BLOOD COUNT 0299418 RBC 4.45 10e12/L 2012 Unknown COMPLETE BLOOD COUNT 8273288 HGB 14.6 g/dL 3 Unknown COMPLETE BLOOD COUNT 2001953 HCT DET 43.8 % 3 Unknown COMPLETE BLOOD COUNT 2429859 MCV 98.4 fL 3 Unknown COMPLETE BLOOD COUNT 0791113 MCH 32.8 pg 3 Unknown COMPLETE BLOOD COUNT 1747591 MCHC 33.3 g/dL 3 Unknown COMPLETE BLOOD COUNT 2383938 PLT 270 10e9/L 07/22/20 13 Unknown COMPLETE BLOOD COUNT 2292703 MPV 11.4 fL 3 Unknown COMPLETE BLOOD COUNT 2051955 PRITI % 54.2 % 3 Unknown COMPLETE BLOOD COUNT 6179481 LY % 33.2 % 3 Unknown COMPLETE BLOOD COUNT 0306904 MON % 9.2 % 3 Unknown COMPLETE BLOOD COUNT 1810938 EOS % 3.1 % 3 Unknown COMPLETE BLOOD COUNT 9517734 BASO % 0.3 % 3 Unknown COMPLETE BLOOD COUNT 1744600 RDW 13.8 % 3 Unknown COMPLETE BLOOD COUNT 8250258 ABS PRITI 3.14 10e9/L 013 Unknown COMPLETE BLOOD COUNT 0787016 ABS LYMPH 1.93 10e9/L 013 Unknown COMPLETE BLOOD COUNT 6404171 ABS MONO 0.53 10e9/L 013 Unknown COMPLETE BLOOD COUNT 8862356 ABS EOS 0.18 10e9/L 013 Unknown COMPLETE BLOOD COUNT 1533266 ABS BASO 0.02 10e9/L 013 Unknown COMPLETE BLOOD COUNT 2680971 RDW-SD 48.4 fL 3 Unknown GFR CALC 4696779 GFR AA >60 ML/MIN 07/22/2013 Unknown GFR CALC 2370517 GFR NON-AA >60 ML/MIN 07/22/2013 Unknown THYROID STIMULATING HORMONE 79032 TSH 1.645 uIU/ML 07/22/2013 Unknown COMPREHENSIVE METABOLIC 29196 AST 23 U/L 2012 Unknown COMPREHENSIVE METABOLIC 77673 ALT 30 IU/L 2012 Unknown COMPREHENSIVE METABOLIC 30753 BUN 12 MG/DL 2012 Unknown COMPREHENSIVE METABOLIC 61424 ALBUMIN 4.7 GM/DL 2012 Unknown COMPREHENSIVE METABOLIC 28361 CHLORIDE 102 MMOL/L 07/22 Unknown COMPREHENSIVE METABOLIC 79796 BILI TOT 0.5 MG/DL 2012 Unknown COMPREHENSIVE METABOLIC 49052 ALK PHOS 51 U/L 2012 Unknown COMPREHENSIVE METABOLIC 65296 SODIUM 136 MMOL/L 07/22 Unknown COMPREHENSIVE METABOLIC 95503 CREATININE 0.74 MG/DL 07/07 Unknown COMPREHENSIVE METABOLIC 75373 CALCIUM 9.2 MG/DL 2012 Unknown COMPREHENSIVE METABOLIC 60625 POTASSIUM 4.1 MMOL/L 07/22 Unknown COMPREHENSIVE METABOLIC 63620 PROT TOT 7.1 GM/DL 2012 Unknown COMPREHENSIVE METABOLIC 20635 Glucose 107 MG/DL 2012 Unknown COMPREHENSIVE METABOLIC 13644 BICARB 29 MMOL/L 2012 Unknown COMPREHENSIVE METABOLIC 78715 ANION GAP 5 MEQ/L 2012 Unknown FREE T4 10342 FREE T4 0.98 NG/DL 07/22/2013 Unknown COMPLETE BLOOD COUNT 7061739 WBC 4.4 10e9/L 06/11/20 12 Unknown COMPLETE BLOOD COUNT 6993154 RBC 4.18 10e12/L 2011 Unknown COMPLETE BLOOD COUNT 1074339 HGB 13.5 g/dL 2 Unknown COMPLETE BLOOD COUNT 6335009 HCT DET 39.9 % 2 Unknown COMPLETE BLOOD COUNT 4145093 MCV 95.5 fL 2 Unknown COMPLETE BLOOD COUNT 1457380 MCH 32.3 pg 2 Unknown COMPLETE BLOOD COUNT 6747649 MCHC 33.8 g/dL 2 Unknown COMPLETE BLOOD COUNT 6629254 PLT 232 10e9/L 06/11/20 12 Unknown COMPLETE BLOOD COUNT 2299821 MPV 11.3 fL 2 Unknown COMPLETE BLOOD COUNT 9392813 PRITI % 46.4 % 2 Unknown COMPLETE BLOOD COUNT 7595825 LY % 36.4 % 2 Unknown COMPLETE BLOOD COUNT 1728147 MON % 10.5 % 2 Unknown COMPLETE BLOOD COUNT 0911559 EOS % 6.2 % 2 Unknown COMPLETE BLOOD COUNT 2356010 BASO % 0.5 % 2 Unknown COMPLETE BLOOD COUNT 4808821 RDW 13.1 % 2 Unknown COMPLETE BLOOD COUNT 9805196 ABS PRITI 2.04 10e9/L 012 Unknown COMPLETE BLOOD COUNT 5909451 ABS LYMPH 1.60 10e9/L 012 Unknown COMPLETE BLOOD COUNT 0051389 ABS MONO 0.46 10e9/L 012 Unknown COMPLETE BLOOD COUNT 8783717 ABS EOS 0.27 10e9/L 012 Unknown COMPLETE BLOOD COUNT 3776331 ABS BASO 0.02 10e9/L 012 Unknown COMPLETE BLOOD COUNT 7695114 RDW-SD 44.2 fL 2 Unknown THYROID STIMULATING HORMONE 64656 TSH 1.766 uIU/ML 06/11/2012 Unknown COMPREHENSIVE METABOLIC 83003 AST 20 U/L 2011 Unknown COMPREHENSIVE METABOLIC 74338 ALT 23 IU/L 2011 Unknown COMPREHENSIVE METABOLIC 76522 BUN 10 MG/DL 2011 Unknown COMPREHENSIVE METABOLIC 57988 ALBUMIN 4.3 GM/DL 2011 Unknown COMPREHENSIVE METABOLIC 12966 CHLORIDE 103 MMOL/L 06/11 Unknown COMPREHENSIVE METABOLIC 86903 BILI TOT 0.4 MG/DL 2011 Unknown COMPREHENSIVE METABOLIC 55201 ALK PHOS 52 U/L 2011 Unknown COMPREHENSIVE METABOLIC 29130 SODIUM 138 MMOL/L 06/11 Unknown COMPREHENSIVE METABOLIC 52014 CREATININE 0.74 MG/DL 12/2011 Unknown COMPREHENSIVE METABOLIC 12314 CALCIUM 8.8 MG/DL 2011 Unknown COMPREHENSIVE METABOLIC 74082 POTASSIUM 3.7 MMOL/L 06/11 Unknown COMPREHENSIVE METABOLIC 77105 PROT TOT 6.9 GM/DL 2011 Unknown COMPREHENSIVE METABOLIC 61894 Glucose 105 MG/DL 2011 Unknown COMPREHENSIVE METABOLIC 80899 BICARB 29 MMOL/L 2011 Unknown COMPREHENSIVE METABOLIC 10836 ANION GAP 6 MEQ/L 2011 Unknown FREE T4 27409 FREE T4 0.93 NG/DL 06/11/2012 Unknown LIPID GROUP 34530 HDL TEST 39 MG/DL 06/11/2012 Unknown LIPID GROUP 15228 TRIG 243 MG/DL 06/11/2012 Unknown LIPID GROUP 40900 TEST LDL 159 MG/DL 06/11/2012 Unknown LIPID GROUP 40345 CHOL 247 MG/DL 06/11/2012 Unknown LIPID GROUP 34481 RCHOL/HDL 6.33 RATIO 06/11/2012 Unknow n GFR CALC 9626283 GFR AA >60 ML/MIN 06/11/2012 Unknown GFR CALC 7457361 GFR NON-AA >60 ML/MIN 06/11/2012 Unknown VITAMIN D TOTAL (25 HYDROXY) 77793 VIT D TOTL 19 NG/ML 03/04/2011 Unknown COMPLETE BLOOD COUNT 84808 WBC 8.0 10e9/L 03/03/20 11 Unknown COMPLETE BLOOD COUNT 73968 RBC 4.62 10e12/L 2010 Unknown COMPLETE BLOOD COUNT 56880 HGB 14.9 g/dL 1 Unknown COMPLETE BLOOD COUNT 96661 HCT DET 43.6 % 1 Unknown COMPLETE BLOOD COUNT 88779 MCV 94.4 fL 1 Unknown COMPLETE BLOOD COUNT 51464 MCH 32.3 pg 1 Unknown COMPLETE BLOOD COUNT 92681 MCHC 34.2 g/dL 1 Unknown COMPLETE BLOOD COUNT 23714 PLT 236 10e9/L 03/03/20 11 Unknown COMPLETE BLOOD COUNT 35399 MPV 11.0 fL 1 Unknown COMPLETE BLOOD COUNT 61421 PRITI % 66.3 % 1 Unknown COMPLETE BLOOD COUNT 26816 LY % 20.7 % 1 Unknown COMPLETE BLOOD COUNT 26200 MON % 9.2 % 1 Unknown COMPLETE BLOOD COUNT 91115 EOS % 3.5 % 1 Unknown COMPLETE BLOOD COUNT 52046 BASO % 0.3 % 1 Unknown COMPLETE BLOOD COUNT 37002 RDW 13.5 % 1 Unknown COMPLETE BLOOD COUNT 26015 ABS PRITI 5.30 10e9/L 011 Unknown COMPLETE BLOOD COUNT 75322 ABS LYMPH 1.66 10e9/L 011 Unknown COMPLETE BLOOD COUNT 43018 ABS MONO 0.74 10e9/L 011 Unknown COMPLETE BLOOD COUNT 66125 ABS EOS 0.28 10e9/L 011 Unknown COMPLETE BLOOD COUNT 57231 ABS BASO 0.02 10e9/L 011 Unknown COMPLETE BLOOD COUNT 58235 RDW-SD 45.1 fL 1 Unknown THYROID STIMULATING HORMONE 16599 TSH 1.944 uIU/ML 03/03/2011 Unknown FREE T4 11416 FREE T4 1.04 NG/DL 03/03/2011 Unknown LIPID GROUP 76359 HDL TEST 50 MG/DL 03/03/2011 Unknown LIPID GROUP 07421 TRIG 246 MG/DL 03/03/2011 Unknown LIPID GROUP 73206 TEST LDL 213 MG/DL 03/03/2011 Unknown LIPID GROUP 03676 CHOL 312 MG/DL 03/03/2011 Unknown LIPID GROUP 92033 RCHOL/HDL 6.24 RATIO 03/03/2011 Unknow n GFR CALC 7324487 GFR AA >60 ML/MIN 03/03/2011 Unknown GFR CALC 1036699 GFR NON-AA >60 ML/MIN 03/03/2011 Unknown COMPREHENSIVE METABOLIC 18205 AST 15 U/L 2010 Unknown COMPREHENSIVE METABOLIC 65354 ALT 21 IU/L 2010 Unknown COMPREHENSIVE METABOLIC 77906 BUN 14 MG/DL 2010 Unknown COMPREHENSIVE METABOLIC 59161 ALBUMIN 4.5 GM/DL 2010 Unknown COMPREHENSIVE METABOLIC 57971 CHLORIDE 99 MMOL/L 2010 Unknown COMPREHENSIVE METABOLIC 33404 BILI TOT 0.6 MG/DL 2010 Unknown COMPREHENSIVE METABOLIC 62715 ALK PHOS 55 U/L 2010 Unknown COMPREHENSIVE METABOLIC 73461 SODIUM 134 MMOL/L 03/03 Unknown COMPREHENSIVE METABOLIC 97118 CREATININE 0.80 MG/DL 02/05 Unknown COMPREHENSIVE METABOLIC 65705 CALCIUM 9.4 MG/DL 2010 Unknown COMPREHENSIVE METABOLIC 21824 POTASSIUM 4.0 MMOL/L 03/03 Unknown COMPREHENSIVE METABOLIC 64615 PROT TOT 7.4 GM/DL 2010 Unknown COMPREHENSIVE METABOLIC 97966 Glucose 101 MG/DL 2010 Unknown COMPREHENSIVE METABOLIC 72875 BICARB 28 MMOL/L 2010 Unknown COMPREHENSIVE METABOLIC 54019 ANION GAP 7 MEQ/L 2010 Unknown Procedures Procedure Codes Date ROUTINE VENIPUNCTURE CPT-4: 97635 02/04/2020 ASSAY OF FREE THYROXINE CPT-4: 16098 02/04/2020 ASSAY THYROID STIM HORMONE CPT-4: 56849 02/04/2020 COMPREHEN METABOLIC PANEL CPT-4: 76052 02/04/2020 COMPLETE CBC W/AUTO DIFF WBC CPT-4: 98142 02/04/2020 LIPID PANEL CPT-4: 62516 02/04/2020 TB INTRADERMAL TEST CPT-4: 31446 03/19/2018 Removal impacted cerumen using irrigation/lavage, unilateral CPT-4: 36235 02/23/2018 ROUTINE VENIPUNCTURE CPT-4: 57883 09/04/2017 ASSAY THYROID STIM HORMONE CPT-4: 27186 09/04/2017 ASSAY OF FREE THYROXINE CPT-4: 12989 09/04/2017 COMPREHEN METABOLIC PANEL CPT-4: 48226 09/04/2017 COMPLETE CBC W/AUTO DIFF WBC CPT-4: 75797 09/04/2017 LIPID PANEL CPT-4: 11139 09/04/2017 ROUTINE VENIPUNCTURE CPT-4: 54399 01/07/2015 ASSAY OF FREE THYROXINE CPT-4: 76946 01/07/2015 ASSAY THYROID STIM HORMONE CPT-4: 64519 01/07/2015 COMPREHEN METABOLIC PANEL CPT-4: 63448 01/07/2015 COMPLETE CBC W/AUTO DIFF WBC CPT-4: 84892 01/07/2015 LIPID PANEL CPT-4: 92657 01/07/2015 EXC TR-EXT B9+CECILIO 0.5 CM< CPT-4: 04472 08/06/2013 ROUTINE VENIPUNCTURE CPT-4: 45966 07/22/2013 ASSAY OF FREE THYROXINE CPT-4: 23302 07/22/2013 ASSAY THYROID STIM HORMONE CPT-4: 01405 07/22/2013 COMPREHEN METABOLIC PANEL CPT-4: 67752 07/22/2013 COMPLETE CBC W/AUTO DIFF WBC CPT-4: 29417 07/22/2013 LIPID PANEL CPT-4: 44684 07/22/2013 INFLUENZA ASSAY W/OPTIC CPT-4: 65700 11/07/2012 ROUTINE VENIPUNCTURE CPT-4: 50008 06/11/2012 ASSAY OF FREE THYROXINE CPT-4: 11174 06/11/2012 ASSAY THYROID STIM HORMONE CPT-4: 94894 06/11/2012 COMPREHEN METABOLIC PANEL CPT-4: 35815 06/11/2012 COMPLETE CBC W/AUTO DIFF WBC CPT-4: 94456 06/11/2012 LIPID PANEL CPT-4: 03820 06/11/2012 ROUTINE VENIPUNCTURE CPT-4: 46244 03/03/2011 ASSAY OF FREE THYROXINE CPT-4: 99976 03/03/2011 ASSAY THYROID STIM HORMONE CPT-4: 15708 03/03/2011 COMPREHEN METABOLIC PANEL CPT-4: 87944 03/03/2011 COMPLETE CBC W/AUTO DIFF WBC CPT-4: 11699 03/03/2011 LIPID PANEL CPT-4: 96805 03/03/2011 VITAMIN D TOTAL (25 HYDROXY) CPT-4: 79078 03/03/2011 Vital Signs Date Vital 02/23/2018 Blood Pressure 1: 132/84 Code: 8480-6 BMI: 31.6 Code: 60861-9 Heart Rate 1: 76 bpm Height: 5'6" Respiratory Rate: 20 bpm SpO2: 98% Tempera ture: 36.9 (C) / 98.4 (F) Weight: 199 lbs 09/07/2017 Blood Pressure 1: 126/78 Code: 8480-6 BMI: 30.5 Code: 77311-3 Heart Rate 1: 80 bpm Height: 5'6" Respiratory Rate: 20 bpm SpO2: 98% Tempera ture: 37.2 (C) / 98.9 (F) Weight: 192 lbs 01/12/2015 Blood Pressure 1: 132/74 Code: 8480-6 BMI: 29.4 Code: 14108-6 Heart Rate 1: 92 bpm Height: 5'6" Respiratory Rate: 20 bpm Temperature: 36 .7 (C) / 98.1 (F) Weight: 185 lbs 08/06/2013 Blood Pressure 1: 114/80 Code: 8480-6 BMI: 30.7 Code: 92350-7 Heart Rate 1: 80 bpm Height: 5'6" Respiratory Rate: 20 bpm Temperature: 37 .2 (C) / 99.0 (F) Weight: 193 lbs 07/24/2013 Blood Pressure 1: 124/68 Code: 8480-6 BMI: 30.7 Code: 29103-7 Heart Rate 1: 80 bpm Height: 5'6" Respiratory Rate: 20 bpm Temperature: 36 .9 (C) / 98.5 (F) Weight: 193 lbs 06/13/2013 Blood Pressure 1: 124/70 Code: 8480-6 BMI: 31.8 Code: 23848-8 Heart Rate 1: 88 bpm Height: 5'6" Respiratory Rate: 20 bpm Temperature: 36 .8 (C) / 98.2 (F) Weight: 200 lbs 05/15/2013 Blood Pressure 1: 120/80 Code: 8480-6 BMI: 30.8 Code: 38690-4 Heart Rate 1: 82 bpm Height: 5'6" Respiratory Rate: 22 bpm Temperature: 36 .2 (C) / 97.1 (F) Weight: 194 lbs 11/07/2012 Blood Pressure 1: 146/88 Code: 8480-6 BMI: 31.0 Code: 59287-6 Heart Rate 1: 108 bpm Height: 5'7" Respiratory Rate: 20 bpm SpO2: 95% Tempera ture: 38.2 (C) / 100.8 (F) Weight: 198 lbs 09/18/2012 Blood Pressure 1: 114/76 Code: 8480-6 Heart Rate 1: 88 bpm Respiratory Rate: 20 bpm Temperature: 37.1 (C) / 98.8 (F) Weight: 195 lbs 06/13/2012 Blood Pressure 1: 110/64 Code: 8480-6 BMI: 30.4 Code: 47244-7 Heart Rate 1: 64 bpm Height: 5'7" Temperature: 36.9 (C) / 98.4 (F) Weight: 194 lbs 12/21/2011 Blood Pressure 1: 116/80 Code: 8480-6 BMI: 30.7 Code: 49890-4 Heart Rate 1: 72 bpm Height: 5'7" Respiratory Rate: 20 bpm Temperature: 37 .0 (C) / 98.6 (F) Weight: 196 lbs 09/28/2011 Blood Pressure 1: 116/78 Code: 8480-6 BMI: 29.6 Code: 56611-0 Heart Rate 1: 88 bpm Height: 5'7" Respiratory Rate: 20 bpm Temperature: 36 .9 (C) / 98.5 (F) Weight: 189 lbs 04/06/2011 Blood Pressure 1: 132/80 Code: 8480-6 Heart Rate 1: 72 bpm Respiratory Rate: 20 bpm Temperature: 37.2 (C) / 99.0 (F) Weight: 185 lbs 03/03/2011 Blood Pressure 1: 114/80 Code: 8480-6 BMI: 29.6 Code: 68737-8 Heart Rate 1: 80 bpm Height: 5'7" [...] Visit Encounters Encounter Performer Location Codes Date ([id number]) NURSE/OUTPATIENT VISIT EST Diagnosis: Encounter for general adult medical examination without abnormal findings[ICD10: Z00.00] Diagnosis: Malaise and fatigue[ICD10: R53.81] Diagnosis: Mixed hyperlipidemia[ICD10: E78.2] Ophelia CALZADA CPT-4: 53322 02/04/2020 ([id number]) NURSE/OUTPATIENT VISIT EST Diagnosis: SCREENING-PULMONARY TB[ICD10: Z11.1] Ophelianaeem AGUILLON [facility] CPT-4: 69738 03/19/2018 OFFICE/OUTPATIENT VISIT EST Diagnosis: Allergic rhinitis, unspecified[ICD10: J30.9] Diagnosis: Impacted cerumen, right ear[ICD10: H61.21] Cassandra MahajanTigistJarrett AGUILLON DO [facility] CPT-4: 69748 02/23/2018 ([id number]) PREV VISIT EST AGE 40-64 Diagnosis: Encounter for general adult medical examination without abnormal findings[ICD10: Z00.00] Diagnosis: Mixed hyperlipidemia[ICD10: E78.2] Ophelia AGUILLON [facility] CPT-4: 46541 09/07/2017 ([id number]) OFFICE/OUTPATIENT VISIT EST Diagnosis: Encounter for general adult medical examination without abnormal findings[ICD10: Z00.00] Diagnosis: Mixed hyperlipidemia[ICD10: E78.2] Ophelia AGUILLON [facility] CPT-4: 16423 09/04/2017 ([id number]) PREV VISIT EST AGE 40-64 Diagnosis: ROUTINE MEDICAL EXAM[ICD9: V70.0] Diagnosis: HYPERLIPIDEMIA NEC/NOS[ICD9: 272.4] Diagnosis: ANXIETY STATE NOS[ICD9: 300.00] Ophelia AGUILLON [facility] CPT-4: 72596 01/12/2015 ([id number]) OFFICE/OUTPATIENT VISIT EST Diagnosis: ROUTINE MEDICAL EXAM[ICD9: V70.0] Diagnosis: MALAISE AND FATIGUE[ICD9: 780.79] Diagnosis: HYPERLIPIDEMIA NEC/NOS[ICD9: 272.4] Ophelia WILLIAMSON DIONNE Izaiah AGUILLON [facility] CPT-4: 97859 01/07/2015 ([id number]) PREV VISIT EST AGE 40-64 Diagnosis: ROUTINE MEDICAL EXAM[ICD9: V70.0] Diagnosis: HYPERLIPIDEMIA NEC/NOS[ICD9: 272.4] Diagnosis: ANXIETY STATE NOS[ICD9: 300.00] Ophelia AGUILLON [facility] CPT-4: 00339 07/24/2013 ([id number]) OFFICE/OUTPATIENT VISIT EST Diagnosis: HYPERLIPIDEMIA NEC/NOS[ICD9: 272.4] Diagnosis: ROUTINE MEDICAL EXAM[ICD9: V70.0] Ophelia AGUILLON DO [facility] CPT-4: 18990 07/22/2013 ([id number]) OFFICE/OUTPATIENT VISIT EST Diagnosis: BENIGN KACEY SKIN[ICD9: 216.9] Ophelia AGUILLON DO [facility] CPT-4: 45797 06/13/2013 ([id number]) OFFICE/OUTPATIENT VISIT EST Diagnosis: Nasal lesion[ICD9: 478.19] Diagnosis: Changing mole[ICD9: 216.9] Diagnosis: ALLERGIC RHINITIS[ICD9: 477.9] Ophelia AGUILLON DO [facility] CPT-4: 84616 05/15/2013 OFFICE/OUTPATIENT VISIT EST Diagnosis: COUGH[ICD9: 786.2] Diagnosis: FEBRILE ILLNESS[ICD9: 780.60] Diagnosis: SINUSITIS, ACUTE[ICD9: 461.9] Ophelia AGUILLON DO [facility] CPT-4: 23011 11/07/2012 OFFICE/OUTPATIENT VISIT EST Diagnosis: ACUTE STRESS REACT[ICD9: 308.9] Diagnosis: ANXIETY STATE NOS[ICD9: 300.00] Ophelia AGUILLON DO [facility] CPT-4: 33624 09/18/2012 ([id number]) PREV VISIT EST AGE 40-64 Diagnosis: ROUTINE MEDICAL EXAM[ICD9: V70.0] Diagnosis: HYPERLIPIDEMIA NEC/NOS[ICD9: 272.4] Diagnosis: ANXIETY STATE NOS[ICD9: 300.00] Ophelia AGUILLON DO [facility] CPT-4: 62065 06/13/2012 ([id number]) OFFICE/OUTPATIENT VISIT EST Diagnosis: ROUTINE MEDICAL EXAM[ICD9: V70.0] Ophelia AGUILLON DO [facility] CPT-4: 13602 06/11/2012 OFFICE/OUTPATIENT VISIT EST Diagnosis: INSOMNIA NOS[ICD9: 780.52] Diagnosis: ACUTE STRESS REACT[ICD9: 308.9] Diagnosis: Tinnitus[ICD9: 388.30] Diagnosis: HYPERLIPIDEMIA NEC/NOS[ICD9: 272.4] Ophelia TRUONG Izaiah DESOUZANDER DO [facility] CPT-4: 04371 12/21/2011 OFFICE/OUTPATIENT VISIT EST Diagnosis: ACUTE STRESS REACT[ICD9: 308.9] Ophelia CALZADA CPT-4: 91363 09/28/2011 OFFICE/OUTPATIENT VISIT EST Diagnosis: ACUTE STRESS REACT[ICD9: 308.9] Ophelia CALZADA CPT-4: 82296 04/06/2011 OFFICE/OUTPATIENT VISIT NEW Ophelia BALDWIN DO [facility] CPT- 4: 65179 03/03/2011 Plan of Care Planned Activity Notes Codes Status Date Appointment: Ophelia Aguillon WPtel: [phone] [id number] TB Test read 03/21/2018 Patient Education: Patient Medication Summary Completed 03/21/2018 Appointment: Ophelia Aguillon WPtel: [phone] [id number] [place] TB Test 03/19/2018 Patient Education: Patient [...] RTC 02/23/2018 Appointment: Cassandra Camejo WPtel: [phone] [id number] ACUTE ILLNESS 02/23/2018 Patient Education: Patient Medication Summary Completed 02/23/2018 Visit Diagnosis Plan: Encounter for gene [facility] adult medical examination without abnormal findings Discussion: Lab discussed Add Calcium wi th Vitamin D3 daily Continue walking and add yoga for weight bearing Praised lower cholesterol efforts 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 up to date ICD-9 : V70.0 ICD-10 : Z00.00 09/07/2017 Appointment: Ophelia Aguillon WPtel: [address] [place], [place] [phone] Annual Well Visit 09/07/2017 Patient Education: Patient Medication Summary Completed 09/07/2017 Appointment: Ophelia Aguillon WPtel: [address] [place], [place] [phone] [place] LAB 09/04/2017 Patient Education: Patient Medication Summary Completed 09/04/2017 Visit Plan: Lab discussed Schedule colon oscopy Keep meds same Defers statin and will add fish oil and aspirin 81mg daily with diet/exercise and recheck lipids in 4mos 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 Discussed is high risk for CAD due to family history and hyperlipidemia 01/12/2015 Appointment: Ophelia Aguillon WPtel: [address] [place] [address] confirmed -mf Annual Well Visit 01/12/2015 Patient Education: Patient Medication Summary Completed 01/12/2015 Appointment: Ophelia Aguillon WPtel: [address] [place] [address] LAB 01/07/2015 Patient Education: Patient Medication Summary Completed 01/07/2015 Appointment: Sarah Wong WPtel: [address] [place] [address] FOLLOW UP 02/26/2014 Appointment: Ophelia Aguillon WPtel: [address] [place], [place] [phone] 01/07 patient canceled FOLLOW UP 4 Visit Plan: Removal of lesion as above 08/06/2013 Appointment: Ophelia Aguillon WPtel: [address] [place], [place] [phone] OFFICE SURGERY 08/06/2013 Patient Education: Patient Medication Summary Completed 08/06/2013 Visit Plan: Daily fish oil 3grams, Vitam in D 1000u daily, Coenzyme Q-10 200mg daily Diet/exercise/weight loss Recheck lipids in 6mos Discussed statins Pt has mammo next month 07/24/2013 Appointment: Ophelia Aguillon WPtel: [address] [place], [place] [id number] 07/23 Annual Well Visit 07/24/2013 Patient Education: Patient Medication Summary Completed 07/24/2013 Appointment: Ophelia Aguillon WPtel: [address] [place], [place] [phone] [place] LAB 07/22/2013 Patient Education: Patient Medication Summary Completed 07/22/2013 Referral: Ophelia Aguillon WPtel: [address] [place], [place] [phone] Referral Initiated 06/17/2013 Visit Plan: Skin So Soft to right nasal area q HS next month then observe If something comes back then will see ENT for removal 06/13/2013 Appointment: Ophelia Aguillon WPtel: [address] [place], [place] [phone] 06/12 FOLLOW UP 06/13/2013 Patient Education: Patient Medication Summary Completed 06/13/2013 Visit Plan: Bactrim DS 1 po BID for 1wk, Prednisone 20mg po BID for 1wk Zyrtec daily If lesion persists will see Dr. Low for removal 05/15/2013 Appointment: Ophelia Aguillon WPtel: [address] [place], [place] [phone] 05/14 ACUTE ILLNESS 05/15/2013 Patient Education: Patient Medication Summary Completed 05/15/2013 Appointment: Ophelia Aguillon WPtel: [address] [place], [place] [phone] FOLLOW UP 12/13/2012 Visit Plan: Note for fever free 24 hours . Discussed fluids and rest. Clarified in verbal message that Levaquin should be QD dosing. Codeine/guiaf cough syrup. Flu test negative. Pt. to notify if symptoms worsen or fever persists. Discussed Rocephin IM and or lab/chest x-rays if symptoms persist. 11/07/2012 Appointment: Batsheva Bennett WPtel: [address] [place], [place] [phone] ACUTE ILLNESS 11/07/2012 Patient Education: Patient Medication Summary Completed 11/07/2012 Visit Plan: Continue fluoxetine at 30mg daily Stess Reducers 09/18/2012 Appointment: Ophelia Aguillontel: [address] [place], [place] [phone] FOLLOW UP 09/18/2012 Patient Education: Patient Medication Summary Completed 09/18/2012 Visit Plan: Increase fish oil to 3gm poonam ly Step 1 Cardiac Diet Repeat CMP and lipids in 6mos Pt has DCed Fluoxetine and so far doing okay Will focus on stress reducers 06/13/2012 Appointment: Ophelia Aguillon WPtel: [address] [place] [address] FOLLOW UP 06/13/2012 Patient Education: Patient Medication Summary Completed 06/13/2012 Appointment: Ophelia Aguillon WPtel: [address] [place] [address] [place] LAB 06/11/2012 Patient Education: Patient Medication Summary Completed 06/11/2012 Visit Plan: Decrease fluoxetine back to 30mg daily Check fasting lab in 3mos ENT for tinnitus/hearing loss 12/21/2011 Appointment: Ophelia Aguillontel: [address] [place] [address] FOLLOW UP 12/21/2011 Patient Education: Patient Medication Summary Completed 12/21/2011 Visit Plan: Increase fluoxetine to 40mg daily 09/28/2011 Appointment: Ophelia Aguillon WPtel: [address] [place] [address] [place] FOLLOW UP 09/28/2011 Patient Education: Patient Medication Summary Completed 09/28/2011 Visit Plan: Increase fluoxetine to 30mg daily Call in 2wks 04/06/2011 Appointment: Ophelia Aguillon WPtel: [address] [place] [address] FOLLOW UP 04/06/2011 Patient Education: Patient Medication Summary Completed 04/06/2011 Appointment: Ophelia Aguillon WPtel: [phone] [id number] [place] NEW PATIENT 03/03/2011 Patient Education: Patient Medication Summary Completed 03/03/2011 Referral: Saurabh Beatty WPtel: [phone] [id number] [place] Referral Completed Instructions Comment . 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
--- OUTSIDE RECORDS SUMMARY | 2020-03-06 17:13 | XMS REPORT | CCD ---
Author Author Sofia Aguillon D.O. Organization [facility] Address [address] [place] [address] Phone Care Team Providers Care Computer Installation Engineer Name Role Phone PP Unavailable CCM Unavailable Summary Purpose Interface Exchange Insurance Providers Payer name Policy type / Coverage type Covered republican ID Effective Begin Date Effective End Date Blue Cross Blue Shield Blue Cross/Blue Shield [id number] Unknown Family History Family History data not found Social History Social History Element Codes Description Effective Dates Marital status Unknown 03/03/2011 Number of children Unknown 3 03/03/2011 Employment Unknown Currently employed [employer] 250 03/03/[address]: 980350579 Never smoker 03/03/[address]: 901743530 Never drinks alcohol 2010 Allergies, Adverse Reactions, [...] Instructions Alba Allergy 180 mg tablet RxNorm: 246109 1 Tablet(s) PO QD 02/0505/23/2018 Inactive Medrol (Vick) 4 mg tablets in a dose pack RxNorm: 122443 As directed Tablet(s) PO QD 02/23/2018 02/27/2018 Inactive alprazolam 0.25 mg tablet RxNorm: 587322 TAKE 1/2 TABLE T TWO TIMES A DAY NEEDED FOR SEVERE STRESS 03/27/2015 04/15/2015 Inactive fluoxetine 10 mg tablet RxNorm: 842390 3 Tablet(s) PO QAM 03/27/2015 09/06/2017 Inactive for 1week then 2 po qam alprazolam 0.25 mg tablet RxNorm: 079361 TAKE ONE-HALF TABLET BY MOUTH TWICE A DAY NEEDED FOR SEVERE STRESS 07/24/2014 03/27/2015 Inactive (Response to an electronic controlled substance refill request - RxReferenceNumber: [id number]) fluoxetine 10 mg tablet RxNorm: 004583 3 Tablet(s) PO QAM 05/26/2014 03/27/2015 Inactive for 1week then 2 po qAM [SAVINGS FOR UNI NSURED PATIENTS -- BIN:[id number], PCN: [id number], Group: [id number], ID# [id number], Process claim through [employer], for questions: . THIS IS NOT INSURANCE.] Bactrim DS 800 mg-160 mg tablet RxNorm: 968253 1 Tablet(s) PO BID 1 05/21/2013 Inactive prednisone 20 mg tablet RxNorm: 186781 1 Tablet(s) PO BID 05/15/2013 05/21/2013 Inactive Levaquin 750 mg tablet RxNorm: 429032 1 Tablet(s) PO BID 11/07/2012 0 11/16/2012 Inactive fluoxetine 10 mg tablet RxNorm: 994096 3 Tablet(s) PO QAM 09/18/2012 03/16/2013 Inactive for 1week then 2 po qAM fluoxetine 10 mg tablet RxNorm: 684900 3 Tablet(s) PO QAM 12/21/2011 06/12/2012 Inactive for 1week then 2 po qAM fluoxetine 10 mg Tab RxNorm: 826024 3 Tablet(s) PO QAM 10/20/2011 Inactive for 1week then 2 po qAM Vaniqa 13.9 % Topical Cream RxNorm: 104843 1 Application TOP BID 12/20/2011 Inactive fluoxetine 40 mg Cap RxNorm: 452528 1 Capsule(s) PO QD 09/28/2011 Inactive fluoxetine 10 mg Cap RxNorm: 691983 3 Capsule(s) PO QD 06/21/201107/2012 Inactive fluoxetine 10 mg Tab RxNorm: 422256 3 Tablet(s) PO QD 04/26/201105/07 Inactive Xanax 0.25 mg Tab RxNorm: 168030 1/2 Tablet(s) PO BID 03/03/201103/07 Inactive prn severe stress alprazolam 0.25 mg tablet RxNorm: 192455 1/2 Tablet(s) PO BID as needed for anxiety No Start Date 02/22/2018 Inactive Medrol (Vick) 4 mg tablets in a dose pack RxNorm: 233561 Tablet(s) PO as directed No Start Date 05/14/2013 Inactive Fish Oil 1,000 mg Cap RxNorm: 1 Capsule(s) PO BID No Start Date Inactive fluoxetine 10 mg Cap RxNorm: 572702 2 Capsule(s) PO QD No Start Date 06/20/2011 Inactive fluoxetine 10 mg Cap RxNorm: 850270 3 Capsule(s) PO QD No Start Date 09/27/2011 Inactive alprazolam 0.25 mg Tab RxNorm: 391421 1/2 Tablet(s) PO BID No Start Date 07/24/2014 Inactive as needed fluoxetine 10 mg Tab RxNorm: 538458 1 Tablet(s) PO QAM No Start Date 10/19/2011 Inactive for 1week then 2 po qAM Vaniqa 13.9 % Topical Cream RxNorm: 668006 1 Application TOP BID No Start Date 09/27/2011 Inactive fluoxetine 20 mg capsule RxNorm: 209901 1 Capsule(s) PO QD No Start Date 02/22/2018 Inactive Vitamin D3 1000 units Capsule RxNorm: 1 Capsule(s) PO QD No St art Date 09/06/2017 Inactive Prozac 20 mg capsule RxNorm: 941776 1 Capsule(s) PO QD No Start Date 07/23/2013 Inactive Medication Administered No Medication Administered data Immunizations Vaccine Codes Date Status Shingrix Unknown 01/15/2018 Complete Zostavax CVX: 121 11/16/2017 Results Observation Observation Code Item Item Code Result Date S [facility] Location FREE T4 21367 T4 Free 1.25 ng/dL 09/04/2017 Unknown COMPLETE BLOOD COUNT [id number] WBC 5.9 10e9/L 09/04/19 18 Unknown COMPLETE BLOOD COUNT [id number] RBC 4.35 10e12/L 2017 Unknown COMPLETE BLOOD COUNT [id number] HEMOGLOBIN 14.0 g/dL 09/04/19 18 Unknown COMPLETE BLOOD COUNT [id number] HEMATOCRIT 41.6 % 09/04/19 18 Unknown COMPLETE BLOOD COUNT 8296604 MCV 95.6 fL 8 Unknown COMPLETE BLOOD COUNT 5873616 MCH 32.2 pg 8 Unknown COMPLETE BLOOD COUNT 6530077 MCHC 33.7 g/dL 8 Unknown COMPLETE BLOOD COUNT 3130221 PLATELET COUNT 239 10e9/L Unknown COMPLETE BLOOD COUNT [id number] Mean Plt Volume 10.8 fL Unknown COMPLETE BLOOD COUNT [id number] Neut Auto 53.2 % 8 Unknown COMPLETE BLOOD COUNT [id number] Lymph Auto 35.6 % 09/04/19 18 Unknown COMPLETE BLOOD COUNT [id number] [place] Auto 9.6 % 8 Unknown COMPLETE BLOOD COUNT 7039722 RDW 13.2 % 8 Unknown COMPLETE BLOOD COUNT 8326283 Eos Auto 1.4 % 8 Unknown COMPLETE BLOOD COUNT 0706742 Baso Auto 0.2 % 8 Unknown COMPLETE BLOOD COUNT [id number] Neutrophil Abs 3.14 10e9/L Unknown COMPLETE BLOOD COUNT [id number] Lymphocyte Abs 2.10 10e9/L Unknown COMPLETE BLOOD COUNT [id number] Monocyte Abs 0.57 10e9/L 08/08 Unknown COMPLETE BLOOD COUNT [id number] Eosinophil Abs 0.08 10e9/L Unknown COMPLETE BLOOD COUNT 2198168 RDW-SD 44.7 fL 8 Unknown COMPLETE BLOOD COUNT [id number] Basophil Abs 0.01 10e9/L 08/08 Unknown COMPREHENSIVE METABOLIC 51190 AST 26 U/L 2017 Unknown COMPREHENSIVE METABOLIC 25318 ALT 40 U/L 2017 Unknown COMPREHENSIVE METABOLIC 04616 BUN 6 mg/dL 2017 Unknown COMPREHENSIVE METABOLIC 58621 ALBUMIN 5.3 g/dL 2017 Unknown COMPREHENSIVE METABOLIC 84309 CHLORIDE 102 mmol/L 09/04 Unknown COMPREHENSIVE METABOLIC 81469 Bili Total 0.7 mg/dL 09/04 Unknown COMPREHENSIVE METABOLIC 96684 ALK PHOS 56 U/L 2017 Unknown COMPREHENSIVE METABOLIC 65230 SODIUM 139 mmol/L 09/04 Unknown COMPREHENSIVE METABOLIC 03222 CREATININE 0.61 mg/dL 08/08 Unknown COMPREHENSIVE METABOLIC 44692 CALCIUM 9.8 mg/dL 2017 Unknown COMPREHENSIVE METABOLIC 92419 POTASSIUM 3.8 mmol/L 09/04 Unknown COMPREHENSIVE METABOLIC 78776 Total Protein 7.7 g/dL Unknown COMPREHENSIVE METABOLIC 24919 Glucose 95 mg/dL 2017 Unknown COMPREHENSIVE METABOLIC 05827 Bicarbonate 30 mmol/L 08/08 Unknown COMPREHENSIVE METABOLIC 34652 AGAP 7 mmol/L 2017 Unknown GFR CALC 6134845 GFR Non Afr Amr >60 mL/min 09/04/2017 Un known GFR CALC 0895771 GFR Afr Amr >60 mL/min 09/04/2017 Unknow n THYROID STIMULATING HORMONE 70127 TSH 1.454 uIU/mL 09/04/2017 Unknown LIPID GROUP 85724 Cholesterol 218 mg/dL 09/04/2017 Unkno wn LIPID GROUP 46615 Triglyceride 135 mg/dL 09/04/2017 Unkn own LIPID GROUP 63502 HDL CHOLESTEROL 52 09/04/2017 U nknown LIPID GROUP 87160 Chol/HDL Ratio 4.19 ratio 09/04/2017 U nknown LIPID GROUP 44668 NON-HDL Chol 166 mg/dL 09/04/2017 Unkn own LIPID GROUP 31741 LDL Cholesterol 139 mg/dL 09/04/2017 U nknown FREE T4 96871 FREE T4 1.15 NG/DL 01/07/2015 Unknown THYROID STIMULATING HORMONE 98795 TSH 1.927 uIU/ML 01/07/2015 Unknown LIPID GROUP 14214 HDL TEST 53 MG/DL 01/07/2015 Unknown LIPID GROUP 11519 TRIG 215 MG/DL 01/07/2015 Unknown LIPID GROUP 57232 TEST LDL 194 MG/DL 01/07/2015 Unknown LIPID GROUP 83993 CHOL 290 MG/DL 01/07/2015 Unknown LIPID GROUP 81706 RCHOL/HDL 5.47 RATIO 01/07/2015 Unknow n LIPID GROUP 68584 NON-HDL CH 237 MG/DL 01/07/2015 Unknow n GFR CALC 7233021 GFR AA >60 ML/MIN 01/07/2015 Unknown GFR CALC 7904790 GFR NON-AA >60 ML/MIN 01/07/2015 Unknown COMPLETE BLOOD COUNT 4325878 WBC 5.9 10e9/L 01/08/20 15 Unknown COMPLETE BLOOD COUNT 8202307 RBC 4.35 10e12/L 2014 Unknown COMPLETE BLOOD COUNT 1756555 HGB 14.2 g/dL 5 Unknown COMPLETE BLOOD COUNT 8872963 HCT DET 42.0 % 5 Unknown COMPLETE BLOOD COUNT 3583497 MCV 96.6 fL 5 Unknown COMPLETE BLOOD COUNT 7072446 MCH 32.6 pg 5 Unknown COMPLETE BLOOD COUNT 7667630 MCHC 33.8 g/dL 5 Unknown COMPLETE BLOOD COUNT 9798144 PLT 227 10e9/L 01/08/20 15 Unknown COMPLETE BLOOD COUNT 2794611 MPV 11.4 fL 5 Unknown COMPLETE BLOOD COUNT 8251772 PRITI % 54.2 % 5 Unknown COMPLETE BLOOD COUNT 8449667 LY % 33.8 % 5 Unknown COMPLETE BLOOD COUNT 2924684 MON % 8.8 % 5 Unknown COMPLETE BLOOD COUNT 8600742 EOS % 2.9 % 5 Unknown COMPLETE BLOOD COUNT 6036715 BASO % 0.3 % 5 Unknown COMPLETE BLOOD COUNT 7208106 RDW 13.6 % 5 Unknown COMPLETE BLOOD COUNT 6966942 ABS PRITI 3.20 10e9/L 015 Unknown COMPLETE BLOOD COUNT 4582972 ABS LYMPH 1.99 10e9/L 015 Unknown COMPLETE BLOOD COUNT 4033043 ABS MONO 0.52 10e9/L 015 Unknown COMPLETE BLOOD COUNT 5486613 ABS EOS 0.17 10e9/L 015 Unknown COMPLETE BLOOD COUNT 2823192 ABS BASO 0.02 10e9/L 015 Unknown COMPLETE BLOOD COUNT 3175375 RDW-SD 47.0 fL 5 Unknown COMPREHENSIVE METABOLIC 90451 AST 20 U/L 2014 Unknown COMPREHENSIVE METABOLIC 28513 ALT 30 IU/L 2014 Unknown COMPREHENSIVE METABOLIC 38486 BUN 12 MG/DL 2014 Unknown COMPREHENSIVE METABOLIC 64961 ALBUMIN 4.4 GM/DL 2014 Unknown COMPREHENSIVE METABOLIC 08281 CHLORIDE 102 MMOL/L 01/07 Unknown COMPREHENSIVE METABOLIC 45761 BILI TOT 0.6 MG/DL 2014 Unknown COMPREHENSIVE METABOLIC 30943 ALK PHOS 76 U/L 2014 Unknown COMPREHENSIVE METABOLIC 38661 SODIUM 139 MMOL/L 01/07 Unknown COMPREHENSIVE METABOLIC 52869 CREATININE 0.77 MG/DL 10/2014 Unknown COMPREHENSIVE METABOLIC 40183 CALCIUM 9.2 MG/DL 2014 Unknown COMPREHENSIVE METABOLIC 72197 POTASSIUM 4.1 MMOL/L 01/07 Unknown COMPREHENSIVE METABOLIC 44021 PROT TOT 7.1 GM/DL 2014 Unknown COMPREHENSIVE METABOLIC 64900 Glucose 107 MG/DL 2014 Unknown COMPREHENSIVE METABOLIC 28797 BICARB 30 MMOL/L 2014 Unknown COMPREHENSIVE METABOLIC 56536 ANION GAP 7 MEQ/L 2014 Unknown LIPID GROUP 12947 HDL TEST 48 MG/DL 07/22/2013 Unknown LIPID GROUP 69078 TRIG 176 MG/DL 07/22/2013 Unknown LIPID GROUP 18730 TEST LDL 161 MG/DL 07/22/2013 Unknown LIPID GROUP 22261 CHOL 244 MG/DL 07/22/2013 Unknown LIPID GROUP 11756 RCHOL/HDL 5.08 RATIO 07/22/2013 Unknow n COMPLETE BLOOD COUNT 6202894 WBC 5.8 10e9/L 07/22/20 13 Unknown COMPLETE BLOOD COUNT 3426636 RBC 4.45 10e12/L 2012 Unknown COMPLETE BLOOD COUNT 2248147 HGB 14.6 g/dL 3 Unknown COMPLETE BLOOD COUNT 5725911 HCT DET 43.8 % 3 Unknown COMPLETE BLOOD COUNT 9142725 MCV 98.4 fL 3 Unknown COMPLETE BLOOD COUNT 7484750 MCH 32.8 pg 3 Unknown COMPLETE BLOOD COUNT 4275257 MCHC 33.3 g/dL 3 Unknown COMPLETE BLOOD COUNT 1849492 PLT 270 10e9/L 07/22/20 13 Unknown COMPLETE BLOOD COUNT 1824476 MPV 11.4 fL 3 Unknown COMPLETE BLOOD COUNT 7205669 PRITI % 54.2 % 3 Unknown COMPLETE BLOOD COUNT 1095013 LY % 33.2 % 3 Unknown COMPLETE BLOOD COUNT 7653408 MON % 9.2 % 3 Unknown COMPLETE BLOOD COUNT 9237179 EOS % 3.1 % 3 Unknown COMPLETE BLOOD COUNT 4151346 BASO % 0.3 % 3 Unknown COMPLETE BLOOD COUNT 1250834 RDW 13.8 % 3 Unknown COMPLETE BLOOD COUNT 7441992 ABS PRITI 3.14 10e9/L 013 Unknown COMPLETE BLOOD COUNT 0690876 ABS LYMPH 1.93 10e9/L 013 Unknown COMPLETE BLOOD COUNT 8409938 ABS MONO 0.53 10e9/L 013 Unknown COMPLETE BLOOD COUNT 5658625 ABS EOS 0.18 10e9/L 013 Unknown COMPLETE BLOOD COUNT 5456564 ABS BASO 0.02 10e9/L 013 Unknown COMPLETE BLOOD COUNT 7474240 RDW-SD 48.4 fL 3 Unknown GFR CALC 3516278 GFR AA >60 ML/MIN 07/22/2013 Unknown GFR CALC 0448969 GFR NON-AA >60 ML/MIN 07/22/2013 Unknown THYROID STIMULATING HORMONE 92945 TSH 1.645 uIU/ML 07/22/2013 Unknown COMPREHENSIVE METABOLIC 84381 AST 23 U/L 2012 Unknown COMPREHENSIVE METABOLIC 74379 ALT 30 IU/L 2012 Unknown COMPREHENSIVE METABOLIC 16950 BUN 12 MG/DL 2012 Unknown COMPREHENSIVE METABOLIC 64402 ALBUMIN 4.7 GM/DL 2012 Unknown COMPREHENSIVE METABOLIC 77501 CHLORIDE 102 MMOL/L 07/22 Unknown COMPREHENSIVE METABOLIC 74579 BILI TOT 0.5 MG/DL 2012 Unknown COMPREHENSIVE METABOLIC 58384 ALK PHOS 51 U/L 2012 Unknown COMPREHENSIVE METABOLIC 58654 SODIUM 136 MMOL/L 07/22 Unknown COMPREHENSIVE METABOLIC 74690 CREATININE 0.74 MG/DL 07/07 Unknown COMPREHENSIVE METABOLIC 11461 CALCIUM 9.2 MG/DL 2012 Unknown COMPREHENSIVE METABOLIC 10924 POTASSIUM 4.1 MMOL/L 07/22 Unknown COMPREHENSIVE METABOLIC 29308 PROT TOT 7.1 GM/DL 2012 Unknown COMPREHENSIVE METABOLIC 67294 Glucose 107 MG/DL 2012 Unknown COMPREHENSIVE METABOLIC 50015 BICARB 29 MMOL/L 2012 Unknown COMPREHENSIVE METABOLIC 01657 ANION GAP 5 MEQ/L 2012 Unknown FREE T4 51047 FREE T4 0.98 NG/DL 07/22/2013 Unknown COMPLETE BLOOD COUNT 3341955 WBC 4.4 10e9/L 06/11/20 12 Unknown COMPLETE BLOOD COUNT 4479077 RBC 4.18 10e12/L 2011 Unknown COMPLETE BLOOD COUNT 9876273 HGB 13.5 g/dL 2 Unknown COMPLETE BLOOD COUNT 6665432 HCT DET 39.9 % 2 Unknown COMPLETE BLOOD COUNT 8671947 MCV 95.5 fL 2 Unknown COMPLETE BLOOD COUNT 1599536 MCH 32.3 pg 2 Unknown COMPLETE BLOOD COUNT 3389134 MCHC 33.8 g/dL 2 Unknown COMPLETE BLOOD COUNT 8459635 PLT 232 10e9/L 06/11/20 12 Unknown COMPLETE BLOOD COUNT 9768582 MPV 11.3 fL 2 Unknown COMPLETE BLOOD COUNT 8934837 PRITI % 46.4 % 2 Unknown COMPLETE BLOOD COUNT 6619008 LY % 36.4 % 2 Unknown COMPLETE BLOOD COUNT 7425428 MON % 10.5 % 2 Unknown COMPLETE BLOOD COUNT 7585210 EOS % 6.2 % 2 Unknown COMPLETE BLOOD COUNT 4756921 BASO % 0.5 % 2 Unknown COMPLETE BLOOD COUNT 5597843 RDW 13.1 % 2 Unknown COMPLETE BLOOD COUNT 7098848 ABS PRITI 2.04 10e9/L 012 Unknown COMPLETE BLOOD COUNT 9657517 ABS LYMPH 1.60 10e9/L 012 Unknown COMPLETE BLOOD COUNT 2233684 ABS MONO 0.46 10e9/L 012 Unknown COMPLETE BLOOD COUNT 9359764 ABS EOS 0.27 10e9/L 012 Unknown COMPLETE BLOOD COUNT 7521860 ABS BASO 0.02 10e9/L 012 Unknown COMPLETE BLOOD COUNT 7184122 RDW-SD 44.2 fL 2 Unknown THYROID STIMULATING HORMONE 21300 TSH 1.766 uIU/ML 06/11/2012 Unknown COMPREHENSIVE METABOLIC 09291 AST 20 U/L 2011 Unknown COMPREHENSIVE METABOLIC 03572 ALT 23 IU/L 2011 Unknown COMPREHENSIVE METABOLIC 81267 BUN 10 MG/DL 2011 Unknown COMPREHENSIVE METABOLIC 30658 ALBUMIN 4.3 GM/DL 2011 Unknown COMPREHENSIVE METABOLIC 81687 CHLORIDE 103 MMOL/L 06/11 Unknown COMPREHENSIVE METABOLIC 66757 BILI TOT 0.4 MG/DL 2011 Unknown COMPREHENSIVE METABOLIC 11281 ALK PHOS 52 U/L 2011 Unknown COMPREHENSIVE METABOLIC 68141 SODIUM 138 MMOL/L 06/11 Unknown COMPREHENSIVE METABOLIC 63387 CREATININE 0.74 MG/DL 12/2011 Unknown COMPREHENSIVE METABOLIC 45714 CALCIUM 8.8 MG/DL 2011 Unknown COMPREHENSIVE METABOLIC 85526 POTASSIUM 3.7 MMOL/L 06/11 Unknown COMPREHENSIVE METABOLIC 10147 PROT TOT 6.9 GM/DL 2011 Unknown COMPREHENSIVE METABOLIC 40246 Glucose 105 MG/DL 2011 Unknown COMPREHENSIVE METABOLIC 87378 BICARB 29 MMOL/L 2011 Unknown COMPREHENSIVE METABOLIC 21141 ANION GAP 6 MEQ/L 2011 Unknown FREE T4 94053 FREE T4 0.93 NG/DL 06/11/2012 Unknown LIPID GROUP 12009 HDL TEST 39 MG/DL 06/11/2012 Unknown LIPID GROUP 21629 TRIG 243 MG/DL 06/11/2012 Unknown LIPID GROUP 19253 TEST LDL 159 MG/DL 06/11/2012 Unknown LIPID GROUP 91654 CHOL 247 MG/DL 06/11/2012 Unknown LIPID GROUP 00840 RCHOL/HDL 6.33 RATIO 06/11/2012 Unknow n GFR CALC 1015438 GFR AA >60 ML/MIN 06/11/2012 Unknown GFR CALC 2166597 GFR NON-AA >60 ML/MIN 06/11/2012 Unknown VITAMIN D TOTAL (25 HYDROXY) 83346 VIT D TOTL 19 NG/ML 03/04/2011 Unknown COMPLETE BLOOD COUNT 40469 WBC 8.0 10e9/L 03/03/20 11 Unknown COMPLETE BLOOD COUNT 11449 RBC 4.62 10e12/L 2010 Unknown COMPLETE BLOOD COUNT 70252 HGB 14.9 g/dL 1 Unknown COMPLETE BLOOD COUNT 91808 HCT DET 43.6 % 1 Unknown COMPLETE BLOOD COUNT 22821 MCV 94.4 fL 1 Unknown COMPLETE BLOOD COUNT 80639 MCH 32.3 pg 1 Unknown COMPLETE BLOOD COUNT 88500 MCHC 34.2 g/dL 1 Unknown COMPLETE BLOOD COUNT 32547 PLT 236 10e9/L 03/03/20 11 Unknown COMPLETE BLOOD COUNT 98407 MPV 11.0 fL 1 Unknown COMPLETE BLOOD COUNT 04143 PRITI % 66.3 % 1 Unknown COMPLETE BLOOD COUNT 60795 LY % 20.7 % 1 Unknown COMPLETE BLOOD COUNT 83784 MON % 9.2 % 1 Unknown COMPLETE BLOOD COUNT 74701 EOS % 3.5 % 1 Unknown COMPLETE BLOOD COUNT 17269 BASO % 0.3 % 1 Unknown COMPLETE BLOOD COUNT 85195 RDW 13.5 % 1 Unknown COMPLETE BLOOD COUNT 78458 ABS PRITI 5.30 10e9/L 011 Unknown COMPLETE BLOOD COUNT 07734 ABS LYMPH 1.66 10e9/L 011 Unknown COMPLETE BLOOD COUNT 82280 ABS MONO 0.74 10e9/L 011 Unknown COMPLETE BLOOD COUNT 53776 ABS EOS 0.28 10e9/L 011 Unknown COMPLETE BLOOD COUNT 55840 ABS BASO 0.02 10e9/L 011 Unknown COMPLETE BLOOD COUNT 14780 RDW-SD 45.1 fL 1 Unknown THYROID STIMULATING HORMONE 73650 TSH 1.944 uIU/ML 03/03/2011 Unknown FREE T4 40522 FREE T4 1.04 NG/DL 03/03/2011 Unknown LIPID GROUP 36469 HDL TEST 50 MG/DL 03/03/2011 Unknown LIPID GROUP 06227 TRIG 246 MG/DL 03/03/2011 Unknown LIPID GROUP 12067 TEST LDL 213 MG/DL 03/03/2011 Unknown LIPID GROUP 85878 CHOL 312 MG/DL 03/03/2011 Unknown LIPID GROUP 96236 RCHOL/HDL 6.24 RATIO 03/03/2011 Unknow n GFR CALC 3536285 GFR AA >60 ML/MIN 03/03/2011 Unknown GFR CALC 0645979 GFR NON-AA >60 ML/MIN 03/03/2011 Unknown COMPREHENSIVE METABOLIC 15860 AST 15 U/L 2010 Unknown COMPREHENSIVE METABOLIC 78409 ALT 21 IU/L 2010 Unknown COMPREHENSIVE METABOLIC 09123 BUN 14 MG/DL 2010 Unknown COMPREHENSIVE METABOLIC 04679 ALBUMIN 4.5 GM/DL 2010 Unknown COMPREHENSIVE METABOLIC 47199 CHLORIDE 99 MMOL/L 2010 Unknown COMPREHENSIVE METABOLIC 76322 BILI TOT 0.6 MG/DL 2010 Unknown COMPREHENSIVE METABOLIC 12277 ALK PHOS 55 U/L 2010 Unknown COMPREHENSIVE METABOLIC 04845 SODIUM 134 MMOL/L 03/03 Unknown COMPREHENSIVE METABOLIC 92836 CREATININE 0.80 MG/DL 02/05 Unknown COMPREHENSIVE METABOLIC 64561 CALCIUM 9.4 MG/DL 2010 Unknown COMPREHENSIVE METABOLIC 22677 POTASSIUM 4.0 MMOL/L 03/03 Unknown COMPREHENSIVE METABOLIC 32333 PROT TOT 7.4 GM/DL 2010 Unknown COMPREHENSIVE METABOLIC 81099 Glucose 101 MG/DL 2010 Unknown COMPREHENSIVE METABOLIC 47693 BICARB 28 MMOL/L 2010 Unknown COMPREHENSIVE METABOLIC 17575 ANION GAP 7 MEQ/L 2010 Unknown Procedures Procedure Codes Date ROUTINE VENIPUNCTURE CPT-4: 46839 02/04/2020 ASSAY OF FREE THYROXINE CPT-4: 66800 02/04/2020 ASSAY THYROID STIM HORMONE CPT-4: 68019 02/04/2020 COMPREHEN METABOLIC PANEL CPT-4: 46119 02/04/2020 COMPLETE CBC W/AUTO DIFF WBC CPT-4: 92515 02/04/2020 LIPID PANEL CPT-4: 46112 02/04/2020 TB INTRADERMAL TEST CPT-4: 44376 03/19/2018 Removal impacted cerumen using irrigation/lavage, unilateral CPT-4: 33914 02/23/2018 ROUTINE VENIPUNCTURE CPT-4: 66672 09/04/2017 ASSAY THYROID STIM HORMONE CPT-4: 17066 09/04/2017 ASSAY OF FREE THYROXINE CPT-4: 99484 09/04/2017 COMPREHEN METABOLIC PANEL CPT-4: 39870 09/04/2017 COMPLETE CBC W/AUTO DIFF WBC CPT-4: 70927 09/04/2017 LIPID PANEL CPT-4: 98580 09/04/2017 ROUTINE VENIPUNCTURE CPT-4: 61998 01/07/2015 ASSAY OF FREE THYROXINE CPT-4: 15336 01/07/2015 ASSAY THYROID STIM HORMONE CPT-4: 75518 01/07/2015 COMPREHEN METABOLIC PANEL CPT-4: 35664 01/07/2015 COMPLETE CBC W/AUTO DIFF WBC CPT-4: 88010 01/07/2015 LIPID PANEL CPT-4: 67303 01/07/2015 EXC TR-EXT B9+CECILIO 0.5 CM< CPT-4: 52759 08/06/2013 ROUTINE VENIPUNCTURE CPT-4: 37472 07/22/2013 ASSAY OF FREE THYROXINE CPT-4: 27421 07/22/2013 ASSAY THYROID STIM HORMONE CPT-4: 42674 07/22/2013 COMPREHEN METABOLIC PANEL CPT-4: 66313 07/22/2013 COMPLETE CBC W/AUTO DIFF WBC CPT-4: 54252 07/22/2013 LIPID PANEL CPT-4: 51912 07/22/2013 INFLUENZA ASSAY W/OPTIC CPT-4: 31684 11/07/2012 ROUTINE VENIPUNCTURE CPT-4: 33094 06/11/2012 ASSAY OF FREE THYROXINE CPT-4: 63918 06/11/2012 ASSAY THYROID STIM HORMONE CPT-4: 70878 06/11/2012 COMPREHEN METABOLIC PANEL CPT-4: 21435 06/11/2012 COMPLETE CBC W/AUTO DIFF WBC CPT-4: 95251 06/11/2012 LIPID PANEL CPT-4: 14621 06/11/2012 ROUTINE VENIPUNCTURE CPT-4: 53237 03/03/2011 ASSAY OF FREE THYROXINE CPT-4: 98874 03/03/2011 ASSAY THYROID STIM HORMONE CPT-4: 21560 03/03/2011 COMPREHEN METABOLIC PANEL CPT-4: 69910 03/03/2011 COMPLETE CBC W/AUTO DIFF WBC CPT-4: 36845 03/03/2011 LIPID PANEL CPT-4: 68522 03/03/2011 VITAMIN D TOTAL (25 HYDROXY) CPT-4: 89950 03/03/2011 Vital Signs Date Vital 02/23/2018 Blood Pressure 1: 132/84 Code: 8480-6 BMI: 31.6 Code: 21487-0 Heart Rate 1: 76 bpm Height: 5'6" Respiratory Rate: 20 bpm SpO2: 98% Tempera ture: 36.9 (C) / 98.4 (F) Weight: 199 lbs 09/07/2017 Blood Pressure 1: 126/78 Code: 8480-6 BMI: 30.5 Code: 68735-1 Heart Rate 1: 80 bpm Height: 5'6" Respiratory Rate: 20 bpm SpO2: 98% Tempera ture: 37.2 (C) / 98.9 (F) Weight: 192 lbs 01/12/2015 Blood Pressure 1: 132/74 Code: 8480-6 BMI: 29.4 Code: 04528-9 Heart Rate 1: 92 bpm Height: 5'6" Respiratory Rate: 20 bpm Temperature: 36 .7 (C) / 98.1 (F) Weight: 185 lbs 08/06/2013 Blood Pressure 1: 114/80 Code: 8480-6 BMI: 30.7 Code: 66981-7 Heart Rate 1: 80 bpm Height: 5'6" Respiratory Rate: 20 bpm Temperature: 37 .2 (C) / 99.0 (F) Weight: 193 lbs 07/24/2013 Blood Pressure 1: 124/68 Code: 8480-6 BMI: 30.7 Code: 83805-0 Heart Rate 1: 80 bpm Height: 5'6" Respiratory Rate: 20 bpm Temperature: 36 .9 (C) / 98.5 (F) Weight: 193 lbs 06/13/2013 Blood Pressure 1: 124/70 Code: 8480-6 BMI: 31.8 Code: 58420-0 Heart Rate 1: 88 bpm Height: 5'6" Respiratory Rate: 20 bpm Temperature: 36 .8 (C) / 98.2 (F) Weight: 200 lbs 05/15/2013 Blood Pressure 1: 120/80 Code: 8480-6 BMI: 30.8 Code: 06630-9 Heart Rate 1: 82 bpm Height: 5'6" Respiratory Rate: 22 bpm Temperature: 36 .2 (C) / 97.1 (F) Weight: 194 lbs 11/07/2012 Blood Pressure 1: 146/88 Code: 8480-6 BMI: 31.0 Code: 82333-1 Heart Rate 1: 108 bpm Height: 5'7" Respiratory Rate: 20 bpm SpO2: 95% Tempera ture: 38.2 (C) / 100.8 (F) Weight: 198 lbs 09/18/2012 Blood Pressure 1: 114/76 Code: 8480-6 Heart Rate 1: 88 bpm Respiratory Rate: 20 bpm Temperature: 37.1 (C) / 98.8 (F) Weight: 195 lbs 06/13/2012 Blood Pressure 1: 110/64 Code: 8480-6 BMI: 30.4 Code: 38847-3 Heart Rate 1: 64 bpm Height: 5'7" Temperature: 36.9 (C) / 98.4 (F) Weight: 194 lbs 12/21/2011 Blood Pressure 1: 116/80 Code: 8480-6 BMI: 30.7 Code: 52425-9 Heart Rate 1: 72 bpm Height: 5'7" Respiratory Rate: 20 bpm Temperature: 37 .0 (C) / 98.6 (F) Weight: 196 lbs 09/28/2011 Blood Pressure 1: 116/78 Code: 8480-6 BMI: 29.6 Code: 39186-6 Heart Rate 1: 88 bpm Height: 5'7" Respiratory Rate: 20 bpm Temperature: 36 .9 (C) / 98.5 (F) Weight: 189 lbs 04/06/2011 Blood Pressure 1: 132/80 Code: 8480-6 Heart Rate 1: 72 bpm Respiratory Rate: 20 bpm Temperature: 37.2 (C) / 99.0 (F) Weight: 185 lbs 03/03/2011 Blood Pressure 1: 114/80 Code: 8480-6 BMI: 29.6 Code: 94433-5 Heart Rate 1: 80 bpm Height: 5'7" [...] Visit Encounters Encounter Performer Location Codes Date ([id number]) NURSE/OUTPATIENT VISIT EST Diagnosis: Encounter for general adult medical examination without abnormal findings[ICD10: Z00.00] Diagnosis: Malaise and fatigue[ICD10: R53.81] Diagnosis: Mixed hyperlipidemia[ICD10: E78.2] Ophelia CALZADA CPT-4: 40600 02/04/2020 ([id number]) NURSE/OUTPATIENT VISIT EST Diagnosis: SCREENING-PULMONARY TB[ICD10: Z11.1] Ophelianaeem AGUILLON [employer] [facility] CPT-4: 83423 03/19/2018 OFFICE/OUTPATIENT VISIT EST Diagnosis: Allergic rhinitis, unspecified[ICD10: J30.9] Diagnosis: Impacted cerumen, right ear[ICD10: H61.21] Cassandra MahajanTigistJarrett AGUILLON DO [facility] CPT-4: 73348 02/23/2018 ([id number]) PREV VISIT EST AGE 40-64 Diagnosis: Encounter for general adult medical examination without abnormal findings[ICD10: Z00.00] Diagnosis: Mixed hyperlipidemia[ICD10: E78.2] Ophelia AGUILLON [employer] [facility] CPT-4: 86607 09/07/2017 ([id number]) OFFICE/OUTPATIENT VISIT EST Diagnosis: Encounter for general adult medical examination without abnormal findings[ICD10: Z00.00] Diagnosis: Mixed hyperlipidemia[ICD10: E78.2] Ophelia AGUILLON [employer] [facility] CPT-4: 15292 09/04/2017 ([id number]) PREV VISIT EST AGE 40-64 Diagnosis: ROUTINE MEDICAL EXAM[ICD9: V70.0] Diagnosis: HYPERLIPIDEMIA NEC/NOS[ICD9: 272.4] Diagnosis: ANXIETY STATE NOS[ICD9: 300.00] Ophelia AGUILLON [employer] [facility] CPT-4: 90293 01/12/2015 ([id number]) OFFICE/OUTPATIENT VISIT EST Diagnosis: ROUTINE MEDICAL EXAM[ICD9: V70.0] Diagnosis: MALAISE AND FATIGUE[ICD9: 780.79] Diagnosis: HYPERLIPIDEMIA NEC/NOS[ICD9: 272.4] Ophelia WILLIAMSON DIONNE Izaiah AGUILLON [employer] [facility] CPT-4: 02611 01/07/2015 ([id number]) PREV VISIT EST AGE 40-64 Diagnosis: ROUTINE MEDICAL EXAM[ICD9: V70.0] Diagnosis: HYPERLIPIDEMIA NEC/NOS[ICD9: 272.4] Diagnosis: ANXIETY STATE NOS[ICD9: 300.00] Ophelia AGUILLON [employer] [facility] CPT-4: 60881 07/24/2013 ([id number]) OFFICE/OUTPATIENT VISIT EST Diagnosis: HYPERLIPIDEMIA NEC/NOS[ICD9: 272.4] Diagnosis: ROUTINE MEDICAL EXAM[ICD9: V70.0] Ophelia AGUILLON DO [facility] CPT-4: 14603 07/22/2013 ([id number]) OFFICE/OUTPATIENT VISIT EST Diagnosis: BENIGN KACEY SKIN[ICD9: 216.9] Ophelia AGUILLON DO [facility] CPT-4: 02278 06/13/2013 ([id number]) OFFICE/OUTPATIENT VISIT EST Diagnosis: Nasal lesion[ICD9: 478.19] Diagnosis: Changing mole[ICD9: 216.9] Diagnosis: ALLERGIC RHINITIS[ICD9: 477.9] Ophelia AGUILLON DO [facility] CPT-4: 19964 05/15/2013 OFFICE/OUTPATIENT VISIT EST Diagnosis: COUGH[ICD9: 786.2] Diagnosis: FEBRILE ILLNESS[ICD9: 780.60] Diagnosis: SINUSITIS, ACUTE[ICD9: 461.9] Ophelia AGUILLON DO [facility] CPT-4: 61580 11/07/2012 OFFICE/OUTPATIENT VISIT EST Diagnosis: ACUTE STRESS REACT[ICD9: 308.9] Diagnosis: ANXIETY STATE NOS[ICD9: 300.00] Ophelia AGUILLON DO [facility] CPT-4: 08865 09/18/2012 ([id number]) PREV VISIT EST AGE 40-64 Diagnosis: ROUTINE MEDICAL EXAM[ICD9: V70.0] Diagnosis: HYPERLIPIDEMIA NEC/NOS[ICD9: 272.4] Diagnosis: ANXIETY STATE NOS[ICD9: 300.00] Ophelia AGUILLON DO [facility] CPT-4: 54270 06/13/2012 ([id number]) OFFICE/OUTPATIENT VISIT EST Diagnosis: ROUTINE MEDICAL EXAM[ICD9: V70.0] Ophelia AGUILLON DO [facility] CPT-4: 13256 06/11/2012 OFFICE/OUTPATIENT VISIT EST Diagnosis: INSOMNIA NOS[ICD9: 780.52] Diagnosis: ACUTE STRESS REACT[ICD9: 308.9] Diagnosis: Tinnitus[ICD9: 388.30] Diagnosis: HYPERLIPIDEMIA NEC/NOS[ICD9: 272.4] Ophelia TRUONG Izaiah DESOUZANDER DO [facility] CPT-4: 42200 12/21/2011 OFFICE/OUTPATIENT VISIT EST Diagnosis: ACUTE STRESS REACT[ICD9: 308.9] Ophelia CALZADA CPT-4: 21451 09/28/2011 OFFICE/OUTPATIENT VISIT EST Diagnosis: ACUTE STRESS REACT[ICD9: 308.9] Ophelia CALZADA CPT-4: 88085 04/06/2011 OFFICE/OUTPATIENT VISIT NEW Ophelia BALDWIN DO [facility] CPT- 4: 59299 03/03/2011 Plan of Care Planned Activity Notes Codes Status Date Appointment: Ophelia Aguillon WPtel: [phone] [id number] TB Test read 03/21/2018 Patient Education: Patient Medication Summary Completed 03/21/2018 Appointment: Ophelia Aguillon WPtel: [phone] [id number] [place] TB Test 03/19/2018 Patient Education: Patient [...] RTC 02/23/2018 Appointment: Cassandra Camejo WPtel: [phone] [facility] ACUTE ILLNESS 02/23/2018 Patient Education: Patient Medication Summary Completed 02/23/2018 Visit Diagnosis Plan: Encounter for [facility] adult medical examination without abnormal findings Discussion: Lab discussed Add Calcium wi th Vitamin D3 daily Continue walking and add yoga for weight bearing Praised lower cholesterol efforts 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 up to date ICD-9 : V70.0 ICD-10 : Z00.00 09/07/2017 Appointment: Ophelia Aguillon WPtel: [address] [place], [place] [phone] Annual Well Visit 09/07/2017 Patient Education: Patient Medication Summary Completed 09/07/2017 Appointment: Ophelia Aguillon WPtel: [address] [place], [place] [phone] [place] LAB 09/04/2017 Patient Education: Patient Medication Summary Completed 09/04/2017 Visit Plan: Lab discussed Schedule colon oscopy Keep meds same Defers statin and will add fish oil and aspirin 81mg daily with diet/exercise and recheck lipids in 4mos 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 Discussed is high risk for CAD due to family history and hyperlipidemia 01/12/2015 Appointment: Ophelia Aguillon WPtel: [address] [place] [address] confirmed -mf Annual Well Visit 01/12/2015 Patient Education: Patient Medication Summary Completed 01/12/2015 Appointment: Ophelia Aguillon WPtel: [address] [place] [address] LAB 01/07/2015 Patient Education: Patient Medication Summary Completed 01/07/2015 Appointment: Sarah Wong WPtel: [address] [place] [address] FOLLOW UP 02/26/2014 Appointment: Ophelia Aguillon WPtel: [address] [place], [place] [phone] 01/07 patient canceled FOLLOW UP 4 Visit Plan: Removal of lesion as above 08/06/2013 Appointment: Ophelia Aguillon WPtel: [address] [place], [place] [phone] OFFICE SURGERY 08/06/2013 Patient Education: Patient Medication Summary Completed 08/06/2013 Visit Plan: Daily fish oil 3grams, Vitam in D 1000u daily, Coenzyme Q-10 200mg daily Diet/exercise/weight loss Recheck lipids in 6mos Discussed statins Pt has mammo next month 07/24/2013 Appointment: Ophelia Aguillon WPtel: [address] [place], [place] [id number] 07/23 Annual Well Visit 07/24/2013 Patient Education: Patient Medication Summary Completed 07/24/2013 Appointment: Ophelia Aguillon WPtel: [address] [place], [place] [phone] [place] LAB 07/22/2013 Patient Education: Patient Medication Summary Completed 07/22/2013 Referral: Ophelia Aguillon WPtel: [address] [place], [place] [phone] Referral Initiated 06/17/2013 Visit Plan: Skin So Soft to right nasal area q HS next month then observe If something comes back then will see ENT for removal 06/13/2013 Appointment: Ophelia Aguillon WPtel: [address] [place], [place] [phone] 06/12 FOLLOW UP 06/13/2013 Patient Education: Patient Medication Summary Completed 06/13/2013 Visit Plan: Bactrim DS 1 po BID for 1wk, Prednisone 20mg po BID for 1wk Zyrtec daily If lesion persists will see Dr. Low for removal 05/15/2013 Appointment: Ophelia Aguillon WPtel: [address] [place], [place] [phone] 05/14 ACUTE ILLNESS 05/15/2013 Patient Education: Patient Medication Summary Completed 05/15/2013 Appointment: Ophelia Aguillon WPtel: [address] [place], [place] [phone] FOLLOW UP 12/13/2012 Visit Plan: Note for fever free 24 hours . Discussed fluids and rest. Clarified in verbal message that Levaquin should be QD dosing. Codeine/guiaf cough syrup. Flu test negative. Pt. to notify if symptoms worsen or fever persists. Discussed Rocephin IM and or lab/chest x-rays if symptoms persist. 11/07/2012 Appointment: Batsheva Bennett WPtel: [address] [place], [place] [phone] ACUTE ILLNESS 11/07/2012 Patient Education: Patient Medication Summary Completed 11/07/2012 Visit Plan: Continue fluoxetine at 30mg daily Stess Reducers 09/18/2012 Appointment: Ophelia Aguillontel: [address] [place], [place] [phone] FOLLOW UP 09/18/2012 Patient Education: Patient Medication Summary Completed 09/18/2012 Visit Plan: Increase fish oil to 3gm poonam ly Step 1 Cardiac Diet Repeat CMP and lipids in 6mos Pt has DCed Fluoxetine and so far doing okay Will focus on stress reducers 06/13/2012 Appointment: Ophelia Aguillon WPtel: [address] [place] [address] FOLLOW UP 06/13/2012 Patient Education: Patient Medication Summary Completed 06/13/2012 Appointment: Ophelia Aguillon WPtel: [address] [place] [address] [place] LAB 06/11/2012 Patient Education: Patient Medication Summary Completed 06/11/2012 Visit Plan: Decrease fluoxetine back to 30mg daily Check fasting lab in 3mos ENT for tinnitus/hearing loss 12/21/2011 Appointment: Ophelia Aguillontel: [address] [place] [address] FOLLOW UP 12/21/2011 Patient Education: Patient Medication Summary Completed 12/21/2011 Visit Plan: Increase fluoxetine to 40mg daily 09/28/2011 Appointment: Ophelia Aguillon WPtel: [address] [place] [address] [place] FOLLOW UP 09/28/2011 Patient Education: Patient Medication Summary Completed 09/28/2011 Visit Plan: Increase fluoxetine to 30mg daily Call in 2wks 04/06/2011 Appointment: Ophelia Aguillon WPtel: [address] [place] [address] FOLLOW UP 04/06/2011 Patient Education: Patient Medication Summary Completed 04/06/2011 Appointment: Ophelia Aguillon WPtel: [phone] [id number] [place] NEW PATIENT 03/03/2011 Patient Education: Patient Medication Summary Completed 03/03/2011 Referral: Saurabh Beatty WPtel: [phone] [id number] [place] Referral Completed Instructions Comment . 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
--- OUTSIDE RECORDS SUMMARY | 2020-03-06 17:13 | XMS REPORT | CCD ---
Author Author Sofia Aguillon D.O. Organization [facility] Address [address] [place] [address] Phone Care Team Providers Care Business Analyst Manager Name Role Phone PP Unavailable CCM Unavailable Summary Purpose Interface Exchange Insurance Providers Payer name Policy type / Coverage type Covered republican ID Effective Begin Date Effective End Date Blue Cross Blue Shield Blue Cross/Blue Shield [id number] Unknown Family History Family History data not found Social History Social History Element Codes Description Effective Dates Marital status Unknown 03/03/2011 Number of children Unknown 3 03/03/2011 Employment Unknown Currently employed [employer] 250 03/03/[address]: 146677286 Never smoker 03/03/[address]: 553377790 Never drinks alcohol 2010 Allergies, Adverse Reactions, [...] Instructions Alba Allergy 180 mg tablet RxNorm: 214165 1 Tablet(s) PO QD 02/0505/23/2018 Inactive Medrol (Vick) 4 mg tablets in a dose pack RxNorm: 583601 As directed Tablet(s) PO QD 02/23/2018 02/27/2018 Inactive alprazolam 0.25 mg tablet RxNorm: 969787 TAKE 1/2 TABLE T TWO TIMES A DAY NEEDED FOR SEVERE STRESS 03/27/2015 04/15/2015 Inactive fluoxetine 10 mg tablet RxNorm: 366190 3 Tablet(s) PO QAM 03/27/2015 09/06/2017 Inactive for 1week then 2 po qam alprazolam 0.25 mg tablet RxNorm: 243082 TAKE ONE-HALF TABLET BY MOUTH TWICE A DAY NEEDED FOR SEVERE STRESS 07/24/2014 03/27/2015 Inactive (Response to an electronic controlled substance refill request - RxReferenceNumber: [id number]) fluoxetine 10 mg tablet RxNorm: 214109 3 Tablet(s) PO QAM 05/26/2014 03/27/2015 Inactive for 1week then 2 po qAM [SAVINGS FOR UNI NSURED PATIENTS -- [id number], PCN: [id number], Group: [id number], ID# [id number], Process claim through [employer], for questions: . THIS IS NOT INSURANCE.] Bactrim DS 800 mg-160 mg tablet RxNorm: 972861 1 Tablet(s) PO BID 1 05/21/2013 Inactive prednisone 20 mg tablet RxNorm: 213838 1 Tablet(s) PO BID 05/15/2013 05/21/2013 Inactive Levaquin 750 mg tablet RxNorm: 490372 1 Tablet(s) PO BID 11/07/2012 0 11/16/2012 Inactive fluoxetine 10 mg tablet RxNorm: 480088 3 Tablet(s) PO QAM 09/18/2012 03/16/2013 Inactive for 1week then 2 po qAM fluoxetine 10 mg tablet RxNorm: 174438 3 Tablet(s) PO QAM 12/21/2011 06/12/2012 Inactive for 1week then 2 po qAM fluoxetine 10 mg Tab RxNorm: 979657 3 Tablet(s) PO QAM 10/20/2011 Inactive for 1week then 2 po qAM Vaniqa 13.9 % Topical Cream RxNorm: 238662 1 Application TOP BID 12/20/2011 Inactive fluoxetine 40 mg Cap RxNorm: 086802 1 Capsule(s) PO QD 09/28/2011 Inactive fluoxetine 10 mg Cap RxNorm: 191728 3 Capsule(s) PO QD 06/21/201107/2012 Inactive fluoxetine 10 mg Tab RxNorm: 568296 3 Tablet(s) PO QD 04/26/201105/07 Inactive Xanax 0.25 mg Tab RxNorm: 349480 1/2 Tablet(s) PO BID 03/03/201103/07 Inactive prn severe stress alprazolam 0.25 mg tablet RxNorm: 490375 1/2 Tablet(s) PO BID as needed for anxiety No Start Date 02/22/2018 Inactive Medrol (Vick) 4 mg tablets in a dose pack RxNorm: 013290 Tablet(s) PO as directed No Start Date 05/14/2013 Inactive Fish Oil 1,000 mg Cap RxNorm: 1 Capsule(s) PO BID No Start Date Inactive fluoxetine 10 mg Cap RxNorm: 822117 2 Capsule(s) PO QD No Start Date 06/20/2011 Inactive fluoxetine 10 mg Cap RxNorm: 954260 3 Capsule(s) PO QD No Start Date 09/27/2011 Inactive alprazolam 0.25 mg Tab RxNorm: 284664 1/2 Tablet(s) PO BID No Start Date 07/24/2014 Inactive as needed fluoxetine 10 mg Tab RxNorm: 706141 1 Tablet(s) PO QAM No Start Date 10/19/2011 Inactive for 1week then 2 po qAM Vaniqa 13.9 % Topical Cream RxNorm: 359619 1 Application TOP BID No Start Date 09/27/2011 Inactive fluoxetine 20 mg capsule RxNorm: 057917 1 Capsule(s) PO QD No Start Date 02/22/2018 Inactive Vitamin D3 1000 units Capsule RxNorm: 1 Capsule(s) PO QD No St art Date 09/06/2017 Inactive Prozac 20 mg capsule RxNorm: 150326 1 Capsule(s) PO QD No Start Date 07/23/2013 Inactive Medication Administered No Medication Administered data Immunizations Vaccine Codes Date Status Shingrix Unknown 01/15/2018 Complete Zostavax CVX: 121 11/16/2017 Results Observation Observation Code Item Item Code Result Date S [facility] Location FREE T4 35744 T4 Free 1.25 ng/dL 09/04/2017 Unknown COMPLETE BLOOD COUNT [id number] WBC 5.9 10e9/L 09/04/19 18 Unknown COMPLETE BLOOD COUNT [id number] RBC 4.35 10e12/L 2017 Unknown COMPLETE BLOOD COUNT 9349250 HEMOGLOBIN 14.0 g/dL 09/04/19 18 Unknown COMPLETE BLOOD COUNT [id number] HEMATOCRIT 41.6 % 09/04/19 18 Unknown COMPLETE BLOOD COUNT 2993023 MCV 95.6 fL 8 Unknown COMPLETE BLOOD COUNT [id number] MCH 32.2 pg 8 Unknown COMPLETE BLOOD COUNT 3270168 MCHC 33.7 g/dL 8 Unknown COMPLETE BLOOD COUNT 0587142 PLATELET COUNT 239 10e9/L Unknown COMPLETE BLOOD COUNT 8413688 Mean Plt Volume 10.8 fL Unknown COMPLETE BLOOD COUNT 3545107 Neut Auto 53.2 % 8 Unknown COMPLETE BLOOD COUNT 5410449 Lymph Auto 35.6 % 09/04/19 18 Unknown COMPLETE BLOOD COUNT 1574557 Emanuel Auto 9.6 % 8 Unknown COMPLETE BLOOD COUNT 1820763 Eos Auto 1.4 % 8 Unknown COMPLETE BLOOD COUNT 7577974 RDW 13.2 % 8 Unknown COMPLETE BLOOD COUNT 4251531 Baso Auto 0.2 % 8 Unknown COMPLETE BLOOD COUNT 6812436 Neutrophil Abs 3.14 10e9/L Unknown COMPLETE BLOOD COUNT [id number] Lymphocyte Abs 2.10 10e9/L Unknown COMPLETE BLOOD COUNT 8495445 Monocyte Abs 0.57 10e9/L 08/08 Unknown COMPLETE BLOOD COUNT [id number] Eosinophil Abs 0.08 10e9/L Unknown COMPLETE BLOOD COUNT 7630598 RDW-SD 44.7 fL 8 Unknown COMPLETE BLOOD COUNT 3301258 Basophil Abs 0.01 10e9/L 08/08 Unknown COMPREHENSIVE METABOLIC 56550 AST 26 U/L 2017 Unknown COMPREHENSIVE METABOLIC 63841 ALT 40 U/L 2017 Unknown COMPREHENSIVE METABOLIC 57469 BUN 6 mg/dL 2017 Unknown COMPREHENSIVE METABOLIC 39348 ALBUMIN 5.3 g/dL 2017 Unknown COMPREHENSIVE METABOLIC 62496 CHLORIDE 102 mmol/L 09/04 Unknown COMPREHENSIVE METABOLIC 66892 Bili Total 0.7 mg/dL 09/04 Unknown COMPREHENSIVE METABOLIC 79778 ALK PHOS 56 U/L 2017 Unknown COMPREHENSIVE METABOLIC 69672 SODIUM 139 mmol/L 09/04 Unknown COMPREHENSIVE METABOLIC 19369 CREATININE 0.61 mg/dL 08/08 Unknown COMPREHENSIVE METABOLIC 77723 CALCIUM 9.8 mg/dL 2017 Unknown COMPREHENSIVE METABOLIC 91982 POTASSIUM 3.8 mmol/L 09/04 Unknown COMPREHENSIVE METABOLIC 28823 Total Protein 7.7 g/dL Unknown COMPREHENSIVE METABOLIC 88146 Glucose 95 mg/dL 2017 Unknown COMPREHENSIVE METABOLIC 36264 Bicarbonate 30 mmol/L 08/08 Unknown COMPREHENSIVE METABOLIC 27901 AGAP 7 mmol/L 2017 Unknown GFR CALC 6135002 GFR Afr Amr >60 mL/min 09/04/2017 Unknow n GFR CALC 6612346 GFR Non Afr Amr >60 mL/min 09/04/2017 Un known THYROID STIMULATING HORMONE 38558 TSH 1.454 uIU/mL 09/04/2017 Unknown LIPID GROUP 89269 Cholesterol 218 mg/dL 09/04/2017 Unkno wn LIPID GROUP 15552 Triglyceride 135 mg/dL 09/04/2017 Unkn own LIPID GROUP 79549 HDL CHOLESTEROL 52 09/04/2017 U nknown LIPID GROUP 54616 Chol/HDL Ratio 4.19 ratio 09/04/2017 U nknown LIPID GROUP 20636 NON-HDL Chol 166 mg/dL 09/04/2017 Unkn own LIPID GROUP 44415 LDL Cholesterol 139 mg/dL 09/04/2017 U nknown FREE T4 28879 FREE T4 1.15 NG/DL 01/07/2015 Unknown THYROID STIMULATING HORMONE 63315 TSH 1.927 uIU/ML 01/07/2015 Unknown LIPID GROUP 85962 HDL TEST 53 MG/DL 01/07/2015 Unknown LIPID GROUP 63125 TRIG 215 MG/DL 01/07/2015 Unknown LIPID GROUP 04952 TEST LDL 194 MG/DL 01/07/2015 Unknown LIPID GROUP 70758 CHOL 290 MG/DL 01/07/2015 Unknown LIPID GROUP 98717 RCHOL/HDL 5.47 RATIO 01/07/2015 Unknow n LIPID GROUP 49689 NON-HDL CH 237 MG/DL 01/07/2015 Unknow n GFR CALC 1750152 GFR AA >60 ML/MIN 01/07/2015 Unknown GFR CALC 8936101 GFR NON-AA >60 ML/MIN 01/07/2015 Unknown COMPLETE BLOOD COUNT 2179496 WBC 5.9 10e9/L 01/08/20 15 Unknown COMPLETE BLOOD COUNT 4473605 RBC 4.35 10e12/L 2014 Unknown COMPLETE BLOOD COUNT 9198543 HGB 14.2 g/dL 5 Unknown COMPLETE BLOOD COUNT 1962162 HCT DET 42.0 % 5 Unknown COMPLETE BLOOD COUNT 3366113 MCV 96.6 fL 5 Unknown COMPLETE BLOOD COUNT 8668602 MCH 32.6 pg 5 Unknown COMPLETE BLOOD COUNT 4946819 MCHC 33.8 g/dL 5 Unknown COMPLETE BLOOD COUNT 9855712 PLT 227 10e9/L 01/08/20 15 Unknown COMPLETE BLOOD COUNT 4587476 MPV 11.4 fL 5 Unknown COMPLETE BLOOD COUNT 6039776 PRITI % 54.2 % 5 Unknown COMPLETE BLOOD COUNT 1925044 LY % 33.8 % 5 Unknown COMPLETE BLOOD COUNT 2365055 MON % 8.8 % 5 Unknown COMPLETE BLOOD COUNT 9072369 EOS % 2.9 % 5 Unknown COMPLETE BLOOD COUNT 9575162 BASO % 0.3 % 5 Unknown COMPLETE BLOOD COUNT 5056364 RDW 13.6 % 5 Unknown COMPLETE BLOOD COUNT 9052063 ABS PRITI 3.20 10e9/L 015 Unknown COMPLETE BLOOD COUNT 7353453 ABS LYMPH 1.99 10e9/L 015 Unknown COMPLETE BLOOD COUNT 7121538 ABS MONO 0.52 10e9/L 015 Unknown COMPLETE BLOOD COUNT 4507210 ABS EOS 0.17 10e9/L 015 Unknown COMPLETE BLOOD COUNT 7345192 ABS BASO 0.02 10e9/L 015 Unknown COMPLETE BLOOD COUNT 2136918 RDW-SD 47.0 fL 5 Unknown COMPREHENSIVE METABOLIC 33921 AST 20 U/L 2014 Unknown COMPREHENSIVE METABOLIC 82231 ALT 30 IU/L 2014 Unknown COMPREHENSIVE METABOLIC 13464 BUN 12 MG/DL 2014 Unknown COMPREHENSIVE METABOLIC 77496 ALBUMIN 4.4 GM/DL 2014 Unknown COMPREHENSIVE METABOLIC 81695 CHLORIDE 102 MMOL/L 01/07 Unknown COMPREHENSIVE METABOLIC 52644 BILI TOT 0.6 MG/DL 2014 Unknown COMPREHENSIVE METABOLIC 20802 ALK PHOS 76 U/L 2014 Unknown COMPREHENSIVE METABOLIC 12730 SODIUM 139 MMOL/L 01/07 Unknown COMPREHENSIVE METABOLIC 87636 CREATININE 0.77 MG/DL 10/2014 Unknown COMPREHENSIVE METABOLIC 26891 CALCIUM 9.2 MG/DL 2014 Unknown COMPREHENSIVE METABOLIC 41299 POTASSIUM 4.1 MMOL/L 01/07 Unknown COMPREHENSIVE METABOLIC 67194 PROT TOT 7.1 GM/DL 2014 Unknown COMPREHENSIVE METABOLIC 18108 Glucose 107 MG/DL 2014 Unknown COMPREHENSIVE METABOLIC 21424 BICARB 30 MMOL/L 2014 Unknown COMPREHENSIVE METABOLIC 81609 ANION GAP 7 MEQ/L 2014 Unknown LIPID GROUP 69319 HDL TEST 48 MG/DL 07/22/2013 Unknown LIPID GROUP 12673 TRIG 176 MG/DL 07/22/2013 Unknown LIPID GROUP 77248 TEST LDL 161 MG/DL 07/22/2013 Unknown LIPID GROUP 33180 CHOL 244 MG/DL 07/22/2013 Unknown LIPID GROUP 25172 RCHOL/HDL 5.08 RATIO 07/22/2013 Unknow n COMPLETE BLOOD COUNT 0245025 WBC 5.8 10e9/L 07/22/20 13 Unknown COMPLETE BLOOD COUNT 7667260 RBC 4.45 10e12/L 2012 Unknown COMPLETE BLOOD COUNT 8557885 HGB 14.6 g/dL 3 Unknown COMPLETE BLOOD COUNT 3059249 HCT DET 43.8 % 3 Unknown COMPLETE BLOOD COUNT 2812141 MCV 98.4 fL 3 Unknown COMPLETE BLOOD COUNT 5267685 MCH 32.8 pg 3 Unknown COMPLETE BLOOD COUNT 2375412 MCHC 33.3 g/dL 3 Unknown COMPLETE BLOOD COUNT 7533859 PLT 270 10e9/L 07/22/20 13 Unknown COMPLETE BLOOD COUNT 4214278 MPV 11.4 fL 3 Unknown COMPLETE BLOOD COUNT 6079425 PRITI % 54.2 % 3 Unknown COMPLETE BLOOD COUNT 9322056 LY % 33.2 % 3 Unknown COMPLETE BLOOD COUNT 0597467 MON % 9.2 % 3 Unknown COMPLETE BLOOD COUNT 9014221 EOS % 3.1 % 3 Unknown COMPLETE BLOOD COUNT 8217943 BASO % 0.3 % 3 Unknown COMPLETE BLOOD COUNT 8175739 RDW 13.8 % 3 Unknown COMPLETE BLOOD COUNT 4571754 ABS PRITI 3.14 10e9/L 013 Unknown COMPLETE BLOOD COUNT 1644739 ABS LYMPH 1.93 10e9/L 013 Unknown COMPLETE BLOOD COUNT 6652759 ABS MONO 0.53 10e9/L 013 Unknown COMPLETE BLOOD COUNT 4842028 ABS EOS 0.18 10e9/L 013 Unknown COMPLETE BLOOD COUNT 3710892 ABS BASO 0.02 10e9/L 013 Unknown COMPLETE BLOOD COUNT 9595890 RDW-SD 48.4 fL 3 Unknown GFR CALC 3751984 GFR AA >60 ML/MIN 07/22/2013 Unknown GFR CALC 4465216 GFR NON-AA >60 ML/MIN 07/22/2013 Unknown THYROID STIMULATING HORMONE 81164 TSH 1.645 uIU/ML 07/22/2013 Unknown COMPREHENSIVE METABOLIC 92779 AST 23 U/L 2012 Unknown COMPREHENSIVE METABOLIC 24444 ALT 30 IU/L 2012 Unknown COMPREHENSIVE METABOLIC 68368 BUN 12 MG/DL 2012 Unknown COMPREHENSIVE METABOLIC 13942 ALBUMIN 4.7 GM/DL 2012 Unknown COMPREHENSIVE METABOLIC 46881 CHLORIDE 102 MMOL/L 07/22 Unknown COMPREHENSIVE METABOLIC 86992 BILI TOT 0.5 MG/DL 2012 Unknown COMPREHENSIVE METABOLIC 95708 ALK PHOS 51 U/L 2012 Unknown COMPREHENSIVE METABOLIC 65534 SODIUM 136 MMOL/L 07/22 Unknown COMPREHENSIVE METABOLIC 64931 CREATININE 0.74 MG/DL 07/07 Unknown COMPREHENSIVE METABOLIC 88603 CALCIUM 9.2 MG/DL 2012 Unknown COMPREHENSIVE METABOLIC 34949 POTASSIUM 4.1 MMOL/L 07/22 Unknown COMPREHENSIVE METABOLIC 65033 PROT TOT 7.1 GM/DL 2012 Unknown COMPREHENSIVE METABOLIC 31321 Glucose 107 MG/DL 2012 Unknown COMPREHENSIVE METABOLIC 15580 BICARB 29 MMOL/L 2012 Unknown COMPREHENSIVE METABOLIC 26458 ANION GAP 5 MEQ/L 2012 Unknown FREE T4 68125 FREE T4 0.98 NG/DL 07/22/2013 Unknown COMPLETE BLOOD COUNT 6438205 WBC 4.4 10e9/L 06/11/20 12 Unknown COMPLETE BLOOD COUNT 3661103 RBC 4.18 10e12/L 2011 Unknown COMPLETE BLOOD COUNT 0164054 HGB 13.5 g/dL 2 Unknown COMPLETE BLOOD COUNT 9972613 HCT DET 39.9 % 2 Unknown COMPLETE BLOOD COUNT 0476777 MCV 95.5 fL 2 Unknown COMPLETE BLOOD COUNT 7727386 MCH 32.3 pg 2 Unknown COMPLETE BLOOD COUNT 2471781 MCHC 33.8 g/dL 2 Unknown COMPLETE BLOOD COUNT 5432399 PLT 232 10e9/L 06/11/20 12 Unknown COMPLETE BLOOD COUNT 9512833 MPV 11.3 fL 2 Unknown COMPLETE BLOOD COUNT 2441492 PRITI % 46.4 % 2 Unknown COMPLETE BLOOD COUNT 9810149 LY % 36.4 % 2 Unknown COMPLETE BLOOD COUNT 1351239 MON % 10.5 % 2 Unknown COMPLETE BLOOD COUNT 3343361 EOS % 6.2 % 2 Unknown COMPLETE BLOOD COUNT 2868126 BASO % 0.5 % 2 Unknown COMPLETE BLOOD COUNT 2660131 RDW 13.1 % 2 Unknown COMPLETE BLOOD COUNT 2707923 ABS PRITI 2.04 10e9/L 012 Unknown COMPLETE BLOOD COUNT 6909997 ABS LYMPH 1.60 10e9/L 012 Unknown COMPLETE BLOOD COUNT 1085665 ABS MONO 0.46 10e9/L 012 Unknown COMPLETE BLOOD COUNT 5658419 ABS EOS 0.27 10e9/L 012 Unknown COMPLETE BLOOD COUNT 7789354 ABS BASO 0.02 10e9/L 012 Unknown COMPLETE BLOOD COUNT 8607989 RDW-SD 44.2 fL 2 Unknown THYROID STIMULATING HORMONE 78834 TSH 1.766 uIU/ML 06/11/2012 Unknown COMPREHENSIVE METABOLIC 61465 AST 20 U/L 2011 Unknown COMPREHENSIVE METABOLIC 57287 ALT 23 IU/L 2011 Unknown COMPREHENSIVE METABOLIC 51118 BUN 10 MG/DL 2011 Unknown COMPREHENSIVE METABOLIC 17669 ALBUMIN 4.3 GM/DL 2011 Unknown COMPREHENSIVE METABOLIC 05725 CHLORIDE 103 MMOL/L 06/11 Unknown COMPREHENSIVE METABOLIC 48325 BILI TOT 0.4 MG/DL 2011 Unknown COMPREHENSIVE METABOLIC 19923 ALK PHOS 52 U/L 2011 Unknown COMPREHENSIVE METABOLIC 10576 SODIUM 138 MMOL/L 06/11 Unknown COMPREHENSIVE METABOLIC 70651 CREATININE 0.74 MG/DL 12/2011 Unknown COMPREHENSIVE METABOLIC 62668 CALCIUM 8.8 MG/DL 2011 Unknown COMPREHENSIVE METABOLIC 18734 POTASSIUM 3.7 MMOL/L 06/11 Unknown COMPREHENSIVE METABOLIC 20658 PROT TOT 6.9 GM/DL 2011 Unknown COMPREHENSIVE METABOLIC 99302 Glucose 105 MG/DL 2011 Unknown COMPREHENSIVE METABOLIC 46271 BICARB 29 MMOL/L 2011 Unknown COMPREHENSIVE METABOLIC 43238 ANION GAP 6 MEQ/L 2011 Unknown FREE T4 25285 FREE T4 0.93 NG/DL 06/11/2012 Unknown LIPID GROUP 46498 HDL TEST 39 MG/DL 06/11/2012 Unknown LIPID GROUP 60172 TRIG 243 MG/DL 06/11/2012 Unknown LIPID GROUP 33719 TEST LDL 159 MG/DL 06/11/2012 Unknown LIPID GROUP 01445 CHOL 247 MG/DL 06/11/2012 Unknown LIPID GROUP 81820 RCHOL/HDL 6.33 RATIO 06/11/2012 Unknow n GFR CALC 5100605 GFR AA >60 ML/MIN 06/11/2012 Unknown GFR CALC 1443542 GFR NON-AA >60 ML/MIN 06/11/2012 Unknown VITAMIN D TOTAL (25 HYDROXY) 01555 VIT D TOTL 19 NG/ML 03/04/2011 Unknown COMPLETE BLOOD COUNT 95089 WBC 8.0 10e9/L 03/03/20 11 Unknown COMPLETE BLOOD COUNT 60051 RBC 4.62 10e12/L 2010 Unknown COMPLETE BLOOD COUNT 43489 HGB 14.9 g/dL 1 Unknown COMPLETE BLOOD COUNT 19675 HCT DET 43.6 % 1 Unknown COMPLETE BLOOD COUNT 63217 MCV 94.4 fL 1 Unknown COMPLETE BLOOD COUNT 31592 MCH 32.3 pg 1 Unknown COMPLETE BLOOD COUNT 01144 MCHC 34.2 g/dL 1 Unknown COMPLETE BLOOD COUNT 68596 PLT 236 10e9/L 03/03/20 11 Unknown COMPLETE BLOOD COUNT 14891 MPV 11.0 fL 1 Unknown COMPLETE BLOOD COUNT 51016 PRITI % 66.3 % 1 Unknown COMPLETE BLOOD COUNT 62586 LY % 20.7 % 1 Unknown COMPLETE BLOOD COUNT 39144 MON % 9.2 % 1 Unknown COMPLETE BLOOD COUNT 70708 EOS % 3.5 % 1 Unknown COMPLETE BLOOD COUNT 54817 BASO % 0.3 % 1 Unknown COMPLETE BLOOD COUNT 31078 RDW 13.5 % 1 Unknown COMPLETE BLOOD COUNT 20438 ABS PRITI 5.30 10e9/L 011 Unknown COMPLETE BLOOD COUNT 50546 ABS LYMPH 1.66 10e9/L 011 Unknown COMPLETE BLOOD COUNT 63571 ABS MONO 0.74 10e9/L 011 Unknown COMPLETE BLOOD COUNT 09332 ABS EOS 0.28 10e9/L 011 Unknown COMPLETE BLOOD COUNT 58973 ABS BASO 0.02 10e9/L 011 Unknown COMPLETE BLOOD COUNT 17259 RDW-SD 45.1 fL 1 Unknown THYROID STIMULATING HORMONE 36564 TSH 1.944 uIU/ML 03/03/2011 Unknown FREE T4 29422 FREE T4 1.04 NG/DL 03/03/2011 Unknown LIPID GROUP 49697 HDL TEST 50 MG/DL 03/03/2011 Unknown LIPID GROUP 24861 TRIG 246 MG/DL 03/03/2011 Unknown LIPID GROUP 44958 TEST LDL 213 MG/DL 03/03/2011 Unknown LIPID GROUP 05057 CHOL 312 MG/DL 03/03/2011 Unknown LIPID GROUP 83210 RCHOL/HDL 6.24 RATIO 03/03/2011 Unknow n GFR CALC 1928219 GFR AA >60 ML/MIN 03/03/2011 Unknown GFR CALC 3078327 GFR NON-AA >60 ML/MIN 03/03/2011 Unknown COMPREHENSIVE METABOLIC 56270 AST 15 U/L 2010 Unknown COMPREHENSIVE METABOLIC 98311 ALT 21 IU/L 2010 Unknown COMPREHENSIVE METABOLIC 92729 BUN 14 MG/DL 2010 Unknown COMPREHENSIVE METABOLIC 49178 ALBUMIN 4.5 GM/DL 2010 Unknown COMPREHENSIVE METABOLIC 97689 CHLORIDE 99 MMOL/L 2010 Unknown COMPREHENSIVE METABOLIC 23220 BILI TOT 0.6 MG/DL 2010 Unknown COMPREHENSIVE METABOLIC 00535 ALK PHOS 55 U/L 2010 Unknown COMPREHENSIVE METABOLIC 23152 SODIUM 134 MMOL/L 03/03 Unknown COMPREHENSIVE METABOLIC 32633 CREATININE 0.80 MG/DL 02/05 Unknown COMPREHENSIVE METABOLIC 47564 CALCIUM 9.4 MG/DL 2010 Unknown COMPREHENSIVE METABOLIC 46058 POTASSIUM 4.0 MMOL/L 03/03 Unknown COMPREHENSIVE METABOLIC 85967 PROT TOT 7.4 GM/DL 2010 Unknown COMPREHENSIVE METABOLIC 40912 Glucose 101 MG/DL 2010 Unknown COMPREHENSIVE METABOLIC 33702 BICARB 28 MMOL/L 2010 Unknown COMPREHENSIVE METABOLIC 75898 ANION GAP 7 MEQ/L 2010 Unknown Procedures Procedure Codes Date ROUTINE VENIPUNCTURE CPT-4: 71146 02/04/2020 ASSAY OF FREE THYROXINE CPT-4: 25117 02/04/2020 ASSAY THYROID STIM HORMONE CPT-4: 15757 02/04/2020 COMPREHEN METABOLIC PANEL CPT-4: 64269 02/04/2020 COMPLETE CBC W/AUTO DIFF WBC CPT-4: 90904 02/04/2020 LIPID PANEL CPT-4: 72746 02/04/2020 TB INTRADERMAL TEST CPT-4: 27479 03/19/2018 Removal impacted cerumen using irrigation/lavage, unilateral CPT-4: 03740 02/23/2018 ROUTINE VENIPUNCTURE CPT-4: 83657 09/04/2017 ASSAY THYROID STIM HORMONE CPT-4: 47149 09/04/2017 ASSAY OF FREE THYROXINE CPT-4: 76777 09/04/2017 COMPREHEN METABOLIC PANEL CPT-4: 15635 09/04/2017 COMPLETE CBC W/AUTO DIFF WBC CPT-4: 83827 09/04/2017 LIPID PANEL CPT-4: 38203 09/04/2017 ROUTINE VENIPUNCTURE CPT-4: 66375 01/07/2015 ASSAY OF FREE THYROXINE CPT-4: 31316 01/07/2015 ASSAY THYROID STIM HORMONE CPT-4: 24479 01/07/2015 COMPREHEN METABOLIC PANEL CPT-4: 04419 01/07/2015 COMPLETE CBC W/AUTO DIFF WBC CPT-4: 64417 01/07/2015 LIPID PANEL CPT-4: 31897 01/07/2015 EXC TR-EXT B9+CECILIO 0.5 CM< CPT-4: 37933 08/06/2013 ROUTINE VENIPUNCTURE CPT-4: 15748 07/22/2013 ASSAY OF FREE THYROXINE CPT-4: 74623 07/22/2013 ASSAY THYROID STIM HORMONE CPT-4: 72261 07/22/2013 COMPREHEN METABOLIC PANEL CPT-4: 65400 07/22/2013 COMPLETE CBC W/AUTO DIFF WBC CPT-4: 18582 07/22/2013 LIPID PANEL CPT-4: 84256 07/22/2013 INFLUENZA ASSAY W/OPTIC CPT-4: 23675 11/07/2012 ROUTINE VENIPUNCTURE CPT-4: 20133 06/11/2012 ASSAY OF FREE THYROXINE CPT-4: 59418 06/11/2012 ASSAY THYROID STIM HORMONE CPT-4: 42382 06/11/2012 COMPREHEN METABOLIC PANEL CPT-4: 10332 06/11/2012 COMPLETE CBC W/AUTO DIFF WBC CPT-4: 35936 06/11/2012 LIPID PANEL CPT-4: 32547 06/11/2012 ROUTINE VENIPUNCTURE CPT-4: 33985 03/03/2011 ASSAY OF FREE THYROXINE CPT-4: 30043 03/03/2011 ASSAY THYROID STIM HORMONE CPT-4: 85013 03/03/2011 COMPREHEN METABOLIC PANEL CPT-4: 54454 03/03/2011 COMPLETE CBC W/AUTO DIFF WBC CPT-4: 14289 03/03/2011 LIPID PANEL CPT-4: 91248 03/03/2011 VITAMIN D TOTAL (25 HYDROXY) CPT-4: 65100 03/03/2011 Vital Signs Date Vital 02/23/2018 Blood Pressure 1: 132/84 Code: 8480-6 BMI: 31.6 Code: 40390-7 Heart Rate 1: 76 bpm Height: 5'6" Respiratory Rate: 20 bpm SpO2: 98% Tempera ture: 36.9 (C) / 98.4 (F) Weight: 199 lbs 09/07/2017 Blood Pressure 1: 126/78 Code: 8480-6 BMI: 30.5 Code: 53397-1 Heart Rate 1: 80 bpm Height: 5'6" Respiratory Rate: 20 bpm SpO2: 98% Tempera ture: 37.2 (C) / 98.9 (F) Weight: 192 lbs 01/12/2015 Blood Pressure 1: 132/74 Code: 8480-6 BMI: 29.4 Code: 28271-4 Heart Rate 1: 92 bpm Height: 5'6" Respiratory Rate: 20 bpm Temperature: 36 .7 (C) / 98.1 (F) Weight: 185 lbs 08/06/2013 Blood Pressure 1: 114/80 Code: 8480-6 BMI: 30.7 Code: 66527-3 Heart Rate 1: 80 bpm Height: 5'6" Respiratory Rate: 20 bpm Temperature: 37 .2 (C) / 99.0 (F) Weight: 193 lbs 07/24/2013 Blood Pressure 1: 124/68 Code: 8480-6 BMI: 30.7 Code: 83303-1 Heart Rate 1: 80 bpm Height: 5'6" Respiratory Rate: 20 bpm Temperature: 36 .9 (C) / 98.5 (F) Weight: 193 lbs 06/13/2013 Blood Pressure 1: 124/70 Code: 8480-6 BMI: 31.8 Code: 56764-3 Heart Rate 1: 88 bpm Height: 5'6" Respiratory Rate: 20 bpm Temperature: 36 .8 (C) / 98.2 (F) Weight: 200 lbs 05/15/2013 Blood Pressure 1: 120/80 Code: 8480-6 BMI: 30.8 Code: 03781-0 Heart Rate 1: 82 bpm Height: 5'6" Respiratory Rate: 22 bpm Temperature: 36 .2 (C) / 97.1 (F) Weight: 194 lbs 11/07/2012 Blood Pressure 1: 146/88 Code: 8480-6 BMI: 31.0 Code: 14281-4 Heart Rate 1: 108 bpm Height: 5'7" Respiratory Rate: 20 bpm SpO2: 95% Tempera ture: 38.2 (C) / 100.8 (F) Weight: 198 lbs 09/18/2012 Blood Pressure 1: 114/76 Code: 8480-6 Heart Rate 1: 88 bpm Respiratory Rate: 20 bpm Temperature: 37.1 (C) / 98.8 (F) Weight: 195 lbs 06/13/2012 Blood Pressure 1: 110/64 Code: 8480-6 BMI: 30.4 Code: 66041-4 Heart Rate 1: 64 bpm Height: 5'7" Temperature: 36.9 (C) / 98.4 (F) Weight: 194 lbs 12/21/2011 Blood Pressure 1: 116/80 Code: 8480-6 BMI: 30.7 Code: 69929-8 Heart Rate 1: 72 bpm Height: 5'7" Respiratory Rate: 20 bpm Temperature: 37 .0 (C) / 98.6 (F) Weight: 196 lbs 09/28/2011 Blood Pressure 1: 116/78 Code: 8480-6 BMI: 29.6 Code: 09087-2 Heart Rate 1: 88 bpm Height: 5'7" Respiratory Rate: 20 bpm Temperature: 36 .9 (C) / 98.5 (F) Weight: 189 lbs 04/06/2011 Blood Pressure 1: 132/80 Code: 8480-6 Heart Rate 1: 72 bpm Respiratory Rate: 20 bpm Temperature: 37.2 (C) / 99.0 (F) Weight: 185 lbs 03/03/2011 Blood Pressure 1: 114/80 Code: 8480-6 BMI: 29.6 Code: 32645-4 Heart Rate 1: 80 bpm Height: 5'7" [...] Visit Encounters Encounter Performer Location Codes Date ([id number]) NURSE/OUTPATIENT VISIT EST Diagnosis: Encounter for general adult medical examination without abnormal findings[ICD10: Z00.00] Diagnosis: Malaise and fatigue[ICD10: R53.81] Diagnosis: Mixed hyperlipidemia[ICD10: E78.2] Ophelia CALZADA CPT-4: 08805 02/04/2020 ([id number]) NURSE/OUTPATIENT VISIT EST Diagnosis: SCREENING-PULMONARY TB[ICD10: Z11.1] Ophelianaeem AGUILLON [employer] [facility] CPT-4: 52355 03/19/2018 OFFICE/OUTPATIENT VISIT EST Diagnosis: Allergic rhinitis, unspecified[ICD10: J30.9] Diagnosis: Impacted cerumen, right ear[ICD10: H61.21] Cassandra MahajanTigistJarrett AGUILLON DO [facility] CPT-4: 83627 02/23/2018 ([id number]) PREV VISIT EST AGE 40-64 Diagnosis: Encounter for general adult medical examination without abnormal findings[ICD10: Z00.00] Diagnosis: Mixed hyperlipidemia[ICD10: E78.2] Ophelia AGUILLON [employer] [facility] CPT-4: 01870 09/07/2017 ([id number]) OFFICE/OUTPATIENT VISIT EST Diagnosis: Encounter for general adult medical examination without abnormal findings[ICD10: Z00.00] Diagnosis: Mixed hyperlipidemia[ICD10: E78.2] Ophelia AGUILLON [facility] [facility] CPT-4: 19273 09/04/2017 ([id number]) PREV VISIT EST AGE 40-64 Diagnosis: ROUTINE MEDICAL EXAM[ICD9: V70.0] Diagnosis: HYPERLIPIDEMIA NEC/NOS[ICD9: 272.4] Diagnosis: ANXIETY STATE NOS[ICD9: 300.00] Ophelia AGUILLON [facility] [facility] CPT-4: 45344 01/12/2015 ([id number]) OFFICE/OUTPATIENT VISIT EST Diagnosis: ROUTINE MEDICAL EXAM[ICD9: V70.0] Diagnosis: MALAISE AND FATIGUE[ICD9: 780.79] Diagnosis: HYPERLIPIDEMIA NEC/NOS[ICD9: 272.4] Ophelia WILLIAMSON DIONNE Izaiah AGUILLON [employer] [facility] CPT-4: 27089 01/07/2015 ([id number]) PREV VISIT EST AGE 40-64 Diagnosis: ROUTINE MEDICAL EXAM[ICD9: V70.0] Diagnosis: HYPERLIPIDEMIA NEC/NOS[ICD9: 272.4] Diagnosis: ANXIETY STATE NOS[ICD9: 300.00] Ophelia AGUILLON [employer] [facility] CPT-4: 02086 07/24/2013 ([id number]) OFFICE/OUTPATIENT VISIT EST Diagnosis: HYPERLIPIDEMIA NEC/NOS[ICD9: 272.4] Diagnosis: ROUTINE MEDICAL EXAM[ICD9: V70.0] Ophelia AGUILLON DO [facility] CPT-4: 62449 07/22/2013 ([id number]) OFFICE/OUTPATIENT VISIT EST Diagnosis: BENIGN KACEY SKIN[ICD9: 216.9] Ophelia AGUILLON DO [facility] CPT-4: 51180 06/13/2013 ([id number]) OFFICE/OUTPATIENT VISIT EST Diagnosis: Nasal lesion[ICD9: 478.19] Diagnosis: Changing mole[ICD9: 216.9] Diagnosis: ALLERGIC RHINITIS[ICD9: 477.9] Ophelia AGUILLON DO [facility] CPT-4: 63163 05/15/2013 OFFICE/OUTPATIENT VISIT EST Diagnosis: COUGH[ICD9: 786.2] Diagnosis: FEBRILE ILLNESS[ICD9: 780.60] Diagnosis: SINUSITIS, ACUTE[ICD9: 461.9] Ophelia AGUILLON DO [facility] CPT-4: 98757 11/07/2012 OFFICE/OUTPATIENT VISIT EST Diagnosis: ACUTE STRESS REACT[ICD9: 308.9] Diagnosis: ANXIETY STATE NOS[ICD9: 300.00] Ophelia AGUILLON DO [facility] CPT-4: 19553 09/18/2012 ([id number]) PREV VISIT EST AGE 40-64 Diagnosis: ROUTINE MEDICAL EXAM[ICD9: V70.0] Diagnosis: HYPERLIPIDEMIA NEC/NOS[ICD9: 272.4] Diagnosis: ANXIETY STATE NOS[ICD9: 300.00] Ophelia AGUILLON DO [facility] CPT-4: 37603 06/13/2012 ([id number]) OFFICE/OUTPATIENT VISIT EST Diagnosis: ROUTINE MEDICAL EXAM[ICD9: V70.0] Ophelia AGUILLON DO [facility] CPT-4: 19469 06/11/2012 OFFICE/OUTPATIENT VISIT EST Diagnosis: INSOMNIA NOS[ICD9: 780.52] Diagnosis: ACUTE STRESS REACT[ICD9: 308.9] Diagnosis: Tinnitus[ICD9: 388.30] Diagnosis: HYPERLIPIDEMIA NEC/NOS[ICD9: 272.4] Ophelia TRUONG Izaiah DESOUZANDER DO [facility] CPT-4: 62308 12/21/2011 OFFICE/OUTPATIENT VISIT EST Diagnosis: ACUTE STRESS REACT[ICD9: 308.9] Ophelia CALZADA CPT-4: 60099 09/28/2011 OFFICE/OUTPATIENT VISIT EST Diagnosis: ACUTE STRESS REACT[ICD9: 308.9] Ophelia CALZADA CPT-4: 90631 04/06/2011 OFFICE/OUTPATIENT VISIT NEW Ophelia BALDWIN DO [facility] CPT- 4: 48661 03/03/2011 Plan of Care Planned Activity Notes Codes Status Date Appointment: Ophelia Aguillon WPtel: [phone] [facility] TB Test read 03/21/2018 Patient Education: Patient Medication Summary Completed 03/21/2018 Appointment: Ophelia Aguillon WPtel: [phone] [facility] US TB Test 03/19/2018 Patient Education: Patient [...] RTC 02/23/2018 Appointment: Cassandra Camejo WPtel: [phone] [facility] ACUTE ILLNESS 02/23/2018 Patient Education: Patient Medication Summary Completed 02/23/2018 Visit Diagnosis Plan: Encounter for gene [facility] adult medical examination without abnormal findings Discussion: Lab discussed Add Calcium wi th Vitamin D3 daily Continue walking and add yoga for weight bearing Praised lower cholesterol efforts Sees [employer]PER[employer] for [employer] and Mammogram up to date ICD-9 : V70.0 ICD-10 : Z00.00 09/07/2017 Appointment: Ophelia Aguillon WPtel: [address] [place], [place] [phone] [place] Annual Well Visit 09/07/2017 Patient Education: Patient Medication Summary Completed 09/07/2017 Appointment: Ophelia Aguillon WPtel: [address] [place], [place] [phone] [place] LAB 09/04/2017 Patient Education: Patient Medication Summary Completed 09/04/2017 Visit Plan: Lab discussed Schedule colon oscopy Keep meds same Defers statin and will add fish oil and aspirin 81mg daily with diet/exercise and recheck lipids in 4mos Sees SU[employer] next month Discussed is high risk for CAD due to family history and hyperlipidemia 01/12/2015 Appointment: Ophelia Aguillon WPtel: [address] [place] [address] confirmed -mf Annual Well Visit 01/12/2015 Patient Education: Patient Medication Summary Completed 01/12/2015 Appointment: Ophelia Aguillon WPtel: [address] [place] [address] LAB 01/07/2015 Patient Education: Patient Medication Summary Completed 01/07/2015 Appointment: Sarah Wong WPtel: [address] [place] [address] FOLLOW UP 02/26/2014 Appointment: Ophelia Aguillon WPtel: [address] [place], [place] [phone] 01/07 patient canceled FOLLOW UP 4 Visit Plan: Removal of lesion as above 08/06/2013 Appointment: Ophelia Aguillon WPtel: [address] [place], [place] [phone] OFFICE SURGERY 08/06/2013 Patient Education: Patient Medication Summary Completed 08/06/2013 Visit Plan: Daily fish oil 3grams, Vitam in D 1000u daily, Coenzyme Q-10 200mg daily Diet/exercise/weight loss Recheck lipids in 6mos Discussed statins Pt has mammo next month 07/24/2013 Appointment: Ophelia Aguillon WPtel: [address] [place], [place] [id number] 07/23 Annual Well Visit 07/24/2013 Patient Education: Patient Medication Summary Completed 07/24/2013 Appointment: Ophelia Aguillon WPtel: [address] [place], [place] [phone] [place] LAB 07/22/2013 Patient Education: Patient Medication Summary Completed 07/22/2013 Referral: Ophelia Aguillon WPtel: [address] [place], [place] [phone] Referral Initiated 06/17/2013 Visit Plan: Skin So Soft to right nasal area q HS next month then observe If something comes back then will see ENT for removal 06/13/2013 Appointment: Ophelia Aguillon WPtel: [address] [place], [place] [phone] 06/12 FOLLOW UP 06/13/2013 Patient Education: Patient Medication Summary Completed 06/13/2013 Visit Plan: Bactrim DS 1 po BID for 1wk, Prednisone 20mg po BID for 1wk Zyrtec daily If lesion persists will see Dr. Low for removal 05/15/2013 Appointment: Ophelia Aguillon WPtel: [address] [place], [place] [phone] 05/14 ACUTE ILLNESS 05/15/2013 Patient Education: Patient Medication Summary Completed 05/15/2013 Appointment: Ophelia Aguillon WPtel: [address] [place], [place] [phone] FOLLOW UP 12/13/2012 Visit Plan: Note for fever free 24 hours . Discussed fluids and rest. Clarified in verbal message that Levaquin should be QD dosing. Codeine/guiaf cough syrup. Flu test negative. Pt. to notify if symptoms worsen or fever persists. Discussed Rocephin IM and or lab/chest x-rays if symptoms persist. 11/07/2012 Appointment: Batsheva Bennett WPtel: [address] [place], [place] [phone] ACUTE ILLNESS 11/07/2012 Patient Education: Patient Medication Summary Completed 11/07/2012 Visit Plan: Continue fluoxetine at 30mg daily Stess Reducers 09/18/2012 Appointment: Ophelia Aguillontel: [address] [place], [place] [phone] FOLLOW UP 09/18/2012 Patient Education: Patient Medication Summary Completed 09/18/2012 Visit Plan: Increase fish oil to 3gm poonam ly Step 1 Cardiac Diet Repeat CMP and lipids in 6mos Pt has DCed Fluoxetine and so far doing okay Will focus on stress reducers 06/13/2012 Appointment: Ophelia Aguillon WPtel: [address] [place] [address] FOLLOW UP 06/13/2012 Patient Education: Patient Medication Summary Completed 06/13/2012 Appointment: Ophelia Aguillon WPtel: [address] [place] [address] US LAB 06/11/2012 Patient Education: Patient Medication Summary Completed 06/11/2012 Visit Plan: Decrease fluoxetine back to 30mg daily Check fasting lab in 3mos ENT for tinnitus/hearing loss 12/21/2011 Appointment: Ophelia Aguillontel: [address] [place] [address] FOLLOW UP 12/21/2011 Patient Education: Patient Medication Summary Completed 12/21/2011 Visit Plan: Increase fluoxetine to 40mg daily 09/28/2011 Appointment: Ophelia Aguillon WPtel: [address] [place] [address] [place] FOLLOW UP 09/28/2011 Patient Education: Patient Medication Summary Completed 09/28/2011 Visit Plan: Increase fluoxetine to 30mg daily Call in 2wks 04/06/2011 Appointment: Ophelia Aguillon WPtel: [address] [place] [address] FOLLOW UP 04/06/2011 Patient Education: Patient Medication Summary Completed 04/06/2011 Appointment: Ophelia Aguillon WPtel: [phone] [id number] US NEW PATIENT 03/03/2011 Patient Education: Patient Medication Summary Completed 03/03/2011 Referral: Saurabh Beatty WPtel: [phone] [id number] [place] Referral Completed Instructions Comment . Sofia [...] diet/exercise and recheck lipids in 4mos Sees SUPER[employer] next month Discussed is high risk for [...]
--- OUTSIDE RECORDS SUMMARY | 2020-03-06 17:14 | XMS REPORT | Continuity of Care Document ---
Author Organization Unknown Address Unknown Phone Unavailable Allergies Active Description Code Type Severity Reaction Onset Reported/Identified Relationship to Patient Clinical Status Yes PCN PCN Unknown N/A 02/02/2015 Yes SULFA SULFA Unknown N/A 02/02/2015 Yes Penicillins [id number] Drug Aller gy Mild RASH 02/27/2020 Yes Sulfa (Sulfonamide Antibiotics) [id number] Drug Allergy Mild RASH 0 Medications There is no data. Problems Date Dx Coded Attending Type Code Diagnosis Diagnosed By 07/06/1423 SHA IGLESIAS, MIGUEL Costa Ot Z01.812 ENCOUNTER FOR PREPROCEDURAL LABORATORY E 07/06/1423 MIGUEL DALTON MD Ot Z12. 11 ENCOUNTER FOR SCREENING FOR MALIGNANT NE 07/06/1423 MIGUEL DALTON MD Ot Z20.828 CONTACT W AND EXPOSURE TO OTH VIRAL COMM 07/06/1423 MIGUEL DALTON MD Ot Z80. 0 FAMILY HISTORY OF MALIGNANT NEOPLASM OF 07/06/1423 MIGUEL DALTON MD Ot Z88. 0 ALLERGY STATUS TO PENICILLIN 07/06/1423 MIGUEL DALTON MD Ot Z88. 2 ALLERGY STATUS TO SULFONAMIDES STATUS 02/02/2015 Ot V76.12 02/02/2015 Ot V76.12 02/02/2015 ELIESER CODY MD, Ot V76.12 02/02/2015 ANA LUISA ROSE MD Ot V72.84 02/02/2015 ANA LUISA ROSE MD Ot 272.4 HYPERLIPIDEMIA NEC/NOS 02/02/2015 ANA LUISA ROSE MD Ot 300.00 ANXIETY STATE NOS 02/02/2015 ANA LUISA ROSE MD Ot V16.0 FAMILY HX-GI MALIGNANCY 02/02/2015 MILTON IGLESIAS, ANA LUISA Alcantar Ot V76.51 SCREEN MAL NEOP-COLON 05/15/2015 Ot V76.12 05/15/2015 Ot V76.12 05/15/2015 ELIESER CODY MD, Ot V76.12 05/15/2015 ANA LUISA ROSE MD, Ot V72.84 06/01/2015 Ot V76.12 06/01/2015 Ot V76.12 06/01/2015 ESCOBAR IGLESIAS, ELIESER Ot V76.12 06/01/2015 MILTON IGLESIAS, ANA LUISA Alcantar Ot V72.84 07/16/2015 Ot V76.12 07/16/2015 Ot V76.12 07/16/2015 ESCOBAR IGLESIAS, ELIESER Ot V76.12 07/16/2015 MILTON IGLESIAS, ANA LUISA Alcantar Ot V72.84 08/11/2015 ESCOBAR IGLESIAS, ELIESER Joy Z12.31 08/11/2015 ELIESER CODY MD, Ot Z13.820 01/09/2017 Ot V76.12 OTH SCREEN MAMMO- MALIGN NEOPLASM OF GAIL 01/09/2017 ESCOBAR IGLESIAS, ELIESER Ot V76.12 OTH SCREEN MAMMO-MALIGN NEOPLASM OF GAIL 01/09/2017 MILTON IGLESIAS, ANA LUISA Alcantar Ot V72.84 EXAM PRE-OPERATIVE NOS 01/09/2017 ELIESER CODY MD Ot Z12.31 ENCNTR SCREEN MAMMOGRAM FOR MALIGNANT NE 01/09/2017 ELIESER CODY MD, Ot Z13.820 ENCOUNTER FOR SCREENING FOR OSTEOPOROSIS 03/20/2017 Ot V76.12 OTH SCREEN MAMMO- MALIGN NEOPLASM OF GAIL 03/20/2017 ELIESER CODY MD Ot V76.12 OTH SCREEN MAMMO-MALIGN NEOPLASM OF GAIL 03/20/2017 MILTON IGLESIAS, ANA LUISA Alcantar Ot V72.84 EXAM PRE-OPERATIVE NOS 03/20/2017 ELIESER CODY MD Ot Z12.31 ENCNTR SCREEN MAMMOGRAM FOR MALIGNANT NE 03/20/2017 ELIESER CODY MD Ot Z13.820 ENCOUNTER FOR SCREENING FOR OSTEOPOROSIS 04/11/2017 ELIESER CODY MD, Ot Z12.31 ENCNTR SCREEN MAMMOGRAM FOR MALIGNANT NE 10/23/2019 ELIESER CODY MD, Ot Z12.31 ENCNTR SCREEN MAMMOGRAM FOR MALIGNANT NE 10/23/2019 ELIESER CODY MD Ot Z13.820 ENCOUNTER FOR SCREENING FOR OSTEOPOROSIS 10/23/2019 ELIESER CODY MD Ot Z78.0 ASYMPTOMATIC MENOPAUSAL STATE 11/14/2019 ELIESER CODY MD, Ot Z12.31 ENCNTR SCREEN MAMMOGRAM FOR MALIGNANT NE 11/14/2019 ELIESER CODY MD Ot Z13.820 ENCOUNTER FOR SCREENING FOR OSTEOPOROSIS 11/14/2019 ELIESER CODY MD Ot Z78.0 ASYMPTOMATIC MENOPAUSAL STATE 02/04/2020 W E78.2 Mixe d hyperlipidemia Orender, Ophelia S. 02/04/2020 W R53.81 Mal aise and fatigue Orender, Ophelia S. 02/04/2020 W Z00.00 Enc ounter for general adult medical examination without abnormal findings Orender, Ophelia S. 02/04/2020 W E78.2 Mixe d hyperlipidemia Orender, Ophelia S. 02/04/2020 W R53.81 Mal aise and fatigue Orender, Ophelia S. 02/04/2020 W Z00.00 Enc ounter for general adult medical examination without abnormal findings Orender, Ophelia S. 02/06/2020 W E78.2 Mixe d hyperlipidemia Orender, Ophelia S. 02/06/2020 W J30.9 Steve rgic rhinitis due to allergen Orender, Ophelia S. 02/06/2020 W Z00.00 Enc ounter for general adult medical examination without abnormal findings Orender, Ophelia S. 02/06/2020 W E78.2 Mixe d hyperlipidemia Orender, Ophelia S. 02/06/2020 W J30.9 Steve rgic rhinitis due to allergen Orender, Ophelia S. 02/06/2020 W Z00.00 Enc ounter for general adult medical examination without abnormal findings Orender, Ophelia S. 03/03/2020 SHA IGLESIAS, MIGUEL Costa Ot Z01.812 ENCOUNTER FOR PREPROCEDURAL LABORATORY E 03/03/2020 MIGUEL DALTON MD Ot Z12. 11 ENCOUNTER FOR SCREENING FOR MALIGNANT NE 03/03/2020 MIGUEL DALTON MD Ot Z20.828 CONTACT W AND EXPOSURE TO OTH VIRAL COMM 03/03/2020 MIGULE DALTON MD Ot Z80. 0 FAMILY HISTORY OF MALIGNANT NEOPLASM OF 03/03/2020 MIGUEL DALTON MD Ot Z88. 0 ALLERGY STATUS TO PENICILLIN 03/03/2020 MIGUEL DALTON MD Ot Z88. 2 ALLERGY STATUS TO SULFONAMIDES STATUS 03/06/2020 ELIESER CODY MD Ot Z12.31 ENCNTR SCREEN MAMMOGRAM FOR MALIGNANT NE 03/06/2020 ELIESER CODY MD, Ot Z13.820 ENCOUNTER FOR SCREENING FOR OSTEOPOROSIS 03/06/2020 ELIESER CODY MD, Ot Z78.0 ASYMPTOMATIC MENOPAUSAL STATE Procedures There is no data. Results Test Result Range Coronavirus SARS-CoV-2 SO 2018 - 0 08:03 Coronavirus Ab [Units/volume] in Serum Not Detecte d Not Detecte Encounters ACCT No. Visit Date/Time Discharge Status Pt. Type Provider Facility Loc./Unit Complaint [id number] 08/21/2018 15:36:15 08/21/2018 23:59:5 9 CLS Outpatient [id number] 03/06/2020 09:45:00 020 10:35:00 DIS Outpatient MIGUEL DALTON MD [facility] ENDO SCREENING [id number] 03/03/2020 05:30:00 020 14:24:00 DIS Outpatient MIGUEL DALTON MD [facility] PREOP COLONOSCOPY [id number] 10/22/2019 08:52:00 020 23:59:59 CLS Outpatient ELIESER CODY MD [facility] RAD ASYMPTOMATIC MENOPAUSAL STATE,SCREENING [id number] 03/23/2017 07:32:00 017 23:59:59 CLS Outpatient ELIESER CODY MD [facility] RAD SCREENING [id number] 07/16/2015 10:56:00 015 23:59:59 CLS Outpatient ELIESER CODY MD [facility] RAD MAMMO SCREENING,OSTEOPR OSIS [id number] 02/02/2015 10:02:00 015 13:15:00 DIS Outpatient ANA LUISA ROSE MD [facility] SDC SCREENING [id number] 01/29/2015 06:31:00 015 23:59:59 CLS Outpatient ANA LUISA ROSE MD [facility] PREOP SCREENING [id number] 10/02/2013 09:59:00 014 23:59:59 CLS Outpatient ELIESER CODY MD [facility] RAD SCREENING [id number] 08/14/2012 09:26:00 Document Registration [id number] 08/09/2010 09:32:00 Document Registration
--- NOTE | 2020-03-06 17:25 | OPERATIVE REPORT ---
DATE OF SERVICE: COLONOSCOPY SUMMARY INDICATION FOR THE PROCEDURE: Screening. DESCRIPTION OF PROCEDURE: The patient was placed in the left lateral decubitus position. Prior to undergoing colonoscopy, digital rectal evaluation was performed. Anal sphincter tone was normal and the perianal reflexes intact. No abnormalities were noted on digital inspection of the anal canal or distal rectal vault. The colonoscope was then inserted into the rectum and under direct visualization advanced to the cecum. The cecum was identified by identification of the ileocecal valve and the cecal strap. Photographic documentation was obtained. Quality of prep was good. FINDINGS: There was no evidence for internal or external hemorrhoids and the rectum was unremarkable as was the sigmoid colon, descending colon, splenic flexure and transverse colon. One diminutive 3 mm sessile hyperplastic appearing polyp was noted at hepatic flexure, it was biopsied and ablated with no subsequent blood loss. The ascending colon and cecum were unremarkable. ASSESSMENT: One diminutive polyp was removed via hot forceps from the hepatic flexure with an otherwise normal colonoscopy to the cecum. Considering family history of colon cancer, we would advocate consideration for repeat surveillance colonoscopy in 5 years. I thank you for the referral of this pleasant lady. Job ID: [id number] DocumentID: [id number] Dictated Date: 03/06/2020 12:12:11 Research Assistant Date: 03/06/2020 17:25:01 Dictated By: MIGUEL DALTON MD
--- OUTSIDE RECORDS SUMMARY | 2020-03-06 17:25 | XMS REPORT | Continuity of Care Document ---
Author Organization Unknown Address Unknown Phone Unavailable Allergies Active Description Code Type Severity Reaction Onset Reported/Identified Relationship to Patient Clinical Status Yes PCN PCN Unknown N/A 02/02/2015 Yes SULFA SULFA Unknown N/A 02/02/2015 Yes Penicillins [id number] Drug Aller gy Mild RASH 02/27/2020 Yes Sulfa (Sulfonamide Antibiotics) [id number] 0491 Drug Allergy Mild RASH 0 Medications [...] SCREEN MAMMOGRAM FOR MALIGNANT NE 03/20/2017 ELIESER OCDY MD Ot Z13.820 ENCOUNTER FOR SCREENING FOR [...] AND EXPOSURE TO OTH VIRAL COMM 03/03/2020 MIGUEL DALTON MD Ot Z80. 0 FAMILY HISTORY OF MALIGNANT NEOPLASM OF 03/03/2020 MIGUEL DALTNO MD Ot Z88. 0 ALLERGY STATUS TO [...] 08/21/2018 15:36:15 08/21/2018 23:59:5 9 CLS Outpatient [id number] 03/06/2020 09:45:00 020 10:35:00 DIS Outpatient MIGUEL DALTON MD [facility] ENDO SCREENING [id number] 03/03/2020 05:30:00 020 14:24:00 DIS Outpatient MIGUEL DALTON MD [facility] PREOP COLONOSCOPY [id number] 10/22/2019 08:52:00 020 23:59:59 CLS Outpatient ELISEER CODY MD [facility] RAD ASYMPTOMATIC MENOPAUSAL STATE,SCREENING [id number] 03/23/2017 07:32:00 017 23:59:59 CLS Outpatient ELIESER CODY MD [facility] RAD SCREENING [id number] 07/16/2015 10:56:00 015 23:59:59 CLS Outpatient ELIESER CODY MD [facility] RAD MAMMO SCREENING,OSTEOPR OSIS [id number] 02/02/2015 10:02:00 015 13:15:00 DIS Outpatient ANA LUISA ROSE MD [facility] SDC SCREENING [id number] 01/29/2015 06:31:00 015 23:59:59 CLS Outpatient ANA LUISA ROSE MD [facility] PREOP SCREENING [id number] 10/02/2013 09:59:00 014 23:59:59 CLS Outpatient ELIESER CODY MD [facility] RAD SCREENING [id number] 08/14/2012 09:26:00 Document Registration [id number] 08/09/2010 09:32:00 Document Registration
== END 2020-03-06 10:35 | disposition home or self-care (01) ==
LOC: ENDO 09:45
PROVIDERS: ATTEND Internal Medicine
DX: Z12.11 Encounter for screening for malignant neoplasm of colon (principal); D12.3 Benign neoplasm of transverse colon; E78.5 Hyperlipidemia, unspecified; Z79.899 Other long term (current) drug therapy; Z80.0 Family history of malignant neoplasm of digestive organs; Z88.0 Allergy status to penicillin; Z88.2 Allergy status to sulfonamides
CPT/HCPCS: 88305

== ENCOUNTER → 2021-02-23 | Outpatient (CLI) | payer BC ==
[~2021-02-23] MED LIST changes: -LACTATED RINGERS 1,000 ML IV ONE; -LACTATED RINGERS 1,000 ML IV STA; -LIDOCAINE JELLY 2% 6 ML SYRINGE MM PRN; -LIDOCAINE JELLY 2% 6 ML SYRINGE ONE; -PROPOFOL INJECTION 50 ML IV ONE
--- NOTE | 2021-02-23 14:13 | Diagnostic Imaging Report ---
INDICATION: 2-D and 3-D digital screening with CAD. COMPARED: 10/2019, 03/2017 and 07/2015. FINDINGS: There are scattered fibroglandular densities in the breasts present. No mass. No suspicious mass, spiculated lesion, architectural distortion or suspicious calcifications. A few lymph nodes in the upper outer quadrant stable and chronic. IMPRESSION: Stable negative mammogram BI-RADS Category 1 ACR BI-RADS Category 1: Negative. Result letter will be mailed to the patient. Note: At least 10% of breast cancer is not imaged by mammography. Dictated by: Dictated on workstation # [id number]
== END ==
LOC: RAD 07:59
PROVIDERS: ATTEND Family Medicine
DX: Z12.31 Encounter for screening mammogram for malignant neoplasm of breast (principal)
CPT/HCPCS: 77063; 77067

== ENCOUNTER → 2022-03-11 | Outpatient (CLI) | payer BC ==
--- NOTE | 2022-03-11 12:04 | Diagnostic Imaging Report ---
INDICATION: Routine screening. COMPARISON is made with prior mammograms from 02/23/2021 and 10/22/2019. 2-D and 3-D bilateral screening mammography was performed with CAD. Scattered fibroglandular densities are identified bilaterally. Intraparenchymal lymph node in the outer right breast as well as the outer left breast are noted. A density in the central left breast on the CC view appears more prominent than prior exams. This may be superiorly located on the MLO view. Additional views are recommended for further evaluation. No malignant-appearing microcalcifications are seen. Axillae are unremarkable. IMPRESSION: BI-RADS 0 Left breast density. Additional views are recommended for further evaluation. ACR BI-RADS Category 0: Incomplete. (Needs additional imaging evaluation). Result letter will be mailed to the patient. Note: At least 10% of breast cancer is not imaged by mammography. Dictated by: Dictated on workstation # [id number]
== END ==
LOC: RAD 08:01
PROVIDERS: ATTEND Obstetrics & Gynecology
DX: Z12.31 Encounter for screening mammogram for malignant neoplasm of breast (principal)
CPT/HCPCS: 77063; 77067

== ENCOUNTER → 2022-03-16 | Outpatient (CLI) | payer BC ==
--- NOTE | 2022-03-16 13:24 | Diagnostic Imaging Report ---
INDICATION: Left breast density. Patient presents for additional views. COMPARISON: Correlation is made with the screening study from 03/11/2022. TECHNIQUE: Unilateral left 2D and 3D diagnostic mammography was performed. This included spot compression CC and ML views as well as conventional 90 degree lateral views. FINDINGS: Additional views fail to demonstrate a discrete mass. The area of density in the central left breast appears to represent superimposed fibroglandular tissue. No suspicious calcifications are seen. IMPRESSION: Additional views fail to demonstrate a discrete mass. The patient may return to routine annual screening mammography. ACR BI-RADS Category 1: Negative. Result letter will be mailed to the patient. Note: At least 10% of breast cancer is not imaged by mammography. Dictated by: Dictated on workstation # [id number]
== END ==
LOC: RAD 12:45
PROVIDERS: ATTEND Obstetrics & Gynecology
DX: N63.20 Unspecified lump in the left breast, unspecified quadrant (principal)
CPT/HCPCS: 77065; G0279

== ENCOUNTER → 2023-03-13 | Outpatient (CLI) | payer BC ==
--- NOTE | 2023-03-13 10:44 | Diagnostic Imaging Report ---
INDICATION: Routine screening. COMPARISON: 03/11/2022 and 02/23/2021. TECHNIQUE: 2D and 3D bilateral screening mammography was performed with CAD. FINDINGS: Scattered fibroglandular densities are identified bilaterally. The previously noted density in the central left breast on the CC view is less prominent on today's exam. There are intraparenchymal lymph nodes in the outer portions of both breasts which appear stable. No new mass or malignant-appearing microcalcifications are seen. Axillae are unremarkable. IMPRESSION: No mammographic features suspicious for malignancy are identified. ACR BI-RADS Category 2: Benign findings. Result letter will be mailed to the patient. Note: At least 10% of breast cancer is not imaged by mammography. Dictated by: Dictated on workstation # [id number]
== END ==
LOC: RAD 08:41
PROVIDERS: ATTEND Obstetrics & Gynecology
DX: Z12.31 Encounter for screening mammogram for malignant neoplasm of breast (principal)
CPT/HCPCS: 77063; 77067